=== PATIENT | male | born 1955 | race Two or more races ===

== ENCOUNTER 2017-04-08 07:50 | Emergency (ER) | payer OTHER ==
[~2017-04-08] VITALS: Ht 167.6 cm; Wt 70.5 kg
[2017-04-08 08:51] LABS: BASO % 0.4 % (0.0-1.0); EOS # 0.2 10^3/uL (0.0-0.50); EOS % 3.3 % (0.0-3.0); IMMATURE GRANULOCYTE % 0.4 % (0-0); LYMPH # 1.3 10^3/uL (1.5-4.5); LYMPH % 27.7 % (24.0-44.0); MEAN CORPUSCULAR HEMOGLOBIN 31.9 pg (27.0-33.0); MEAN CORPUSCULAR HGB CONC 32.9 g/dl (32.0-36.5); MEAN CORPUSCULAR VOLUME 96.8 fl (80.0-96.0); MONO # 0.4 10^3/uL (0.0-0.8); MONO % 7.9 % (0.0-5.0); NEUTROPHILS # 2.9 10^3/uL (1.8-7.7); NEUTROPHILS % 60.3 % (36.0-66.0); RED CELL DISTRIBUTION WIDTH 15.9 % (11.5-14.5); WHITE BLOOD COUNT 4.8 10^3/uL (4.0-10.0)
[2017-04-08 09:14] LABS: ANION GAP 6 MEQ/L (8-16); BLOOD UREA NITROGEN 22 MG/DL (7-18); CARBON DIOXIDE LEVEL 25 MEQ/L (21-32); CHLORIDE LEVEL 105 MEQ/L (98-107); CREATININE FOR GFR 1.11 MG/DL (0.70-1.30); GLOMERULAR FILTRATION RATE > 60.0 (>49); GLUCOSE, FASTING 111 MG/DL (80-110); POTASSIUM SERUM 4.3 MEQ/L (3.5-5.1); SODIUM LEVEL 136 MEQ/L (136-145)
[2017-04-08 09:40] LABS: PLATELET COUNT, AUTOMATED 66 10^3/uL (150-450); PLATELET F 66
[2017-04-08] MEDS ORDERED: PERCOCET 5MG/325MG TAB PO ONE (10:15)
[2017-04-08] MEDS ORDERED: AUGMENTIN 875 MG TAB PO ONE (12:00)
[2017-04-08] MEDS ORDERED: AUGM875T28 PO (12:09)
[2017-04-08] MEDS ORDERED: PERC5TAB12 PO (12:09)
[2017-04-08 12:47] VITALS: BP 133/66
== END 2017-04-08 12:50 | disposition home or self-care (01) ==
LOC: EDBD 07:50 → M ED 07:50
DX: L03.116 Cellulitis of left lower limb (principal); B19.20 Unspecified viral hepatitis C without hepatic coma; M67.40 Ganglion, unspecified site; Z86.73 Personal history of transient ischemic attack (TIA), and cerebral infarction without residual deficits; Z95.0 Presence of cardiac pacemaker; F17.210 Nicotine dependence, cigarettes, uncomplicated

== ENCOUNTER → 2017-04-13 | Outpatient (REF) | payer OTHER ==
[~2017-04-13] MED LIST: AUGM875T28 PO; PERC5TAB12 PO
== END ==
LOC: M SFHCPLAZ 16:59
PROVIDERS: ATTEND Family Medicine
DX: L03.116 Cellulitis of left lower limb (principal)

== ENCOUNTER → 2017-04-22 | Outpatient (REF) | payer MEDICAID, OTHER ==
[2017-04-22 20:08] LABS: ALBUMIN 3.2 GM/DL (3.2-5.2); ALBUMIN/GLOBULIN RATIO 0.65 (1.00-1.93); ALKALINE PHOSPHATASE 148 U/L (45-117); ALT/SGPT 64 U/L (12-78); ANION GAP 6 MEQ/L (8-16); AST/SGOT 59 U/L (7-37); BILIRUBIN,TOTAL 0.5 MG/DL (0.2-1.0); BLOOD UREA NITROGEN 23 MG/DL (7-18); CALCIUM LEVEL 9.1 MG/DL (8.8-10.2); CARBON DIOXIDE LEVEL 28 MEQ/L (21-32); CHLORIDE LEVEL 107 MEQ/L (98-107); CREATININE FOR GFR 1.09 MG/DL (0.70-1.30); GLOMERULAR FILTRATION RATE > 60.0 (>49); GLUCOSE, FASTING 88 MG/DL (80-110); POTASSIUM SERUM 4.9 MEQ/L (3.5-5.1); SODIUM LEVEL 141 MEQ/L (136-145); TOTAL PROTEIN 8.1 GM/DL (6.4-8.2)
== END ==
LOC: M SFHCPLAZ 14:01
PROVIDERS: ATTEND Family Medicine
DX: L03.116 Cellulitis of left lower limb (principal); Z86.73 Personal history of transient ischemic attack (TIA), and cerebral infarction without residual deficits; Z86.19 Personal history of other infectious and parasitic diseases

== ENCOUNTER → 2017-04-28 | Outpatient (REF) | payer OTHER | LOC: M LAB REF 12:31 | PROVIDERS: ATTEND Podiatrist Foot & Ankle Surgery | DX: L03.116 Cellulitis of left lower limb (principal) ==

== ENCOUNTER → 2017-06-19 | Outpatient (CLI) | payer OTHER | LOC: M LRY 14:30 | DX: Z01.818 Encounter for other preprocedural examination (principal); Z53.9 Procedure and treatment not carried out, unspecified reason ==

== ENCOUNTER → 2017-06-29 | Outpatient (REF) | payer OTHER ==
[2017-06-29 13:22] LABS: EOS # 0.1 10^3/uL (0.0-0.50); EOS % 6.6 % (0.0-3.0); HEMOGLOBIN 11.7 g/dl (14.0-18.0); LYMPH # 0.8 10^3/uL (1.5-4.5); LYMPH % 42.9 % (24.0-44.0); MEAN CORPUSCULAR HEMOGLOBIN 32.3 pg (27.0-33.0); MEAN CORPUSCULAR HGB CONC 33.4 g/dl (32.0-36.5); MEAN CORPUSCULAR VOLUME 96.7 fl (80.0-96.0); MONO # 0.2 10^3/uL (0.0-0.8); MONO % 9.2 % (0.0-5.0); NEUTROPHILS % 40.3 % (36.0-66.0); RED BLOOD COUNT 3.62 10^6/uL (4.30-6.10); RED CELL DISTRIBUTION WIDTH 17.7 % (11.5-14.5)
[2017-06-29 13:27] LABS: NEUTROPHILS # 0.8 10^3/uL (1.8-7.7); POS COUNT POS FLAG; POSITIVE DIFF POS FLAG
[2017-06-29 13:28] LABS: PLATELET COUNT, AUTOMATED 55 10^3/uL (150-450)
[2017-06-29 13:29] LABS: IMMATURE PLATELET FRACTION % 9.5 % (0.0-10.9); PLATELET F 48
[2017-06-29 13:40] LABS: INR 1.15; PROTHROMBIN TIME 14.9 SECONDS (12.4-14.5)
[2017-06-29 14:13] LABS: TESTOSTERONE 373 NG/DL (241-827)
[2017-06-29 14:13] LABS: ALBUMIN 3.2 GM/DL (3.2-5.2); ALBUMIN/GLOBULIN RATIO 0.68 (1.00-1.93); ALKALINE PHOSPHATASE 169 U/L (45-117); ALT/SGPT 53 U/L (12-78); ANION GAP 6 MEQ/L (8-16); AST/SGOT 56 U/L (7-37); BILIRUBIN,TOTAL 0.4 MG/DL (0.2-1.0); BLOOD UREA NITROGEN 20 MG/DL (7-18); CALCIUM LEVEL 8.9 MG/DL (8.8-10.2); CARBON DIOXIDE LEVEL 27 MEQ/L (21-32); CHLORIDE LEVEL 108 MEQ/L (98-107); CREATININE FOR GFR 0.83 MG/DL (0.70-1.30); GLOMERULAR FILTRATION RATE > 60.0 (>49); GLUCOSE, FASTING 92 MG/DL (70-100); POTASSIUM SERUM 4.7 MEQ/L (3.5-5.1); SODIUM LEVEL 141 MEQ/L (136-145); TOTAL 25(OH) VITAMIN D 28.8 NG/ML (30.0-100.0); TOTAL PROTEIN 7.9 GM/DL (6.4-8.2)
[2017-06-29 14:14] LABS: HEPATITIS B SURFACE ANTIBODY NEGATIVE (POSITIVE)
[2017-06-29 14:16] LABS: FREE T4 1.22 NG/DL (0.76-1.46)
[2017-06-29 14:24] LABS: HEPATITIS B SURFACE ANTIGEN NEGATIVE (NEGATIVE)
[2017-06-30 10:03] LABS: ALPHA FETOPROTEIN TUMOR QUANT 26.4 NG/ML (<8.1)
[2017-07-01 08:06] LABS: HEPATITIS A IgG TOTAL Positive (Negative)
[2017-07-01 08:06] LABS: HEPATITIS B CORE ANTIBODY IGG Negative (Negative)
== END ==
LOC: M SFHCPLAZ 11:50
DX: B18.2 Chronic viral hepatitis C (principal)

== ENCOUNTER → 2017-07-06 | Outpatient (CLI) | payer OTHER | LOC: M RAD 08:00 | DX: B18.2 Chronic viral hepatitis C (principal); N28.1 Cyst of kidney, acquired | CPT/HCPCS: 76705 ==

== ENCOUNTER → 2017-07-07 | Outpatient (CLI) | payer OTHER ==
[2017-07-07 18:03] LABS: HEMATOCRIT 35.6 % (42.0-52.0); HEMOGLOBIN 11.9 g/dl (14.0-18.0); MEAN CORPUSCULAR HEMOGLOBIN 32.3 pg (27.0-33.0); MEAN CORPUSCULAR HGB CONC 33.4 g/dl (32.0-36.5); MEAN CORPUSCULAR VOLUME 96.7 fl (80.0-96.0); RED BLOOD COUNT 3.68 10^6/uL (4.30-6.10); RED CELL DISTRIBUTION WIDTH 17.5 % (11.5-14.5); WHITE BLOOD COUNT 2.7 10^3/uL (4.0-10.0)
[2017-07-07 18:18] LABS: PLATELET COUNT, AUTOMATED 67 10^3/uL (150-450)
[2017-07-07 18:19] LABS: IMMATURE PLATELET FRACTION % 6.9 % (0.0-10.9)
[2017-07-07 19:22] LABS: ANION GAP 9 MEQ/L (8-16); BLOOD UREA NITROGEN 20 MG/DL (7-18); CALCIUM LEVEL 8.8 MG/DL (8.8-10.2); CARBON DIOXIDE LEVEL 24 MEQ/L (21-32); CHLORIDE LEVEL 106 MEQ/L (98-107); CREATININE FOR GFR 0.93 MG/DL (0.70-1.30); GLOMERULAR FILTRATION RATE > 60.0 (>49); GLUCOSE, FASTING 97 MG/DL (70-100); POTASSIUM SERUM 4.1 MEQ/L (3.5-5.1); SODIUM LEVEL 139 MEQ/L (136-145)
== END ==
LOC: M LRY 12:56
DX: Z01.818 Encounter for other preprocedural examination (principal); M67.472 Ganglion, left ankle and foot (principal)
CPT/HCPCS: 80048

== ENCOUNTER → 2017-07-08 | Outpatient (CLI) | payer OTHER | LOC: M RAD 12:41 | DX: F17.210 Nicotine dependence, cigarettes, uncomplicated (principal) | CPT/HCPCS: G0297 ==

== ENCOUNTER 2017-07-29 11:35 | Day surgery (SDC) | payer OTHER ==
[2017-07-29] MEDS: LR 1,000 ML IV (13:00)
[2017-07-29] MEDS ORDERED: ONDANSETRON 4MG/2ML VIAL (J2405) As Ordered (14:02)
[2017-07-29] MEDS ORDERED: PROPOFOL 200 MG/20 ML VIAL As Ordered (14:02)
[2017-07-29] MEDS ORDERED: LIDOCAINE 2% INJ 100 MG/5 ML SDV (FOR ANES.) As Ordered (14:02)
[2017-07-29] MEDS ORDERED: MIDAZOLAM INJ 2 MG/2 ML VIAL (J2250) As Ordered (14:03)
[2017-07-29] MEDS ORDERED: fentaNYL 100 MCG/2 ML INJECTION (J3010) As Ordered (14:03)
[2017-07-29] MEDS: LIDOCAINE 1% MDV 20ML VIAL As Ordered (15:00)
[2017-07-29] MEDS: BUPIVACAINE HCL 0.5% 10 ML VIAL As Ordered (15:00)
[2017-07-29] MEDS: dexameTHASONE 4 MG/ML 1ML VIAL (J1100) As Ordered (15:14)
[2017-07-29] MEDS ORDERED: fentaNYL 100 MCG/2 ML INJECTION (J3010) IV (16:00)
[2017-07-29] MEDS ORDERED: PERCOCET 5MG/325MG TAB PO (16:00)
[2017-07-29] MEDS ORDERED: LR 1,000 ML IV (16:00)
[2017-07-29] MEDS ORDERED: ONDANSETRON 4MG/2ML VIAL (J2405) IV (16:00)
== END 2017-07-29 16:42 | disposition home or self-care (01) ==
LOC: M SDC 11:35
DX: M79.89 Other specified soft tissue disorders (principal); L03.116 Cellulitis of left lower limb; K74.60 Unspecified cirrhosis of liver; R74.8 Abnormal levels of other serum enzymes; R77.2 Abnormality of alphafetoprotein; F17.210 Nicotine dependence, cigarettes, uncomplicated; I49.9 Cardiac arrhythmia, unspecified; R55 Syncope and collapse; R91.8 Other nonspecific abnormal finding of lung field; Z88.5 Allergy status to narcotic agent; Z79.82 Long term (current) use of aspirin; Z95.0 Presence of cardiac pacemaker; Z86.73 Personal history of transient ischemic attack (TIA), and cerebral infarction without residual deficits
CPT/HCPCS: 11422

== ENCOUNTER → 2017-08-20 | Outpatient (REF) | payer OTHER ==
[2017-08-20 15:52] LABS: BASO % 0.6 % (0.0-1.0); EOS # 0.2 10^3/uL (0.0-0.50); EOS % 4.7 % (0.0-3.0); HEMATOCRIT 33.5 % (42.0-52.0); HEMOGLOBIN 11.1 g/dl (13.5-17.5); IMMATURE GRANULOCYTE % 0.3 % (0-3.0); LYMPH # 1.3 10^3/uL (1.5-4.5); LYMPH % 36.8 % (24.0-44.0); MEAN CORPUSCULAR HEMOGLOBIN 32.6 pg (27.0-33.0); MEAN CORPUSCULAR HGB CONC 33.1 g/dl (32.0-36.5); MEAN CORPUSCULAR VOLUME 98.5 fl (80.0-96.0); MONO # 0.4 10^3/uL (0.0-0.8); MONO % 10.3 % (0.0-5.0); NEUTROPHILS # 1.7 10^3/uL (1.8-7.7); NEUTROPHILS % 47.3 % (36.0-66.0); RED CELL DISTRIBUTION WIDTH 15.8 % (11.5-14.5); WHITE BLOOD COUNT 3.6 10^3/uL (4.0-10.0)
[2017-08-20 15:53] LABS: PLATELET COUNT, AUTOMATED 85 10^3/uL (150-450)
[2017-08-20 15:55] LABS: IMMATURE PLATELET FRACTION % 4.8 % (0.0-10.9)
[2017-08-20 16:01] LABS: ALBUMIN 3.5 GM/DL (3.2-5.2); ALBUMIN/GLOBULIN RATIO 0.74 (1.00-1.93); ALKALINE PHOSPHATASE 137 U/L (45-117); ALT/SGPT 15 U/L (12-78); AST/SGOT 14 U/L (7-37); BILIRUBIN,DIRECT 0.2 MG/DL (0.0-0.2); BILIRUBIN,TOTAL 0.5 MG/DL (0.2-1.0); TOTAL PROTEIN 8.2 GM/DL (6.4-8.2)
[2017-08-20 16:10] LABS: VITAMIN B12 LEVEL 416 PG/ML
[2017-08-20 16:11] LABS: FOLATE 16.6 NG/ML
[2017-08-25 10:11] LABS: HEPATITIS C QUANTITATION HCV Not Detected IU/mL (.)
== END ==
LOC: M SFHCPLAZ 13:38
DX: B18.2 Chronic viral hepatitis C (principal); R53.82 Chronic fatigue, unspecified

== ENCOUNTER 2017-10-28 15:35 | Emergency (ER) | payer OTHER ==
[2017-10-28] MEDS: NS 1,000 ML IV (16:00)
[2017-10-28 16:11] LABS: BASO % 0.9 % (0.0-1.0); EOS # 0.2 10^3/uL (0.0-0.50); EOS % 4.5 % (0.0-3.0); HEMATOCRIT 30.3 % (42.0-52.0); HEMOGLOBIN 10.2 g/dl (13.5-17.5); LYMPH # 1.4 10^3/uL (1.5-4.5); LYMPH % 40.5 % (24.0-44.0); MEAN CORPUSCULAR HGB CONC 33.7 g/dl (32.0-36.5); MEAN CORPUSCULAR VOLUME 92.1 fl (80.0-96.0); MONO # 0.4 10^3/uL (0.0-0.8); MONO % 10.5 % (0.0-5.0); NEUTROPHILS # 1.5 10^3/uL (1.8-7.7); NEUTROPHILS % 43.6 % (36.0-66.0); RED BLOOD COUNT 3.29 10^6/uL (4.30-6.10); RED CELL DISTRIBUTION WIDTH 14.6 % (11.5-14.5); WHITE BLOOD COUNT 3.3 10^3/uL (4.0-10.0)
[2017-10-28 16:13] LABS: PLATELET COUNT, AUTOMATED 77 10^3/uL (150-450)
[2017-10-28 16:14] LABS: IMMATURE PLATELET FRACTION % 2.8 % (0.0-10.9)
[2017-10-28 16:31] LABS: ALBUMIN 3.4 GM/DL (3.2-5.2); ALBUMIN/GLOBULIN RATIO 0.74 (1.00-1.93); ALKALINE PHOSPHATASE 116 U/L (45-117); ALT/SGPT 18 U/L (12-78); ANION GAP 6 MEQ/L (8-16); AST/SGOT 26 U/L (7-37); BILIRUBIN,DIRECT < 0.1 MG/DL (0.0-0.2); BILIRUBIN,TOTAL 0.4 MG/DL (0.2-1.0); BLOOD UREA NITROGEN 23 MG/DL (7-18); CARBON DIOXIDE LEVEL 24 MEQ/L (21-32); CHLORIDE LEVEL 109 MEQ/L (98-107); CPK CREATINE PHOSPHOKINASE 61 U/L (39-308); GLOMERULAR FILTRATION RATE > 60.0 (>49); GLUCOSE, FASTING 103 MG/DL (70-100); POTASSIUM SERUM 4.4 MEQ/L (3.5-5.1); SALICYLATE LEVEL 5.8 MG/DL (5.0-30.0); SODIUM LEVEL 139 MEQ/L (136-145); TROPONIN I 0.07 NG/ML (< 0.10)
[2017-10-28 16:32] LABS: CK-MB VALUE MASS < 1.0 NG/ML (<3.6); MB/CK RELATIVE INDEX 1.63 (< OR =4)
[2017-10-28 16:36] LABS: ACETAMINOPHEN LEVEL < 2.0 UG/ML (10.0-30.0); ETHYL ALCOHOL (ETHANOL) < 0.003 % (0.000-0.010)
[2017-10-28] MEDS: MECLIZINE 25 MG TABLET PO (17:15)
== END 2017-10-28 17:45 | disposition home or self-care (01) ==
LOC: M ED 15:35
DX: R42 Dizziness and giddiness (principal); Z95.0 Presence of cardiac pacemaker; I51.7 Cardiomegaly; I51.9 Heart disease, unspecified; I10 Essential (primary) hypertension; Z86.19 Personal history of other infectious and parasitic diseases; Z87.891 Personal history of nicotine dependence; Z79.82 Long term (current) use of aspirin; Z79.899 Other long term (current) drug therapy; Z88.5 Allergy status to narcotic agent
CPT/HCPCS: 71046

== ENCOUNTER → 2018-02-05 | Outpatient (REF) | payer OTHER ==
[2018-02-05 13:14] LABS: EOS # 0.1 10^3/uL (0.0-0.50); EOS % 3.8 % (0.0-3.0); HEMATOCRIT 33.3 % (42.0-52.0); HEMOGLOBIN 11.1 g/dl (13.5-17.5); LYMPH # 1.4 10^3/uL (1.5-4.5); LYMPH % 44.6 % (24.0-44.0); MEAN CORPUSCULAR HEMOGLOBIN 29.2 pg (27.0-33.0); MEAN CORPUSCULAR HGB CONC 33.3 g/dl (32.0-36.5); MEAN CORPUSCULAR VOLUME 87.6 fl (80.0-96.0); MONO # 0.2 10^3/uL (0.0-0.8); MONO % 7.3 % (0.0-5.0); NEUTROPHILS # 1.4 10^3/uL (1.8-7.7); NEUTROPHILS % 43.3 % (36.0-66.0); RED CELL DISTRIBUTION WIDTH 16.5 % (11.5-14.5); WHITE BLOOD COUNT 3.1 10^3/uL (4.0-10.0)
[2018-02-05 13:18] LABS: PLATELET COUNT, AUTOMATED 82 10^3/uL (150-450)
[2018-02-05 13:19] LABS: IMMATURE PLATELET FRACTION % 3.7 % (0.0-10.9)
[2018-02-05 13:27] LABS: INR 1.13; PROTHROMBIN TIME 14.6 SECONDS (12.1-14.4)
[2018-02-05 14:03] LABS: ALBUMIN 3.7 GM/DL (3.2-5.2); ALBUMIN/GLOBULIN RATIO 0.86 (1.00-1.93); ALKALINE PHOSPHATASE 146 U/L (45-117); ALT/SGPT 16 U/L (12-78); ANION GAP 9 MEQ/L (8-16); AST/SGOT 11 U/L (7-37); BILIRUBIN,TOTAL 0.3 MG/DL (0.2-1.0); BLOOD UREA NITROGEN 25 MG/DL (7-18); CALCIUM LEVEL 9.5 MG/DL (8.8-10.2); CARBON DIOXIDE LEVEL 23 MEQ/L (21-32); CHLORIDE LEVEL 107 MEQ/L (98-107); CREATININE FOR GFR 0.98 MG/DL (0.70-1.30); GLOMERULAR FILTRATION RATE > 60.0 (>49); GLUCOSE, FASTING 83 MG/DL (70-100); POTASSIUM SERUM 4.6 MEQ/L (3.5-5.1); SODIUM LEVEL 139 MEQ/L (136-145)
[2018-02-05 14:48] LABS: ALPHA FETOPROTEIN TUMOR QUANT 6.6 NG/ML (<8.1)
== END ==
LOC: M SFHCPLAZ 11:13
DX: B18.2 Chronic viral hepatitis C (principal); K74.69 Other cirrhosis of liver

== ENCOUNTER → 2018-08-04 | Outpatient (CLI) | payer MEDICARE, OTHER ==
[~2018-08-04] MED LIST changes: +AMOX500T PO; +ASPI1TAB20 PO; +BENA25CA4 PO; +HYDR-3713 PO; +MECL-68 PO; +vitamin B12 IM
[2018-08-04 10:36] LABS: BASO % 0.7 % (0.0-1.0); EOS # 0.3 10^3/uL (0.0-0.50); EOS % 5.7 % (0.0-3.0); HEMATOCRIT 35.7 % (42.0-52.0); HEMOGLOBIN 11.4 g/dl (13.5-17.5); LYMPH # 1.4 10^3/uL (1.5-4.5); LYMPH % 31.1 % (24.0-44.0); MEAN CORPUSCULAR HEMOGLOBIN 28.7 pg (27.0-33.0); MEAN CORPUSCULAR HGB CONC 31.9 g/dl (32.0-36.5); MEAN CORPUSCULAR VOLUME 89.9 fl (80.0-96.0); MONO # 0.4 10^3/uL (0.0-0.8); NEUTROPHILS # 2.4 10^3/uL (1.8-7.7); RED BLOOD COUNT 3.97 10^6/uL (4.30-6.10); WHITE BLOOD COUNT 4.4 10^3/uL (4.0-10.0)
[2018-08-04 10:41] LABS: PLATELET COUNT, AUTOMATED 94 10^3/uL (150-450)
[2018-08-04 11:03] LABS: ALBUMIN 3.8 GM/DL (3.2-5.2); ALT/SGPT 17 U/L (12-78); BILIRUBIN,TOTAL 0.3 MG/DL (0.2-1.0); BLOOD UREA NITROGEN 22 MG/DL (7-18); CALCIUM LEVEL 8.9 MG/DL (8.8-10.2); CARBON DIOXIDE LEVEL 29 MEQ/L (21-32); CHLORIDE LEVEL 110 MEQ/L (98-107); CHOLESTEROL LEVEL 151 MG/DL (<200); CHOLESTEROL RISK RATIO 2.287 (<5); CREATININE FOR GFR 1.05 MG/DL (0.70-1.30); FERRITIN 11 NG/ML (26-388); FREE T4 1.05 NG/DL (0.76-1.46); GLOMERULAR FILTRATION RATE > 60.0 (>49); GLUCOSE, FASTING 104 MG/DL (70-100); HDL CHOLESTEROL 66 MG/DL (>40); IRON (FE) 47 UG/DL (65-175); LDL CHOLESTEROL 64 MG/DL (<100); NON-HDL-C 85 MG/DL; PERCENT SATURATION 12.7 % (19.7-50.0); POTASSIUM SERUM 4.9 MEQ/L (3.5-5.1); SODIUM LEVEL 142 MEQ/L (136-145); TOTAL IRON BINDING CAPACITY 371 UG/DL (250-450); TOTAL PROTEIN 7.9 GM/DL (6.4-8.2); TRIGLYCERIDES LEVEL 104 MG/DL (<150)
[2018-08-04 11:13] LABS: HEMOGLOBIN A1c 5.6 %
--- NOTE | 2018-08-04 18:23 | REP ---
Clinical: Cirrhosis. Technique: Real time cespedes scale ultrasound examination using curved array transducer. Findings: Liver demonstrates a very subtle coarsened echotexture consistent with cirrhosis and hepatocellular disease. 6 mm simple cyst identified in the left lobe. No further hepatic lesions identified. The pancreas is incompletely evaluated due to interposed bowel gas. The the patient is known to be status post cholecystectomy. No biliary ductal dilatation is appreciated and the common bile duct measures 6 mm diameter. Right kidney measures 12.0 x 5.9 x 3.7 cm without hydronephrosis and includes 1.1 cm cortical mid pole cyst. Impression: 1. Subcentimeter hepatic cyst. Coarsened echotexture consistent with hepatocellular disease. No focal hepatic lesion identified. 2. 6 mm right renal cyst. Electronically Signed by Negrito Griffin MD 08/04/2018 06:14 P
--- NOTE | 2018-08-05 04:12 | REP ---
Clinical: Right knee pain. Technique: AP and lateral views. Findings: Mild anterior swelling cannot be excluded. No acute fracture or dislocation. No obvious effusion. Impression: Possible mild swelling. Electronically Signed by Negrito Griffin MD 08/05/2018 04:03 A
[2018-08-06 14:26] LABS: AFP TUMOR TOTAL 4.9 ng/mL (0.0-8.0)
== END ==
LOC: M RAD 09:55
PROVIDERS: ATTEND Family Medicine
DX: Z13.1 Encounter for screening for diabetes mellitus (principal); N28.1 Cyst of kidney, acquired; K76.89 Other specified diseases of liver; M25.561 Pain in right knee; K74.60 Unspecified cirrhosis of liver; Z13.228 Encounter for screening for other metabolic disorders; D53.9 Nutritional anemia, unspecified; R07.89 Other chest pain

== ENCOUNTER → 2018-10-27 | Outpatient (CLI) | payer MEDICARE, MEDICAID ==
[~2018-10-27] MED LIST changes: +FLON1SPR; +GASTROGRAFIN SOLUTION 30ML (Q9963) As Ordered ONE; +IRON65TA2 PO; +ISOVUE-370 76% 100ML VIAL (Q9967) As Ordered ONE; +MECL1CHW PO
--- NOTE | 2018-10-27 17:12 | REP ---
REASON FOR EXAM: History of cirrhosis. Liver ultrasound performed 08/04/2018 showed a coarsened hepatic echo pattern and subcentimeter sized hepatic cyst. COMPARISON EXAMINATION: 08/03/2017 which is the latest prior. CONTRAST: 100 mL Isovue-370. There is an abnormal caudate to left lobe liver ratio consistent with the patient's diagnosis of cirrhosis. There are no enhancing hepatic abnormalities. There is a simple cyst in the lateral segment of the left lobe which measures approximately a centimeter. Surgical clips are seen in the gallbladder fossa from previous cholecystectomy. The pancreas is atrophic but without evidence of a mass or abnormal enhancement. The spleen is within normal limits. There are multiple bilateral renal cysts, the largest cyst is on the left and measures 6.1 cm. All cysts have water Hounsfield unit readings without septations or mural nodules consistent with Bosniak class I cysts. They have gotten slightly larger when compared to the prior exam. The abdominal aorta and paraaortic regions are within normal limits. There is no free fluid or free air. The bowel loops and their mesenteries are within normal limits. There is no evidence of an intraabdominal mass or adenopathy. CT PELVIS: The bowel loops and their mesenteries are within normal limits. There is no evidence of a mass or adenopathy. There is no free fluid or free air. There is minimal corpora amylacea. Bone window technique throughout the exam shows the osseous structures to be essentially unchanged from the prior exam. There is bilateral L5 spondylolysis and spinal degenerative changes status quo. The lung bases show bilateral nodules all of which are stable when compared to the 08/03/2017 lung base images. IMPRESSION:1. Evidence of cirrhosis. 2. Bilateral Bosniak class 1 renal cyst status quo. 3. Stable bilateral lung base nodules. 4. No evidence of acute intraabdominal or intrapelvic disease with other findings as described above. Electronically Signed by Nikita Trevino DO 10/28/2018 03:34 P
== END ==
LOC: M RAD 15:23
PROVIDERS: ATTEND Internal Medicine Gastroenterology
DX: K74.60 Unspecified cirrhosis of liver (principal); N28.1 Cyst of kidney, acquired; R91.8 Other nonspecific abnormal finding of lung field; R93.3 Abnormal findings on diagnostic imaging of other parts of digestive tract
CPT/HCPCS: 74177; G0463; Q9963; Q9967

== ENCOUNTER 2018-12-12 21:30 | Emergency (ER) | payer MEDICARE, MEDICAID ==
[~2018-12-12] VITALS: Ht 167.6 cm; Wt 72.7 kg
[~2018-12-12 21:30] MED LIST changes: +ASPI-524 PO; -ASPI1TAB20 PO; -GASTROGRAFIN SOLUTION 30ML (Q9963) As Ordered ONE; -ISOVUE-370 76% 100ML VIAL (Q9967) As Ordered ONE
[2018-12-12] MEDS ORDERED: GI COCKTAIL 50ML BTL(HYOSCYAMINE/MAALOX/LIDOCAINE VISCOUS)(1:3:1) PO ONE (21:45)
[2018-12-12] MEDS ORDERED: FEXO-5 PO (21:52)
[2018-12-12] MEDS ORDERED: [UNRECOGNIZED DRUG - CODE] PO (21:52)
[2018-12-12 22:23] LABS: INR 1.14; PARTIAL THROMBOPLASTIN TIME 31.5 SECONDS (25.0-38.4); PROTHROMBIN TIME 14.3 SECONDS (11.8-14.0)
[2018-12-12 22:41] LABS: ALBUMIN 3.5 GM/DL (3.2-5.2); ALT/SGPT 14 U/L (12-78); BILIRUBIN,DIRECT 0.1 MG/DL (0.0-0.2); BILIRUBIN,TOTAL 0.3 MG/DL (0.2-1.0); BLOOD UREA NITROGEN 27 MG/DL (7-18); C REACTIVE PROTEIN QUANTITATIV < 0.30 MG/DL (0.00-0.30); CALCIUM LEVEL 9.1 MG/DL (8.8-10.2); CARBON DIOXIDE LEVEL 24 MEQ/L (21-32); CHLORIDE LEVEL 111 MEQ/L (98-107); CK-MB VALUE MASS < 1.0 NG/ML (<3.6); CPK CREATINE PHOSPHOKINASE 24 U/L (39-308); CREATININE FOR GFR 0.98 MG/DL (0.70-1.30); GLOMERULAR FILTRATION RATE > 60.0 (>49); GLUCOSE, FASTING 95 MG/DL (70-100); LIPASE 83 U/L (73-393); MB/CK RELATIVE INDEX 4.17 (< OR =4); NT-PRO BNP 765 PG/ML (<125); SODIUM LEVEL 141 MEQ/L (136-145); TOTAL PROTEIN 7.4 GM/DL (6.4-8.2); TROPONIN I 0.06 NG/ML (< 0.10)
[2018-12-12] MEDS ORDERED: SUCR1TA PO (23:16)
[2018-12-12] MEDS ORDERED: OMEP40CA2 PO (23:16)
[2018-12-12 23:30] VITALS: BP 151/93
--- NOTE | 2018-12-13 07:07 | REP ---
Portable chest, 10:19 p.m., single AP view with the patient sitting: Comparison is 10/28/2017. The lung arizmendi are clear. The cardiac size is normal. The ashlie, mediastinum, and skeletal structures are unremarkable. There is a dual-chamber pacemaker entering from the right, unchanged. Impression: Negative portable chest. There is no interval change. Electronically Signed by Godfrey Marie MD 12/13/2018 06:58 A
--- NOTE | 2018-12-13 07:20 | ECGEPIP ---
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
== END 2018-12-12 23:42 | disposition home or self-care (01) ==
LOC: M ED 21:30 → EDBD 21:30 → M ED 23:42
DX: K21.0 Gastro-esophageal reflux disease with esophagitis (principal); R07.89 Other chest pain; R05 Cough; B19.20 Unspecified viral hepatitis C without hepatic coma; Z86.73 Personal history of transient ischemic attack (TIA), and cerebral infarction without residual deficits; Z87.891 Personal history of nicotine dependence; Z95.0 Presence of cardiac pacemaker; Z88.5 Allergy status to narcotic agent; Z79.899 Other long term (current) drug therapy; Z79.82 Long term (current) use of aspirin

== ENCOUNTER → 2019-07-12 | Outpatient (CLI) | payer MEDICARE, MEDICAID ==
[~2019-07-12] MED LIST changes: -ASPI-524 PO; +ASPI325T57 PO; +FEXO-5 PO; -MECL-68 PO; +MECL1TAB31 PO; +OMEP40CA97 PO; +SUCR1TA PO; +[UNRECOGNIZED DRUG - CODE] PO
[2019-07-12 15:48] LABS: INR 1.16; PROTHROMBIN TIME 14.6 SECONDS (11.8-14.0)
[2019-07-12 15:59] LABS: ALBUMIN 3.9 GM/DL (3.2-5.2); BILIRUBIN,DIRECT 0.2 MG/DL (0.0-0.2); BILIRUBIN,TOTAL 0.4 MG/DL (0.2-1.0); PERCENT SATURATION 48.3 % (19.7-50.0); TOTAL PROTEIN 7.3 GM/DL (6.4-8.2)
== END ==
LOC: M LAB 14:12
PROVIDERS: ATTEND Internal Medicine Gastroenterology
DX: D50.9 Iron deficiency anemia, unspecified (principal)

== ENCOUNTER 2019-07-24 19:12 | Emergency (ER) | payer MEDICARE, MEDICAID ==
[~2019-07-24] VITALS: Ht 167.6 cm; Wt 71.8 kg
[2019-07-24 19:40] LABS: BASO % 0.5 % (0.0-1.0); EOS # 0.2 10^3/uL (0.0-0.5); EOS % 3.1 % (0.0-3.0); HEMATOCRIT 38.7 % (42.0-52.0); HEMOGLOBIN 13.7 g/dl (13.5-17.5); LYMPH # 1.1 10^3/uL (1.5-5.0); LYMPH % 19.9 % (24.0-44.0); MEAN CORPUSCULAR HEMOGLOBIN 34.7 pg (27.0-33.0); MEAN CORPUSCULAR HGB CONC 35.4 g/dl (32.0-36.5); MONO # 0.4 10^3/uL (0.0-0.8); MONO % 7.4 % (0.0-5.0); NEUTROPHILS # 3.8 10^3/uL (1.5-8.5); NEUTROPHILS % 68.9 % (36.0-66.0); PLATELET COUNT, AUTOMATED 115 10^3/uL (150-450); RED BLOOD COUNT 3.95 10^6/uL (4.30-6.10); WHITE BLOOD COUNT 5.5 10^3/uL (4.0-10.0)
[2019-07-24 20:21] LABS: ALBUMIN 3.7 GM/DL (3.2-5.2); ALT/SGPT 18 U/L (12-78); BILIRUBIN,DIRECT 0.1 MG/DL (0.0-0.2); BILIRUBIN,TOTAL 0.4 MG/DL (0.2-1.0); BLOOD UREA NITROGEN 24 MG/DL (7-18); CALCIUM LEVEL 8.8 MG/DL (8.8-10.2); CARBON DIOXIDE LEVEL 24 MEQ/L (21-32); CHLORIDE LEVEL 106 MEQ/L (98-107); CK-MB VALUE MASS 1.3 NG/ML (<3.6); CPK CREATINE PHOSPHOKINASE 31 U/L (39-308); CREATININE FOR GFR 0.94 MG/DL (0.70-1.30); GLOMERULAR FILTRATION RATE > 60.0 (>49); GLUCOSE, FASTING 103 MG/DL (70-100); LIPASE 53 U/L (73-393); MB/CK RELATIVE INDEX 4.19 (< OR =4); POTASSIUM SERUM 4.4 MEQ/L (3.5-5.1); SODIUM LEVEL 137 MEQ/L (136-145); TOTAL PROTEIN 7.3 GM/DL (6.4-8.2); TROPONIN I 0.14 NG/ML (< 0.10)
[2019-07-24] MEDS ORDERED: CLOPIDOGREL 75 MG TAB PO STA (20:25)
[2019-07-24] MEDS ORDERED: HEPARIN DRIP 25,000 UNITS in IV 1 EA IV SCH (20:28)
[2019-07-24] MEDS ORDERED: ASPIRIN 325 MG TAB PO ONE (20:30)
[2019-07-24] MEDS ORDERED: HEPARIN SOD (PORCINE) 5000 UNITS/ML VIAL (J1644 PER 1000UNITS) IV ONE (20:30)
[2019-07-24 20:54] LABS: INR 1.24; PARTIAL THROMBOPLASTIN TIME 31.4 SECONDS (25.0-38.4); PROTHROMBIN TIME 15.3 SECONDS (11.8-14.0)
--- NOTE | 2019-07-24 21:06 | ECGEPIP ---
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
[2019-07-24 22:15] VITALS: BP 132/69
--- NOTE | 2019-07-25 07:58 | REP ---
Portable chest x-ray: Single view. History: Chest pain. Comparison study: December 12, 2018. Findings: Monitoring electrodes are seen. A bipolar pacemaker is seen in the right heart via the right side as before. The lungs are symmetrically aerated and free of infiltrate. Pleural angles are sharp. Heart is not felt to be enlarged. The thoracic aorta somewhat tortuous. Impression: No acute disease. Electronically Signed by Isai Gonzalez MD 07/25/2019 07:50 A
== END 2019-07-24 22:33 | disposition short-term general hospital (02) ==
LOC: M ED 19:12
DX: I21.4 Non-ST elevation (NSTEMI) myocardial infarction (principal); B18.2 Chronic viral hepatitis C; F17.200 Nicotine dependence, unspecified, uncomplicated; Z88.5 Allergy status to narcotic agent; Z95.0 Presence of cardiac pacemaker
CPT/HCPCS: 71045; 80048; 80076; 82550; 82553; 83690; 84484; 85025; 85610; 85730; 93005; 93041; 94760; 96374; 96375; 99285; J1644

== ENCOUNTER 2019-07-29 10:36 | Inpatient (IN) | payer MEDICARE, MEDICAID ==
[~2019-07-29] VITALS: Ht 167.6 cm; Wt 71.5 kg
[2019-07-29] MEDS ORDERED: METO25TA4 PO (11:01)
[2019-07-29] MEDS ORDERED: CLOP75TA2 PO (11:01)
[2019-07-29] MEDS ORDERED: AMLO10TA5 PO (11:01)
[2019-07-29] MEDS ORDERED: LISI10TA4 PO (11:01)
[2019-07-29] MEDS ORDERED: ATOR40TA75 PO (11:01)
[2019-07-29] MEDS ORDERED: NITR4TASL SL (11:01)
--- NOTE | 2019-07-29 11:14 | REP ---
CHEST SINGLE VIEW: Single view of the chest is performed. There is no acute infiltrate. The heart is not enlarged. The mediastinal silhouette is unchanged. A right pacemaker is again noted. IMPRESSION: No acute pulmonary disease. Electronically Signed by Godfrey Lopez MD 08/02/2019 03:24 P
[2019-07-29 11:20] LABS: BASO % 0.6 % (0.0-1.0); EOS # 0.3 10^3/uL (0.0-0.5); EOS % 4.7 % (0.0-3.0); HEMATOCRIT 38.7 % (42.0-52.0); HEMOGLOBIN 13.7 g/dl (13.5-17.5); LYMPH # 1.5 10^3/uL (1.5-5.0); MEAN CORPUSCULAR HEMOGLOBIN 34.4 pg (27.0-33.0); MEAN CORPUSCULAR HGB CONC 35.4 g/dl (32.0-36.5); MEAN CORPUSCULAR VOLUME 97.2 fl (80.0-96.0); MONO # 0.5 10^3/uL (0.0-0.8); MONO % 7.9 % (0.0-5.0); NEUTROPHILS % 63.3 % (36.0-66.0); PLATELET COUNT, AUTOMATED 111 10^3/uL (150-450); RED BLOOD COUNT 3.98 10^6/uL (4.30-6.10); WHITE BLOOD COUNT 6.4 10^3/uL (4.0-10.0)
[2019-07-29 11:29] LABS: INR 1.16; PARTIAL THROMBOPLASTIN TIME 31.3 SECONDS (25.0-38.4); PROTHROMBIN TIME 14.5 SECONDS (11.8-14.0)
[2019-07-29 11:37] LABS: ALBUMIN 3.7 GM/DL (3.2-5.2); ALT/SGPT 18 U/L (12-78); BILIRUBIN,DIRECT 0.2 MG/DL (0.0-0.2); BILIRUBIN,TOTAL 0.5 MG/DL (0.2-1.0); BLOOD UREA NITROGEN 21 MG/DL (7-18); CALCIUM LEVEL 9.2 MG/DL (8.8-10.2); CARBON DIOXIDE LEVEL 24 MEQ/L (21-32); CHLORIDE LEVEL 107 MEQ/L (98-107); CK-MB VALUE MASS < 1.0 NG/ML (<3.6); CPK CREATINE PHOSPHOKINASE 40 U/L (39-308); FREE T4 1.14 NG/DL (0.76-1.46); GLOMERULAR FILTRATION RATE > 60.0 (>49); GLUCOSE, FASTING 104 MG/DL (70-100); LIPASE 73 U/L (73-393); POTASSIUM SERUM 4.1 MEQ/L (3.5-5.1); SODIUM LEVEL 136 MEQ/L (136-145); TOTAL PROTEIN 7.3 GM/DL (6.4-8.2); TROPONIN I 0.82 NG/ML (< 0.10)
[2019-07-29 13:50] LABS: CK-MB VALUE MASS < 1.0 NG/ML (<3.6); CPK CREATINE PHOSPHOKINASE 32 U/L (39-308); MB/CK RELATIVE INDEX 3.12 (< OR =4); TROPONIN I 0.79 NG/ML (< 0.10)
[2019-07-29] MEDS ORDERED: CENT1TAB PO (14:36)
[2019-07-29] MEDS ORDERED: ACETAMINOPHEN TAB 650MG DOSE (2X325MG) PO PRN (15:00)
[2019-07-29] MEDS ORDERED: NITROGLYCERIN 0.4 MG SUBL TABLET SL SCH (15:00)
[2019-07-29] MEDS ORDERED: FLUTICASONE PROP 0.05% NASAL SPRAY 16 GM (FLONASE) PRN (15:00)
[2019-07-29] MEDS ORDERED: MOM 30ML SUSPENSION UDC PO PRN (15:15)
[2019-07-29] MEDS ORDERED: MAALOX 30 ML SUSP *UDC PO PRN (15:15)
--- NOTE | 2019-07-29 15:31 | HPEPDOC ---
General Date of Admission Date of Service: Jul 29, 2019 Chief Complaint The patient is a 63-year-old male admitted with a reason for visit of Chest Pain. Source: Patient, RN/MD, EMS notes reviewed, Old records Exam Limitations: No limitations Timing/Duration: Gone Severity: Moderate Associated Symptoms: Chest Pain, Other (abdominal pain) History of Present Illness Mr. Pace is a 63-year-old male who was transported to [facility] ED via emergency services. Patient reported that this morning he was having a cup of tea when he noticed a sudden onset of heart racing (palpitations), and abdominal pain and discomfort. Patient took one nitroglycerin as prescribe; It did not help. He called 911 as he also noticed that his chest felt very uncomfortable, he described it as almost having spasms in the left side of the chest. The pain was severe and lasted for approximately 1 hour. He denied feeling his pacemaker kick. He was given nitroglycerin by EMS stated it did not help. The the chest and abdominal pain have both resolved. Patient had 2 right side and 2 left-sided stents, and pacemaker placed July 24. Previously he did not take any medications and he was unaware of any medical is sues. His rehabilitation worker is Dr. De La Paz. Several days preceding his procedure, he noted persistent abdominal pain and discomfort that eventually caused him to call 911. That was the first time he became aware of his coronary disease. Home Medications Scheduled Amlodipine Besylate (Amlodipine Besylate) 10 Mg Tablet, 10 MG PO DAILY, (Reported) Aspirin (Aspirin) 325 Mg Tab, 325 MG PO DAILY, (Reported) Atorvastatin Calcium (Atorvastatin Calcium) 40 Mg Tablet, 40 MG PO DAILY, (Reported) Clopidogrel Bisulfate (Clopidogrel) 75 Mg Tablet, 75 MG PO DAILY, (Reported) Lisinopril (Lisinopril) 10 Mg Tablet, 10 MG PO DAILY, (Reported) Metoprolol Tartrate (Metoprolol Tartrate) 25 Mg Tablet, 25 MG PO BID, (Reported) Multivit-Min/FA/Lycopen/Lutein (Centrum Silver Tablet) 1 Each Tablet, 1 TAB PO DAILY, (Reported) Nitroglycerin (Nitrostat) 0.4 Mg Tab.subl, 0.4 MG SL ASDIRECTED for chest pain, (Reported) 1st sign of attack; may repeat every 5 mins; if pain persists after 3 in 15 min, medical attention is recommended Scheduled PRN Fluticasone Propionate (Flonase Allergy Relief) 9.9 Ml [place].susp, 1 SPRAY NA DAILY PRN for CONGESTION, (Reported) Allergies Coded Allergies: Opioids - Morphine Analogues (Verified Adverse Reaction, Mild, SEVERE NAUSEA AND VOMITING, 07/29/19) Past Medical History Medical History Coronary artery disease, s/p 4 stents placed July 24 History of NSTEMI Surgical History PCI and pacemaker implantation 07/24 Bilateral inguinal hernia repair. Cholecystectomy Family History Significant Family History: Cancer (brother, unknown type) Social History * Smoker: current smoker, cigarettes (before switching to type tobacco, smoked less than 1 pack per day for at least 30 years), pipe Alcohol: Denies Drugs: denies A-FIB/CHADSVASC A-FIB History Current/History of A-Fib/PAF?: No Current PO Anticoag Therapy: No Age/Risk Factor Scoring CHADSVASC: CHADSVASC Response (Comments) Value Age Risk Factor Age 65-74 years old 1 Gender Risk Factor Male 0 Hx of CHF No 0 Hx of HTN No 0 Hx of Stroke/TIA/or VTE No 0 Hx of Diabetes No 0 Hx of Vascular Disease Yes 1 Total 2 Treatment Treatment ordered: Heparin IV bridge Therapy Review of Systems Constitutional: Denies: Chills, Fever, Night Sweats Eyes: Denies: Pain ENT: Denies: Head Aches Skin: Denies: Rash Pulmonary: Denies: Dyspnea, Cough Cardiovascular: Reports: Chest Pain (see HPI), Palpitations; Denies: Orthopnea, Paroxysmal Noc. Dyspnea, Lt Headedness Gastrointestinal: Reports: Abdominal Pain (see HPI); Denies: Nausea, Vomiting, Diarrhea Genitourinary: Denies: Dysuria, Retention Hematologic: Denies: Bruising Musculoskeletal: Denies: Neck Pain, Back Pain, Joint Pain, Muscle Pain, Spasms Neurological: Denies: Weakness, Numbness, Change in speech, Confusion Psych: Reports: Mood Normal Physical Examination General Exam: Positive: Alert, Cooperative, No Acute Distress Eye Exam: Positive: PERRLA, Conjunctiva & lids normal, EOMI; Negative: Sclera icteric ENT Exam: Positive: Atraumatic, Mucous membr. moist/pink, Pharynx Normal, Other ENT (edentulous ) Neck Exam: Positive: Supple; Negative: thyromegaly Chest Exam: Positive: Clear to auscultation, Normal air movement, Wheezing (bilateral upper lungs) Heart Exam: Positive: Rate Normal, Regular Rhythm (paced), Normal S1, Normal S2; Negative: Murmurs, Rubs Telemetry: Positive: No significant arrhythmia Abdomen Exam: Positive: Normal bowel sounds, Soft; Negative: Tenderness Extremity Exam: Positive: Normal pulses; Negative: Clubbing, Cyanosis, Edema Skin Exam: Positive: Nl turgor and temperature Neuro Exam: Positive: Normal Speech, Cranial Nerves 3-12 NL Psych Exam: Positive: Mood NL, Oriented x 3 Vital Signs Vital Signs Date Time Temp Pulse Resp B/P (MAP) Pulse Ox O2 Delivery O2 Flow Rate FiO2 07/29/19 12:45 60 20 132/76 (94) 97 Room Air 07/29/19 10:47 98.0 Laboratory Data Labs 24H Laboratory Tests 2 07/29/19 10:56: Immature Granulocyte % (Auto) 0.5, Neutrophils (%) (Auto) 63.3, Lymphocytes (%) (Auto) 23.0L, Monocytes (%) (Auto) 7.9H, Eosinophils (%) (Auto) 4.7H, Basophils (%) (Auto) 0.6, Neutrophils # (Auto) 4.0, Lymphocytes # (Auto) 1.5, Monocytes # (Auto) 0.5, Eosinophils # (Auto) 0.3, Basophils # (Auto) 0.0, Nucleated Red Blood Cells % (auto) 0.0, Prothrombin Time 14.5H, Prothromb Time International Ratio 1.16, Activated Partial Thromboplast Time 31.3, Anion Gap 5L, Glomerular Filtration Rate > 60.0, Calcium Level 9.2, Total Bilirubin 0.5, Direct Bilirubin 0.2, Aspartate Amino Transf (AST/SGOT) 8, Alanine Aminotransferase (ALT/SGPT) 18, Alkaline Phosphatase 89, Total Creatine Kinase 40, Creatine Kinase MB < 1.0, Creatine Kinase MB Relative Index 2.50, Troponin I 0.82H, Total Protein 7.3, Albumin 3.7, Albumin/Globulin Ratio 1.03, Lipase 73, Thyroid Stimulating Hormone (TSH) 3.510, Free Thyroxine 1.14 07/29/19 13:10: Total Creatine Kinase 32L, Creatine Kinase MB < 1.0, Creatine Kinase MB Relative Index 3.12, Troponin I 0.79H CBC/BMP Laboratory Tests 07/29/19 10:56 Assessment/Plan Mr. Pace is a 63-year-old male who was transported to [facility] ED via emergency services. Patient reported that this morning he was having a cup of tea when he noticed a sudden onset of heart racing (palpitations), and abdominal pain and discomfort. Patient took one nitroglycerin as prescribe; It did not help. He c alled 911 as he also noticed that his chest felt very uncomfortable, he described it as almost having spasms in the left side of the chest. The pain was severe and lasted for approximately 1 hour. He denied feeling his pacemaker kick. He was given nitroglycerin by EMS stated it did not help. The the chest and abdominal pain have both resolved. Patient had 2 right side and 2 left-sided stents, and pacemaker placed July 24. Previously he did not take any medications and he was unaware of any medical issues. His rehabilitation worker is Dr. De La Paz. Patient has a past medical history which includes:Coronary artery disease, with history of NSTEMI. #1 Abnormal chest pain/palpitations. Symptoms have now resolved Cardiac enzymes currently trending downwards. There are no post-procedure cardiac enzymes available to me at this time. --Continue serial troponins EKG reveals paced rhythm. Patient requires an echocardiogram per Dr. De La Paz; Dr. Dr. James is aware and an order has been placed. Admit patient to PCU for obs, no telemetry as he is paced #2. Coronary artery disease, with history of NSTEMI Continue cardioprotective medications and as needed nitroglycerin Plan / VTE VTE Prophylaxis Ordered?: Yes (heparin) KASANDRA LESLIE PA-C Jul 29, 2019 15:31
[2019-07-29 16:34] VITALS: BP 139/89
[2019-07-29] MEDS ORDERED: SLF 3 ML SYR IV PRN (17:30)
[2019-07-29 20:00] VITALS: BP 119/71
[2019-07-29] MEDS ORDERED: PANTOPRAZOLE 40MG INJ (PROTONIX) (C9113) IV SCH (21:00)
[2019-07-29] MEDS: DOCUSATE SODIUM 100 MG CAP PO SCH (21:00)
[2019-07-29] MEDS: HEPARIN SOD (PORCINE) 5000 UNITS/ML VIAL (J1644 PER 1000UNITS) SC SCH (21:00)
[2019-07-29] MEDS: PANTOPRAZOLE 40MG TAB (PROTONIX) PO SCH (21:31)
[2019-07-29] MEDS: METOPROLOL TART 25 MG TABLET PO SCH (21:31)
[2019-07-29] MEDS: SLF 3 ML SYR IV SCH (21:31)
--- NOTE | 2019-07-29 23:35 | ECHO ---
DATE OF PROCEDURE: 07/29/2019 REFERRING PHYSICIAN: Dr. Slick Trevino PATIENT LOCATION: Room 3227 REASON FOR THE STUDY: Chest pain. 2D MEASUREMENTS: IVS: 1.1 cm LV: 5.6 cm LVPW: 1.0 cm LA: 3.6 cm Aorta: 3.2 cm IVC: 1.3 cm DOPPLER MEASUREMENTS: Peak velocity across the aortic valve: 1.2 meters per second Peak velocity across the LVOT: 0.69 meters per second Mitral E: 0.49, Mitral A: 0.80 with a ratio of 0.6 Maximum tricuspid valve velocity: 2.6 meters per second 2D COMMENTS: 1. Mildly enlarged left ventricle with normal left ventricular wall thickness but a markedly depressed global left ventricular systolic function. The anteroapical septum is akinetic. The estimated global left ventricular systolic ejection fraction is 30%. The basal anteroseptum seems to be aston. 2. Normal left atrium. Normal right atrium and right ventricle. 3. There was increased mobility noted at the level of the interatrial septum but no evidence of defect. 4. Normal aortic root. 5. No pericardial effusion seen. 6. Mildly calcified aortic valve with normal leaflet excursion. Mildly calcified mitral annulus with normal anterior mitral valve leaflet motion. Normal tricuspid valve and pulmonic valve. 7. The inferior vena cava was normal in size, central venous pressure might be normal. DOPPLER: It detects mild mitral regurgitation, mild tricuspid regurgitation, and trace pulmonic regurgitation. The calculated pulmonary artery systolic pressure varies between 30-40 mmHg. Abnormal relaxation pattern was noted across the mitral valve leaflets as well as the mitral valve annulus consistent with features of grade 1 left ventricular diastolic dysfunction. IMPRESSION: 1. Severe global left ventricular systolic dysfunction with regional wall motion abnormalities consistent with underlying coronary artery disease. There are some features of left ventricular diastolic dysfunction manifested by abnormal relaxation, grade 1. 2. Aortic valve sclerosis without stenosis or aortic regurgitation. 3. Mitral annulus calcification with mild mitral regurgitation. 4. Mild tricuspid regurgitation with mild pulmonary hypertension. 5. Trace pulmonic regurgitation. 6. Interatrial septal aneurysm was noted without evidence of shunt, benign findings. 7. Global longitudinal strain/GLS was calculated at 7.8%.
[2019-07-29 23:59] VITALS: BP 142/83
[2019-07-30 04:00] VITALS: BP 151/89
[2019-07-30] MEDS: SLF 3 ML SYR IV SCH (04:35)
[2019-07-30 06:14] LABS: HEMATOCRIT 37.6 % (42.0-52.0); HEMOGLOBIN 13.2 g/dl (13.5-17.5); MEAN CORPUSCULAR HEMOGLOBIN 34.6 pg (27.0-33.0); MEAN CORPUSCULAR HGB CONC 35.1 g/dl (32.0-36.5); MEAN CORPUSCULAR VOLUME 98.4 fl (80.0-96.0); PLATELET COUNT, AUTOMATED 105 10^3/uL (150-450); RED BLOOD COUNT 3.82 10^6/uL (4.30-6.10); WHITE BLOOD COUNT 4.9 10^3/uL (4.0-10.0)
[2019-07-30 06:37] LABS: ALBUMIN 3.4 GM/DL (3.2-5.2); ALT/SGPT 20 U/L (12-78); BILIRUBIN,TOTAL 0.6 MG/DL (0.2-1.0); BLOOD UREA NITROGEN 18 MG/DL (7-18); CALCIUM LEVEL 8.5 MG/DL (8.8-10.2); CARBON DIOXIDE LEVEL 25 MEQ/L (21-32); CHLORIDE LEVEL 109 MEQ/L (98-107); CREATININE FOR GFR 0.93 MG/DL (0.70-1.30); GLOMERULAR FILTRATION RATE > 60.0 (>49); GLUCOSE, FASTING 87 MG/DL (70-100); POTASSIUM SERUM 4.4 MEQ/L (3.5-5.1); SODIUM LEVEL 140 MEQ/L (136-145); TOTAL PROTEIN 6.7 GM/DL (6.4-8.2)
[2019-07-30 08:00] VITALS: BP 118/78
[2019-07-30] MEDS: DOCUSATE SODIUM 100 MG CAP PO SCH ×2 (08:30→08:33)
[2019-07-30] MEDS: HEPARIN SOD (PORCINE) 5000 UNITS/ML VIAL (J1644 PER 1000UNITS) SC SCH ×2 (08:30→08:37)
[2019-07-30 08:32] VITALS: BP 128/64
[2019-07-30] MEDS: METOPROLOL TART 25 MG TABLET PO SCH (08:32)
[2019-07-30] MEDS: PANTOPRAZOLE 40MG TAB (PROTONIX) PO SCH (08:32)
[2019-07-30] MEDS ORDERED: ATORVASTATIN 20 MG TAB PO SCH (09:00)
[2019-07-30] MEDS ORDERED: ASPIRIN 325 MG TAB PO SCH (09:00)
[2019-07-30] MEDS ORDERED: amLODIPine 10 MG TAB PO SCH (09:00)
[2019-07-30] MEDS ORDERED: CLOPIDOGREL 75 MG TAB PO SCH (09:00)
[2019-07-30] MEDS ORDERED: lisinopriL 10 MG TAB PO SCH (09:00)
[2019-07-30] MEDS ORDERED: PRIL20TA2 PO (10:11)
--- NOTE | 2019-07-30 10:14 | DS.PDOC ---
Discharge Summary General Date of Admission Jul 29, 2019 at 14:54 Date of Discharge 07/30/19 Discharge Summary PROCEDURES PERFORMED DURING STAY: None. ADMITTING DIAGNOSES: 1. Atypical chest pain. DISCHARGE DIAGNOSES: 1. Atypical chest pain, GERD, CAD status post cardiac stent. COMPLICATIONS/CHIEF COMPLAINT: Atypical Chest Pain Status Post Coronary Stent. HISTORY OF PRESENT ILLNESS: Mr. Pace is a 63-year-old male who was transported to [facility] ED via emergency services. Patient reported that this morning he was having a cup of tea when he noticed a sudden onset of heart racing (palpitations), and abdominal pain and discomfort. Patient took one nitroglycerin as prescribe; It did not help. He called 911 as he also noticed that his chest felt very uncomfortable, he described it as almost having spasms in the left side of the chest. The pain was severe and lasted for approximately 1 hour. He denied feeling his pacemaker kick. He was given nitroglycerin by EMS stated it did not help. The the chest and abdominal pain have both resolved. Patient had 2 right side and 2 left-sided stents, and pacemaker placed July 24. Previously he did not take any medications and he was unaware of any medical is sues. His freight rate clerk is Dr. De La Paz. Several days preceding his procedure, he noted persistent abdominal pain and discomfort that eventually caused him to call 911. That was the first time he became aware of his coronary disease.. HOSPITAL COURSE: Patient was admitted with the chief complaints of chest pain. As per patient, he took nitrate home without any relief. Again, he was given nitroglycerin at the EMS without any relief, but he is complaining of mostly epigastric pain. Patient was admitted to PCU for echocardiogram. I discussed the case in details with Dr. lewis today. Patient echocardiogram shows severe left global left ventricular dysfunction with EF of 30%. H&H remained asymptomatic since his admission and he also has been started on PPIs for possible GERD and possible gastritis secondary to aspirin and Plavix. Dr. Mo agreed to discharge patient on all his current medications and he can follow-up with his freight rate clerk at [place] on 08/01/2019. Patient has been advised called 911 immediately come to emergency room if he denies any other chest pain or shortness of breath. Patient will be discharged home on all his current medications.. DISCHARGE MEDICATIONS: Please see below. ALLERGIES: Please see below. PHYSICAL EXAMINATION ON DISCHARGE: VITAL SIGNS: Please see below. GENERAL: Within normal limits HEENT: PERRLA, XRT, muscle intact NECK: Supple. Negative JVD, negative lymphadenopathy CARDIOVASCULAR EXAMINATION: S1, S2, regular RESPIRATORY EXAMINATION: Clear to A&P ABDOMINAL EXAMINATION: Benign EXTREMITIES: No clubbing, cyanosis, edema SKIN: Normal NEUROLOGICAL EXAMINATION: . No focal motor sensory deficit PSYCHIATRIC EXAMINATION: Normal LABORATORY DATA: Please see below. IMAGING: Echocardiogram:1. Severe global left ventricular systolic dysfunction with regional wall motion abnormalities consistent with underlying coronary artery disease. There are some features of left ventricular diastolic dysfunction manifested by abnormal relaxation, grade 1. 2. Aortic valve sclerosis without stenosis or aortic regurgitation. 3. Mitral annulus calcification with mild mitral regurgitation. 4. Mild tricuspid regurgitation with mild pulmonary hypertension. 5. Trace pulmonic regurgitation. 6. Interatrial septal aneurysm was noted without evidence of shunt, benign findings. 7. Global longitudinal strain/GLS was calculated at 7.8%. PROGNOSIS: Fair ACTIVITY: As tolerated. DIET: As tolerated DISCHARGE PLAN: Follow with freight rate clerk on 08/01/2019 [place] DISPOSITION: . Home DISCHARGE INSTRUCTIONS: 1. Continue all home meds. ITEMS TO FOLLOWUP ON ON OUTPATIENT: 1. Follow with freight rate clerk at [facility] on 08/01/2019. DISCHARGE CONDITION: Stable. TIME SPENT ON DISCHARGE: 45 minutes. Vital Signs/I&Os Vital Signs Date Time Temp Pulse Resp B/P (MAP) Pulse Ox O2 Delivery O2 Flow Rate FiO2 07/30/19 08:32 70 128/64 07/30/19 08:00 97.4 18 96 Room Air I&O- Last 24 Hours up to 6 AM 07/30/19 06:00 Intake Total 660 ml Output Total 0 ml Balance 660 ml Laboratory Data Labs 24H Laboratory Tests 2 07/29/19 10:56: Immature Granulocyte % (Auto) 0.5, Neutrophils (%) (Auto) 63.3, Lymphocytes (%) (Auto) 23.0L, Monocytes (%) (Auto) 7.9H, Eosinophils (%) (Auto) 4.7H, Basophils (%) (Auto) 0.6, Neutrophils # (Auto) 4.0, Lymphocytes # (Auto) 1.5, Monocytes # (Auto) 0.5, Eosinophils # (Auto) 0.3, Basophils # (Auto) 0.0, Nucleated Red Blood Cells % (auto) 0.0, Prothrombin Time 14.5H, Prothromb Time International Ratio 1.16, Activated Partial Thromboplast Time 31.3, Anion Gap 5L, Glomerular Filtration Rate > 60.0, Calcium Level 9.2, Total Bilirubin 0.5, Direct Bilirubin 0.2, Aspartate Amino Transf (AST/SGOT) 8, Alanine Aminotransferase (ALT/SGPT) 18, Alkaline Phosphatase 89, Total Creatine Kinase 40, Creatine Kinase MB < 1.0, Creatine Kinase MB Relative Index 2.50, Troponin I 0.82H, Total Protein 7.3, Albumin 3.7, Albumin/Globulin Ratio 1.03, Lipase 73, Thyroid Stimulating Hormone (TSH) 3.510, Free Thyroxine 1.14 07/29/19 13:10: Total Creatine Kinase 32L, Creatine Kinase MB < 1.0, Creatine Kinase MB Relative Index 3.12, Troponin I 0.79H 07/29/19 17:43: Troponin I 0.74H 07/30/19 02:02: Troponin I 0.67H 07/30/19 05:19: Nucleated Red Blood Cells % (auto) 0.0, Anion Gap 6L, Glomerular Filtration Rate > 60.0, Calcium Level 8.5L, Magnesium Level 2.0, Total Bilirubin 0.6, Aspartate Amino Transf (AST/SGOT) 7, Alanine Aminotransferase (ALT/SGPT) 20, Alkaline Phosphatase 81, Troponin I 0.60H, Total Protein 6.7, Albumin 3.4, Albumin/Globulin Ratio 1.03 CBC/BMP Laboratory Tests 07/29/19 10:56 07/30/19 05:19 Discharge Medications Scheduled Amlodipine Besylate (Amlodipine Besylate) 10 Mg Tablet, 10 MG PO DAILY, (Reported) Aspirin (Aspirin) 325 Mg Tab, 325 MG PO DAILY, (Reported) Atorvastatin Calcium (Atorvastatin Calcium) 40 Mg Tablet, 40 MG PO DAILY, (Reported) Clopidogrel Bisulfate (Clopidogrel) 75 Mg Tablet, 75 MG PO DAILY, (Reported) Lisinopril (Lisinopril) 10 Mg Tablet, 10 MG PO DAILY, (Reported) Metoprolol Tartrate (Metoprolol Tartrate) 25 Mg Tablet, 25 MG PO BID, (Reported) Multivit-Min/FA/Lycopen/Lutein (Centrum Silver Tablet) 1 Each Tablet, 1 TAB PO DAILY, (Reported) Nitroglycerin (Nitrostat) 0.4 Mg Tab.subl, 0.4 MG SL ASDIRECTED for chest pain, (Reported) 1st sign of attack; may repeat every 5 mins; if pain persists after 3 in 15 min, medical attention is recommended Omeprazole Magnesium (Prilosec Otc) 20 Mg Tablet.dr, 20 MG PO DAILY Scheduled PRN Fluticasone Propionate (Flonase Allergy Relief) 9.9 Ml [place].susp, 1 SPRAY NA DAILY PRN for CONGESTION, (Reported) Allergies Coded Allergies: Opioids - Morphine Analogues (Verified Adverse Reaction, Mild, SEVERE NAUSEA AND VOMITING, 07/29/19) EGRARD EASTON MD Jul 30, 2019 10:14
--- NOTE | 2019-07-30 10:35 | ECGEPIP ---
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
[2019-07-30] MEDS ORDERED: FLUBLOK(EGG FREE)(QUAD)INFLUENZA VACC 0.5ML SYRINGE (90682)18YRS&OLDER IM ONE (13:00)
--- NOTE | 2019-07-30 18:29 | ECGEPIP ---
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
== END 2019-07-30 14:15 | disposition home or self-care (01) | DRG 313 ==
LOC: EDBD 10:36 → M ED 10:36 → M ED INP 14:54 → ENRESERVTM 15:36 → ENRESERVDT 15:36 → M PCU 16:18
PROVIDERS: ADMIT Internal Medicine; ATTEND Internal Medicine
DX: R07.89 Other chest pain (principal); R00.2 Palpitations; I25.10 Atherosclerotic heart disease of native coronary artery without angina pectoris; I25.2 Old myocardial infarction; K29.70 Gastritis, unspecified, without bleeding; F17.220 Nicotine dependence, chewing tobacco, uncomplicated; K21.9 Gastro-esophageal reflux disease without esophagitis; Z79.82 Long term (current) use of aspirin; Z79.02 Long term (current) use of antithrombotics/antiplatelets; Z79.899 Other long term (current) drug therapy; Z95.0 Presence of cardiac pacemaker; Z95.5 Presence of coronary angioplasty implant and graft; Z88.5 Allergy status to narcotic agent; Z90.49 Acquired absence of other specified parts of digestive tract

== ENCOUNTER → 2019-08-09 | Outpatient (CLI) | payer MEDICARE, MEDICAID ==
[~2019-08-09] MED LIST changes: +AMLO10TA5 PO; +ATOR40TA75 PO; +CENT1TAB PO; +CLOP75TA2 PO; +LISI10TA4 PO; +METO25TA4 PO; +NITR4TASL SL; +PRIL20TA2 PO
--- NOTE | 2019-08-09 12:24 | REP ---
CT CHEST WITHOUT CONTRAST: LOW-DOSE SCREENING EXAM. HISTORY: Nicotine dependence. Comparison CT study July 08, 2017. There is also a comparison chest CT from May 31, 2017. FINDINGS: There is a bipolar pacemaker in place via the right side. There are clips in right upper quadrant of the abdomen. Emphysematous changes are noted in the upper lobes bilaterally unchanged. There are multiple calcified and noncalcified pulmonary nodules noted bilaterally. All of these are unchanged from July 08, 2017 study. The two largest nodules are in the right lower lobe including a 9 mm noncalcified nodule displayed on page 62 of 106 in series 201 of today's study, and a 7 mm nodule in the superior segment right lower lobe on page 47 of today's study. No new pulmonary nodule is appreciated. IMPRESSION: Lung=RADS category 2 findings. Repeat screening study recommended in 1 year. Electronically Signed by Isai Gonzalez MD 08/09/2019 04:28 P
== END ==
LOC: M RAD 11:15
PROVIDERS: ATTEND Family Medicine
DX: Z12.2 Encounter for screening for malignant neoplasm of respiratory organs (principal); F17.211 Nicotine dependence, cigarettes, in remission; F17.290 Nicotine dependence, other tobacco product, uncomplicated; K40.90 Unilateral inguinal hernia, without obstruction or gangrene, not specified as recurrent; R10.32 Left lower quadrant pain; I10 Essential (primary) hypertension; Z95.0 Presence of cardiac pacemaker
CPT/HCPCS: 36415; 76857; 80048; G0297

== ENCOUNTER → 2019-08-09 | Outpatient (CLI) | payer MEDICARE, MEDICAID ==
--- NOTE | 2019-08-09 11:30 | REP ---
BILATERAL INGUINAL ULTRASOUND: Real-time sonographic evaluation of the bilateral inguinal regions performed at rest and with Valsalva maneuver to evaluate for possible inguinal hernia. Patient had prior left inguinal hernia repair on 2014. There is no evidence of hernia in the left inguinal region. However, there is a small reducible right inguinal hernia, with a small amount of mesenteric fat extending through the internal inguinal ring with Valsalva maneuver. This appears to reduce at rest. No bowel is seen entering the inguinal canal. IMPRESSION: No left inguinal hernia. Small reducible right inguinal hernia containing only mesenteric fat, only seen with Valsalva maneuver. Electronically Signed by Godfrey Lopez MD 08/09/2019 12:01 P
[2019-08-09 12:11] LABS: BLOOD UREA NITROGEN 22 MG/DL (7-18); CALCIUM LEVEL 9.4 MG/DL (8.8-10.2); CARBON DIOXIDE LEVEL 28 MEQ/L (21-32); CHLORIDE LEVEL 106 MEQ/L (98-107); CREATININE FOR GFR 0.85 MG/DL (0.70-1.30); GLOMERULAR FILTRATION RATE > 60.0 (>49); GLUCOSE, FASTING 95 MG/DL (70-100); POTASSIUM SERUM 5.2 MEQ/L (3.5-5.1); SODIUM LEVEL 138 MEQ/L (136-145)
== END ==
LOC: M RAD 10:22
PROVIDERS: ATTEND Family Medicine
DX: K40.90 Unilateral inguinal hernia, without obstruction or gangrene, not specified as recurrent (principal); R10.32 Left lower quadrant pain; I10 Essential (primary) hypertension

== ENCOUNTER 2019-08-11 09:07 | Emergency (ER) | payer MEDICARE, MEDICAID ==
[~2019-08-11] VITALS: Ht 167.6 cm; Wt 72.7 kg
[2019-08-11] MEDS ORDERED: NITROGLYCERIN 0.4 MG SUBL TABLET SL PRN (09:30)
[2019-08-11 09:38] LABS: BASO % 0.7 % (0.0-1.0); EOS # 0.3 10^3/uL (0.0-0.5); EOS % 4.8 % (0.0-3.0); HEMATOCRIT 36.7 % (42.0-52.0); LYMPH # 1.3 10^3/uL (1.5-5.0); LYMPH % 21.7 % (24.0-44.0); MEAN CORPUSCULAR HEMOGLOBIN 35.3 pg (27.0-33.0); MEAN CORPUSCULAR HGB CONC 35.4 g/dl (32.0-36.5); MEAN CORPUSCULAR VOLUME 99.7 fl (80.0-96.0); MONO # 0.5 10^3/uL (0.0-0.8); MONO % 7.5 % (0.0-5.0); NEUTROPHILS # 3.9 10^3/uL (1.5-8.5); NEUTROPHILS % 65.1 % (36.0-66.0); PLATELET COUNT, AUTOMATED 119 10^3/uL (150-450); RED BLOOD COUNT 3.68 10^6/uL (4.30-6.10)
[2019-08-11 10:10] LABS: ALBUMIN 3.5 GM/DL (3.2-5.2); ALT/SGPT 18 U/L (12-78); BILIRUBIN,DIRECT 0.2 MG/DL (0.0-0.2); BILIRUBIN,TOTAL 0.4 MG/DL (0.2-1.0); BLOOD UREA NITROGEN 26 MG/DL (7-18); CALCIUM LEVEL 9.2 MG/DL (8.8-10.2); CARBON DIOXIDE LEVEL 25 MEQ/L (21-32); CHLORIDE LEVEL 107 MEQ/L (98-107); CK-MB VALUE MASS < 1.0 NG/ML (<3.6); CPK CREATINE PHOSPHOKINASE 37 U/L (39-308); CREATININE FOR GFR 0.87 MG/DL (0.70-1.30); GLOMERULAR FILTRATION RATE > 60.0 (>49); GLUCOSE, FASTING 111 MG/DL (70-100); LIPASE 76 U/L (73-393); NT-PRO BNP 235 PG/ML (<125); POTASSIUM SERUM 4.5 MEQ/L (3.5-5.1); SODIUM LEVEL 137 MEQ/L (136-145); TOTAL PROTEIN 7.2 GM/DL (6.4-8.2); TROPONIN I 0.04 NG/ML (< 0.10)
--- NOTE | 2019-08-11 10:17 | REP ---
PORTABLE CHEST X-RAY: SINGLE VIEW. HISTORY: Chest pain. Comparison chest x-ray: July 29, 2019. FINDINGS: Monitoring electrodes overlie the chest. There are clips in the right upper quadrant. There is a dual lead pacemaker in the right heart via the right side as before. The heart size is unchanged. The aorta is somewhat tortuous. No infiltrate is seen. Pleural angles are sharp. Pulmonary vasculature is not increased. IMPRESSION: Mildly prominent heart with pacemaker unchanged. Otherwise no acute disease. Electronically Signed by Isai Gonzalez MD 08/11/2019 12:08 P
[2019-08-11 11:33] LABS: CK-MB VALUE MASS < 1.0 NG/ML (<3.6); CPK CREATINE PHOSPHOKINASE 40 U/L (39-308); TROPONIN I 0.04 NG/ML (< 0.10)
[2019-08-11] MEDS ORDERED: ISOVUE-370 76% 100ML VIAL (Q9967) As Ordered ONE (12:09)
--- NOTE | 2019-08-11 13:35 | REP ---
CT PULMONARY ANGIOGRAM: WITH IV CONTRAST. HISTORY: Elevated D-dimer. Chest pain. COMPARISON STUDIES: Comparison CT angiography May 31, 2017. Comparison noncontrast chest CT study is from 2 days ago, August 09, 2019. CONTRAST DOSE: 75 mL of Isovue [address] TECHNIQUE: Helical scanning is acquired and overlapping 1.5 mm and contiguous 3 mm axial images are reformatted. In addition, maximum intensity projection and multiplanar re-formation images are generated in sagittal and coronal imaging projections. CT PULMONARY ANGIOGRAPHIC FINDINGS: There is good opacification of the pulmonary arterial tree. No vessel cutoff or filling defect is seen to suggest pulmonary embolism. The thoracic aorta is normal in course, caliber and contrast enhancement. No hilar or mediastinal mass or adenopathy is observed. There is evidence of left coronary artery stent material. No pleural or pericardial effusion is seen. There is an accessory splenule in the left upper quadrant of the abdomen. Surgical clips are noted in the gallbladder fossa. There are emphysematous changes again noted moderately affecting the upper lobes. Multiple calcified and noncalcified pulmonary nodules are seen. These are unchanged from most recent prior study. The largest of these is a 8 mm nodule in the right lower lobe. No infiltrate is seen. IMPRESSION: No CT evidence of pulmonary embolism. No acute intrathoracic abnormality seen. Pacemaker noted. Post cholecystectomy. Electronically Signed by Isai Gonzalez MD 08/11/2019 02:55 P
[2019-08-11 15:59] LABS: CK-MB VALUE MASS < 1.0 NG/ML (<3.6); CPK CREATINE PHOSPHOKINASE 22 U/L (39-308); MB/CK RELATIVE INDEX 4.55 (< OR =4); TROPONIN I 0.03 NG/ML (< 0.10)
[2019-08-11 16:19] VITALS: BP 126/73
--- NOTE | 2019-08-12 18:36 | ECGEPIP ---
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
--- NOTE | 2019-08-12 18:39 | ECGEPIP ---
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
== END 2019-08-11 16:52 | disposition home or self-care (01) ==
LOC: M ED 09:07 → EDBD 09:07 → M ED 16:52
DX: R07.9 Chest pain, unspecified (principal); I10 Essential (primary) hypertension; E78.5 Hyperlipidemia, unspecified; I25.2 Old myocardial infarction; K73.9 Chronic hepatitis, unspecified; Z95.0 Presence of cardiac pacemaker; Z95.5 Presence of coronary angioplasty implant and graft; Z79.899 Other long term (current) drug therapy; Z79.82 Long term (current) use of aspirin; Z88.5 Allergy status to narcotic agent; Z87.891 Personal history of nicotine dependence
CPT/HCPCS: 36415; 71045; 71275; 80048; 80076; 82550; 82553; 83690; 83880; 84484; 85025; 85379; 93005; 93041; 94760; 99285; Q9967

== ENCOUNTER 2019-09-11 00:52 | Emergency (ER) | payer MEDICARE, MEDICAID ==
[~2019-09-11] VITALS: Ht 167.6 cm; Wt 71.3 kg
[2019-09-11 01:33] LABS: BASO % 0.6 % (0.0-1.0); EOS # 0.3 10^3/uL (0.0-0.5); EOS % 5.9 % (0.0-3.0); HEMATOCRIT 34.6 % (42.0-52.0); HEMOGLOBIN 12.2 g/dl (13.5-17.5); LYMPH # 1.5 10^3/uL (1.5-5.0); LYMPH % 31.6 % (24.0-44.0); MEAN CORPUSCULAR HEMOGLOBIN 34.6 pg (27.0-33.0); MEAN CORPUSCULAR HGB CONC 35.3 g/dl (32.0-36.5); MONO # 0.4 10^3/uL (0.0-0.8); MONO % 8.2 % (0.0-5.0); NEUTROPHILS # 2.6 10^3/uL (1.5-8.5); NEUTROPHILS % 53.5 % (36.0-66.0); PLATELET COUNT, AUTOMATED 108 10^3/uL (150-450); RED BLOOD COUNT 3.53 10^6/uL (4.30-6.10); WHITE BLOOD COUNT 4.9 10^3/uL (4.0-10.0)
[2019-09-11 01:42] LABS: INR 1.29; PROTHROMBIN TIME 15.9 SECONDS (11.8-14.0)
[2019-09-11 01:56] LABS: ALBUMIN 3.6 GM/DL (3.2-5.2); ALT/SGPT 43 U/L (12-78); BILIRUBIN,DIRECT 0.2 MG/DL (0.0-0.2); BILIRUBIN,TOTAL 0.4 MG/DL (0.2-1.0); CK-MB VALUE MASS < 1.0 NG/ML (<3.6); CPK CREATINE PHOSPHOKINASE 21 U/L (39-308); LIPASE 58 U/L (73-393); MB/CK RELATIVE INDEX 4.76 (< OR =4); TOTAL PROTEIN 7.2 GM/DL (6.4-8.2); TROPONIN I 0.04 NG/ML (< 0.10)
[2019-09-11 02:21] LABS: BLOOD UREA NITROGEN 19 MG/DL (7-18); CALCIUM LEVEL 8.7 MG/DL (8.8-10.2); CARBON DIOXIDE LEVEL 25 MEQ/L (21-32); CHLORIDE LEVEL 108 MEQ/L (98-107); CREATININE FOR GFR 0.88 MG/DL (0.70-1.30); GLOMERULAR FILTRATION RATE > 60.0 (>49); GLUCOSE, FASTING 90 MG/DL (70-100); POTASSIUM SERUM 4.1 MEQ/L (3.5-5.1); SODIUM LEVEL 139 MEQ/L (136-145)
[2019-09-11] MEDS ORDERED: ISOVUE-370 76% 100ML VIAL (Q9967) As Ordered ONE (02:35)
--- NOTE | 2019-09-11 03:10 | REPVR ---
PROCEDURE INFORMATION: Exam: CT Angiography Chest With Contrast Exam date and time: 09/11/2019 2:44 AM Age: 63 years old Clinical indication: Chest pain; Additional info: Cp TECHNIQUE: Imaging protocol: Computed tomographic angiography of the chest with intravenous contrast. 3D rendering: MIP and/or 3D reconstructed images were created by the technologist. Radiation optimization: All CT scans at this facility use at least one of these dose optimization techniques: automated exposure control; mA and/or kV adjustment per patient size (includes targeted exams where dose is matched to clinical indication); or iterative reconstruction. Contrast material: ISO 370; Contrast volume: 75 ml; Contrast route: IV; COMPARISON: CT ANGIO CHEST 08/11/2019 12:12 PM FINDINGS: Tubes, catheters and devices: Pacemaker in position from the right. Pulmonary arteries: The main pulmonary artery measures 23 mm. No pulmonary embolism is identified. Aorta: The ascending thoracic aorta measures 33 mm. Other veins: With right upper extremity injection, there is prominent collateralization suggesting central venous stenosis, probably the medial subclavian vein. Lungs: Minimal bilateral upper lobe bullous changes which are primarily subpleural. Minimal scattered fibro-atelectatic change and interstitial prominence. Calcified granuloma in the superior segment of the right lower lobe. Noncalcified pulmonary nodules which are similar to the prior study and measure up to 8 mm in the right lower lobe. Pleural space: Unremarkable. No pneumothorax. No pleural effusion. Heart: Unremarkable. No cardiomegaly. No pericardial effusion. Gallbladder and bile ducts: Status post cholecystectomy. Kidneys and ureters: Left renal cysts measuring up to at least 3.6 cm and appear to reflect Bosniak 1 cysts but incompletely evaluated. Lymph nodes: Unremarkable. No enlarged lymph nodes. Bones/joints: Unremarkable. No acute fracture. Soft tissues: Unremarkable. IMPRESSION: 1. There has been little change from 08/11/2019. No acute interval pulmonary embolism is identified. 2. Noncalcified pulmonary nodules which are similar to the prior study. For patients at low risk (minimal or absent history of smoking and of other known risk factors), recommend CT at 3-6 months, then consider CT at 18-24 months. For patients at high risk (history of smoking or of other known risk factors), recommend CT at 3-6 months, then CT at 18-24 months. (William et al., Fleischner Society, 2017). 3. Status post cholecystectomy. Electronically signed by: Tejinder Mistry On 09/11/2019 03:10:14 AM
[2019-09-11 04:30] LABS: CK-MB VALUE MASS < 1.0 NG/ML (<3.6); CPK CREATINE PHOSPHOKINASE 21 U/L (39-308); MB/CK RELATIVE INDEX 4.76 (< OR =4); TROPONIN I 0.04 NG/ML (< 0.10)
[2019-09-11] MEDS ORDERED: KETOROLAC 30 MG/ML 1ML VIAL (J1885 PER 15MG) IV ONE (06:30)
--- NOTE | 2019-09-11 06:30 | ECGEPIP ---
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
[2019-09-11 06:39] VITALS: BP 112/66
--- NOTE | 2019-09-11 06:45 | ED PDOC ---
Post-Departure Follow-Up dr aguirre faxed formal report of cta chest for fu Tha Anders MD Sep 11, 2019 06:45
--- NOTE | 2019-09-11 08:16 | REP ---
Portable chest x-ray: Single view. History: Chest pain. Comparison chest x-ray: August 11, 2019. Findings: A bipolar pacemaker is seen in the right heart via the right side. Monitoring electrodes are seen. Left hemidiaphragm is slightly elevated. Cardio mediastinal silhouette is unremarkable. The thoracic aorta is somewhat tortuous. Pulmonary vasculature is not increased. No focal infiltrate is seen. The pleural angles are sharp. Impression: Pacemaker in place. Slightly elevated left hemidiaphragm. Otherwise no active cardiopulmonary disease seen. Electronically Signed by Isai Gonzalez MD 09/11/2019 08:08 A
--- NOTE | 2019-09-11 11:46 | ECGEPIP ---
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
== END 2019-09-11 06:59 | disposition home or self-care (01) ==
LOC: EDBD 00:52 → M ED 00:52
DX: R07.9 Chest pain, unspecified (principal); I25.10 Atherosclerotic heart disease of native coronary artery without angina pectoris; I10 Essential (primary) hypertension; E78.5 Hyperlipidemia, unspecified; K21.9 Gastro-esophageal reflux disease without esophagitis; B18.2 Chronic viral hepatitis C; K74.60 Unspecified cirrhosis of liver; I63.9 Cerebral infarction, unspecified; Z95.0 Presence of cardiac pacemaker; F17.210 Nicotine dependence, cigarettes, uncomplicated; Z88.5 Allergy status to narcotic agent; Z79.82 Long term (current) use of aspirin; Z79.899 Other long term (current) drug therapy
CPT/HCPCS: 71045; 71275; 80047; 80048; 80076; 82550; 82553; 83690; 84484; 85025; 85610; 93005; 93041; 94760; 96374; 99285; J1885; Q9967

== ENCOUNTER 2019-10-11 13:04 | Emergency (ER) | payer MEDICARE, MEDICAID ==
[~2019-10-11] VITALS: Ht 167.6 cm; Wt 69.1 kg
[2019-10-11 13:40] LABS: BASO % 0.6 % (0.0-1.0); EOS # 0.3 10^3/uL (0.0-0.5); EOS % 5.5 % (0.0-3.0); HEMATOCRIT 36.5 % (42.0-52.0); LYMPH # 1.2 10^3/uL (1.5-5.0); LYMPH % 23.5 % (24.0-44.0); MEAN CORPUSCULAR HEMOGLOBIN 34.7 pg (27.0-33.0); MEAN CORPUSCULAR HGB CONC 35.6 g/dl (32.0-36.5); MEAN CORPUSCULAR VOLUME 97.3 fl (80.0-96.0); MONO # 0.4 10^3/uL (0.0-0.8); MONO % 6.9 % (0.0-5.0); NEUTROPHILS # 3.3 10^3/uL (1.5-8.5); NEUTROPHILS % 63.1 % (36.0-66.0); RED BLOOD COUNT 3.75 10^6/uL (4.30-6.10); WHITE BLOOD COUNT 5.2 10^3/uL (4.0-10.0)
[2019-10-11 13:41] LABS: PLATELET COUNT, AUTOMATED 99 10^3/uL (150-450)
[2019-10-11] MEDS ORDERED: METO1TAB7 PO (13:47)
[2019-10-11 13:56] LABS: INR 1.17; PARTIAL THROMBOPLASTIN TIME 33.1 SECONDS (25.0-38.4); PROTHROMBIN TIME 14.6 SECONDS (11.8-14.0)
--- NOTE | 2019-10-11 14:17 | REP ---
CHEST, SINGLE VIEW: There is no evidence of acute infiltrate. No pleural effusion is seen. The heart is normal in size. The mediastinal silhouette is unremarkable. The visualized osseous structures are intact. Right dual-lead pacemaker is seen, unchanged. IMPRESSION: No acute pulmonary disease. Electronically Signed by Godfrey Lopez MD 10/11/2019 04:51 P
[2019-10-11 14:25] LABS: ALBUMIN 3.9 GM/DL (3.2-5.2); ALT/SGPT 33 U/L (12-78); BILIRUBIN,DIRECT 0.2 MG/DL (0.0-0.2); BILIRUBIN,TOTAL 0.5 MG/DL (0.2-1.0); BLOOD UREA NITROGEN 25 MG/DL (7-18); CALCIUM LEVEL 9.5 MG/DL (8.8-10.2); CARBON DIOXIDE LEVEL 22 MEQ/L (21-32); CHLORIDE LEVEL 107 MEQ/L (98-107); CK-MB VALUE MASS < 1.0 NG/ML (<3.6); CPK CREATINE PHOSPHOKINASE 48 U/L (39-308); CREATININE FOR GFR 0.99 MG/DL (0.70-1.30); GLOMERULAR FILTRATION RATE > 60.0 (>49); GLUCOSE, FASTING 144 MG/DL (70-100); MB/CK RELATIVE INDEX 2.08 (< OR =4); POTASSIUM SERUM 4.5 MEQ/L (3.5-5.1); SODIUM LEVEL 136 MEQ/L (136-145); TOTAL PROTEIN 7.2 GM/DL (6.4-8.2); TROPONIN I 0.03 NG/ML (< 0.10)
[2019-10-11 14:50] LABS: NT-PRO BNP 161 PG/ML (<125)
[2019-10-11 18:45] VITALS: BP 116/67
--- NOTE | 2019-10-12 00:33 | ECGEPIP ---
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
--- NOTE | 2019-10-12 00:38 | ECGEPIP ---
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
== END 2019-10-11 19:51 | disposition home or self-care (01) ==
LOC: EDBD 13:04 → M ED 13:04
DX: R07.9 Chest pain, unspecified (principal); R11.0 Nausea; I11.9 Hypertensive heart disease without heart failure; I25.2 Old myocardial infarction; E78.5 Hyperlipidemia, unspecified; B19.20 Unspecified viral hepatitis C without hepatic coma; K21.9 Gastro-esophageal reflux disease without esophagitis; I69.341 Monoplegia of lower limb following cerebral infarction affecting right dominant side; Z95.0 Presence of cardiac pacemaker; Z95.5 Presence of coronary angioplasty implant and graft; F17.200 Nicotine dependence, unspecified, uncomplicated; Z88.5 Allergy status to narcotic agent; Z79.899 Other long term (current) drug therapy; Z79.82 Long term (current) use of aspirin; Z79.02 Long term (current) use of antithrombotics/antiplatelets

== ENCOUNTER 2019-11-05 05:28 | Emergency (ER) | payer MEDICARE, MEDICAID ==
[~2019-11-05] VITALS: Ht 167.6 cm; Wt 72.7 kg
[~2019-11-05 05:28] MED LIST changes: +METO1TAB7 PO
[2019-11-05] MEDS ORDERED: METO1TAB32 PO (05:51)
[2019-11-05] MEDS ORDERED: ASPIRIN 325 MG TAB PO ONE (06:15)
[2019-11-05 06:26] LABS: BASO % 0.4 % (0.0-1.0); EOS # 0.2 10^3/uL (0.0-0.5); EOS % 4.4 % (0.0-3.0); HEMATOCRIT 34.9 % (42.0-52.0); HEMOGLOBIN 12.4 g/dl (13.5-17.5); LYMPH # 1.3 10^3/uL (1.5-5.0); LYMPH % 25.7 % (24.0-44.0); MEAN CORPUSCULAR HEMOGLOBIN 34.7 pg (27.0-33.0); MEAN CORPUSCULAR HGB CONC 35.5 g/dl (32.0-36.5); MEAN CORPUSCULAR VOLUME 97.8 fl (80.0-96.0); MONO # 0.4 10^3/uL (0.0-0.8); MONO % 8.4 % (0.0-5.0); NEUTROPHILS # 3.1 10^3/uL (1.5-8.5); NEUTROPHILS % 60.7 % (36.0-66.0); PLATELET COUNT, AUTOMATED 109 10^3/uL (150-450); RED BLOOD COUNT 3.57 10^6/uL (4.30-6.10)
[2019-11-05 06:32] LABS: BLOOD UREA NITROGEN 17 MG/DL (7-18); CALCIUM LEVEL 8.8 MG/DL (8.8-10.2); CARBON DIOXIDE LEVEL 22 MEQ/L (21-32); CHLORIDE LEVEL 108 MEQ/L (98-107); CK-MB VALUE MASS < 1.0 NG/ML (<3.6); CPK CREATINE PHOSPHOKINASE 32 U/L (39-308); CREATININE FOR GFR 0.84 MG/DL (0.70-1.30); GLOMERULAR FILTRATION RATE > 60.0 (>49); GLUCOSE, FASTING 121 MG/DL (70-100); MB/CK RELATIVE INDEX 3.12 (< OR =4); POTASSIUM SERUM 3.8 MEQ/L (3.5-5.1); SODIUM LEVEL 136 MEQ/L (136-145); TROPONIN I 0.03 NG/ML (< 0.10)
[2019-11-05 06:40] LABS: INR 1.22; PROTHROMBIN TIME 15.1 SECONDS (11.8-14.0)
[2019-11-05] MEDS ORDERED: ISOVUE-370 76% 100ML VIAL As Ordered ONE (07:07)
[2019-11-05] MEDS ORDERED: GI COCKTAIL 50ML BTL(HYOSCYAMINE/MAALOX/LIDOCAINE VISCOUS)(1:3:1) PO ONE (07:45)
--- NOTE | 2019-11-05 07:58 | REPVR ---
PROCEDURE INFORMATION: Exam: CT Angiography Chest With Contrast Exam date and time: 11/05/2019 6:44 AM Age: 64 years old Clinical indication: Chest pain; Type not specified; Additional info: Cp TECHNIQUE: Imaging protocol: Computed tomographic angiography of the chest with intravenous contrast. 3D rendering: MIP and/or 3D reconstructed images were created by the technologist. Radiation optimization: All CT scans at this facility use at least one of these dose optimization techniques: automated exposure control; mA and/or kV adjustment per patient size (includes targeted exams where dose is matched to clinical indication); or iterative reconstruction. Contrast material: ISO; Contrast volume: 75 ml; Contrast route: AC; COMPARISON: CT ANGIO CHEST 09/11/2019 2:39 AM FINDINGS: Tubes, catheters and devices: There is a pacemaker in place from a right-sided approach. Pulmonary arteries: No pulmonary emboli. Aorta: No aortic aneurysm. No aortic dissection. Lungs: There is centrilobular emphysematous change related to COPD. There are multiple stable bilateral noncalcified pulmonary nodules. The largest measure up to 8 mm in size are seen in the right lower lobe. Pleural space: Unremarkable. No pneumothorax. No pleural effusion. Heart: There are coronary artery calcifications. There may be an LAD coronary stent. Lymph nodes: Unremarkable. No enlarged lymph nodes. Gallbladder and bile ducts: The gallbladder is surgically absent. Bones/joints: There are degenerative changes of the spine. No acute fracture. Soft tissues: Unremarkable. IMPRESSION: 1. No evidence of pulmonary embolism. 2. COPD. 3. Stable pulmonary nodules. The largest measures up to 8 mm. As per Fleischner Society guidelines for follow-up and management of pulmonary nodules: For patients at low risk (minimal or absent history of smoking and of other known risk factors), recommend initial follow-up chest CT at 12 months then at 18-24 months if no change. For patient at high risk (history of smoking or of other known risk factors), recommend initial follow-up chest CT at 3-6 months, then at 9-12 and 24 months if no change. 4. Coronary artery disease. Electronically signed by: Kalpesh Hackett On 11/05/2019 07:58:48 AM
[2019-11-05 08:45] VITALS: BP 109/69
--- NOTE | 2019-11-05 14:58 | ED PDOC ---
Post-Departure Follow-Up dr aguirre faxed formal report of cta chest for fu Tha Anders MD Nov 05, 2019 14:58
--- NOTE | 2019-11-05 15:50 | REP ---
Single view chest: 11/05/2019. Indication: Chest pain. Comparison: CT chest complete of the same day. Findings: Compared to the CT examination, no changes are present. Sequelae of COPD and stable small pulmonary nodules. There is no pleural effusion or pneumothorax. Right-sided dual lead pacing device is present. Impression: No pulmonary consolidation. Clear lungs. Electronically Signed by Ramy Mac DO 11/05/2019 03:41 P
--- NOTE | 2019-11-06 15:58 | ECGEPIP ---
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
== END 2019-11-05 09:05 | disposition left against medical advice (07) ==
LOC: M ED 05:28 → EDBD 05:28 → M ED 09:05
DX: R07.9 Chest pain, unspecified (principal); I10 Essential (primary) hypertension; I50.9 Heart failure, unspecified; E78.5 Hyperlipidemia, unspecified; K73.9 Chronic hepatitis, unspecified; K74.60 Unspecified cirrhosis of liver; Z95.0 Presence of cardiac pacemaker; Z95.5 Presence of coronary angioplasty implant and graft; Z79.899 Other long term (current) drug therapy; Z79.82 Long term (current) use of aspirin; Z79.01 Long term (current) use of anticoagulants; Z88.5 Allergy status to narcotic agent; F17.210 Nicotine dependence, cigarettes, uncomplicated
CPT/HCPCS: 36415; 71045; 71275; 80048; 82550; 82553; 84484; 85025; 85610; 85730; 93005; 99285; Q9967

== ENCOUNTER 2020-05-10 03:18 | Emergency (ER) | payer MEDICARE, MEDICAID ==
[~2020-05-10 03:18] MED LIST changes: -AMLO10TA5 PO; +AMLO1TAB25 PO; +METO1TAB32 PO
[2020-05-10 04:04] LABS: BASO % 0.6 % (0.0-1.0); EOS # 0.3 10^3/uL (0.0-0.5); HEMATOCRIT 37.3 % (42.0-52.0); HEMOGLOBIN 12.8 g/dl (13.5-17.5); LYMPH # 1.3 10^3/uL (1.5-5.0); MEAN CORPUSCULAR HEMOGLOBIN 33.2 pg (27.0-33.0); MEAN CORPUSCULAR HGB CONC 34.3 g/dl (32.0-36.5); MEAN CORPUSCULAR VOLUME 96.9 fl (80.0-96.0); MONO # 0.5 10^3/uL (0.0-0.8); MONO % 7.5 % (0.0-5.0); NEUTROPHILS # 4.2 10^3/uL (1.5-8.5); NEUTROPHILS % 66.7 % (36.0-66.0); PLATELET COUNT, AUTOMATED 123 10^3/uL (150-450); RED BLOOD COUNT 3.85 10^6/uL (4.30-6.10); WHITE BLOOD COUNT 6.2 10^3/uL (4.0-10.0)
--- NOTE | 2020-05-10 04:06 | REPVR ---
PROCEDURE INFORMATION: Exam: XR Chest, 1 View Exam date and time: 05/10/2020 3:44 AM Age: 64 years old Clinical indication: Other: Cp; Additional info: Chest pain TECHNIQUE: Imaging protocol: XR of the chest Views: 1 view. COMPARISON: 1. VA Chest, 1 view 11/05/2019 6:[address] ANGIO CHEST 11/05/2019 7:04:19 AM FINDINGS: Tubes, catheters and devices: There is a right sided pacemaker. Lungs: There is a nodule in the right lung base which appears unchanged from the prior chest x-ray and corresponds with 1 of several pulmonary nodules identified on the prior CT scan. The lungs are otherwise clear. Pleural space: No pleural effusions or pneumothorax identified. Heart/Mediastinum: The heart is normal in size. Bones/joints: There is a mild S-shaped curvature of the thoracic spine. IMPRESSION: 1. Nodule in the right lung base, unchanged. 2. No evidence of acute pleural or parenchymal disease. Electronically signed by: Sowmya Robles On 05/10/2020 04:05:57 AM
[2020-05-10 04:17] LABS: INR 1.09; PROTHROMBIN TIME 14.3 SECONDS (12.5-14.3)
[2020-05-10 04:18] LABS: PARTIAL THROMBOPLASTIN TIME 33.7 SECONDS (24.2-38.5)
[2020-05-10 04:40] LABS: BLOOD UREA NITROGEN 18 MG/DL (7-18); CALCIUM LEVEL 9.6 MG/DL (8.8-10.2); CARBON DIOXIDE LEVEL 27 MEQ/L (21-32); CHLORIDE LEVEL 105 MEQ/L (98-107); CK-MB VALUE MASS 1.3 NG/ML (<3.6); CPK CREATINE PHOSPHOKINASE 33 U/L (39-308); CREATININE FOR GFR 1.16 MG/DL (0.70-1.30); GLOMERULAR FILTRATION RATE > 60.0 (>49); GLUCOSE, FASTING 106 MG/DL (70-100); MB/CK RELATIVE INDEX 3.94 (< OR =4); POTASSIUM SERUM 4.3 MEQ/L (3.5-5.1); SODIUM LEVEL 136 MEQ/L (136-145); TROPONIN I < 0.02 NG/ML (< 0.10)
[2020-05-10 04:44] LABS: RSV AMPLIFICATION NEGATIVE (NEGATIVE)
[2020-05-10] MEDS ORDERED: GI COCKTAIL 50ML BTL(HYOSCYAMINE/MAALOX/LIDOCAINE VISCOUS)(1:3:1) PO ONE (05:15)
[2020-05-10 05:31] VITALS: BP 116/81
--- NOTE | 2020-05-10 13:37 | ECGEPIP ---
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
== END 2020-05-10 05:45 | disposition home or self-care (01) ==
LOC: M ED 03:18
DX: K21.9 Gastro-esophageal reflux disease without esophagitis (principal); J06.9 Acute upper respiratory infection, unspecified; Z95.0 Presence of cardiac pacemaker; Z88.5 Allergy status to narcotic agent

== ENCOUNTER 2020-06-13 20:33 | Emergency (ER) | payer MEDICARE, MEDICAID ==
[~2020-06-13] VITALS: Ht 167.6 cm; Wt 70.5 kg
[~2020-06-13 20:33] MED LIST changes: +LISI10TA22 PO; -LISI10TA4 PO
--- OUTSIDE RECORDS SUMMARY | 2020-06-13 20:37 | CCD | Continuity of Care Document ---
Author Author [facility] Organization Unknown Address [address] [place] [address] Phone [phone] Care Team Providers Care Technical Data Analyst Name Role Phone Salbador MOYA AUTM [phone] Social History Type Date Description Comments Sex Unknown Medications Active Medications SIG Qnty Indications Ordering Provide r Date Aspirin [address] 1 by mouth every day [facility] 020 Ceeel-0-Mlkq Ethyl Esters 1gm Capsules [facility] 05/14/2020 Centrum Silver 50+Women 50+Women T ablets [facility] 020 Atorvastatin Calcium 40mg Tablets Take One Tablet By Mouth Nightly Unknown 00 Clopidogrel Bisulfate 75mg Tablets Take One Tablet By Mouth Every Day Unknown Lisinopril 10mg Tablets Take One Tablet By Mouth Every Day Unknown Metoprolol Succinate ER 50mg Tablets ER 24HR Unknown Fluticasone Propionate 50mcg/Act Suspension [place] One [place] In Each Nostril Every Day Unknown Tadalafil 20mg Tablets Take One Tablet By Mouth as Needed Unknown Nitroglycerin 0.4mg Tablets Sub Unknown Peg-3350/Nacl/Na Bicarbonate/KCL 420gm Solution Rec Use as Directed On DR. Goodwin Prep Unkno wn Vital Signs Date Vital Result Comment 05/14/2020 3:36pm Height 66 inches 5'6" Weight 155.00 lb BMI (Body Mass Index) 25.0 kg/m2 Body Temperature 97.5 F BP Systolic 104 mmHg BP Diastolic 70 mmHg Heart Rate 71 /min O2 % BldC Oximetry 95 % Respiratory Rate 16 /min Procedures Date Code Description Status 05/14/2020 64655 Program Pacer Dual Lead Complete d 03/14/2020 48711 Echocardiogram, Complete Complet ed 03/14/2020 76482 EKG Completed Encounters Type Date Location Provider Dx Diagnosis Office Visit 03/14/2020 2:15p [facility] I11.9 Hypertensive heart disease without heart failure I34.0 Nonrheumatic mitral (valve) insufficiency I25.10 Athscl heart disease of [place] coronary artery w/o ang pctrs I49.49 Other premature depolarizati on Assessments Date Code Description Provider 05/14/2020 Z95.0 Presence of cardiac pacemaker Mi donna [facility] 03/14/2020 I11.9 Hypertensive heart disease witho ut heart failure [facility] 03/14/2020 I34.0 Nonrheumatic mitral (valve) insu fficiency [facility] 03/14/2020 I25.10 Atherosclerotic hear t disease of [place] coronary artery without angina pectoris [facility] 03/14/2020 I49.49 Other premature depolarization M amanda [facility] Plan of Treatment Future Appointment(s):* 05/30/2020 8:15 am - [facility] at [facility]
--- OUTSIDE RECORDS SUMMARY | 2020-06-13 20:37 | CCD | Continuity of Care Document ---
Author Author [facility] Organization Unknown Address [address] [place] [id number] Phone [phone] Care Team Providers Care Power Cleaner Operator Name Role Phone Salbador MOYA AUTM [phone] Social History Type Date Description Comments Sex Unknown Medications Active Medications SIG Qnty Indications Ordering Provide r Date Aspirin [address] 1 by mouth every day [facility] 020 [id number]-6-[id number] Ethyl Esters 1gm Capsules Niranjan Rascon M.D., [...] ER 24HR Unknown Fluticasone Propionate 50mcg/Act Suspension [place] One [place] In Each Nostril Every Day Unknown Tadalafil [...] 16 /min Procedures Date Code Description Status 03/14/2020 70608 Echocardiogram, Complete Complet ed 03/14/2020 53443 EKG Completed Encounters Type Date Location Provider Dx Diagnosis Office Visit 03/14/2020 2:15p [facility] N[facility]anjan [facility] I11.9 Hypertensive heart disease without heart failure I34.0 Nonrheumatic mitral (valve) insufficiency I25.10 Athscl heart disease of [place] coronary artery w/o ang pctrs I49.49 Other premature depolarizati on Assessments Date Code Description Provider 03/14/2020 I11.9 Hypertensive heart disease witho ut heart failure [facility] 03/14/2020 I34.0 Nonrheumatic mitral (valve) insu fficiency [facility] 03/14/2020 I25.10 Atherosclerotic hear t disease of [place] coronary artery without angina pectoris [facility] 03/14/2020 I49.49 Other premature depolarization M amanda [facility] Plan of Treatment Future Appointment(s):* 05/30/2020 8:15 am - [facility] at [facility]
--- OUTSIDE RECORDS SUMMARY | 2020-06-13 20:39 | CCD ---
Author Author [facility] Organization [facility] Address Unknown Phone Unavailable Care Team Providers Care Rounding Machine Operator Name Role Phone YSABEL FERRER MD Unavailable Unavailable YSABEL FERRER MD Unavailable Unavailable YSABEL FERRER MD Unavailable Unavailable YSABEL FERRER MD Unavailable Unavailable YSABEL FERRER MD Unavailable Unavailable YSABEL FERRER MD Unavailable Unavailable YSABEL FERRER MD Unavailable Unavailable YSABEL FERRER MD Unavailable Unavailable YSABEL FERRER MD Unavailable Unavailable YSABEL FERRER MD Unavailable Unavailable YSABEL FERRER MD Unavailable Unavailable YSABEL FERRER MD Unavailable Unavailable YSABEL FERRER MD Unavailable Unavailable YSABEL FERRER MD Unavailable Unavailable YSABEL FERRER MD Unavailable Unavailable Fish, J Guicho Unavailable Unavailable Fish, J Guicho Unavailable Unavailable Fish, J Guicho Unavailable Unavailable Fish, J Guicho Unavailable Unavailable Fish, J Guicho Unavailable Unavailable Fish, J Guicho Unavailable Unavailable Fish, J Guicho Unavailable Unavailable Fish, J Guicho Unavailable Unavailable Fish, J Guicho Unavailable Unavailable Fish, J Guicho Unavailable Unavailable Fish, J Guicho Unavailable Unavailable Fish, J Guicho Unavailable Unavailable Fish, J Guicho Unavailable Unavailable Fish, J Guicho Unavailable Unavailable Fish, J Guicho Unavailable Unavailable Fish, J Guicho Unavailable Unavailable Fish, J Guicho Unavailable Unavailable Fish, J Guicho Unavailable Unavailable Fish, J Guicho Unavailable Unavailable Fish, J Guicho Unavailable Unavailable Fish, J Guicho Unavailable Unavailable Fish, J Guicho Unavailable Unavailable Fish, J Guicho Unavailable Unavailable Fish, J Guicho Unavailable Unavailable Fish, J Guicho Unavailable Unavailable Fish, J Guicho Unavailable Unavailable Fish, J Guicho Unavailable Unavailable Fish, J Guicho Unavailable Unavailable Fish, J Guicho Unavailable Unavailable Fish, J Guicho Unavailable Unavailable Fish, J Guicho Unavailable Unavailable Fish, J Guicho Unavailable Unavailable Fish, J Guicho Unavailable Unavailable Fish, J Guicho Unavailable Unavailable Fish, J Guicho Unavailable Unavailable Fish, J Guicho Unavailable Unavailable Fish, J Guicho Unavailable Unavailable Fish, J Guicho Unavailable Unavailable Fish, J Guicho Unavailable Unavailable Fish, J Guicho Unavailable Unavailable Fish, J Guicho Unavailable Unavailable Fish, J Guicho Unavailable Unavailable Fish, J Guicho Unavailable Unavailable Fish, J Guicho Unavailable Unavailable Fish, J Guicho Unavailable Unavailable Fish, J Guicho Unavailable Unavailable Fish, J Guicho Unavailable Unavailable Fish, J Guicho Unavailable Unavailable Fish, J Guicho Unavailable Unavailable Fish, J Guicho Unavailable Unavailable Fish, J Guicho Unavailable Unavailable Fish, J Guicho Unavailable Unavailable Fish, J Guicho Unavailable Unavailable Fish, J Guicho Unavailable Unavailable Fish, J Guicho Unavailable Unavailable Fish, J Guicho Unavailable Unavailable Fish, J Guicho Unavailable Unavailable Fish, J Guicho Unavailable Unavailable Fish, J Guicho Unavailable Unavailable Fish, J Guicho Unavailable Unavailable Fish, J Guicho Unavailable Unavailable Fish, J Guicho Unavailable Unavailable Fish, J Guicho Unavailable Unavailable Fish, J Guicho Unavailable Unavailable Fish, J Guicho Unavailable Unavailable Fish, J Guicho Unavailable Unavailable Fish, J Guicho Unavailable Unavailable Fish, J Guicho Unavailable Unavailable Fish, J Guicho Unavailable Unavailable Fish, J Guicho Unavailable Unavailable Fish, J Guicho Unavailable Unavailable Fish, J Guicho Unavailable Unavailable Fish, J Guicho Unavailable Unavailable Fish, J Guicho Unavailable Unavailable Fish, J Guicho Unavailable Unavailable Fish, J Guicho Unavailable Unavailable Fish, J Guicho Unavailable Unavailable Fish, J Guicho Unavailable Unavailable Fish, J Guicho Unavailable Unavailable Fish, J Guicho Unavailable Unavailable Fish, J Guicho Unavailable Unavailable Fish, J Guicho Unavailable Unavailable Fish, J Guicho Unavailable Unavailable Fish, J Guicho Unavailable Unavailable Fish, J Guicho Unavailable Unavailable Maria T De La Paz MD Unavailable Unavailable Maria T De La Paz MD Unavailable Unavailable Maria T De La Paz MD Unavailable Unavailable Maria T De La Paz MD Unavailable Unavailable Maria T De La Paz MD Unavailable Unavailable Maria T De La aPz MD Unavailable Unavailable Maria T De La Paz MD Unavailable Unavailable Maria T De La Paz MD Unavailable Unavailable Maria T De La Paz MD Unavailable Unavailable Maria T De La Paz MD Unavailable Unavailable Maria T De La Paz MD Unavailable Unavailable Maria T De La Paz MD Unavailable Unavailable Maria T De La Paz MD Unavailable Unavailable Maria T De La Paz MD Unavailable Unavailable Maria T De La Paz MD Unavailable Unavailable Maria T De La Paz MD Unavailable Unavailable Maria T De La Paz MD Unavailable Unavailable Maria T De La Paz MD Unavailable Unavailable Maria T De La Paz MD Unavailable Unavailable Maria T De La Paz MD Unavailable Unavailable Maria T De La Paz MD Unavailable Unavailable Maria T De La Paz MD Unavailable Unavailable Maria T De La Paz MD Unavailable Unavailable Maria T De La Paz MD Unavailable Unavailable Maria T De La Paz MD Unavailable Unavailable Maria T De La Paz MD Unavailable Unavailable Maria T De La Paz MD Unavailable Unavailable Maria T De La Paz MD Unavailable Unavailable Maria T De La Paz MD Unavailable Unavailable Maria T De La Paz MD Unavailable Unavailable Maria T De La Paz MD Unavailable Unavailable Maria T De La Paz MD Unavailable Unavailable Maria T De La Paz MD Unavailable Unavailable Maria T De La Paz MD Unavailable Unavailable Maria T De La Paz MD Unavailable Unavailable Maria T De La Paz MD Unavailable Unavailable Maria T De La Paz MD Unavailable Unavailable Maria T De La Paz MD Unavailable Unavailable Maria T De La Paz MD Unavailable Unavailable Maria T De La Paz MD Unavailable Unavailable Maria T De La Paz MD Unavailable Unavailable Maria T De La Paz MD Unavailable Unavailable Maria T De La Paz MD Unavailable Unavailable Maria T De La Paz MD Unavailable Unavailable Maria T De La Paz MD Unavailable Unavailable Maria T De La Paz MD Unavailable Unavailable Maria T De La Paz MD Unavailable Unavailable Maria T De La Paz MD Unavailable Unavailable Maria T De La Paz MD Unavailable Unavailable Maria T De La Paz MD Unavailable Unavailable Maria T De La Paz MD Unavailable Unavailable Maria T De La Paz MD Unavailable Unavailable Maria T De La Paz MD Unavailable Unavailable Maria T De La Paz MD Unavailable Unavailable Maria T De La Paz MD Unavailable Unavailable Maria T De La Paz MD Unavailable Unavailable Maria T De La Paz MD Unavailable Unavailable CARL, TIM Unavailable Unavailable RAY, Marcelina SALAZAR MD Unavailable Unavailable RAY, Marcelina SALAZAR MD Unavailable Unavailable RAY, Marcelina SALAZAR MD Unavailable Unavailable RAY, Marcelina SALAZAR MD Unavailable Unavailable RAY, Marcelina SALAZAR MD Unavailable Unavailable RAY, Marcelina SALAZAR MD Unavailable Unavailable RAY, Marcelina SALAZAR MD Unavailable Unavailable RAY, Marcelina SALAZAR MD Unavailable Unavailable RAY, Marcelina SALAZAR MD Unavailable Unavailable RAY, Marcelina SALAZAR MD Unavailable Unavailable RAY, Marcelina SALAZAR MD Unavailable Unavailable RAY, Marcelina SALAZAR MD Unavailable Unavailable RAY, Marcelina SALAZAR MD Unavailable Unavailable RAY, Marcelina SALAZAR MD Unavailable Unavailable RAY, Marcelina SALAZAR MD Unavailable Unavailable RAY, Marcelina SALAZAR MD Unavailable Unavailable RAY, Marcelina SALAZAR MD Unavailable Unavailable RAY, Marcelina SALAZAR MD Unavailable Unavailable RAY, Marcelina SALAZAR MD Unavailable Unavailable RAY, Marcelina SALAZAR MD Unavailable Unavailable RAY, Marcelina SALAZAR MD Unavailable Unavailable RAY, Marcelina SALAZAR MD Unavailable Unavailable RAY, Marcelina SALAZAR MD Unavailable Unavailable RAY, Marcelina SALAZAR MD Unavailable Unavailable RAY, Marcelina SALAZAR MD Unavailable Unavailable RAY, Marcelina SALAZAR MD Unavailable Unavailable RAY, Marcelina SALZAAR MD Unavailable Unavailable RAY, Marcelina SALAZAR MD Unavailable Unavailable RAY, Marcelina SALAZAR MD Unavailable Unavailable RAY, Marcelina SALAZAR MD Unavailable Unavailable RAY, Marcelina SALAZAR MD Unavailable Unavailable RAY, Marcelina SALAZAR MD Unavailable Unavailable RAY, Marcelina SALAZAR MD Unavailable Unavailable RAY, Marcelina SALAAZR MD Unavailable Unavailable RAY, Marcelina SALAZAR MD Unavailable Unavailable RAY, Marcelina SALAZAR MD Unavailable Unavailable RAY, Marcelina SALAZAR MD Unavailable Unavailable RAY, Marcelina SALAZAR MD Unavailable Unavailable RAY, Marcelina SALAZAR MD Unavailable Unavailable RAY, Marcelina SALAZAR MD Unavailable Unavailable RAY, Marcelina SALAZAR MD Unavailable Unavailable RAY, Marcelina SALAZAR MD Unavailable Unavailable RAY, Marcelina SALAZAR MD Unavailable Unavailable RAY, Marcelina SALAZAR MD Unavailable Unavailable RAY, Marcelina SALAZAR MD Unavailable Unavailable RAY, Marcelina SALAZAR MD Unavailable Unavailable PATRICK RASCON MD Unavailable Unavailable PATRICK RASCON MD Unavailable Unavailable PATRICK RASCON MD Unavailable Unavailable SHINE, MAQBOOL NIRANJAN MD Unavailable Unavailable SHINE, MAQBOOL NIRANJAN MD Unavailable Unavailable SHINE, MAQBOOL NIRANJAN MD Unavailable Unavailable SHINE, MAQBOOL NIRANJAN MD Unavailable Unavailable SHINE, MAQBOOL NIRANJAN MD Unavailable Unavailable SHINE, MAQBOOL NIRANJAN MD Unavailable Unavailable SHINE, MAQBOOL NIRANJAN MD Unavailable Unavailable SHINE, MAQBOOL NIRANJAN MD Unavailable Unavailable SHINE, MAQBOOL NIRANJAN MD Unavailable Unavailable SHINE, MAQBOOL NIRANJAN MD Unavailable Unavailable SHINE, MAQBOOL NIRANJAN MD Unavailable Unavailable SHINE, MAQBOOL NIRANJAN MD Unavailable Unavailable SHINE, MAQBOOL NIRANJAN MD Unavailable Unavailable SHINE, MAQBOOL NIRANJAN MD Unavailable Unavailable SHINE, MAQBOOL NIRANJAN MD Unavailable Unavailable SHINE, MAQBOOL NIRANJAN MD Unavailable Unavailable SHINE, MAQBOOL NIRANJAN MD Unavailable Unavailable SHINE, MAQBOOL NIRANJAN MD Unavailable Unavailable SHINE, MAQBOOL NIRANJAN MD Unavailable Unavailable SHINE, MAQBOOL NIRANJAN MD Unavailable Unavailable SHINE, MAQBOOL NIRANJAN MD Unavailable Unavailable SHINE, MAQBOOL NIRANJAN MD Unavailable Unavailable SHINE, MAQBOOL NIRANJAN MD Unavailable Unavailable SHINE, MAQBOOL NIRANJAN MD Unavailable Unavailable SHINE, MAQBOOL NIRANJAN MD Unavailable Unavailable SHINE, MAQBOOL NIRANJAN MD Unavailable Unavailable SHINE, MAQBOOL NIRANJAN MD Unavailable Unavailable SHINE, MAQBOOL NIRANJAN MD Unavailable Unavailable SHINE, MAQBOOL NIRANJAN MD Unavailable Unavailable SHINE, MAQBOOL NIRANJAN MD Unavailable Unavailable SHINE, MAQBOOL NIRANJAN MD Unavailable Unavailable SHINE, MAQBOOL NIRANJAN MD Unavailable Unavailable SHINE, MAQBOOL NIRANJAN MD Unavailable Unavailable SHINE, MAQBOOL NIRANJAN MD Unavailable Unavailable SHINE, MAQBOOL NIRANJAN MD Unavailable Unavailable SHINE, MAQBOOL NIRANJAN MD Unavailable Unavailable SHINE, MAQBOOL NIRANJAN MD Unavailable Unavailable SHINE, MAQBOOL NIRANJAN MD Unavailable Unavailable SHINE, MAQBOOL NIRANJAN MD Unavailable Unavailable SHINE, MAQBOOL NIRANJAN MD Unavailable Unavailable SHINE, MAQBOOL NIRANJAN MD Unavailable Unavailable SHINE, MAQBOOL NIRANJAN MD Unavailable Unavailable SHINE, MAQBOOL NIRANJAN MD Unavailable Unavailable SHINE, MAQBOOL NIRANJAN MD Unavailable Unavailable SHINE, MAQBOOL NIRANJAN MD Unavailable Unavailable SHINE, MAQBOOL NIRANJAN MD Unavailable Unavailable SHINE, MAQBOOL NIRANJAN MD Unavailable Unavailable SHINE, MAQBOOL NIRANJAN MD Unavailable Unavailable SHINE, MAQBOOL NIRANJAN MD Unavailable Unavailable SHINE, MAQBOOL NIRANJAN MD Unavailable Unavailable SHINE, MAQBOOL NIRANJAN MD Unavailable Unavailable SHINE, MAQBOOL NIRANJAN MD Unavailable Unavailable SHINE, MAQBOOL NIRANJAN MD Unavailable Unavailable SHINE, MAQBOOL NIRANJAN MD Unavailable Unavailable SHINE, MAQBOOL NIRANJAN MD Unavailable Unavailable SHINE, MAQBOOL NIRANJAN MD Unavailable Unavailable SHINE, MAQBOOL NIRANJAN MD Unavailable Unavailable SHINE, MAQBOOL NIRANJAN MD Unavailable Unavailable SHINE, MAQBOOL NIRANJAN MD Unavailable Unavailable SHINE, MAQBOOL NIRANJAN MD Unavailable Unavailable SHINE, MAQBOOL NIRANJAN MD Unavailable Unavailable SHINE, MAQBOOL NIRANJAN MD Unavailable Unavailable SHINE, MAQBOOL NIRANJAN MD Unavailable Unavailable SHINE, MAQBOOL NIRANJAN MD Unavailable Unavailable SHINE, MAQBOOL NIRANJAN MD Unavailable Unavailable SHINE, MAQBOOL NIRANJAN MD Unavailable Unavailable SHINE, MAQBOOL NIRANJAN MD Unavailable Unavailable SHINE, MAQBOOL NIRANJAN MD Unavailable Unavailable SHINE, MAQBOOL NIRANJAN MD Unavailable Unavailable SHINE, MAQBOOL NIRANJAN MD Unavailable Unavailable SHINE, MAQBOOL NIRANJAN MD Unavailable Unavailable SHINE, MAQBOOL NIRANJAN MD Unavailable Unavailable TIM CARL Unavailable Unavailable Ismael Nelson MD Unavailable Unavailable Ismael Nelson MD Unavailable Unavailable Ismael Nelson MD Unavailable Unavailable Ismael Nelson MD Unavailable Unavailable Ismael Nelson MD Unavailable Unavailable Ismael Nelson MD Unavailable Unavailable Ismael Nelson MD Unavailable Unavailable Ismael Nelson MD Unavailable Unavailable Ismael Nelson MD Unavailable Unavailable Ismael Nelson MD Unavailable Unavailable Omar Ismael MD Unavailable Unavailable Ismael Nelson MD Unavailable Unavailable NelsonIsmael mobley MD Unavailable Unavailable Nelson, Ismael MD Unavailable Unavailable Ricardo, N Aspen BROACHING MACHINE OPERATOR Unavailable Unavailable Bowie, N Aspen BROACHING MACHINE OPERATOR Unavailable Unavailable Ricardo, N Aspen BROACHING MACHINE OPERATOR Unavailable Unavailable Bowie, N Aspen BROACHING MACHINE OPERATOR Unavailable Unavailable Bowie, N Aspen BROACHING MACHINE OPERATOR Unavailable Unavailable Ricardo, N Aspen BROACHING MACHINE OPERATOR Unavailable Unavailable Bowie, N Aspen BROACHING MACHINE OPERATOR Unavailable Unavailable Bowie, N Aspen BROACHING MACHINE OPERATOR Unavailable Unavailable Ricardo, N Aspen BROACHING MACHINE OPERATOR Unavailable Unavailable Bowie, N Aspen BROACHING MACHINE OPERATOR Unavailable Unavailable Bowie, N Aspen BROACHING MACHINE OPERATOR Unavailable Unavailable Ricardo, N Aspen BROACHING MACHINE OPERATOR Unavailable Unavailable Bowie, N Aspen BROACHING MACHINE OPERATOR Unavailable Unavailable Bowie, N Aspen BROACHING MACHINE OPERATOR Unavailable Unavailable Bowie, N Aspen BROACHING MACHINE OPERATOR Unavailable Unavailable Ricardo, N Aspen BROACHING MACHINE OPERATOR Unavailable Unavailable Ricardo, N Aspen BROACHING MACHINE OPERATOR Unavailable Unavailable Bowie, N Aspen BROACHING MACHINE OPERATOR Unavailable Unavailable Bowie, N Aspen BROACHING MACHINE OPERATOR Unavailable Unavailable Bowie, N Aspen BROACHING MACHINE OPERATOR Unavailable Unavailable Bowie, N Aspen BROACHING MACHINE OPERATOR Unavailable Unavailable Ricardo, N Aspen BROACHING MACHINE OPERATOR Unavailable Unavailable Bowie, N Aspen BROACHING MACHINE OPERATOR Unavailable Unavailable Ricardo, N Aspen BROACHING MACHINE OPERATOR Unavailable Unavailable Bowie, N Aspen BROACHING MACHINE OPERATOR Unavailable Unavailable Ricardo, N Aspen BROACHING MACHINE OPERATOR Unavailable Unavailable Ricardo, N Aspen BROACHING MACHINE OPERATOR Unavailable Unavailable Bowie, N Aspen BROACHING MACHINE OPERATOR Unavailable Unavailable Ricardo, N Aspen BROACHING MACHINE OPERATOR Unavailable Unavailable Bowie, N Aspen BROACHING MACHINE OPERATOR Unavailable Unavailable Re-disclosure Warning The records that you are about to access may contain information from federally-assisted alcohol or drug abuse programs. If such information is present, then the following federally mandated warning applies: This information has been disclosed to you from records protected by federal confidentiality rules (42 CFR part 2). The federal rules prohibit you from making any further disclosure of this information unless further disclosure is expressly permitted by the written consent of the person to whom it pertains or as otherwise permitted by 42 CFR part 2. A general authorization for the release of medical or other information is NOT sufficient for this purpose. The Federal rules restrict any use of the information to criminally investigate or prosecute any alcohol or drug abuse patient.The records that you are about to access may contain highly sensitive health information, the redisclosure of which is protected by Article 27-F of the [facility] Public Health law. If you continue you may have access to information: Regarding HIV / AIDS; Provided by facilities licensed or operated by the [facility] Office of Mental Health; or Provided by the [facility] Office for People With Developmental Disabilities. If such information is present, then the following [facility] mandated warning applies: This information has been disclosed to you from confidential records which are protected by state law. State law prohibits you from making any further disclosure of this information without the specific written consent of the person to whom it pertains, or as otherwise permitted by law. Any unauthorized further disclosure in violation of state law may result in a fine or chcf sentence or both. A general authorization for the release of medical or other information is NOT sufficient authorization for further disc losure. Allergies and Adverse Reactions Type Description Substance Reaction Status Data Source(s ) Oxycodone Oxycodone Oxycodone Hydrochloride 10 MG Oral Tablet GI up set Active eCW1 ([facility]) Percocet Percocet Acetaminophen 325 MG / Oxycodone Hydrochloride 10 MG Oral Tablet [Percocet] GI upset Active eCW1 ([facility]) Family History Family Member Name Family Member Gender Family Member Status Date o f Status Description Data Source(s) Unknown Male Problem [facility] ([facility]) Unknown Male Problem [facility] ([facility] () Encounters Encounter Providers Location Date Indications Data Source(s ) Outpatient Attender: NIRANJAN RASCON MD [facility] 03/14 02:15:00 PM EDT MED[facility] (Niranjna Rascon MD) Outpatient Attender: Guicho Aragon [place] [facility] 03/08/2020 03:40:0 0 PM EDT [facility] ([facility] Outpatient Attender: Guicho Aragon [place] [facility] 02/27/2020 01:00:0 0 PM EDT [facility] ([facility] Outpatient [email or web address] 02/10/2020 08:26:[address] [facility] Outpatient Attender: Guicho [facility] 02/07/2020 02:45:0 0 PM EDT [facility] ([facility] Outpatient Attender: Aspen Silva NPReferrer: Aspen [email or web address] 11/22/2019 03:40:58 PM EDT - 11/22/2019 04:28:[address] [facility] Outpatient Attender: Aspen Silva NPReferrer: Aspen [email or web address] 11/22/2019 12:00:00 AM EDT - 11/28/2019 03:02:[address] [facility] Outpatient Referrer: MARIE LEMONS MD 11/16/2019 12:13:00 PM EDT [facility] [place] [address] [address] 11/14/2019 12:00:00 AM EDT eCW1 (Critical access hospital) [place] [address] [address] 11/07/2019 12:00:00 AM EDT eCW1 (Critical access hospital) Outpatient [email or web address] 10/13/2019 04:29:[address] [facility] Outpatient [email or web address] 10/11/2019 03:52:17 PM EDT [facility] [address] [address] 09/20/2019 12:00:00 AM EDT eCW1 (Critical access hospital) [facility] [address] [address] 09/12/2019 12:00:00 AM EDT eCW1 (Critical access hospital) Outpatient Attender: Aspen [email or web address] 020 12:00:00 AM EDT - 09/06/2019 03:25:36 PM EDT [facility] [address] [address] 08/12/2019 12:00:00 AM EDT eCW1 (Critical access hospital) [facility] [address] [address] 08/10/2019 12:00:00 AM EDT eCW1 (Critical access hospital) Outpatient Attender: Aspen Silva NP [email or web address] [email or web address] 12:00:00 AM EDT - 08/09/2019 03:20:15 PM EDT [address] [address] 08/04/2019 12:00:00 AM EDT eCW1 (Critical access hospital) Outpatient Referrer: MARIE LEMONS MD 08/01/2019 02:43:00 PM EDT [facility] [address] [address] 08/01/2019 12:00:00 AM EDT eCW1 (Critical access hospital) Outpatient Referrer: MARIE LEMONS MD 07/28/2019 12:55:00 PM EST [facility] [address] [address] 07/27/2019 12:00:00 AM EST eCW1 (Critical access hospital) Inpatient Attender: Ismael Nelson MDAt tender: TIM Pfeifferender: TIM Pfeifferender: YSABEL FERRER MDAdmitter: Ismael Nelson MD [id number] 07/25/2019 12:10:45 AM EST - 07/26/2019 12:20:00 PM EST [facility] Patient [place]. [address] [address] 07/25/2019 12:00:00 AM EST eCW1 (Critical access hospital) Outpatient Attender: Maria T De La Paz MD [email or web address] 06/25 12:00:00 AM EST - 07/08/2019 01:41:[address] [facility] Immunizations Vaccine Date Status Description Data Source(s) New in 2012. IIV4 02/07/2020 03:52:00 PM EDT completed [facility] ([facility] Medications Medication Brand Name Start Date Product Form Dose Route Admi nistrative Instructions Pharmacy Instructions Status Indications Reaction Description Data Source(s) Ascorbic Acid 60 MG / Beta Carotene 5000 UNT / Copper Sulfate 40 MG / dl-alpha tocopheryl acetate 30 UNT / Sodium Selenite 0.04 MG / Zinc Oxide 40 MG Oral Tablet Centrum Silver 50+Women 05/14/2020 12:00:00 AM EST active MEDENT (Niranjan Rascon MD) Dora-3 Acid Ethyl Esters (FCI) 1000 MG Oral Capsule Dora-3 -Acid Ethyl Esters 05/14/2020 12:00:00 AM EST active [facility] (Niranjan Rascon MD) Aspirin 81 MG Delayed Release Oral Tablet Aspirin 81 2019 12:00:00 AM EST ORAL active [facility] ( Niranjan Rascon MD) atorvastatin 40 MG Oral Tablet ATORVASTATIN CALCIUM 02/24/2020 1 2:00:00 AM EDT tablet 90 TAKE ONE TABLET BY MOUTH NIGHTLY TAKE ONE TABLET BY MOUTH NIGHTLY SOLD: 02/26/2020 [facility] atorvastatin 40 MG Oral Tablet ATORVASTATIN CALCIUM 02/24/2020 1 2:00:00 AM EDT tablet 90 TAKE ONE TABLET BY MOUTH NIGHTLY TAKE ONE TABLET BY MOUTH NIGHTLY SOLD: 05/27/2020 [facility] 75 mg 02/24/2020 12:00:00 AM EDT tablet 90 TAKE ONE TABLET BY MOUTH EVERY DAY TAKE ONE TABLET BY MOUTH EVERY DAY SOLD: 05/27/2020 [facility] 10 mg 02/24/2020 12:00:00 AM EDT tablet 90 TAKE ONE TABLET BY MOUTH EVERY DAY TAKE ONE TABLET BY MOUTH EVERY DAY SOLD: 05/27/2020 [facility] 10 mg 02/24/2020 12:00:00 AM EDT tablet 90 TAKE ONE TABLET BY MOUTH EVERY DAY TAKE ONE TABLET BY MOUTH EVERY DAY SOLD: 02/26/2020 [facility] 75 mg 02/24/2020 12:00:00 AM EDT tablet 90 TAKE ONE TABLET BY MOUTH EVERY DAY TAKE ONE TABLET BY MOUTH EVERY DAY SOLD: 02/26/2020 [facility] 50 mg 02/14/2020 12:00:00 AM EDT tablet extended release 24 hr 90 TAKE ONE TABLET BY MOUTH EVERY DAY TAKE ONE TABLET BY MOUTH EVERY DAY SOLD: 02/14/2020 [facility] Cephalexin 500 MG Oral Capsule CEPHALEXIN 02/09/2020 12:00:00 AM EDT capsule 21 TAKE ONE CAPSULE BY MOUTH THREE TIMES A DAY FOR 7 DAYS TAKE ONE CAPSULE BY MOUTH THREE TIMES A DAY FOR 7 DAYS SOLD: 02/09/2020 [facility] Cephalexin 500 MG Oral Tablet Cephalexin 02/09/2020 12:00:00 AM EDT ORAL completed [facility] ([facility] 50 mcg/actuation 02/08/2020 12:00:00 AM EDT spray,suspension 16 SPRAY ONE SPRAY IN EACH NOSTRIL EVERY DAY SPRAY ONE SPRAY IN EACH NOSTRIL EVERY DAY SOLD: 02/09/2020 [facility] 20 mg 12/19/2019 12:00:00 AM EDT tablet 10 TAKE ONE TABLET BY MOUTH NEEDED TAKE ONE TABLET BY MOUTH NEEDED SOLD: 12/19/2019 [facility] 5 mg 11/23/2019 12:00:00 AM EDT tablet 90 TAKE 1 TABLET [5MG TOTAL] BY MOUTH DAILY TAKE 1 TABLET [5MG TOTAL] BY MOUTH DAILY SOLD: 02/23/2020 [facility] 5 mg 11/23/2019 12:00:00 AM EDT tablet 90 TAKE 1 TABLET [5MG TOTAL] BY MOUTH DAILY TAKE 1 TABLET [5MG TOTAL] BY MOUTH DAILY SOLD: 11/25/2019 [facility] 40 mg 08/22/2019 12:00:00 AM EDT tablet 90 TAKE ONE TABLET BY MOUTH NIGHTLY TAKE ONE TABLET BY MOUTH NIGHTLY SOLD: 08/23/2019 [facility] 10 mg 08/22/2019 12:00:00 AM EDT tablet 90 TAKE ONE TABLET BY MOUTH EVERY DAY TAKE ONE TABLET BY MOUTH EVERY DAY SOLD: 08/23/2019 [facility] 75 mg 08/22/2019 12:00:00 AM EDT tablet 90 TAKE ONE TABLET BY MOUTH EVERY DAY TAKE ONE TABLET BY MOUTH EVERY DAY SOLD: 11/19/2019 [facility] 10 mg 08/22/2019 12:00:00 AM EDT tablet 90 TAKE ONE TABLET BY MOUTH EVERY DAY TAKE ONE TABLET BY MOUTH EVERY DAY SOLD: 11/19/2019 [facility] 75 mg 08/22/2019 12:00:00 AM EDT tablet 90 TAKE ONE TABLET BY MOUTH EVERY DAY TAKE ONE TABLET BY MOUTH EVERY DAY SOLD: 08/23/2019 [facility] 40 mg 08/22/2019 12:00:00 AM EDT tablet 90 TAKE ONE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 Routine 07/25/2019 9:01 A M EST 07/25/2019 02:01:00 PM EST [facility] BASIC METABOLIC PANEL CALCIUM TOTAL BASIC METABOLIC PANEL Routi ne 07/25/2019 9:01 AM EST 07/25/2019 02:01:00 PM EST [facility] TROPONIN QUANTITATIVE TROPONIN I Routine 07/25/2019 6:06 AM EST 07/25/2019 11:06:[address] [facility] NT PRO BNP NT PRO BNP Routine 07/25/2019 2:54 AM EST 07/25/2019 07:54:[address] [facility] TROPONIN QUANTITATIVE TROPONIN I Timed 07/25/2019 2:54 AM EST 07/25/2019 07:54:[address] [facility] THROMBOPLASTIN TIME PARTIAL PLASMA/WHOLE BLOOD APTT Routine 07/25/2019 2:54 AM EST 07/25/2019 07:54:00 AM EST [facility] BLOOD COUNT COMPLETE AUTO&AUTO DIFRNTL WBC COUNT CBC AND DIFFER ENTIAL STAT 07/25/2019 2:54 AM EST 07/25/2019 07:54:[address] [facility] THYROID STIMULATING HORMONE TSH TSH Routine 07/25/2019 2:54 AM EST 07/25/2019 07:54:00 AM EST [facility] LIPID PANEL LIPID PANEL Routine 07/25/2019 2:54 AM EST 07/25/2019 07:54:[address] [facility] COMPREHENSIVE METABOLIC PANEL COMPREHENSIVE METABOLIC PANEL STA T 07/25/2019 2:54 AM EST 07/25/2019 07:54:00 AM EST [facility] XR CHEST PORTABLE XR CHEST PORTABLE Routine 07/25/2019 1:54 AM EST 07/25/2019 06:54:06 AM EST [facility] ECG ROUTINE ECG W/LEAST 12 LDS TRCG ONLY W/O I&R ECG 12-LEAD STAT 07/25/2019 12:20 AM EST 07/25/2019 05:20:52 AM EST [facility] Results ID Date Data Source [id number] 05/10/2020 03:58:00 AM EST [facility] Name Value Range Interpretation Code Description Data Naty rce(s) Supporting Document(s) SARS coronavirus 2 RNA [Presence] in Res piratory specimen by SHANNAN with probe detection [facility] This lab was ordered by [facility] a nd reported by [facility]. ID Date Data Source [id number] 02/27/2020 01:40:00 PM EDT [facility] ([facility] Name Value Range Interpretation Code Description Data Naty rce(s) Supporting Document(s) Color Laboratory test result [facility] ([facility] Glucose-Ua Laboratory test result [facility] ([facility] Clarity Laboratory test result [facility] ([facility] Bilirubin,Urine Laboratory test result [facility] ([facility] Ketone Laboratory test result [facility] ([facility] Blood - Ua Laboratory test result [facility] ([facility] pH 6.0 # 5.0-8.0 [facility] Creatine kinase [Enzymatic activity/volume] in Serum or Plas ma 1.020 # 1.000-1.030 [facility] Protein Laboratory test result [facility] ([facility] Urobilinogen 0.2 NA 0.2-1.0 [facility] ([facility] Leukocyte Laboratory test result Abnormal (applies to non -numeric results) [facility] ([facility] Nitrite Laboratory test result [facility] ([facility] RBC-Ua Laboratory test result 0-3 [facility] ([facility] Bacteria - Ua Laboratory test result Abnormal (applies to non-numeric results) [facility] ([facility] ) Epithelial Cells - Ua Laboratory test result [facility] ([facility] WBC-Ua Laboratory test result 0-5 Abnormal (applies to non -numeric results) [facility] ([facility] Mucous - Ua Laboratory test result M EDENT ([facility] Crystals Laboratory test result [facility] ([facility] ID Date Data Source [id number] 02/07/2020 04:54:00 PM EDT [facility] ([facility] Name Value Range Interpretation Code Description Data Naty rce(s) Supporting Document(s) Urine Culture, Routine Laboratory test result [facility] ([facility] SRC:URINE Bacteria identified in Urine by Culture Laboratory test result [facility] ([facility] SRC:URINE ID Date Data Source [id number] 02/07/2020 04:19:00 PM EDT [facility] ([facility] Name Value Range Interpretation Code Description Data Naty rce(s) Supporting Document(s) Color Urine Laboratory test result M EDENT ([facility] PH Urine 6.0 5.0-8.0 [facility] ([facility] Specific [place] 1.025 1.00-1.03 [facility] ([facility] Appearance of Urine Laboratory test result [facility] ([facility] Bilirubin.total [Presence] in Urine by Test strip Laboratory caitlin t result Above high normal [facility] ([facility] ) Glucose Urine Laboratory test result [facility] ([facility] Ketones Laboratory test result [facility] ([facility] Blood Urine Laboratory test result M EDENT ([facility] Urobilinogen 1.0 EU/dl 0.2-1.0 [facility] Protein Urine Laboratory test result [facility] ([facility] Leukocytes Laboratory test result Above high normal [facility] ([facility] Nitrite Laboratory test result Above high normal [facility] ([facility] ID Date Data Source [id number] 02/07/2020 03:14:00 PM EDT [facility] ([facility] Name Value Range Interpretation Code Description Data Naty rce(s) Supporting Document(s) Chol 99 mg/dL 0-200 [facility] NORMAL RANGES Age WBC RBC HGB HCT MCV PLT Adult M 4.1-10.9 4.20-6.30 12.0-18.0 37.0-51.0 80-97 140-440 Adult F 4.1-10.9 4.04-5.48 12.0-18.0 37.0-51.0 80-97 140-440 0 -1 Yr 5.0-20.0 3.9-5.9 15-18 MV: 44 MV: 91 MV: 277 2-9 Yr. 6.0-17.0 3.8-5.4 11-13 MV: 37 MV: 78 MV: 300 10 Yrs. 5.0-13.0 3.8-5.4 12-15 MV: 39 MV: 80 MV: 250 NOTE: * FOR ADULT BLACK MALES AND FEMALES, NORMAL WBC IS 2.9-7.7 K/ML * FOR ADULT BLACK MALES AND FEMALES, NORMAL RBC,HGB, AND HCT IS 5% LESS SOURCE FOR DATA: [place] DYN 1800 OPERATION MANUAL( AUTOMATED BLOOD COUNTS AND DIFF.) APPENDIX B-3 CHRONIC KIDNEY DISEASE STAGING PER NKF: MALE GFR INTERPRETATION: 20-49 YRS: >60 mL/min Normal 50-59 YRS: >56 mL/min Normal 60-69 YRS: >49 mL/min Normal 70-79 YRS: >42 mL/min Normal 80 and above >35 mL/min Normal FEMALE GRF INTERPRETATION: 20-39 YRS: >60 mL/min Normal 40-49 YRS: >58 mL/min Normal 50-59 YRS: >51 mL/min Normal 60-69 YRS: >45 mL/min Normal 70-79 YRS: >39 mL/min Normal 80 and above >32 mL/min NormalCLASSIFICATION CHOLESTEROL FOR ADULTS CHILDREN/ADOLESCENTS* DESIRABLE: <200 MG/DL <170 MG/DL BORDER-LINE HIGH RISK: 200-239 MG/DL 170-199 MG/DL HIGH RISK: >240 MG/DL >200 MG/DL CLASS. FOR PRIMARY LDL CHOL PREVENTION: LDL CHOL-CHILD/ADOLESCENTS* DESIRABLE: <130 MG/DL <110 MG/DL BORDERLINE-HIGH RISK: 130- 159 MG/DL 110-129 MG/DL HIGH RISK: >160 MG/DL >130 MG/DL *CHILDREN AND ADOLESCENTS REPRESENTS INDIVIDUALA AGED 2-19 YEARS EXCLUSIVE. Cholesterol in HDL [Mass/volume] in Serum or Plasma 71 mg/dL 35-55 Above high normal [facility] ([facility] ) NORMAL RANGES Age WBC RBC HGB HCT MCV PLT Adult M 4.1-10.9 4.20-6.30 12.0-18.0 37.0-51.0 80-97 140-440 Adult F 4.1-10.9 4.04-5.48 12.0-18.0 37.0-51.0 80-97 140-440 0 -1 Yr 5.0-20.0 3.9-5.9 15-18 MV: 44 MV: 91 MV: 277 2-9 Yr. 6.0-17.0 3.8-5.4 11-13 MV: 37 MV: 78 MV: 300 10 Yrs. 5.0-13.0 3.8-5.4 12-15 MV: 39 MV: 80 MV: 250 NOTE: * FOR ADULT BLACK MALES AND FEMALES, NORMAL WBC IS 2.9-7.7 K/ML * FOR ADULT BLACK MALES AND FEMALES, NORMAL RBC,HGB, AND HCT IS 5% LESS SOURCE FOR DATA: LIFT12 1800 OPERATION MANUAL( AUTOMATED BLOOD COUNTS AND DIFF.) APPENDIX B-3 CHRONIC KIDNEY DISEASE STAGING PER NKF: MALE GFR INTERPRETATION: 20-49 YRS: >60 mL/min Normal 50-59 YRS: >56 mL/min Normal 60-69 YRS: >49 mL/min Normal 70-79 YRS: >42 mL/min Normal 80 and above >35 mL/min Normal FEMALE GRF INTERPRETATION: 20-39 YRS: >60 mL/min Normal 40-49 YRS: >58 mL/min Normal 50-59 YRS: >51 mL/min Normal 60-69 YRS: >45 mL/min Normal 70-79 YRS: >39 mL/min Normal 80 and above >32 mL/min NormalCLASSIFICATION CHOLESTEROL FOR ADULTS CHILDREN/ADOLESCENTS* DESIRABLE: <200 MG/DL <170 MG/DL BORDER-LINE HIGH RISK: 200-239 MG/DL 170-199 MG/DL HIGH RISK: >240 MG/DL >200 MG/DL CLASS. FOR PRIMARY LDL CHOL PREVENTION: LDL CHOL-CHILD/ADOLESCENTS* DESIRABLE: <130 MG/DL <110 MG/DL BORDERLINE-HIGH RISK: 130- 159 MG/DL 110-129 MG/DL HIGH RISK: >160 MG/DL >130 MG/DL *CHILDREN AND ADOLESCENTS REPRESENTS INDIVIDUALA AGED 2-19 YEARS EXCLUSIVE. Trig 46 mg/dL 35-200 [facility] NORMAL RANGES Age WBC RBC HGB HCT MCV PLT Adult M 4.1-10.9 4.20-6.30 12.0-18.0 37.0-51.0 80-97 140-440 Adult F 4.1-10.9 4.04-5.48 12.0-18.0 37.0-51.0 80-97 140-440 0 -1 Yr 5.0-20.0 3.9-5.9 15-18 MV: 44 MV: 91 MV: 277 2-9 Yr. 6.0-17.0 3.8-5.4 11-13 MV: 37 MV: 78 MV: 300 10 Yrs. 5.0-13.0 3.8-5.4 12-15 MV: 39 MV: 80 MV: 250 NOTE: * FOR ADULT BLACK MALES AND FEMALES, NORMAL WBC IS 2.9-7.7 K/ML * FOR ADULT BLACK MALES AND FEMALES, NORMAL RBC,HGB, AND HCT IS 5% LESS SOURCE FOR DATA: LIFT12 1800 OPERATION MANUAL( AUTOMATED BLOOD COUNTS AND DIFF.) APPENDIX B-3 CHRONIC KIDNEY DISEASE STAGING PER NKF: MALE GFR INTERPRETATION: 20-49 YRS: >60 mL/min Normal 50-59 YRS: >56 mL/min Normal 60-69 YRS: >49 mL/min Normal 70-79 YRS: >42 mL/min Normal 80 and above >35 mL/min Normal FEMALE GRF INTERPRETATION: 20-39 YRS: >60 mL/min Normal 40-49 YRS: >58 mL/min Normal 50-59 YRS: >51 mL/min Normal 60-69 YRS: >45 mL/min Normal 70-79 YRS: >39 mL/min Normal 80 and above >32 mL/min NormalCLASSIFICATION CHOLESTEROL FOR ADULTS CHILDREN/ADOLESCENTS* DESIRABLE: <200 MG/DL <170 MG/DL BORDER-LINE HIGH RISK: 200-239 MG/DL 170-199 MG/DL HIGH RISK: >240 MG/DL >200 MG/DL CLASS. FOR PRIMARY LDL CHOL PREVENTION: LDL CHOL-CHILD/ADOLESCENTS* DESIRABLE: <130 MG/DL <110 MG/DL BORDERLINE-HIGH RISK: 130- 159 MG/DL 110-129 MG/DL HIGH RISK: >160 MG/DL >130 MG/DL *CHILDREN AND ADOLESCENTS REPRESENTS INDIVIDUALA AGED 2-19 YEARS EXCLUSIVE. LDL_C 19 Calc 75-129 Below low normal [facility] NORMAL RANGES Age WBC RBC HGB HCT MCV PLT Adult M 4.1-10.9 4.20-6.30 12.0-18.0 37.0-51.0 80-97 140-440 Adult F 4.1-10.9 4.04-5.48 12.0-18.0 37.0-51.0 80-97 140-440 0 -1 Yr 5.0-20.0 3.9-5.9 15-18 MV: 44 MV: 91 MV: 277 2-9 Yr. 6.0-17.0 3.8-5.4 11-13 MV: 37 MV: 78 MV: 300 10 Yrs. 5.0-13.0 3.8-5.4 12-15 MV: 39 MV: 80 MV: 250 NOTE: * FOR ADULT BLACK MALES AND FEMALES, NORMAL WBC IS 2.9-7.7 K/ML * FOR ADULT BLACK MALES AND FEMALES, NORMAL RBC,HGB, AND HCT IS 5% LESS SOURCE FOR DATA: LIFT12 1800 OPERATION MANUAL( AUTOMATED BLOOD COUNTS AND DIFF.) APPENDIX B-3 CHRONIC KIDNEY DISEASE STAGING PER NKF: MALE GFR INTERPRETATION: 20-49 YRS: >60 mL/min Normal 50-59 YRS: >56 mL/min Normal 60-69 YRS: >49 mL/min Normal 70-79 YRS: >42 mL/min Normal 80 and above >35 mL/min Normal FEMALE GRF INTERPRETATION: 20-39 YRS: >60 mL/min Normal 40-49 YRS: >58 mL/min Normal 50-59 YRS: >51 mL/min Normal 60-69 YRS: >45 mL/min Normal 70-79 YRS: >39 mL/min Normal 80 and above >32 mL/min NormalCLASSIFICATION CHOLESTEROL FOR ADULTS CHILDREN/ADOLESCENTS* DESIRABLE: <200 MG/DL <170 MG/DL BORDER-LINE HIGH RISK: 200-239 MG/DL 170-199 MG/DL HIGH RISK: >240 MG/DL >200 MG/DL CLASS. FOR PRIMARY LDL CHOL PREVENTION: LDL CHOL-CHILD/ADOLESCENTS* DESIRABLE: <130 MG/DL <110 MG/DL BORDERLINE-HIGH RISK: 130- 159 MG/DL 110-129 MG/DL HIGH RISK: >160 MG/DL >130 MG/DL *CHILDREN AND ADOLESCENTS REPRESENTS INDIVIDUALA AGED 2-19 YEARS EXCLUSIVE. Cho/HDL Ratio 1.4 Calc [facility] ([facility] NORMAL RANGES Age WBC RBC HGB HCT MCV PLT Adult M 4.1-10.9 4.20-6.30 12.0-18.0 37.0-51.0 80-97 140-440 Adult F 4.1-10.9 4.04-5.48 12.0-18.0 37.0-51.0 80-97 140-440 0 -1 Yr 5.0-20.0 3.9-5.9 15-18 MV: 44 MV: 91 MV: 277 2-9 Yr. 6.0-17.0 3.8-5.4 11-13 MV: 37 MV: 78 MV: 300 10 Yrs. 5.0-13.0 3.8-5.4 12-15 MV: 39 MV: 80 MV: 250 NOTE: * FOR ADULT BLACK MALES AND FEMALES, NORMAL WBC IS 2.9-7.7 K/ML * FOR ADULT BLACK MALES AND FEMALES, NORMAL RBC,HGB, AND HCT IS 5% LESS SOURCE FOR DATA: LIFT12 1800 OPERATION MANUAL( AUTOMATED BLOOD COUNTS AND DIFF.) APPENDIX B-3 CHRONIC KIDNEY DISEASE STAGING PER NKF: MALE GFR INTERPRETATION: 20-49 YRS: >60 mL/min Normal 50-59 YRS: >56 mL/min Normal 60-69 YRS: >49 mL/min Normal 70-79 YRS: >42 mL/min Normal 80 and above >35 mL/min Normal FEMALE GRF INTERPRETATION: 20-39 YRS: >60 mL/min Normal 40-49 YRS: >58 mL/min Normal 50-59 YRS: >51 mL/min Normal 60-69 YRS: >45 mL/min Normal 70-79 YRS: >39 mL/min Normal 80 and above >32 mL/min NormalCLASSIFICATION CHOLESTEROL FOR ADULTS CHILDREN/ADOLESCENTS* DESIRABLE: <200 MG/DL <170 MG/DL BORDER-LINE HIGH RISK: 200-239 MG/DL 170-199 MG/DL HIGH RISK: >240 MG/DL >200 MG/DL CLASS. FOR PRIMARY LDL CHOL PREVENTION: LDL CHOL-CHILD/ADOLESCENTS* DESIRABLE: <130 MG/DL <110 MG/DL BORDERLINE-HIGH RISK: 130- 159 MG/DL 110-129 MG/DL HIGH RISK: >160 MG/DL >130 MG/DL *CHILDREN AND ADOLESCENTS REPRESENTS INDIVIDUALA AGED 2-19 YEARS EXCLUSIVE. ID Date Data Source [id number] 02/07/2020 03:14:00 PM EDT [facility] Name Value Range Interpretation Code Description Data Naty rce(s) Supporting Document(s) Creatine kinase [Enzymatic activity/volume] in Serum or Plasma 2 6 U/L 39-308 Below low normal [facility] ) NORMAL RANGES Age WBC RBC HGB HCT MCV PLT Adult M 4.1-10.9 4.20-6.30 12.0-18.0 37.0-51.0 80-97 140-440 Adult F 4.1-10.9 4.04-5.48 12.0-18.0 37.0-51.0 80-97 140-440 0 -1 Yr 5.0-20.0 3.9-5.9 15-18 MV: 44 MV: 91 MV: 277 2-9 Yr. 6.0-17.0 3.8-5.4 11-13 MV: 37 MV: 78 MV: 300 10 Yrs. 5.0-13.0 3.8-5.4 12-15 MV: 39 MV: 80 MV: 250 NOTE: * FOR ADULT BLACK MALES AND FEMALES, NORMAL WBC IS 2.9-7.7 K/ML * FOR ADULT BLACK MALES AND FEMALES, NORMAL RBC,HGB, AND HCT IS 5% LESS SOURCE FOR DATA: LIFT12 1800 OPERATION MANUAL( AUTOMATED BLOOD COUNTS AND DIFF.) APPENDIX B-3 CHRONIC KIDNEY DISEASE STAGING PER NKF: MALE GFR INTERPRETATION: 20-49 YRS: >60 mL/min Normal 50-59 YRS: >56 mL/min Normal 60-69 YRS: >49 mL/min Normal 70-79 YRS: >42 mL/min Normal 80 and above >35 mL/min Normal FEMALE GRF INTERPRETATION: 20-39 YRS: >60 mL/min Normal 40-49 YRS: >58 mL/min Normal 50-59 YRS: >51 mL/min Normal 60-69 YRS: >45 mL/min Normal 70-79 YRS: >39 mL/min Normal 80 and above >32 mL/min NormalCLASSIFICATION CHOLESTEROL FOR ADULTS CHILDREN/ADOLESCENTS* DESIRABLE: <200 MG/DL <170 MG/DL BORDER-LINE HIGH RISK: 200-239 MG/DL 170-199 MG/DL HIGH RISK: >240 MG/DL >200 MG/DL CLASS. FOR PRIMARY LDL CHOL PREVENTION: LDL CHOL-CHILD/ADOLESCENTS* DESIRABLE: <130 MG/DL <110 MG/DL BORDERLINE-HIGH RISK: 130-159 MG/DL 110-129 MG/DL HIGH RISK: >160 MG/DL >130 MG/DL *CHILDREN AND ADOLESCENTS REPRESENTS INDIVIDUALA AGED 2-19 YEARS EXCLUSIVE. ID Date Data Source [id number] 02/07/2020 03:14:00 PM EDT [facility] ([facility] Name Value Range Interpretation Code Description Data Naty rce(s) Supporting Document(s) Creat 0.9 mg/dL 0.7-1.2 [facility] ([facility] NORMAL RANGES Age WBC RBC HGB HCT MCV PLT Adult M 4.1-10.9 4.20-6.30 12.0-18.0 37.0-51.0 80-97 140-440 Adult F 4.1-10.9 4.04-5.48 12.0-18.0 37.0-51.0 80-97 140-440 0 -1 Yr 5.0-20.0 3.9-5.9 15-18 MV: 44 MV: 91 MV: 277 2-9 Yr. 6.0-17.0 3.8-5.4 11-13 MV: 37 MV: 78 MV: 300 10 Yrs. 5.0-13.0 3.8-5.4 12-15 MV: 39 MV: 80 MV: 250 NOTE: * FOR ADULT BLACK MALES AND FEMALES, NORMAL WBC IS 2.9-7.7 K/ML * FOR ADULT BLACK MALES AND FEMALES, NORMAL RBC,HGB, AND HCT IS 5% LESS SOURCE FOR DATA: LIFT12 1800 OPERATION MANUAL( AUTOMATED BLOOD COUNTS AND DIFF.) APPENDIX B-3 CHRONIC KIDNEY DISEASE STAGING PER NKF: MALE GFR INTERPRETATION: 20-49 YRS: >60 mL/min Normal 50-59 YRS: >56 mL/min Normal 60-69 YRS: >49 mL/min Normal 70-79 YRS: >42 mL/min Normal 80 and above >35 mL/min Normal FEMALE GRF INTERPRETATION: 20-39 YRS: >60 mL/min Normal 40-49 YRS: >58 mL/min Normal 50-59 YRS: >51 mL/min Normal 60-69 YRS: >45 mL/min Normal 70-79 YRS: >39 mL/min Normal 80 and above >32 mL/min NormalCLASSIFICATION CHOLESTEROL FOR ADULTS CHILDREN/ADOLESCENTS* DESIRABLE: <200 MG/DL <170 MG/DL BORDER-LINE HIGH RISK: 200-239 MG/DL 170-199 MG/DL HIGH RISK: >240 MG/DL >200 MG/DL CLASS. FOR PRIMARY LDL CHOL PREVENTION: LDL CHOL-CHILD/ADOLESCENTS* DESIRABLE: <130 MG/DL <110 MG/DL BORDERLINE-HIGH RISK: 130-159 MG/DL 110-129 MG/DL HIGH RISK: >160 MG/DL >130 MG/DL *CHILDREN AND ADOLESCENTS REPRESENTS INDIVIDUALA AGED 2-19 YEARS EXCLUSIVE. Glu 99 mg/dL 70-110 [facility] ([facility] NORMAL RANGES Age WBC RBC HGB HCT MCV PLT Adult M 4.1-10.9 4.20-6.30 12.0-18.0 37.0-51.0 80-97 140-440 Adult F 4.1-10.9 4.04-5.48 12.0-18.0 37.0-51.0 80-97 140-440 0 -1 Yr 5.0-20.0 3.9-5.9 15-18 MV: 44 MV: 91 MV: 277 2-9 Yr. 6.0-17.0 3.8-5.4 11-13 MV: 37 MV: 78 MV: 300 10 Yrs. 5.0-13.0 3.8-5.4 12-15 MV: 39 MV: 80 MV: 250 NOTE: * FOR ADULT BLACK MALES AND FEMALES, NORMAL WBC IS 2.9-7.7 K/ML * FOR ADULT BLACK MALES AND FEMALES, NORMAL RBC,HGB, AND HCT IS 5% LESS SOURCE FOR DATA: LIFT12 1800 OPERATION MANUAL( AUTOMATED BLOOD COUNTS AND DIFF.) APPENDIX B-3 CHRONIC KIDNEY DISEASE STAGING PER NKF: MALE GFR INTERPRETATION: 20-49 YRS: >60 mL/min Normal 50-59 YRS: >56 mL/min Normal 60-69 YRS: >49 mL/min Normal 70-79 YRS: >42 mL/min Normal 80 and above >35 mL/min Normal FEMALE GRF INTERPRETATION: 20-39 YRS: >60 mL/min Normal 40-49 YRS: >58 mL/min Normal 50-59 YRS: >51 mL/min Normal 60-69 YRS: >45 mL/min Normal 70-79 YRS: >39 mL/min Normal 80 and above >32 mL/min NormalCLASSIFICATION CHOLESTEROL FOR ADULTS CHILDREN/ADOLESCENTS* DESIRABLE: <200 MG/DL <170 MG/DL BORDER-LINE HIGH RISK: 200-239 MG/DL 170-199 MG/DL HIGH RISK: >240 MG/DL >200 MG/DL CLASS. FOR PRIMARY LDL CHOL PREVENTION: LDL CHOL-CHILD/ADOLESCENTS* DESIRABLE: <130 MG/DL <110 MG/DL BORDERLINE-HIGH RISK: 130-159 MG/DL 110-129 MG/DL HIGH RISK: >160 MG/DL >130 MG/DL *CHILDREN AND ADOLESCENTS REPRESENTS INDIVIDUALA AGED 2-19 YEARS EXCLUSIVE. BUN 17 mg/dL 8- [facility] ([facility] NORMAL RANGES Age WBC RBC HGB HCT MCV PLT Adult M 4.1-10.9 4.20-6.30 12.0-18.0 37.0-51.0 80-97 140-440 Adult F 4.1-10.9 4.04-5.48 12.0-18.0 37.0-51.0 80-97 140-440 0 -1 Yr 5.0-20.0 3.9-5.9 15-18 MV: 44 MV: 91 MV: 277 2-9 Yr. 6.0-17.0 3.8-5.4 11-13 MV: 37 MV: 78 MV: 300 10 Yrs. 5.0-13.0 3.8-5.4 12-15 MV: 39 MV: 80 MV: 250 NOTE: * FOR ADULT BLACK MALES AND FEMALES, NORMAL WBC IS 2.9-7.7 K/ML * FOR ADULT BLACK MALES AND FEMALES, NORMAL RBC,HGB, AND HCT IS 5% LESS SOURCE FOR DATA: LIFT12 1800 OPERATION MANUAL( AUTOMATED BLOOD COUNTS AND DIFF.) APPENDIX B-3 CHRONIC KIDNEY DISEASE STAGING PER NKF: MALE GFR INTERPRETATION: 20-49 YRS: >60 mL/min Normal 50-59 YRS: >56 mL/min Normal 60-69 YRS: >49 mL/min Normal 70-79 YRS: >42 mL/min Normal 80 and above >35 mL/min Normal FEMALE GRF INTERPRETATION: 20-39 YRS: >60 mL/min Normal 40-49 YRS: >58 mL/min Normal 50-59 YRS: >51 mL/min Normal 60-69 YRS: >45 mL/min Normal 70-79 YRS: >39 mL/min Normal 80 and above >32 mL/min NormalCLASSIFICATION CHOLESTEROL FOR ADULTS CHILDREN/ADOLESCENTS* DESIRABLE: <200 MG/DL <170 MG/DL BORDER-LINE HIGH RISK: 200-239 MG/DL 170-199 MG/DL HIGH RISK: >240 MG/DL >200 MG/DL CLASS. FOR PRIMARY LDL CHOL PREVENTION: LDL CHOL-CHILD/ADOLESCENTS* DESIRABLE: <130 MG/DL <110 MG/DL BORDERLINE-HIGH RISK: 130-159 MG/DL 110-129 MG/DL HIGH RISK: >160 MG/DL >130 MG/DL *CHILDREN AND ADOLESCENTS REPRESENTS INDIVIDUALA AGED 2-19 YEARS EXCLUSIVE. BUN/Creatinine Ratio 18.7 CALC [facility] ([facility] NORMAL RANGES Age WBC RBC HGB HCT MCV PLT Adult M 4.1-10.9 4.20-6.30 12.0-18.0 37.0-51.0 80-97 140-440 Adult F 4.1-10.9 4.04-5.48 12.0-18.0 37.0-51.0 80-97 140-440 0 -1 Yr 5.0-20.0 3.9-5.9 15-18 MV: 44 MV: 91 MV: 277 2-9 Yr. 6.0-17.0 3.8-5.4 11-13 MV: 37 MV: 78 MV: 300 10 Yrs. 5.0-13.0 3.8-5.4 12-15 MV: 39 MV: 80 MV: 250 NOTE: * FOR ADULT BLACK MALES AND FEMALES, NORMAL WBC IS 2.9-7.7 K/ML * FOR ADULT BLACK MALES AND FEMALES, NORMAL RBC,HGB, AND HCT IS 5% LESS SOURCE FOR DATA: LIFT12 1800 OPERATION MANUAL( AUTOMATED BLOOD COUNTS AND DIFF.) APPENDIX B-3 CHRONIC KIDNEY DISEASE STAGING PER NKF: MALE GFR INTERPRETATION: 20-49 YRS: >60 mL/min Normal 50-59 YRS: >56 mL/min Normal 60-69 YRS: >49 mL/min Normal 70-79 YRS: >42 mL/min Normal 80 and above >35 mL/min Normal FEMALE GRF INTERPRETATION: 20-39 YRS: >60 mL/min Normal 40-49 YRS: >58 mL/min Normal 50-59 YRS: >51 mL/min Normal 60-69 YRS: >45 mL/min Normal 70-79 YRS: >39 mL/min Normal 80 and above >32 mL/min NormalCLASSIFICATION CHOLESTEROL FOR ADULTS CHILDREN/ADOLESCENTS* DESIRABLE: <200 MG/DL <170 MG/DL BORDER-LINE HIGH RISK: 200-239 MG/DL 170-199 MG/DL HIGH RISK: >240 MG/DL >200 MG/DL CLASS. FOR PRIMARY LDL CHOL PREVENTION: LDL CHOL-CHILD/ADOLESCENTS* DESIRABLE: <130 MG/DL <110 MG/DL BORDERLINE-HIGH RISK: 130-159 MG/DL 110-129 MG/DL HIGH RISK: >160 MG/DL >130 MG/DL *CHILDREN AND ADOLESCENTS REPRESENTS INDIVIDUALA AGED 2-19 YEARS EXCLUSIVE. Na 133 mmol/L 136-145 Below low normal [facility] ( [facility] NORMAL RANGES Age WBC RBC HGB HCT MCV PLT Adult M 4.1-10.9 4.20-6.30 12.0-18.0 37.0-51.0 80-97 140-440 Adult F 4.1-10.9 4.04-5.48 12.0-18.0 37.0-51.0 80-97 140-440 0 -1 Yr 5.0-20.0 3.9-5.9 15-18 MV: 44 MV: 91 MV: 277 2-9 Yr. 6.0-17.0 3.8-5.4 11-13 MV: 37 MV: 78 MV: 300 10 Yrs. 5.0-13.0 3.8-5.4 12-15 MV: 39 MV: 80 MV: 250 NOTE: * FOR ADULT BLACK MALES AND FEMALES, NORMAL WBC IS 2.9-7.7 K/ML * FOR ADULT BLACK MALES AND FEMALES, NORMAL RBC,HGB, AND HCT IS 5% LESS SOURCE FOR DATA: [place] DYN 1800 OPERATION MANUAL( AUTOMATED BLOOD COUNTS AND DIFF.) APPENDIX B-3 CHRONIC KIDNEY DISEASE STAGING PER NKF: MALE GFR INTERPRETATION: 20-49 YRS: >60 mL/min Normal 50-59 YRS: >56 mL/min Normal 60-69 YRS: >49 mL/min Normal 70-79 YRS: >42 mL/min Normal 80 and above >35 mL/min Normal FEMALE GRF INTERPRETATION: 20-39 YRS: >60 mL/min Normal 40-49 YRS: >58 mL/min Normal 50-59 YRS: >51 mL/min Normal 60-69 YRS: >45 mL/min Normal 70-79 YRS: >39 mL/min Normal 80 and above >32 mL/min NormalCLASSIFICATION CHOLESTEROL FOR ADULTS CHILDREN/ADOLESCENTS* DESIRABLE: <200 MG/DL <170 MG/DL BORDER-LINE HIGH RISK: 200-239 MG/DL 170-199 MG/DL HIGH RISK: >240 MG/DL >200 MG/DL CLASS. FOR PRIMARY LDL CHOL PREVENTION: LDL CHOL-CHILD/ADOLESCENTS* DESIRABLE: <130 MG/DL <110 MG/DL BORDERLINE-HIGH RISK: 130-159 MG/DL 110-129 MG/DL HIGH RISK: >160 MG/DL >130 MG/DL *CHILDREN AND ADOLESCENTS REPRESENTS INDIVIDUALA AGED 2-19 YEARS EXCLUSIVE. CL 99.2 mmol/L 98.0-107.0 [facility] ([facility] NORMAL RANGES Age WBC RBC HGB HCT MCV PLT Adult M 4.1-10.9 4.20-6.30 12.0-18.0 37.0-51.0 80-97 140-440 Adult F 4.1-10.9 4.04-5.48 12.0-18.0 37.0-51.0 80-97 140-440 0 -1 Yr 5.0-20.0 3.9-5.9 15-18 MV: 44 MV: 91 MV: 277 2-9 Yr. 6.0-17.0 3.8-5.4 11-13 MV: 37 MV: 78 MV: 300 10 Yrs. 5.0-13.0 3.8-5.4 12-15 MV: 39 MV: 80 MV: 250 NOTE: * FOR ADULT BLACK MALES AND FEMALES, NORMAL WBC IS 2.9-7.7 K/ML * FOR ADULT BLACK MALES AND FEMALES, NORMAL RBC,HGB, AND HCT IS 5% LESS SOURCE FOR DATA: LIFT12 1800 OPERATION MANUAL( AUTOMATED BLOOD COUNTS AND DIFF.) APPENDIX B-3 CHRONIC KIDNEY DISEASE STAGING PER NKF: MALE GFR INTERPRETATION: 20-49 YRS: >60 mL/min Normal 50-59 YRS: >56 mL/min Normal 60-69 YRS: >49 mL/min Normal 70-79 YRS: >42 mL/min Normal 80 and above >35 mL/min Normal FEMALE GRF INTERPRETATION: 20-39 YRS: >60 mL/min Normal 40-49 YRS: >58 mL/min Normal 50-59 YRS: >51 mL/min Normal 60-69 YRS: >45 mL/min Normal 70-79 YRS: >39 mL/min Normal 80 and above >32 mL/min NormalCLASSIFICATION CHOLESTEROL FOR ADULTS CHILDREN/ADOLESCENTS* DESIRABLE: <200 MG/DL <170 MG/DL BORDER-LINE HIGH RISK: 200-239 MG/DL 170-199 MG/DL HIGH RISK: >240 MG/DL >200 MG/DL CLASS. FOR PRIMARY LDL CHOL PREVENTION: LDL CHOL-CHILD/ADOLESCENTS* DESIRABLE: <130 MG/DL <110 MG/DL BORDERLINE-HIGH RISK: 130-159 MG/DL 110-129 MG/DL HIGH RISK: >160 MG/DL >130 MG/DL *CHILDREN AND ADOLESCENTS REPRESENTS INDIVIDUALA AGED 2-19 YEARS EXCLUSIVE. K 5.0 mmol/L 3.5-5.1 [facility] ([facility] NORMAL RANGES Age WBC RBC HGB HCT MCV PLT Adult M 4.1-10.9 4.20-6.30 12.0-18.0 37.0-51.0 80-97 140-440 Adult F 4.1-10.9 4.04-5.48 12.0-18.0 37.0-51.0 80-97 140-440 0 -1 Yr 5.0-20.0 3.9-5.9 15-18 MV: 44 MV: 91 MV: 277 2-9 Yr. 6.0-17.0 3.8-5.4 11-13 MV: 37 MV: 78 MV: 300 10 Yrs. 5.0-13.0 3.8-5.4 12-15 MV: 39 MV: 80 MV: 250 NOTE: * FOR ADULT BLACK MALES AND FEMALES, NORMAL WBC IS 2.9-7.7 K/ML * FOR ADULT BLACK MALES AND FEMALES, NORMAL RBC,HGB, AND HCT IS 5% LESS SOURCE FOR DATA: [place] DYN 1800 OPERATION MANUAL( AUTOMATED BLOOD COUNTS AND DIFF.) APPENDIX B-3 CHRONIC KIDNEY DISEASE STAGING PER NKF: MALE GFR INTERPRETATION: 20-49 YRS: >60 mL/min Normal 50-59 YRS: >56 mL/min Normal 60-69 YRS: >49 mL/min Normal 70-79 YRS: >42 mL/min Normal 80 and above >35 mL/min Normal FEMALE GRF INTERPRETATION: 20-39 YRS: >60 mL/min Normal 40-49 YRS: >58 mL/min Normal 50-59 YRS: >51 mL/min Normal 60-69 YRS: >45 mL/min Normal 70-79 YRS: >39 mL/min Normal 80 and above >32 mL/min NormalCLASSIFICATION CHOLESTEROL FOR ADULTS CHILDREN/ADOLESCENTS* DESIRABLE: <200 MG/DL <170 MG/DL BORDER-LINE HIGH RISK: 200-239 MG/DL 170-199 MG/DL HIGH RISK: >240 MG/DL >200 MG/DL CLASS. FOR PRIMARY LDL CHOL PREVENTION: LDL CHOL-CHILD/ADOLESCENTS* DESIRABLE: <130 MG/DL <110 MG/DL BORDERLINE-HIGH RISK: 130-159 MG/DL 110-129 MG/DL HIGH RISK: >160 MG/DL >130 MG/DL *CHILDREN AND ADOLESCENTS REPRESENTS INDIVIDUALA AGED 2-19 YEARS EXCLUSIVE. Co2 23.7 mmol/L 22.0-29.0 [facility] NORMAL RANGES Age WBC RBC HGB HCT MCV PLT Adult M 4.1-10.9 4.20-6.30 12.0-18.0 37.0-51.0 80-97 140-440 Adult F 4.1-10.9 4.04-5.48 12.0-18.0 37.0-51.0 80-97 140-440 0 -1 Yr 5.0-20.0 3.9-5.9 15-18 MV: 44 MV: 91 MV: 277 2-9 Yr. 6.0-17.0 3.8-5.4 11-13 MV: 37 MV: 78 MV: 300 10 Yrs. 5.0-13.0 3.8-5.4 12-15 MV: 39 MV: 80 MV: 250 NOTE: * FOR ADULT BLACK MALES AND FEMALES, NORMAL WBC IS 2.9-7.7 K/ML * FOR ADULT BLACK MALES AND FEMALES, NORMAL RBC,HGB, AND HCT IS 5% LESS SOURCE FOR DATA: LIFT12 1800 OPERATION MANUAL( AUTOMATED BLOOD COUNTS AND DIFF.) APPENDIX B-3 CHRONIC KIDNEY DISEASE STAGING PER NKF: MALE GFR INTERPRETATION: 20-49 YRS: >60 mL/min Normal 50-59 YRS: >56 mL/min Normal 60-69 YRS: >49 mL/min Normal 70-79 YRS: >42 mL/min Normal 80 and above >35 mL/min Normal FEMALE GRF INTERPRETATION: 20-39 YRS: >60 mL/min Normal 40-49 YRS: >58 mL/min Normal 50-59 YRS: >51 mL/min Normal 60-69 YRS: >45 mL/min Normal 70-79 YRS: >39 mL/min Normal 80 and above >32 mL/min NormalCLASSIFICATION CHOLESTEROL FOR ADULTS CHILDREN/ADOLESCENTS* DESIRABLE: <200 MG/DL <170 MG/DL BORDER-LINE HIGH RISK: 200-239 MG/DL 170-199 MG/DL HIGH RISK: >240 MG/DL >200 MG/DL CLASS. FOR PRIMARY LDL CHOL PREVENTION: LDL CHOL-CHILD/ADOLESCENTS* DESIRABLE: <130 MG/DL <110 MG/DL BORDERLINE-HIGH RISK: 130-159 MG/DL 110-129 MG/DL HIGH RISK: >160 MG/DL >130 MG/DL *CHILDREN AND ADOLESCENTS REPRESENTS INDIVIDUALA AGED 2-19 YEARS EXCLUSIVE. TP 7.0 g/dL 6.6-8.7 [facility] NORMAL RANGES Age WBC RBC HGB HCT MCV PLT Adult M 4.1-10.9 4.20-6.30 12.0-18.0 37.0-51.0 80-97 140-440 Adult F 4.1-10.9 4.04-5.48 12.0-18.0 37.0-51.0 80-97 140-440 0 -1 Yr 5.0-20.0 3.9-5.9 15-18 MV: 44 MV: 91 MV: 277 2-9 Yr. 6.0-17.0 3.8-5.4 11-13 MV: 37 MV: 78 MV: 300 10 Yrs. 5.0-13.0 3.8-5.4 12-15 MV: 39 MV: 80 MV: 250 NOTE: * FOR ADULT BLACK MALES AND FEMALES, NORMAL WBC IS 2.9-7.7 K/ML * FOR ADULT BLACK MALES AND FEMALES, NORMAL RBC,HGB, AND HCT IS 5% LESS SOURCE FOR DATA: LIFT12 1800 OPERATION MANUAL( AUTOMATED BLOOD COUNTS AND DIFF.) APPENDIX B-3 CHRONIC KIDNEY DISEASE STAGING PER NKF: MALE GFR INTERPRETATION: 20-49 YRS: >60 mL/min Normal 50-59 YRS: >56 mL/min Normal 60-69 YRS: >49 mL/min Normal 70-79 YRS: >42 mL/min Normal 80 and above >35 mL/min Normal FEMALE GRF INTERPRETATION: 20-39 YRS: >60 mL/min Normal 40-49 YRS: >58 mL/min Normal 50-59 YRS: >51 mL/min Normal 60-69 YRS: >45 mL/min Normal 70-79 YRS: >39 mL/min Normal 80 and above >32 mL/min NormalCLASSIFICATION CHOLESTEROL FOR ADULTS CHILDREN/ADOLESCENTS* DESIRABLE: <200 MG/DL <170 MG/DL BORDER-LINE HIGH RISK: 200-239 MG/DL 170-199 MG/DL HIGH RISK: >240 MG/DL >200 MG/DL CLASS. FOR PRIMARY LDL CHOL PREVENTION: LDL CHOL-CHILD/ADOLESCENTS* DESIRABLE: <130 MG/DL <110 MG/DL BORDERLINE-HIGH RISK: 130-159 MG/DL 110-129 MG/DL HIGH RISK: >160 MG/DL >130 MG/DL *CHILDREN AND ADOLESCENTS REPRESENTS INDIVIDUALA AGED 2-19 YEARS EXCLUSIVE. CA 10.1 mg/dL 8.6-10.2 [facility] ([facility] NORMAL RANGES Age WBC RBC HGB HCT MCV PLT Adult M 4.1-10.9 4.20-6.30 12.0-18.0 37.0-51.0 80-97 140-440 Adult F 4.1-10.9 4.04-5.48 12.0-18.0 37.0-51.0 80-97 140-440 0 -1 Yr 5.0-20.0 3.9-5.9 15-18 MV: 44 MV: 91 MV: 277 2-9 Yr. 6.0-17.0 3.8-5.4 11-13 MV: 37 MV: 78 MV: 300 10 Yrs. 5.0-13.0 3.8-5.4 12-15 MV: 39 MV: 80 MV: 250 NOTE: * FOR ADULT BLACK MALES AND FEMALES, NORMAL WBC IS 2.9-7.7 K/ML * FOR ADULT BLACK MALES AND FEMALES, NORMAL RBC,HGB, AND HCT IS 5% LESS SOURCE FOR DATA: LIFT12 1800 OPERATION MANUAL( AUTOMATED BLOOD COUNTS AND DIFF.) APPENDIX B-3 CHRONIC KIDNEY DISEASE STAGING PER NKF: MALE GFR INTERPRETATION: 20-49 YRS: >60 mL/min Normal 50-59 YRS: >56 mL/min Normal 60-69 YRS: >49 mL/min Normal 70-79 YRS: >42 mL/min Normal 80 and above >35 mL/min Normal FEMALE GRF INTERPRETATION: 20-39 YRS: >60 mL/min Normal 40-49 YRS: >58 mL/min Normal 50-59 YRS: >51 mL/min Normal 60-69 YRS: >45 mL/min Normal 70-79 YRS: >39 mL/min Normal 80 and above >32 mL/min NormalCLASSIFICATION CHOLESTEROL FOR ADULTS CHILDREN/ADOLESCENTS* DESIRABLE: <200 MG/DL <170 MG/DL BORDER-LINE HIGH RISK: 200-239 MG/DL 170-199 MG/DL HIGH RISK: >240 MG/DL >200 MG/DL CLASS. FOR PRIMARY LDL CHOL PREVENTION: LDL CHOL-CHILD/ADOLESCENTS* DESIRABLE: <130 MG/DL <110 MG/DL BORDERLINE-HIGH RISK: 130-159 MG/DL 110-129 MG/DL HIGH RISK: >160 MG/DL >130 MG/DL *CHILDREN AND ADOLESCENTS REPRESENTS INDIVIDUALA AGED 2-19 YEARS EXCLUSIVE. Alb 4.4 g/dL 3.5-5.2 [facility] NORMAL RANGES Age WBC RBC HGB HCT MCV PLT Adult M 4.1-10.9 4.20-6.30 12.0-18.0 37.0-51.0 80-97 140-440 Adult F 4.1-10.9 4.04-5.48 12.0-18.0 37.0-51.0 80-97 140-440 0 -1 Yr 5.0-20.0 3.9-5.9 15-18 MV: 44 MV: 91 MV: 277 2-9 Yr. 6.0-17.0 3.8-5.4 11-13 MV: 37 MV: 78 MV: 300 10 Yrs. 5.0-13.0 3.8-5.4 12-15 MV: 39 MV: 80 MV: 250 NOTE: * FOR ADULT BLACK MALES AND FEMALES, NORMAL WBC IS 2.9-7.7 K/ML * FOR ADULT BLACK MALES AND FEMALES, NORMAL RBC,HGB, AND HCT IS 5% LESS SOURCE FOR DATA: LIFT12 1800 OPERATION MANUAL( AUTOMATED BLOOD COUNTS AND DIFF.) APPENDIX B-3 CHRONIC KIDNEY DISEASE STAGING PER NKF: MALE GFR INTERPRETATION: 20-49 YRS: >60 mL/min Normal 50-59 YRS: >56 mL/min Normal 60-69 YRS: >49 mL/min Normal 70-79 YRS: >42 mL/min Normal 80 and above >35 mL/min Normal FEMALE GRF INTERPRETATION: 20-39 YRS: >60 mL/min Normal 40-49 YRS: >58 mL/min Normal 50-59 YRS: >51 mL/min Normal 60-69 YRS: >45 mL/min Normal 70-79 YRS: >39 mL/min Normal 80 and above >32 mL/min NormalCLASSIFICATION CHOLESTEROL FOR ADULTS CHILDREN/ADOLESCENTS* DESIRABLE: <200 MG/DL <170 MG/DL BORDER-LINE HIGH RISK: 200-239 MG/DL 170-199 MG/DL HIGH RISK: >240 MG/DL >200 MG/DL CLASS. FOR PRIMARY LDL CHOL PREVENTION: LDL CHOL-CHILD/ADOLESCENTS* DESIRABLE: <130 MG/DL <110 MG/DL BORDERLINE-HIGH RISK: 130-159 MG/DL 110-129 MG/DL HIGH RISK: >160 MG/DL >130 MG/DL *CHILDREN AND ADOLESCENTS REPRESENTS INDIVIDUALA AGED 2-19 YEARS EXCLUSIVE. A/G Ratio 1.8 CALC [facility] ([facility] NORMAL RANGES Age WBC RBC HGB HCT MCV PLT Adult M 4.1-10.9 4.20-6.30 12.0-18.0 37.0-51.0 80-97 140-440 Adult F 4.1-10.9 4.04-5.48 12.0-18.0 37.0-51.0 80-97 140-440 0 -1 Yr 5.0-20.0 3.9-5.9 15-18 MV: 44 MV: 91 MV: 277 2-9 Yr. 6.0-17.0 3.8-5.4 11-13 MV: 37 MV: 78 MV: 300 10 Yrs. 5.0-13.0 3.8-5.4 12-15 MV: 39 MV: 80 MV: 250 NOTE: * FOR ADULT BLACK MALES AND FEMALES, NORMAL WBC IS 2.9-7.7 K/ML * FOR ADULT BLACK MALES AND FEMALES, NORMAL RBC,HGB, AND HCT IS 5% LESS SOURCE FOR DATA: LIFT12 1800 OPERATION MANUAL( AUTOMATED BLOOD COUNTS AND DIFF.) APPENDIX B-3 CHRONIC KIDNEY DISEASE STAGING PER NKF: MALE GFR INTERPRETATION: 20-49 YRS: >60 mL/min Normal 50-59 YRS: >56 mL/min Normal 60-69 YRS: >49 mL/min Normal 70-79 YRS: >42 mL/min Normal 80 and above >35 mL/min Normal FEMALE GRF INTERPRETATION: 20-39 YRS: >60 mL/min Normal 40-49 YRS: >58 mL/min Normal 50-59 YRS: >51 mL/min Normal 60-69 YRS: >45 mL/min Normal 70-79 YRS: >39 mL/min Normal 80 and above >32 mL/min NormalCLASSIFICATION CHOLESTEROL FOR ADULTS CHILDREN/ADOLESCENTS* DESIRABLE: <200 MG/DL <170 MG/DL BORDER-LINE HIGH RISK: 200-239 MG/DL 170-199 MG/DL HIGH RISK: >240 MG/DL >200 MG/DL CLASS. FOR PRIMARY LDL CHOL PREVENTION: LDL CHOL-CHILD/ADOLESCENTS* DESIRABLE: <130 MG/DL <110 MG/DL BORDERLINE-HIGH RISK: 130-159 MG/DL 110-129 MG/DL HIGH RISK: >160 MG/DL >130 MG/DL *CHILDREN AND ADOLESCENTS REPRESENTS INDIVIDUALA AGED 2-19 YEARS EXCLUSIVE. Alp 101.1 U/L 40-129 [facility] ([facility] NORMAL RANGES Age WBC RBC HGB HCT MCV PLT Adult M 4.1-10.9 4.20-6.30 12.0-18.0 37.0-51.0 80-97 140-440 Adult F 4.1-10.9 4.04-5.48 12.0-18.0 37.0-51.0 80-97 140-440 0 -1 Yr 5.0-20.0 3.9-5.9 15-18 MV: 44 MV: 91 MV: 277 2-9 Yr. 6.0-17.0 3.8-5.4 11-13 MV: 37 MV: 78 MV: 300 10 Yrs. 5.0-13.0 3.8-5.4 12-15 MV: 39 MV: 80 MV: 250 NOTE: * FOR ADULT BLACK MALES AND FEMALES, NORMAL WBC IS 2.9-7.7 K/ML * FOR ADULT BLACK MALES AND FEMALES, NORMAL RBC,HGB, AND HCT IS 5% LESS SOURCE FOR DATA: LIFT12 1800 OPERATION MANUAL( AUTOMATED BLOOD COUNTS AND DIFF.) APPENDIX B-3 CHRONIC KIDNEY DISEASE STAGING PER NKF: MALE GFR INTERPRETATION: 20-49 YRS: >60 mL/min Normal 50-59 YRS: >56 mL/min Normal 60-69 YRS: >49 mL/min Normal 70-79 YRS: >42 mL/min Normal 80 and above >35 mL/min Normal FEMALE GRF INTERPRETATION: 20-39 YRS: >60 mL/min Normal 40-49 YRS: >58 mL/min Normal 50-59 YRS: >51 mL/min Normal 60-69 YRS: >45 mL/min Normal 70-79 YRS: >39 mL/min Normal 80 and above >32 mL/min NormalCLASSIFICATION CHOLESTEROL FOR ADULTS CHILDREN/ADOLESCENTS* DESIRABLE: <200 MG/DL <170 MG/DL BORDER-LINE HIGH RISK: 200-239 MG/DL 170-199 MG/DL HIGH RISK: >240 MG/DL >200 MG/DL CLASS. FOR PRIMARY LDL CHOL PREVENTION: LDL CHOL-CHILD/ADOLESCENTS* DESIRABLE: <130 MG/DL <110 MG/DL BORDERLINE-HIGH RISK: 130-159 MG/DL 110-129 MG/DL HIGH RISK: >160 MG/DL >130 MG/DL *CHILDREN AND ADOLESCENTS REPRESENTS INDIVIDUALA AGED 2-19 YEARS EXCLUSIVE. Globulin 2.5 CALC [facility] ([facility] NORMAL RANGES Age WBC RBC HGB HCT MCV PLT Adult M 4.1-10.9 4.20-6.30 12.0-18.0 37.0-51.0 80-97 140-440 Adult F 4.1-10.9 4.04-5.48 12.0-18.0 37.0-51.0 80-97 140-440 0 -1 Yr 5.0-20.0 3.9-5.9 15-18 MV: 44 MV: 91 MV: 277 2-9 Yr. 6.0-17.0 3.8-5.4 11-13 MV: 37 MV: 78 MV: 300 10 Yrs. 5.0-13.0 3.8-5.4 12-15 MV: 39 MV: 80 MV: 250 NOTE: * FOR ADULT BLACK MALES AND FEMALES, NORMAL WBC IS 2.9-7.7 K/ML * FOR ADULT BLACK MALES AND FEMALES, NORMAL RBC,HGB, AND HCT IS 5% LESS SOURCE FOR DATA: LIFT12 1800 OPERATION MANUAL( AUTOMATED BLOOD COUNTS AND DIFF.) APPENDIX B-3 CHRONIC KIDNEY DISEASE STAGING PER NKF: MALE GFR INTERPRETATION: 20-49 YRS: >60 mL/min Normal 50-59 YRS: >56 mL/min Normal 60-69 YRS: >49 mL/min Normal 70-79 YRS: >42 mL/min Normal 80 and above >35 mL/min Normal FEMALE GRF INTERPRETATION: 20-39 YRS: >60 mL/min Normal 40-49 YRS: >58 mL/min Normal 50-59 YRS: >51 mL/min Normal 60-69 YRS: >45 mL/min Normal 70-79 YRS: >39 mL/min Normal 80 and above >32 mL/min NormalCLASSIFICATION CHOLESTEROL FOR ADULTS CHILDREN/ADOLESCENTS* DESIRABLE: <200 MG/DL <170 MG/DL BORDER-LINE HIGH RISK: 200-239 MG/DL 170-199 MG/DL HIGH RISK: >240 MG/DL >200 MG/DL CLASS. FOR PRIMARY LDL CHOL PREVENTION: LDL CHOL-CHILD/ADOLESCENTS* DESIRABLE: <130 MG/DL <110 MG/DL BORDERLINE-HIGH RISK: 130-159 MG/DL 110-129 MG/DL HIGH RISK: >160 MG/DL >130 MG/DL *CHILDREN AND ADOLESCENTS REPRESENTS INDIVIDUALA AGED 2-19 YEARS EXCLUSIVE. Alt (SGPT) 14 U/L 0-41 [facility] NORMAL RANGES Age WBC RBC HGB HCT MCV PLT Adult M 4.1-10.9 4.20-6.30 12.0-18.0 37.0-51.0 80-97 140-440 Adult F 4.1-10.9 4.04-5.48 12.0-18.0 37.0-51.0 80-97 140-440 0 -1 Yr 5.0-20.0 3.9-5.9 15-18 MV: 44 MV: 91 MV: 277 2-9 Yr. 6.0-17.0 3.8-5.4 11-13 MV: 37 MV: 78 MV: 300 10 Yrs. 5.0-13.0 3.8-5.4 12-15 MV: 39 MV: 80 MV: 250 NOTE: * FOR ADULT BLACK MALES AND FEMALES, NORMAL WBC IS 2.9-7.7 K/ML * FOR ADULT BLACK MALES AND FEMALES, NORMAL RBC,HGB, AND HCT IS 5% LESS SOURCE FOR DATA: LIFT12 1800 OPERATION MANUAL( AUTOMATED BLOOD COUNTS AND DIFF.) APPENDIX B-3 CHRONIC KIDNEY DISEASE STAGING PER NKF: MALE GFR INTERPRETATION: 20-49 YRS: >60 mL/min Normal 50-59 YRS: >56 mL/min Normal 60-69 YRS: >49 mL/min Normal 70-79 YRS: >42 mL/min Normal 80 and above >35 mL/min Normal FEMALE GRF INTERPRETATION: 20-39 YRS: >60 mL/min Normal 40-49 YRS: >58 mL/min Normal 50-59 YRS: >51 mL/min Normal 60-69 YRS: >45 mL/min Normal 70-79 YRS: >39 mL/min Normal 80 and above >32 mL/min NormalCLASSIFICATION CHOLESTEROL FOR ADULTS CHILDREN/ADOLESCENTS* DESIRABLE: <200 MG/DL <170 MG/DL BORDER-LINE HIGH RISK: 200-239 MG/DL 170-199 MG/DL HIGH RISK: >240 MG/DL >200 MG/DL CLASS. FOR PRIMARY LDL CHOL PREVENTION: LDL CHOL-CHILD/ADOLESCENTS* DESIRABLE: <130 MG/DL <110 MG/DL BORDERLINE-HIGH RISK: 130-159 MG/DL 110-129 MG/DL HIGH RISK: >160 MG/DL >130 MG/DL *CHILDREN AND ADOLESCENTS REPRESENTS INDIVIDUALA AGED 2-19 YEARS EXCLUSIVE. Osmolality-Calculated 267.6 CALC [facility] ([facility] NORMAL RANGES Age WBC RBC HGB HCT MCV PLT Adult M 4.1-10.9 4.20-6.30 12.0-18.0 37.0-51.0 80-97 140-440 Adult F 4.1-10.9 4.04-5.48 12.0-18.0 37.0-51.0 80-97 140-440 0 -1 Yr 5.0-20.0 3.9-5.9 15-18 MV: 44 MV: 91 MV: 277 2-9 Yr. 6.0-17.0 3.8-5.4 11-13 MV: 37 MV: 78 MV: 300 10 Yrs. 5.0-13.0 3.8-5.4 12-15 MV: 39 MV: 80 MV: 250 NOTE: * FOR ADULT BLACK MALES AND FEMALES, NORMAL WBC IS 2.9-7.7 K/ML * FOR ADULT BLACK MALES AND FEMALES, NORMAL RBC,HGB, AND HCT IS 5% LESS SOURCE FOR DATA: LIFT12 1800 OPERATION MANUAL( AUTOMATED BLOOD COUNTS AND DIFF.) APPENDIX B-3 CHRONIC KIDNEY DISEASE STAGING PER NKF: MALE GFR INTERPRETATION: 20-49 YRS: >60 mL/min Normal 50-59 YRS: >56 mL/min Normal 60-69 YRS: >49 mL/min Normal 70-79 YRS: >42 mL/min Normal 80 and above >35 mL/min Normal FEMALE GRF INTERPRETATION: 20-39 YRS: >60 mL/min Normal 40-49 YRS: >58 mL/min Normal 50-59 YRS: >51 mL/min Normal 60-69 YRS: >45 mL/min Normal 70-79 YRS: >39 mL/min Normal 80 and above >32 mL/min NormalCLASSIFICATION CHOLESTEROL FOR ADULTS CHILDREN/ADOLESCENTS* DESIRABLE: <200 MG/DL <170 MG/DL BORDER-LINE HIGH RISK: 200-239 MG/DL 170-199 MG/DL HIGH RISK: >240 MG/DL >200 MG/DL CLASS. FOR PRIMARY LDL CHOL PREVENTION: LDL CHOL-CHILD/ADOLESCENTS* DESIRABLE: <130 MG/DL <110 MG/DL BORDERLINE-HIGH RISK: 130-159 MG/DL 110-129 MG/DL HIGH RISK: >160 MG/DL >130 MG/DL *CHILDREN AND ADOLESCENTS REPRESENTS INDIVIDUALA AGED 2-19 YEARS EXCLUSIVE. Ast (Sgot) 14 U/L 0-40 [facility] NORMAL RANGES Age WBC RBC HGB HCT MCV PLT Adult M 4.1-10.9 4.20-6.30 12.0-18.0 37.0-51.0 80-97 140-440 Adult F 4.1-10.9 4.04-5.48 12.0-18.0 37.0-51.0 80-97 140-440 0 -1 Yr 5.0-20.0 3.9-5.9 15-18 MV: 44 MV: 91 MV: 277 2-9 Yr. 6.0-17.0 3.8-5.4 11-13 MV: 37 MV: 78 MV: 300 10 Yrs. 5.0-13.0 3.8-5.4 12-15 MV: 39 MV: 80 MV: 250 NOTE: * FOR ADULT BLACK MALES AND FEMALES, NORMAL WBC IS 2.9-7.7 K/ML * FOR ADULT BLACK MALES AND FEMALES, NORMAL RBC,HGB, AND HCT IS 5% LESS SOURCE FOR DATA: LIFT12 1800 OPERATION MANUAL( AUTOMATED BLOOD COUNTS AND DIFF.) APPENDIX B-3 CHRONIC KIDNEY DISEASE STAGING PER NKF: MALE GFR INTERPRETATION: 20-49 YRS: >60 mL/min Normal 50-59 YRS: >56 mL/min Normal 60-69 YRS: >49 mL/min Normal 70-79 YRS: >42 mL/min Normal 80 and above >35 mL/min Normal FEMALE GRF INTERPRETATION: 20-39 YRS: >60 mL/min Normal 40-49 YRS: >58 mL/min Normal 50-59 YRS: >51 mL/min Normal 60-69 YRS: >45 mL/min Normal 70-79 YRS: >39 mL/min Normal 80 and above >32 mL/min NormalCLASSIFICATION CHOLESTEROL FOR ADULTS CHILDREN/ADOLESCENTS* DESIRABLE: <200 MG/DL <170 MG/DL BORDER-LINE HIGH RISK: 200-239 MG/DL 170-199 MG/DL HIGH RISK: >240 MG/DL >200 MG/DL CLASS. FOR PRIMARY LDL CHOL PREVENTION: LDL CHOL-CHILD/ADOLESCENTS* DESIRABLE: <130 MG/DL <110 MG/DL BORDERLINE-HIGH RISK: 130-159 MG/DL 110-129 MG/DL HIGH RISK: >160 MG/DL >130 MG/DL *CHILDREN AND ADOLESCENTS REPRESENTS INDIVIDUALA AGED 2-19 YEARS EXCLUSIVE. Tbili 0.66 mg/dL 0.0-1.2 [facility] NORMAL RANGES Age WBC RBC HGB HCT MCV PLT Adult M 4.1-10.9 4.20-6.30 12.0-18.0 37.0-51.0 80-97 140-440 Adult F 4.1-10.9 4.04-5.48 12.0-18.0 37.0-51.0 80-97 140-440 0 -1 Yr 5.0-20.0 3.9-5.9 15-18 MV: 44 MV: 91 MV: 277 2-9 Yr. 6.0-17.0 3.8-5.4 11-13 MV: 37 MV: 78 MV: 300 10 Yrs. 5.0-13.0 3.8-5.4 12-15 MV: 39 MV: 80 MV: 250 NOTE: * FOR ADULT BLACK MALES AND FEMALES, NORMAL WBC IS 2.9-7.7 K/ML * FOR ADULT BLACK MALES AND FEMALES, NORMAL RBC,HGB, AND HCT IS 5% LESS SOURCE FOR DATA: LIFT12 1800 OPERATION MANUAL( AUTOMATED BLOOD COUNTS AND DIFF.) APPENDIX B-3 CHRONIC KIDNEY DISEASE STAGING PER NKF: MALE GFR INTERPRETATION: 20-49 YRS: >60 mL/min Normal 50-59 YRS: >56 mL/min Normal 60-69 YRS: >49 mL/min Normal 70-79 YRS: >42 mL/min Normal 80 and above >35 mL/min Normal FEMALE GRF INTERPRETATION: 20-39 YRS: >60 mL/min Normal 40-49 YRS: >58 mL/min Normal 50-59 YRS: >51 mL/min Normal 60-69 YRS: >45 mL/min Normal 70-79 YRS: >39 mL/min Normal 80 and above >32 mL/min NormalCLASSIFICATION CHOLESTEROL FOR ADULTS CHILDREN/ADOLESCENTS* DESIRABLE: <200 MG/DL <170 MG/DL BORDER-LINE HIGH RISK: 200-239 MG/DL 170-199 MG/DL HIGH RISK: >240 MG/DL >200 MG/DL CLASS. FOR PRIMARY LDL CHOL PREVENTION: LDL CHOL-CHILD/ADOLESCENTS* DESIRABLE: <130 MG/DL <110 MG/DL BORDERLINE-HIGH RISK: 130-159 MG/DL 110-129 MG/DL HIGH RISK: >160 MG/DL >130 MG/DL *CHILDREN AND ADOLESCENTS REPRESENTS INDIVIDUALA AGED 2-19 YEARS EXCLUSIVE. Anion Gap 15 mmol/L [facility] NORMAL RANGES Age WBC RBC HGB HCT MCV PLT Adult M 4.1-10.9 4.20-6.30 12.0-18.0 37.0-51.0 80-97 140-440 Adult F 4.1-10.9 4.04-5.48 12.0-18.0 37.0-51.0 80-97 140-440 0 -1 Yr 5.0-20.0 3.9-5.9 15-18 MV: 44 MV: 91 MV: 277 2-9 Yr. 6.0-17.0 3.8-5.4 11-13 MV: 37 MV: 78 MV: 300 10 Yrs. 5.0-13.0 3.8-5.4 12-15 MV: 39 MV: 80 MV: 250 NOTE: * FOR ADULT BLACK MALES AND FEMALES, NORMAL WBC IS 2.9-7.7 K/ML * FOR ADULT BLACK MALES AND FEMALES, NORMAL RBC,HGB, AND HCT IS 5% LESS SOURCE FOR DATA: LIFT12 1800 OPERATION MANUAL( AUTOMATED BLOOD COUNTS AND DIFF.) APPENDIX B-3 CHRONIC KIDNEY DISEASE STAGING PER NKF: MALE GFR INTERPRETATION: 20-49 YRS: >60 mL/min Normal 50-59 YRS: >56 mL/min Normal 60-69 YRS: >49 mL/min Normal 70-79 YRS: >42 mL/min Normal 80 and above >35 mL/min Normal FEMALE GRF INTERPRETATION: 20-39 YRS: >60 mL/min Normal 40-49 YRS: >58 mL/min Normal 50-59 YRS: >51 mL/min Normal 60-69 YRS: >45 mL/min Normal 70-79 YRS: >39 mL/min Normal 80 and above >32 mL/min NormalCLASSIFICATION CHOLESTEROL FOR ADULTS CHILDREN/ADOLESCENTS* DESIRABLE: <200 MG/DL <170 MG/DL BORDER-LINE HIGH RISK: 200-239 MG/DL 170-199 MG/DL HIGH RISK: >240 MG/DL >200 MG/DL CLASS. FOR PRIMARY LDL CHOL PREVENTION: LDL CHOL-CHILD/ADOLESCENTS* DESIRABLE: <130 MG/DL <110 MG/DL BORDERLINE-HIGH RISK: 130-159 MG/DL 110-129 MG/DL HIGH RISK: >160 MG/DL >130 MG/DL *CHILDREN AND ADOLESCENTS REPRESENTS INDIVIDUALA AGED 2-19 YEARS EXCLUSIVE. eGFR Non-Afr. Turkmen 89 # [facility] ([facility] NORMAL RANGES Age WBC RBC HGB HCT MCV PLT Adult M 4.1-10.9 4.20-6.30 12.0-18.0 37.0-51.0 80-97 140-440 Adult F 4.1-10.9 4.04-5.48 12.0-18.0 37.0-51.0 80-97 140-440 0 -1 Yr 5.0-20.0 3.9-5.9 15-18 MV: 44 MV: 91 MV: 277 2-9 Yr. 6.0-17.0 3.8-5.4 11-13 MV: 37 MV: 78 MV: 300 10 Yrs. 5.0-13.0 3.8-5.4 12-15 MV: 39 MV: 80 MV: 250 NOTE: * FOR ADULT BLACK MALES AND FEMALES, NORMAL WBC IS 2.9-7.7 K/ML * FOR ADULT BLACK MALES AND FEMALES, NORMAL RBC,HGB, AND HCT IS 5% LESS SOURCE FOR DATA: JOANNE DYN 1800 OPERATION MANUAL( AUTOMATED BLOOD COUNTS AND DIFF.) APPENDIX B-3 CHRONIC KIDNEY DISEASE STAGING PER NKF: MALE GFR INTERPRETATION: 20-49 YRS: >60 mL/min Normal 50-59 YRS: >56 mL/min Normal 60-69 YRS: >49 mL/min Normal 70-79 YRS: >42 mL/min Normal 80 and above >35 mL/min Normal FEMALE GRF INTERPRETATION: 20-39 YRS: >60 mL/min Normal 40-49 YRS: >58 mL/min Normal 50-59 YRS: >51 mL/min Normal 60-69 YRS: >45 mL/min Normal 70-79 YRS: >39 mL/min Normal 80 and above >32 mL/min NormalCLASSIFICATION CHOLESTEROL FOR ADULTS CHILDREN/ADOLESCENTS* DESIRABLE: <200 MG/DL <170 MG/DL BORDER-LINE HIGH RISK: 200-239 MG/DL 170-199 MG/DL HIGH RISK: >240 MG/DL >200 MG/DL CLASS. FOR PRIMARY LDL CHOL PREVENTION: LDL CHOL-CHILD/ADOLESCENTS* DESIRABLE: <130 MG/DL <110 MG/DL BORDERLINE-HIGH RISK: 130-159 MG/DL 110-129 MG/DL HIGH RISK: >160 MG/DL >130 MG/DL *CHILDREN AND ADOLESCENTS REPRESENTS INDIVIDUALA AGED 2-19 YEARS EXCLUSIVE. eGFR 103 # [facility] ( [facility] NORMAL RANGES Age WBC RBC HGB HCT MCV PLT Adult M 4.1-10.9 4.20-6.30 12.0-18.0 37.0-51.0 80-97 140-440 Adult F 4.1-10.9 4.04-5.48 12.0-18.0 37.0-51.0 80-97 140-440 0 -1 Yr 5.0-20.0 3.9-5.9 15-18 MV: 44 MV: 91 MV: 277 2-9 Yr. 6.0-17.0 3.8-5.4 11-13 MV: 37 MV: 78 MV: 300 10 Yrs. 5.0-13.0 3.8-5.4 12-15 MV: 39 MV: 80 MV: 250 NOTE: * FOR ADULT BLACK MALES AND FEMALES, NORMAL WBC IS 2.9-7.7 K/ML * FOR ADULT BLACK MALES AND FEMALES, NORMAL RBC,HGB, AND HCT IS 5% LESS SOURCE FOR DATA: LIFT12 1800 OPERATION MANUAL( AUTOMATED BLOOD COUNTS AND DIFF.) APPENDIX B-3 CHRONIC KIDNEY DISEASE STAGING PER NKF: MALE GFR INTERPRETATION: 20-49 YRS: >60 mL/min Normal 50-59 YRS: >56 mL/min Normal 60-69 YRS: >49 mL/min Normal 70-79 YRS: >42 mL/min Normal 80 and above >35 mL/min Normal FEMALE GRF INTERPRETATION: 20-39 YRS: >60 mL/min Normal 40-49 YRS: >58 mL/min Normal 50-59 YRS: >51 mL/min Normal 60-69 YRS: >45 mL/min Normal 70-79 YRS: >39 mL/min Normal 80 and above >32 mL/min NormalCLASSIFICATION CHOLESTEROL FOR ADULTS CHILDREN/ADOLESCENTS* DESIRABLE: <200 MG/DL <170 MG/DL BORDER-LINE HIGH RISK: 200-239 MG/DL 170-199 MG/DL HIGH RISK: >240 MG/DL >200 MG/DL CLASS. FOR PRIMARY LDL CHOL PREVENTION: LDL CHOL-CHILD/ADOLESCENTS* DESIRABLE: <130 MG/DL <110 MG/DL BORDERLINE-HIGH RISK: 130-159 MG/DL 110-129 MG/DL HIGH RISK: >160 MG/DL >130 MG/DL *CHILDREN AND ADOLESCENTS REPRESENTS INDIVIDUALA AGED 2-19 YEARS EXCLUSIVE. ID Date Data Source [id number] 02/07/2020 03:14:00 PM EDT [facility] ([facility] Name Value Range Interpretation Code Description Data Naty rce(s) Supporting Document(s) WBC 5.7 10E3/uL 4.1-10.9 [facility] ([facility] NORMAL RANGES Age WBC RBC HGB HCT MCV PLT Adult M 4.1-10.9 4.20-6.30 12.0-18.0 37.0-51.0 80-97 140-440 Adult F 4.1-10.9 4.04-5.48 12.0-18.0 37.0-51.0 80-97 140-440 0 -1 Yr 5.0-20.0 3.9-5.9 15-18 MV: 44 MV: 91 MV: 277 2-9 Yr. 6.0-17.0 3.8-5.4 11-13 MV: 37 MV: 78 MV: 300 10 Yrs. 5.0-13.0 3.8-5.4 12-15 MV: 39 MV: 80 MV: 250 NOTE: * FOR ADULT BLACK MALES AND FEMALES, NORMAL WBC IS 2.9-7.7 K/ML * FOR ADULT BLACK MALES AND FEMALES, NORMAL RBC,HGB, AND HCT IS 5% LESS SOURCE FOR DATA: LIFT12 1800 OPERATION MANUAL( AUTOMATED BLOOD COUNTS AND DIFF.) APPENDIX B-3 CHRONIC KIDNEY DISEASE STAGING PER NKF: MALE GFR INTERPRETATION: 20-49 YRS: >60 mL/min Normal 50-59 YRS: >56 mL/min Normal 60-69 YRS: >49 mL/min Normal 70-79 YRS: >42 mL/min Normal 80 and above >35 mL/min Normal FEMALE GRF INTERPRETATION: 20-39 YRS: >60 mL/min Normal 40-49 YRS: >58 mL/min Normal 50-59 YRS: >51 mL/min Normal 60-69 YRS: >45 mL/min Normal 70-79 YRS: >39 mL/min Normal 80 and above >32 mL/min NormalCLASSIFICATION CHOLESTEROL FOR ADULTS CHILDREN/ADOLESCENTS* DESIRABLE: <200 MG/DL <170 MG/DL BORDER-LINE HIGH RISK: 200-239 MG/DL 170-199 MG/DL HIGH RISK: >240 MG/DL >200 MG/DL CLASS. FOR PRIMARY LDL CHOL PREVENTION: LDL CHOL-CHILD/ADOLESCENTS* DESIRABLE: <130 MG/DL <110 MG/DL BORDERLINE-HIGH RISK: 130-159 MG/DL 110-129 MG/DL HIGH RISK: >160 MG/DL >130 MG/DL *CHILDREN AND ADOLESCENTS REPRESENTS INDIVIDUALA AGED 2-19 YEARS EXCLUSIVE. HGB 13.4 g/dL 12.0-18.0 [facility] ([facility] NORMAL RANGES Age WBC RBC HGB HCT MCV PLT Adult M 4.1-10.9 4.20-6.30 12.0-18.0 37.0-51.0 80-97 140-440 Adult F 4.1-10.9 4.04-5.48 12.0-18.0 37.0-51.0 80-97 140-440 0 -1 Yr 5.0-20.0 3.9-5.9 15-18 MV: 44 MV: 91 MV: 277 2-9 Yr. 6.0-17.0 3.8-5.4 11-13 MV: 37 MV: 78 MV: 300 10 Yrs. 5.0-13.0 3.8-5.4 12-15 MV: 39 MV: 80 MV: 250 NOTE: * FOR ADULT BLACK MALES AND FEMALES, NORMAL WBC IS 2.9-7.7 K/ML * FOR ADULT BLACK MALES AND FEMALES, NORMAL RBC,HGB, AND HCT IS 5% LESS SOURCE FOR DATA: LIFT12 1800 OPERATION MANUAL( AUTOMATED BLOOD COUNTS AND DIFF.) APPENDIX B-3 CHRONIC KIDNEY DISEASE STAGING PER NKF: MALE GFR INTERPRETATION: 20-49 YRS: >60 mL/min Normal 50-59 YRS: >56 mL/min Normal 60-69 YRS: >49 mL/min Normal 70-79 YRS: >42 mL/min Normal 80 and above >35 mL/min Normal FEMALE GRF INTERPRETATION: 20-39 YRS: >60 mL/min Normal 40-49 YRS: >58 mL/min Normal 50-59 YRS: >51 mL/min Normal 60-69 YRS: >45 mL/min Normal 70-79 YRS: >39 mL/min Normal 80 and above >32 mL/min NormalCLASSIFICATION CHOLESTEROL FOR ADULTS CHILDREN/ADOLESCENTS* DESIRABLE: <200 MG/DL <170 MG/DL BORDER-LINE HIGH RISK: 200-239 MG/DL 170-199 MG/DL HIGH RISK: >240 MG/DL >200 MG/DL CLASS. FOR PRIMARY LDL CHOL PREVENTION: LDL CHOL-CHILD/ADOLESCENTS* DESIRABLE: <130 MG/DL <110 MG/DL BORDERLINE-HIGH RISK: 130-159 MG/DL 110-129 MG/DL HIGH RISK: >160 MG/DL >130 MG/DL *CHILDREN AND ADOLESCENTS REPRESENTS INDIVIDUALA AGED 2-19 YEARS EXCLUSIVE. RBC 3.82 10E6/uL 4.20-6.30 Below low normal [facility] ([facility] NORMAL RANGES Age WBC RBC HGB HCT MCV PLT Adult M 4.1-10.9 4.20-6.30 12.0-18.0 37.0-51.0 80-97 140-440 Adult F 4.1-10.9 4.04-5.48 12.0-18.0 37.0-51.0 80-97 140-440 0 -1 Yr 5.0-20.0 3.9-5.9 15-18 MV: 44 MV: 91 MV: 277 2-9 Yr. 6.0-17.0 3.8-5.4 11-13 MV: 37 MV: 78 MV: 300 10 Yrs. 5.0-13.0 3.8-5.4 12-15 MV: 39 MV: 80 MV: 250 NOTE: * FOR ADULT BLACK MALES AND FEMALES, NORMAL WBC IS 2.9-7.7 K/ML * FOR ADULT BLACK MALES AND FEMALES, NORMAL RBC,HGB, AND HCT IS 5% LESS SOURCE FOR DATA: LIFT12 1800 OPERATION MANUAL( AUTOMATED BLOOD COUNTS AND DIFF.) APPENDIX B-3 CHRONIC KIDNEY DISEASE STAGING PER NKF: MALE GFR INTERPRETATION: 20-49 YRS: >60 mL/min Normal 50-59 YRS: >56 mL/min Normal 60-69 YRS: >49 mL/min Normal 70-79 YRS: >42 mL/min Normal 80 and above >35 mL/min Normal FEMALE GRF INTERPRETATION: 20-39 YRS: >60 mL/min Normal 40-49 YRS: >58 mL/min Normal 50-59 YRS: >51 mL/min Normal 60-69 YRS: >45 mL/min Normal 70-79 YRS: >39 mL/min Normal 80 and above >32 mL/min NormalCLASSIFICATION CHOLESTEROL FOR ADULTS CHILDREN/ADOLESCENTS* DESIRABLE: <200 MG/DL <170 MG/DL BORDER-LINE HIGH RISK: 200-239 MG/DL 170-199 MG/DL HIGH RISK: >240 MG/DL >200 MG/DL CLASS. FOR PRIMARY LDL CHOL PREVENTION: LDL CHOL-CHILD/ADOLESCENTS* DESIRABLE: <130 MG/DL <110 MG/DL BORDERLINE-HIGH RISK: 130-159 MG/DL 110-129 MG/DL HIGH RISK: >160 MG/DL >130 MG/DL *CHILDREN AND ADOLESCENTS REPRESENTS INDIVIDUALA AGED 2-19 YEARS EXCLUSIVE. HCT 37.2 % 37.0-51.0 [facility] NORMAL RANGES Age WBC RBC HGB HCT MCV PLT Adult M 4.1-10.9 4.20-6.30 12.0-18.0 37.0-51.0 80-97 140-440 Adult F 4.1-10.9 4.04-5.48 12.0-18.0 37.0-51.0 80-97 140-440 0 -1 Yr 5.0-20.0 3.9-5.9 15-18 MV: 44 MV: 91 MV: 277 2-9 Yr. 6.0-17.0 3.8-5.4 11-13 MV: 37 MV: 78 MV: 300 10 Yrs. 5.0-13.0 3.8-5.4 12-15 MV: 39 MV: 80 MV: 250 NOTE: * FOR ADULT BLACK MALES AND FEMALES, NORMAL WBC IS 2.9-7.7 K/ML * FOR ADULT BLACK MALES AND FEMALES, NORMAL RBC,HGB, AND HCT IS 5% LESS SOURCE FOR DATA: LIFT12 1800 OPERATION MANUAL( AUTOMATED BLOOD COUNTS AND DIFF.) APPENDIX B-3 CHRONIC KIDNEY DISEASE STAGING PER NKF: MALE GFR INTERPRETATION: 20-49 YRS: >60 mL/min Normal 50-59 YRS: >56 mL/min Normal 60-69 YRS: >49 mL/min Normal 70-79 YRS: >42 mL/min Normal 80 and above >35 mL/min Normal FEMALE GRF INTERPRETATION: 20-39 YRS: >60 mL/min Normal 40-49 YRS: >58 mL/min Normal 50-59 YRS: >51 mL/min Normal 60-69 YRS: >45 mL/min Normal 70-79 YRS: >39 mL/min Normal 80 and above >32 mL/min NormalCLASSIFICATION CHOLESTEROL FOR ADULTS CHILDREN/ADOLESCENTS* DESIRABLE: <200 MG/DL <170 MG/DL BORDER-LINE HIGH RISK: 200-239 MG/DL 170-199 MG/DL HIGH RISK: >240 MG/DL >200 MG/DL CLASS. FOR PRIMARY LDL CHOL PREVENTION: LDL CHOL-CHILD/ADOLESCENTS* DESIRABLE: <130 MG/DL <110 MG/DL BORDERLINE-HIGH RISK: 130-159 MG/DL 110-129 MG/DL HIGH RISK: >160 MG/DL >130 MG/DL *CHILDREN AND ADOLESCENTS REPRESENTS INDIVIDUALA AGED 2-19 YEARS EXCLUSIVE. MCH 35.1 pg 26.0-32.0 Above high normal [facility] NORMAL RANGES Age WBC RBC HGB HCT MCV PLT Adult M 4.1-10.9 4.20-6.30 12.0-18.0 37.0-51.0 80-97 140-440 Adult F 4.1-10.9 4.04-5.48 12.0-18.0 37.0-51.0 80-97 140-440 0 -1 Yr 5.0-20.0 3.9-5.9 15-18 MV: 44 MV: 91 MV: 277 2-9 Yr. 6.0-17.0 3.8-5.4 11-13 MV: 37 MV: 78 MV: 300 10 Yrs. 5.0-13.0 3.8-5.4 12-15 MV: 39 MV: 80 MV: 250 NOTE: * FOR ADULT BLACK MALES AND FEMALES, NORMAL WBC IS 2.9-7.7 K/ML * FOR ADULT BLACK MALES AND FEMALES, NORMAL RBC,HGB, AND HCT IS 5% LESS SOURCE FOR DATA: LIFT12 1800 OPERATION MANUAL( AUTOMATED BLOOD COUNTS AND DIFF.) APPENDIX B-3 CHRONIC KIDNEY DISEASE STAGING PER NKF: MALE GFR INTERPRETATION: 20-49 YRS: >60 mL/min Normal 50-59 YRS: >56 mL/min Normal 60-69 YRS: >49 mL/min Normal 70-79 YRS: >42 mL/min Normal 80 and above >35 mL/min Normal FEMALE GRF INTERPRETATION: 20-39 YRS: >60 mL/min Normal 40-49 YRS: >58 mL/min Normal 50-59 YRS: >51 mL/min Normal 60-69 YRS: >45 mL/min Normal 70-79 YRS: >39 mL/min Normal 80 and above >32 mL/min NormalCLASSIFICATION CHOLESTEROL FOR ADULTS CHILDREN/ADOLESCENTS* DESIRABLE: <200 MG/DL <170 MG/DL BORDER-LINE HIGH RISK: 200-239 MG/DL 170-199 MG/DL HIGH RISK: >240 MG/DL >200 MG/DL CLASS. FOR PRIMARY LDL CHOL PREVENTION: LDL CHOL-CHILD/ADOLESCENTS* DESIRABLE: <130 MG/DL <110 MG/DL BORDERLINE-HIGH RISK: 130-159 MG/DL 110-129 MG/DL HIGH RISK: >160 MG/DL >130 MG/DL *CHILDREN AND ADOLESCENTS REPRESENTS INDIVIDUALA AGED 2-19 YEARS EXCLUSIVE. MCV 97.4 fL 80.0-97.0 Above high normal [facility] ([facility] NORMAL RANGES Age WBC RBC HGB HCT MCV PLT Adult M 4.1-10.9 4.20-6.30 12.0-18.0 37.0-51.0 80-97 140-440 Adult F 4.1-10.9 4.04-5.48 12.0-18.0 37.0-51.0 80-97 140-440 0 -1 Yr 5.0-20.0 3.9-5.9 15-18 MV: 44 MV: 91 MV: 277 2-9 Yr. 6.0-17.0 3.8-5.4 11-13 MV: 37 MV: 78 MV: 300 10 Yrs. 5.0-13.0 3.8-5.4 12-15 MV: 39 MV: 80 MV: 250 NOTE: * FOR ADULT BLACK MALES AND FEMALES, NORMAL WBC IS 2.9-7.7 K/ML * FOR ADULT BLACK MALES AND FEMALES, NORMAL RBC,HGB, AND HCT IS 5% LESS SOURCE FOR DATA: LIFT12 1800 OPERATION MANUAL( AUTOMATED BLOOD COUNTS AND DIFF.) APPENDIX B-3 CHRONIC KIDNEY DISEASE STAGING PER NKF: MALE GFR INTERPRETATION: 20-49 YRS: >60 mL/min Normal 50-59 YRS: >56 mL/min Normal 60-69 YRS: >49 mL/min Normal 70-79 YRS: >42 mL/min Normal 80 and above >35 mL/min Normal FEMALE GRF INTERPRETATION: 20-39 YRS: >60 mL/min Normal 40-49 YRS: >58 mL/min Normal 50-59 YRS: >51 mL/min Normal 60-69 YRS: >45 mL/min Normal 70-79 YRS: >39 mL/min Normal 80 and above >32 mL/min NormalCLASSIFICATION CHOLESTEROL FOR ADULTS CHILDREN/ADOLESCENTS* DESIRABLE: <200 MG/DL <170 MG/DL BORDER-LINE HIGH RISK: 200-239 MG/DL 170-199 MG/DL HIGH RISK: >240 MG/DL >200 MG/DL CLASS. FOR PRIMARY LDL CHOL PREVENTION: LDL CHOL-CHILD/ADOLESCENTS* DESIRABLE: <130 MG/DL <110 MG/DL BORDERLINE-HIGH RISK: 130-159 MG/DL 110-129 MG/DL HIGH RISK: >160 MG/DL >130 MG/DL *CHILDREN AND ADOLESCENTS REPRESENTS INDIVIDUALA AGED 2-19 YEARS EXCLUSIVE. PLT 130 10E3/uL 140-440 Below low normal [facility] ([facility] NORMAL RANGES Age WBC RBC HGB HCT MCV PLT Adult M 4.1-10.9 4.20-6.30 12.0-18.0 37.0-51.0 80-97 140-440 Adult F 4.1-10.9 4.04-5.48 12.0-18.0 37.0-51.0 80-97 140-440 0 -1 Yr 5.0-20.0 3.9-5.9 15-18 MV: 44 MV: 91 MV: 277 2-9 Yr. 6.0-17.0 3.8-5.4 11-13 MV: 37 MV: 78 MV: 300 10 Yrs. 5.0-13.0 3.8-5.4 12-15 MV: 39 MV: 80 MV: 250 NOTE: * FOR ADULT BLACK MALES AND FEMALES, NORMAL WBC IS 2.9-7.7 K/ML * FOR ADULT BLACK MALES AND FEMALES, NORMAL RBC,HGB, AND HCT IS 5% LESS SOURCE FOR DATA: LIFT12 1800 OPERATION MANUAL( AUTOMATED BLOOD COUNTS AND DIFF.) APPENDIX B-3 CHRONIC KIDNEY DISEASE STAGING PER NKF: MALE GFR INTERPRETATION: 20-49 YRS: >60 mL/min Normal 50-59 YRS: >56 mL/min Normal 60-69 YRS: >49 mL/min Normal 70-79 YRS: >42 mL/min Normal 80 and above >35 mL/min Normal FEMALE GRF INTERPRETATION: 20-39 YRS: >60 mL/min Normal 40-49 YRS: >58 mL/min Normal 50-59 YRS: >51 mL/min Normal 60-69 YRS: >45 mL/min Normal 70-79 YRS: >39 mL/min Normal 80 and above >32 mL/min NormalCLASSIFICATION CHOLESTEROL FOR ADULTS CHILDREN/ADOLESCENTS* DESIRABLE: <200 MG/DL <170 MG/DL BORDER-LINE HIGH RISK: 200-239 MG/DL 170-199 MG/DL HIGH RISK: >240 MG/DL >200 MG/DL CLASS. FOR PRIMARY LDL CHOL PREVENTION: LDL CHOL-CHILD/ADOLESCENTS* DESIRABLE: <130 MG/DL <110 MG/DL BORDERLINE-HIGH RISK: 130-159 MG/DL 110-129 MG/DL HIGH RISK: >160 MG/DL >130 MG/DL *CHILDREN AND ADOLESCENTS REPRESENTS INDIVIDUALA AGED 2-19 YEARS EXCLUSIVE. MCHC 36.0 g/dL 31.0-36.0 [facility] NORMAL RANGES Age WBC RBC HGB HCT MCV PLT Adult M 4.1-10.9 4.20-6.30 12.0-18.0 37.0-51.0 80-97 140-440 Adult F 4.1-10.9 4.04-5.48 12.0-18.0 37.0-51.0 80-97 140-440 0 -1 Yr 5.0-20.0 3.9-5.9 15-18 MV: 44 MV: 91 MV: 277 2-9 Yr. 6.0-17.0 3.8-5.4 11-13 MV: 37 MV: 78 MV: 300 10 Yrs. 5.0-13.0 3.8-5.4 12-15 MV: 39 MV: 80 MV: 250 NOTE: * FOR ADULT BLACK MALES AND FEMALES, NORMAL WBC IS 2.9-7.7 K/ML * FOR ADULT BLACK MALES AND FEMALES, NORMAL RBC,HGB, AND HCT IS 5% LESS SOURCE FOR DATA: LIFT12 1800 OPERATION MANUAL( AUTOMATED BLOOD COUNTS AND DIFF.) APPENDIX B-3 CHRONIC KIDNEY DISEASE STAGING PER NKF: MALE GFR INTERPRETATION: 20-49 YRS: >60 mL/min Normal 50-59 YRS: >56 mL/min Normal 60-69 YRS: >49 mL/min Normal 70-79 YRS: >42 mL/min Normal 80 and above >35 mL/min Normal FEMALE GRF INTERPRETATION: 20-39 YRS: >60 mL/min Normal 40-49 YRS: >58 mL/min Normal 50-59 YRS: >51 mL/min Normal 60-69 YRS: >45 mL/min Normal 70-79 YRS: >39 mL/min Normal 80 and above >32 mL/min NormalCLASSIFICATION CHOLESTEROL FOR ADULTS CHILDREN/ADOLESCENTS* DESIRABLE: <200 MG/DL <170 MG/DL BORDER-LINE HIGH RISK: 200-239 MG/DL 170-199 MG/DL HIGH RISK: >240 MG/DL >200 MG/DL CLASS. FOR PRIMARY LDL CHOL PREVENTION: LDL CHOL-CHILD/ADOLESCENTS* DESIRABLE: <130 MG/DL <110 MG/DL BORDERLINE-HIGH RISK: 130-159 MG/DL 110-129 MG/DL HIGH RISK: >160 MG/DL >130 MG/DL *CHILDREN AND ADOLESCENTS REPRESENTS INDIVIDUALA AGED 2-19 YEARS EXCLUSIVE. Lym% 28.1 % 10.0-58.5 [facility] ([facility] NORMAL RANGES Age WBC RBC HGB HCT MCV PLT Adult M 4.1-10.9 4.20-6.30 12.0-18.0 37.0-51.0 80-97 140-440 Adult F 4.1-10.9 4.04-5.48 12.0-18.0 37.0-51.0 80-97 140-440 0 -1 Yr 5.0-20.0 3.9-5.9 15-18 MV: 44 MV: 91 MV: 277 2-9 Yr. 6.0-17.0 3.8-5.4 11-13 MV: 37 MV: 78 MV: 300 10 Yrs. 5.0-13.0 3.8-5.4 12-15 MV: 39 MV: 80 MV: 250 NOTE: * FOR ADULT BLACK MALES AND FEMALES, NORMAL WBC IS 2.9-7.7 K/ML * FOR ADULT BLACK MALES AND FEMALES, NORMAL RBC,HGB, AND HCT IS 5% LESS SOURCE FOR DATA: LIFT12 1800 OPERATION MANUAL( AUTOMATED BLOOD COUNTS AND DIFF.) APPENDIX B-3 CHRONIC KIDNEY DISEASE STAGING PER NKF: MALE GFR INTERPRETATION: 20-49 YRS: >60 mL/min Normal 50-59 YRS: >56 mL/min Normal 60-69 YRS: >49 mL/min Normal 70-79 YRS: >42 mL/min Normal 80 and above >35 mL/min Normal FEMALE GRF INTERPRETATION: 20-39 YRS: >60 mL/min Normal 40-49 YRS: >58 mL/min Normal 50-59 YRS: >51 mL/min Normal 60-69 YRS: >45 mL/min Normal 70-79 YRS: >39 mL/min Normal 80 and above >32 mL/min NormalCLASSIFICATION CHOLESTEROL FOR ADULTS CHILDREN/ADOLESCENTS* DESIRABLE: <200 MG/DL <170 MG/DL BORDER-LINE HIGH RISK: 200-239 MG/DL 170-199 MG/DL HIGH RISK: >240 MG/DL >200 MG/DL CLASS. FOR PRIMARY LDL CHOL PREVENTION: LDL CHOL-CHILD/ADOLESCENTS* DESIRABLE: <130 MG/DL <110 MG/DL BORDERLINE-HIGH RISK: 130-159 MG/DL 110-129 MG/DL HIGH RISK: >160 MG/DL >130 MG/DL *CHILDREN AND ADOLESCENTS REPRESENTS INDIVIDUALA AGED 2-19 YEARS EXCLUSIVE. RDW-CV 13.9 % 11.5-14.5 [facility] ([facility] NORMAL RANGES Age WBC RBC HGB HCT MCV PLT Adult M 4.1-10.9 4.20-6.30 12.0-18.0 37.0-51.0 80-97 140-440 Adult F 4.1-10.9 4.04-5.48 12.0-18.0 37.0-51.0 80-97 140-440 0 -1 Yr 5.0-20.0 3.9-5.9 15-18 MV: 44 MV: 91 MV: 277 2-9 Yr. 6.0-17.0 3.8-5.4 11-13 MV: 37 MV: 78 MV: 300 10 Yrs. 5.0-13.0 3.8-5.4 12-15 MV: 39 MV: 80 MV: 250 NOTE: * FOR ADULT BLACK MALES AND FEMALES, NORMAL WBC IS 2.9-7.7 K/ML * FOR ADULT BLACK MALES AND FEMALES, NORMAL RBC,HGB, AND HCT IS 5% LESS SOURCE FOR DATA: JOANNE DYN 1800 OPERATION MANUAL( AUTOMATED BLOOD COUNTS AND DIFF.) APPENDIX B-3 CHRONIC KIDNEY DISEASE STAGING PER NKF: MALE GFR INTERPRETATION: 20-49 YRS: >60 mL/min Normal 50-59 YRS: >56 mL/min Normal 60-69 YRS: >49 mL/min Normal 70-79 YRS: >42 mL/min Normal 80 and above >35 mL/min Normal FEMALE GRF INTERPRETATION: 20-39 YRS: >60 mL/min Normal 40-49 YRS: >58 mL/min Normal 50-59 YRS: >51 mL/min Normal 60-69 YRS: >45 mL/min Normal 70-79 YRS: >39 mL/min Normal 80 and above >32 mL/min NormalCLASSIFICATION CHOLESTEROL FOR ADULTS CHILDREN/ADOLESCENTS* DESIRABLE: <200 MG/DL <170 MG/DL BORDER-LINE HIGH RISK: 200-239 MG/DL 170-199 MG/DL HIGH RISK: >240 MG/DL >200 MG/DL CLASS. FOR PRIMARY LDL CHOL PREVENTION: LDL CHOL-CHILD/ADOLESCENTS* DESIRABLE: <130 MG/DL <110 MG/DL BORDERLINE-HIGH RISK: 130-159 MG/DL 110-129 MG/DL HIGH RISK: >160 MG/DL >130 MG/DL *CHILDREN AND ADOLESCENTS REPRESENTS INDIVIDUALA AGED 2-19 YEARS EXCLUSIVE. Neut% 59.2 % 37.0-92.0 [facility] NORMAL RANGES Age WBC RBC HGB HCT MCV PLT Adult M 4.1-10.9 4.20-6.30 12.0-18.0 37.0-51.0 80-97 140-440 Adult F 4.1-10.9 4.04-5.48 12.0-18.0 37.0-51.0 80-97 140-440 0 -1 Yr 5.0-20.0 3.9-5.9 15-18 MV: 44 MV: 91 MV: 277 2-9 Yr. 6.0-17.0 3.8-5.4 11-13 MV: 37 MV: 78 MV: 300 10 Yrs. 5.0-13.0 3.8-5.4 12-15 MV: 39 MV: 80 MV: 250 NOTE: * FOR ADULT BLACK MALES AND FEMALES, NORMAL WBC IS 2.9-7.7 K/ML * FOR ADULT BLACK MALES AND FEMALES, NORMAL RBC,HGB, AND HCT IS 5% LESS SOURCE FOR DATA: LIFT12 1800 OPERATION MANUAL( AUTOMATED BLOOD COUNTS AND DIFF.) APPENDIX B-3 CHRONIC KIDNEY DISEASE STAGING PER NKF: MALE GFR INTERPRETATION: 20-49 YRS: >60 mL/min Normal 50-59 YRS: >56 mL/min Normal 60-69 YRS: >49 mL/min Normal 70-79 YRS: >42 mL/min Normal 80 and above >35 mL/min Normal FEMALE GRF INTERPRETATION: 20-39 YRS: >60 mL/min Normal 40-49 YRS: >58 mL/min Normal 50-59 YRS: >51 mL/min Normal 60-69 YRS: >45 mL/min Normal 70-79 YRS: >39 mL/min Normal 80 and above >32 mL/min NormalCLASSIFICATION CHOLESTEROL FOR ADULTS CHILDREN/ADOLESCENTS* DESIRABLE: <200 MG/DL <170 MG/DL BORDER-LINE HIGH RISK: 200-239 MG/DL 170-199 MG/DL HIGH RISK: >240 MG/DL >200 MG/DL CLASS. FOR PRIMARY LDL CHOL PREVENTION: LDL CHOL-CHILD/ADOLESCENTS* DESIRABLE: <130 MG/DL <110 MG/DL BORDERLINE-HIGH RISK: 130-159 MG/DL 110-129 MG/DL HIGH RISK: >160 MG/DL >130 MG/DL *CHILDREN AND ADOLESCENTS REPRESENTS INDIVIDUALA AGED 2-19 YEARS EXCLUSIVE. MXD% 12.7 % 0.1-24.0 [facility] ([facility] NORMAL RANGES Age WBC RBC HGB HCT MCV PLT Adult M 4.1-10.9 4.20-6.30 12.0-18.0 37.0-51.0 80-97 140-440 Adult F 4.1-10.9 4.04-5.48 12.0-18.0 37.0-51.0 80-97 140-440 0 -1 Yr 5.0-20.0 3.9-5.9 15-18 MV: 44 MV: 91 MV: 277 2-9 Yr. 6.0-17.0 3.8-5.4 11-13 MV: 37 MV: 78 MV: 300 10 Yrs. 5.0-13.0 3.8-5.4 12-15 MV: 39 MV: 80 MV: 250 NOTE: * FOR ADULT BLACK MALES AND FEMALES, NORMAL WBC IS 2.9-7.7 K/ML * FOR ADULT BLACK MALES AND FEMALES, NORMAL RBC,HGB, AND HCT IS 5% LESS SOURCE FOR DATA: LIFT12 1800 OPERATION MANUAL( AUTOMATED BLOOD COUNTS AND DIFF.) APPENDIX B-3 CHRONIC KIDNEY DISEASE STAGING PER NKF: MALE GFR INTERPRETATION: 20-49 YRS: >60 mL/min Normal 50-59 YRS: >56 mL/min Normal 60-69 YRS: >49 mL/min Normal 70-79 YRS: >42 mL/min Normal 80 and above >35 mL/min Normal FEMALE GRF INTERPRETATION: 20-39 YRS: >60 mL/min Normal 40-49 YRS: >58 mL/min Normal 50-59 YRS: >51 mL/min Normal 60-69 YRS: >45 mL/min Normal 70-79 YRS: >39 mL/min Normal 80 and above >32 mL/min NormalCLASSIFICATION CHOLESTEROL FOR ADULTS CHILDREN/ADOLESCENTS* DESIRABLE: <200 MG/DL <170 MG/DL BORDER-LINE HIGH RISK: 200-239 MG/DL 170-199 MG/DL HIGH RISK: >240 MG/DL >200 MG/DL CLASS. FOR PRIMARY LDL CHOL PREVENTION: LDL CHOL-CHILD/ADOLESCENTS* DESIRABLE: <130 MG/DL <110 MG/DL BORDERLINE-HIGH RISK: 130-159 MG/DL 110-129 MG/DL HIGH RISK: >160 MG/DL >130 MG/DL *CHILDREN AND ADOLESCENTS REPRESENTS INDIVIDUALA AGED 2-19 YEARS EXCLUSIVE. Lym# 1.6 10E3/uL 0.6-4.1 [facility] ([facility] NORMAL RANGES Age WBC RBC HGB HCT MCV PLT Adult M 4.1-10.9 4.20-6.30 12.0-18.0 37.0-51.0 80-97 140-440 Adult F 4.1-10.9 4.04-5.48 12.0-18.0 37.0-51.0 80-97 140-440 0 -1 Yr 5.0-20.0 3.9-5.9 15-18 MV: 44 MV: 91 MV: 277 2-9 Yr. 6.0-17.0 3.8-5.4 11-13 MV: 37 MV: 78 MV: 300 10 Yrs. 5.0-13.0 3.8-5.4 12-15 MV: 39 MV: 80 MV: 250 NOTE: * FOR ADULT BLACK MALES AND FEMALES, NORMAL WBC IS 2.9-7.7 K/ML * FOR ADULT BLACK MALES AND FEMALES, NORMAL RBC,HGB, AND HCT IS 5% LESS SOURCE FOR DATA: [place] DYN 1800 OPERATION MANUAL( AUTOMATED BLOOD COUNTS AND DIFF.) APPENDIX B-3 CHRONIC KIDNEY DISEASE STAGING PER NKF: MALE GFR INTERPRETATION: 20-49 YRS: >60 mL/min Normal 50-59 YRS: >56 mL/min Normal 60-69 YRS: >49 mL/min Normal 70-79 YRS: >42 mL/min Normal 80 and above >35 mL/min Normal FEMALE GRF INTERPRETATION: 20-39 YRS: >60 mL/min Normal 40-49 YRS: >58 mL/min Normal 50-59 YRS: >51 mL/min Normal 60-69 YRS: >45 mL/min Normal 70-79 YRS: >39 mL/min Normal 80 and above >32 mL/min NormalCLASSIFICATION CHOLESTEROL FOR ADULTS CHILDREN/ADOLESCENTS* DESIRABLE: <200 MG/DL <170 MG/DL BORDER-LINE HIGH RISK: 200-239 MG/DL 170-199 MG/DL HIGH RISK: >240 MG/DL >200 MG/DL CLASS. FOR PRIMARY LDL CHOL PREVENTION: LDL CHOL-CHILD/ADOLESCENTS* DESIRABLE: <130 MG/DL <110 MG/DL BORDERLINE-HIGH RISK: 130-159 MG/DL 110-129 MG/DL HIGH RISK: >160 MG/DL >130 MG/DL *CHILDREN AND ADOLESCENTS REPRESENTS INDIVIDUALA AGED 2-19 YEARS EXCLUSIVE. MXD# 0.7 10E3/uL 0.0-1.8 [facility] ([facility] NORMAL RANGES Age WBC RBC HGB HCT MCV PLT Adult M 4.1-10.9 4.20-6.30 12.0-18.0 37.0-51.0 80-97 140-440 Adult F 4.1-10.9 4.04-5.48 12.0-18.0 37.0-51.0 80-97 140-440 0 -1 Yr 5.0-20.0 3.9-5.9 15-18 MV: 44 MV: 91 MV: 277 2-9 Yr. 6.0-17.0 3.8-5.4 11-13 MV: 37 MV: 78 MV: 300 10 Yrs. 5.0-13.0 3.8-5.4 12-15 MV: 39 MV: 80 MV: 250 NOTE: * FOR ADULT BLACK MALES AND FEMALES, NORMAL WBC IS 2.9-7.7 K/ML * FOR ADULT BLACK MALES AND FEMALES, NORMAL RBC,HGB, AND HCT IS 5% LESS SOURCE FOR DATA: LIFT12 1800 OPERATION MANUAL( AUTOMATED BLOOD COUNTS AND DIFF.) APPENDIX B-3 CHRONIC KIDNEY DISEASE STAGING PER NKF: MALE GFR INTERPRETATION: 20-49 YRS: >60 mL/min Normal 50-59 YRS: >56 mL/min Normal 60-69 YRS: >49 mL/min Normal 70-79 YRS: >42 mL/min Normal 80 and above >35 mL/min Normal FEMALE GRF INTERPRETATION: 20-39 YRS: >60 mL/min Normal 40-49 YRS: >58 mL/min Normal 50-59 YRS: >51 mL/min Normal 60-69 YRS: >45 mL/min Normal 70-79 YRS: >39 mL/min Normal 80 and above >32 mL/min NormalCLASSIFICATION CHOLESTEROL FOR ADULTS CHILDREN/ADOLESCENTS* DESIRABLE: <200 MG/DL <170 MG/DL BORDER-LINE HIGH RISK: 200-239 MG/DL 170-199 MG/DL HIGH RISK: >240 MG/DL >200 MG/DL CLASS. FOR PRIMARY LDL CHOL PREVENTION: LDL CHOL-CHILD/ADOLESCENTS* DESIRABLE: <130 MG/DL <110 MG/DL BORDERLINE-HIGH RISK: 130-159 MG/DL 110-129 MG/DL HIGH RISK: >160 MG/DL >130 MG/DL *CHILDREN AND ADOLESCENTS REPRESENTS INDIVIDUALA AGED 2-19 YEARS EXCLUSIVE. Neut# 3.4 % 2.0-7.8 [facility] ([facility] NORMAL RANGES Age WBC RBC HGB HCT MCV PLT Adult M 4.1-10.9 4.20-6.30 12.0-18.0 37.0-51.0 80-97 140-440 Adult F 4.1-10.9 4.04-5.48 12.0-18.0 37.0-51.0 80-97 140-440 0 -1 Yr 5.0-20.0 3.9-5.9 15-18 MV: 44 MV: 91 MV: 277 2-9 Yr. 6.0-17.0 3.8-5.4 11-13 MV: 37 MV: 78 MV: 300 10 Yrs. 5.0-13.0 3.8-5.4 12-15 MV: 39 MV: 80 MV: 250 NOTE: * FOR ADULT BLACK MALES AND FEMALES, NORMAL WBC IS 2.9-7.7 K/ML * FOR ADULT BLACK MALES AND FEMALES, NORMAL RBC,HGB, AND HCT IS 5% LESS SOURCE FOR DATA: LIFT12 1800 OPERATION MANUAL( AUTOMATED BLOOD COUNTS AND DIFF.) APPENDIX B-3 CHRONIC KIDNEY DISEASE STAGING PER NKF: MALE GFR INTERPRETATION: 20-49 YRS: >60 mL/min Normal 50-59 YRS: >56 mL/min Normal 60-69 YRS: >49 mL/min Normal 70-79 YRS: >42 mL/min Normal 80 and above >35 mL/min Normal FEMALE GRF INTERPRETATION: 20-39 YRS: >60 mL/min Normal 40-49 YRS: >58 mL/min Normal 50-59 YRS: >51 mL/min Normal 60-69 YRS: >45 mL/min Normal 70-79 YRS: >39 mL/min Normal 80 and above >32 mL/min NormalCLASSIFICATION CHOLESTEROL FOR ADULTS CHILDREN/ADOLESCENTS* DESIRABLE: <200 MG/DL <170 MG/DL BORDER-LINE HIGH RISK: 200-239 MG/DL 170-199 MG/DL HIGH RISK: >240 MG/DL >200 MG/DL CLASS. FOR PRIMARY LDL CHOL PREVENTION: LDL CHOL-CHILD/ADOLESCENTS* DESIRABLE: <130 MG/DL <110 MG/DL BORDERLINE-HIGH RISK: 130-159 MG/DL 110-129 MG/DL HIGH RISK: >160 MG/DL >130 MG/DL *CHILDREN AND ADOLESCENTS REPRESENTS INDIVIDUALA AGED 2-19 YEARS EXCLUSIVE. MPV 9.9 fL 9.0-13.0 [facility] ([facility] NORMAL RANGES Age WBC RBC HGB HCT MCV PLT Adult M 4.1-10.9 4.20-6.30 12.0-18.0 37.0-51.0 80-97 140-440 Adult F 4.1-10.9 4.04-5.48 12.0-18.0 37.0-51.0 80-97 140-440 0 -1 Yr 5.0-20.0 3.9-5.9 15-18 MV: 44 MV: 91 MV: 277 2-9 Yr. 6.0-17.0 3.8-5.4 11-13 MV: 37 MV: 78 MV: 300 10 Yrs. 5.0-13.0 3.8-5.4 12-15 MV: 39 MV: 80 MV: 250 NOTE: * FOR ADULT BLACK MALES AND FEMALES, NORMAL WBC IS 2.9-7.7 K/ML * FOR ADULT BLACK MALES AND FEMALES, NORMAL RBC,HGB, AND HCT IS 5% LESS SOURCE FOR DATA: LIFT12 1800 OPERATION MANUAL( AUTOMATED BLOOD COUNTS AND DIFF.) APPENDIX B-3 CHRONIC KIDNEY DISEASE STAGING PER NKF: MALE GFR INTERPRETATION: 20-49 YRS: >60 mL/min Normal 50-59 YRS: >56 mL/min Normal 60-69 YRS: >49 mL/min Normal 70-79 YRS: >42 mL/min Normal 80 and above >35 mL/min Normal FEMALE GRF INTERPRETATION: 20-39 YRS: >60 mL/min Normal 40-49 YRS: >58 mL/min Normal 50-59 YRS: >51 mL/min Normal 60-69 YRS: >45 mL/min Normal 70-79 YRS: >39 mL/min Normal 80 and above >32 mL/min NormalCLASSIFICATION CHOLESTEROL FOR ADULTS CHILDREN/ADOLESCENTS* DESIRABLE: <200 MG/DL <170 MG/DL BORDER-LINE HIGH RISK: 200-239 MG/DL 170-199 MG/DL HIGH RISK: >240 MG/DL >200 MG/DL CLASS. FOR PRIMARY LDL CHOL PREVENTION: LDL CHOL-CHILD/ADOLESCENTS* DESIRABLE: <130 MG/DL <110 MG/DL BORDERLINE-HIGH RISK: 130-159 MG/DL 110-129 MG/DL HIGH RISK: >160 MG/DL >130 MG/DL *CHILDREN AND ADOLESCENTS REPRESENTS INDIVIDUALA AGED 2-19 YEARS EXCLUSIVE. ID Date Data Source [id number] 11/22/2019 04:35:[address] [facility] Name Value Range Interpretation Code Description Data Naty rce(s) Supporting Document(s) &PDF [facility] HHYMLo6gYlTCUoMr67/ENJyeABPqm4JkYNxlCGz4KQezKXCsS3OjgUzmFRoWAj9RKnrQQY3KFjVMKQ6z oRX [file] ogICAgICAgICAgICAgICAgICAgICAgICAgICAgICAgICAgICAgICAgICAgICAgICAgICAgICAgICAgIC AgICAgICAgICAgICAgICAgICAgICAgICAgICAgICAg ICAgICAgICAgDQogICAgICAgICAgICAgICAgICAgICAgICAgICAgICAgICAgICAgICAgICAgICAgICAg ICAgICAgICAgICAgICAgICAgICAgICAgICAgICAgICAgICAgICAgICAgICAgICAgICAgDQogICAgICAg ICAgICAgICAgICAgICAgICAgICAgICAgICAgICAgIC AgICAgICAgICAgICAgICAgICAgICAgICAgICAgICAgICAgICAgICAgICAgICAgICAgICAgICAgICAgIC AgDQogICAgICAgICAgICAgICAgICAgICAgICAgICAgICAgICAgICAgICAgICAgICAgICAgICAgICAgIC AgICAgICAgICAgICAgICAgICAgICAgICAgICAgICAg ICAgICAgICAgICAgDQogICAgICAgICAgICAgICAgICAgICAgICAgICAgICAgICAgICAgICAgICAgICAg ICAgICAgICAgICAgICAgICAgICAgICAgICAgICAgICAgICAgICAgICAgICAgICAgICAgICAgDQogICAg ICAgICAgICAgICAgICAgICAgICAgICAgICAgICAgIC AgICAgICAgICAgICAgICAgICAgICAgICAgICAgICAgICAgICAgICAgICAgICAgICAgICAgICAgICAgIC AgICAgDQogICAgICAgICAgICAgICAgICAgICAgICAgICAgICAgICAgICAgICAgICAgICAgICAgICAgIC AgICAgICAgICAgICAgICAgICAgICAgICAgICAgICAg ICAgICAgICAgICAgICAgDQogICAgICAgICAgICAgICAgICAgICAgICAgICAgICAgICAgICAgICAgICAg ICAgICAgICAgICAgICAgICAgICAgICAgICAgICAgICAgICAgICAgICAgICAgICAgICAgICAgICAgDQog ICAgICAgICAgICAgICAgICAgICAgICAgICAgICAgIC AgICAgICAgICAgICAgICAgICAgICAgICAgICAgICAgICAgICAgICAgICAgICAgICAgICAgICAgICAgIC AgICAgICAgDQogICAgICAgICAgICAgICAgICAgICAgICAgICAgICAgICAgICAgICAgICAgICAgICAgIC AgICAgICAgICAgICAgICAgICAgICAgICAgICAgICAg BWTqUNHpLNRaSGPdEXFqAIRzLDa7F1ugVCYtYSAyXD0xUVs3Gk3+EKpXGpXpDTY2ofTexA0XJU5sk9Ql MKcwGIWfu8FxSGu6AZ1DBULwFRipMR8AOSvtjr2ZHDKdENFmwNYQv8doXtLaPUT2OEJoBcknAU5AICVo B0nlawJdOFIwNCTEBVmdHBGOTT8USdEtM6NsrT51IY INCj4+RHhffkJpKlpFRdAwIEXjq3ZgUNq3SS7MIZKsHXbuPZ8FDFXohY5vSLctWV0SRkSbLGPkSBZEAb UzH43gkXQpJGj6V5GjPhHtQYLlZtabFDNlTEyaKgZtZEWyYuAtWPvuGG2+ID4+QEwlBS6MTMwqxlYeDV RoHe7HYOBgVLF6GAKezARiVrCkMZAGPYanGA2DmOTk TOL8sJ5pLNhgMYFsSMKiY0xCGtKpjQmsFT95pBpxilSppMHuLGv+Qc0VUA4ax7SoIWy2luQhSSymVYVq JSnrNQMnIAUqMUGsUFA7RLM6IUGHHcRnVYFuTLRyVCtmLVQtADNoxf4BFMQfBCUzPADnEUVrWANmPGHr DKqsXCTdWCGkQqZpEKWuBDCvNV4BTuQcXENvTPEwYH TbLBQrYXAaqk0JKYUyYEEkIsFyEJQmFNPgDVBfNIdfSTIzAFUkBGO4NFVvNXDaDP0TQkUhEOCcSPO0OH uoHALuQNOgcs0WBKUgSFCwUBk4HtDzWPNkQXXpJTwzIPXgFEA6QPBnRIPbUTWwJF2MKbLfMKBpPUfdFJ vsRFDpPSYkau8NRFOwTHPlSzV8XYOrMEEuZBKsELcm TTEnFIV9BXT3QYOjPLSuFZ1NUvLpSQBjMHqzOOSaSGHiULYoly2NJLWcSNPpDYRvRLBzLNJcTYVgPQri OSBvBVF4WQk0OZOnZJRwSK9GXuRqELLxOWo3JObqRWMtRIEfip6YNSAmUBCpZHa2VmJmPOJsZAPxOOuo UGBbONM1PGl7HDRvTCEkAQ9CIiZiDOYvKJx5FHBtXM EnHZKinq7HPFHgBTOyGGTnOsLrQRQlEKEpBAakUOKxJXBaQMT4DERsMPYqAD8XPgInEZglPJMAAal2PB bbH6k3LQIlKy7BV2Fkn8IiQdPkMXCGVYqqZB7nykPjLRXtFt2FV5tRCxacI4U3VDdhV1DpUZwkIELnES F2LGSpUFD3D8LpXND7Or9lGIB0OeccW3V6MWXiNOLv MzE5AJR0HdCfCpusUPTfXwHxLdHlOK5DWc6XLmW7VOG3qLTuEl1YOaB2BTRIMqWyLI6DJXm= ID Date Data Source [id number] 07/26/2019 02:41:14 PM EST [facility] NT INFORMATIONPatient MRN Name Date of Age Gend*PT [id number] Juarez Garrison 1955 63 years M IPPT Location Admission Date/Time Visit ID Attending ProviderD-[id number] 07/25/19 0010 --- --- EPI ID CSN Admitting Pr ovider [id number] Ismael Nelson MD([id number]) [facility] DISCHARGE SUMMARYPatient Name: [facility]arez [facility] : 1955 [facility] 63 [facility] Physician: Annmarie Saucedo PCP Rkhrrxvmn Date: 07/25/2019 Discharge Date: 07/26/2019He will be discharged from [facility] to [facility] Diagnoses:Resolved Problems: Elevated troponinActive Problems: Chest pain Elevated blood- pressure reading without diagnosis of hypertension Exertional shortness of breath Tobacco abuse * No resolved hospital problems. *Discharge Medications:Discharge Medication List as of 07/26/2019 10:41 AMSTART taking these medications DetailsamLODIPine (NORVASC) 10 MG tablet Take 1 tablet (10 mg total) by mouth daily,Starting Thu07/27/2019, Until Thu08/26/2019, E- Prescribeatorvastatin (LIPITOR) 40 MG tablet Take 1 tablet (40 mg total) by mouthnightly, Starting Thu07/26/2019, Until Thu08/25/2019, E-Prescribeclopidogrel (PLAVIX) 75 MG tablet Take 1 tablet (75 mg total) by mouth daily,Starting Thu07/27/2019, Until Thu08/26/2019, E-Prescribelisinopril (PRINIVIL,ZESTRIL) 10 MG tablet Take 1 tablet (10 mg total) by mouthdaily, Starting Thu07/27/2019, Until Thu08/26/2019, E-Prescribemetoprolol tartrate (LOPRESSOR) 25 MG tablet Take 1 tablet (25 mg total) bymouth 2 (two) times a day, Starting Thu07/26/2019, Until Thu08/25/2019,E-Prescribenitroglycerin (NITROSTAT) 0.[address] 1 tablet (0.4 mg total) underthe tongue every 5 (five) minutes as needed for chest pain, Starting Thu07/26/2019, E-PrescribeCONTINUE these medications which have NOT CHANGED Detailsaspirin (ASPIRIN 81) 81 MG EC tablet Take 81 mg by mouth daily , Historical Medfluticasone (FLONASE) 50 MCG/ACT nasal spray 1 spray into each nostril daily asneeded for allergies , Historical MedFollow Up Instructions:The patient was given an after visit summary.Patient will follow up with PMD in 7 days.Items needing special attention:DAPT for 1 [address] follow up Dr De La Paz within 2 weeks.Brief Hospital Course:63 year old male with PMH of bradycardia with subsequent PPM, tobacco abuse, andchronic anemia who was transferred from [facility] with elevatedtroponin. Patient presented with chest pain Located in the epigastric area,worse with positional changes. Family history positive for coronary arterydisease. Patient has history of smoking, recently switched to subtypes.Patient's cardiac enzymes were trended up. Cardiology was consulted, patienthad a cardiac cath with stent placement. Report underneath. Patient will needDAPT for at least a year. He was started on statins, beta-blockers and ACEinhibitors. Patient remained stable, no acute events overnight. Was dischargedin stable condition. Cardiology and PMD follow-up.Discharge Exam:Blood Pressure: BP: (!) 150/98 Pulse: Heart Rate: 72Temperature: Temp: 97.4 F Respirations: Resp: 18Admission Weight: Weight: 72.9 kg (160 lb 11.2 oz) O2 Saturation: SpO2: 94 %Discharge Weight: Weight: 72.9 kg (160 lb 11.2 oz) BMI: Body mass index is 25.94kg/m .Physical Exam General well developed, well nourished, in no apparent distress HEENT PERRLA, EOMI, fundi benign Lungs clear to auscultation Heart regular rate and rhythm Abdomen soft, non-tender, non-distended, no organomegaly or masses Musculoskeletal Spine ROM normal. Muscular strength intact. Neuro normal without focal findings, mental status, speech normal, alert andoriented x3, CHEYANNE and reflexes normal and symmetricOther Pertinent Findings: noneDiagnostics:Imaging:X-ray Chest PortableResult Date: 07/25/2019IMPRESSION: Mild cardiac megaly with an atrial ventricular pacemaker. No obviouspneumonia or pulmonary edema. Slight elevation left hemidiaphragm. Lateral chestx-ray may be considered. Report electronically signed by: ASPEN KIRBY On07/25/2019 8:06 AM Workstation ID: [id number]:Cardiac cathInterpretation Fmautbe16-uoqm-xpg man with dual-chamber pacemaker admitted with non-Q wave myocardialinfarction.1. Critical stenosis in the mid right coronary artery which is a nondominantvessel. There was slightly slow flow to the 1 acute marginal branch.Successful intervention with drug-eluting stent placement in the proximal andmid vessel.2. Severe and ulcerated plaque in the mid LAD at the takeoff of the largediagonal status post intravascular sound guided drug-eluting stent placementfrom the ostium to the mid LAD.3. Mild to moderate left ventricular systolic dysfunction.4. Right radial access. The right coronary artery which is nondominant was treated today because I feltwith a slow flow to the acute marginal branch there is a high risk of rightventricular infarct in case there is an abrupt closure of that vessel. I feltthat this would pose a high prognostic problem. This is why we did treated witha stent today. Dual antiplatelet therapy is indicated for at least a year. Ialso added a statin. Because of the degree of LV dysfunction the patient shouldbe started on MIRYAM inhibitor prior to discharge if his blood pressure is stableand creatinine remains stable. No complications, estimated blood loss minimal.Consultants:CardiologyRecent Labs:BMP:Lab ResultsComponent Value Date NA 141 07/26/2019 K 3.9 07/26/2019 CL 111 (H) 07/26/2019 CO2 22 07/26/2019 ANIONGAP 8 07/26/2019 CALCIUM 9.2 07/26/2019 GLU 84 07/26/2019 BUN 19 07/26/2019 CREATININE 1.00 07/26/2019 GFRAA >60 07/26/2019 GFRNONAA >60 07/26/2019CBC with Diff:Lab ResultsComponent Value Date WBC 4.6 07/26/2019 RBC 3.93 (L) 07/26/2019 HGB 13.8 07/26/2019 HCT 39.0 (L) 07/26/2019 MCV 99.1 (H) 07/26/2019 MCH 35.0 (H) 07/26/2019 MCHC 35.4 07/26/2019 RDW 14.4 07/26/2019 PLT 100 (L) 07/26/2019 MPV 7.5 07/26/2019 LYMPHOPCT 25.8 07/25/2019 MONOPCT 6.8 07/25/2019 EOSPCT 3.7 07/25/2019 BASOPCT 0.4 07/25/2019 NEUTROABS 4.0 07/25/2019 MONOABS 0.4 07/25/2019 BASOSABS 0.0 07/25/2019Tim Carl MD2:37 PMTotal time spent for discharge on date of discharge: >45 minutes Name Value Range Interpretation Code Description Data Naty rce(s) Supporting Document(s) ID Date Data Source [id number] 07/26/2019 08:49:[address] [facility] Name Value Range Interpretation Code Description Data Naty rce(s) Supporting Document(s) EKG [facility] JBLAXl2lRfJJUwYln1FjDrHfPTAbLC2tdmu4A7A8lQWoE6EusXQpk0wqB0WqL2ApXBKgYQNVNZ7RxSOi jb2 [file] Rg== ID Date Data Source [id number] 07/26/2019 10:37:13 AM EST [facility] Name Value Range Interpretation Code Description Data Naty rce(s) Supporting Document(s) CKMB 5.9 ng/mL (0.0-5.0) H [facility] CKMB RELATIVE INDEX 5.4 {index_val} (0.0-4.0) H [facility] ID Date Data Source [id number] 07/26/2019 10:20:07 AM EST [facility] Name Value Range Interpretation Code Description Data Naty rce(s) Supporting Document(s) CK 109 U/L (39-308) [facility] ID Date Data Source [id number] 07/26/2019 07:57:[address] [facility] Name Value Range Interpretation Code Description Data Naty rce(s) Supporting Document(s) EKG [facility] ITZZLl1vNfZMJgMut4EdPtXtUANqIU7abhh3P7E3xDXwI3AqkGYgv9qeH8XwK8IySBKyPWDCPF8QgTKd jb2 [file] r+9+inspector chief/fcStj+/+3wrx53f69//589kIfR2pe2xZm667re43o26Js/rw+hH303Qge3GJHg88rFuu+qf3 z90jHsYf9Nhis/Yb2JH2+/B4f4Ct78Sekx973Wh3ae Wa5s9sHjO26F/FrNou6kyUM/KJ0dxyG7o89pQVu01+SO7b65WMhMwj0orj1khts7nO5/cQzGr98Nkc0+ ++wOz3omaepZdWC5dd/v7Q2ZtVsCnrxzJooVMoOQ4KSV6hp1XkYmP1YQMwv0RyTCkgYKk5vBZhSObuoc Liz7VakihnS9Eax8YoGfOuNRUyMoRkKmd5ZJNhEwQ0 lQJlZiVwZYLpP0JzSLAtOwX6PdUvAMYFYU7MQQFmowCkZmJfPEM+VvYbZQ8dqdlpNTXdj0YeCMqoFDaw DJUoV2M2vBhcCMGlQ0RrlU18QLJaU3IdgnW0ODH0USEpBkPdYARcaGYhQJKuTLR+UcOiXE4bxbdfYIVu r5LvWGerNGO7sW3wDOnOHIABHDuBOPssAdN2g75psm ORUGCbZOMqEC6GxgXhpNujvlOdnUTqCRZ8ZeFjCBTxHNKkLlJ0AQMNUDTxQCQbVGOsPZXxB2BcaWrjMX eSMSLDLRlHRGygOyTbv2R7ZJLipnGWFHUHOU3jHYwCTNXKMPE9UGP0BIWyGLzgJ5G9PiiqC6UoYJ3VF0 ZxSTSsHANGWBIkazQaLM8TnfIqtB8sHKnLAZAGLGuM FRxiWbS7u13juxDGVVKkEKBaIFgfBTJxERAdXMWcHZIsYBKiTMCxNKLuDN1WH5EyCTHzKRFJIMD4o6Pj BOXetfurzgcwSc9azcIsXui+HspmMBMod9LwFQwcZ8D9wWRjK7FrS3LvZW9OyGFfVCcuALUqOVAwPGNr Y746swFfOW5+TD4we6UhGhujPOSPDXIlLELjVBTeFS Y9UlBqIENrTLOxQXYpGjD0MnWtHyJCEXPwKLO6RnR6PRMsYXAaDUByXAtgXVBzTWE0AwQ5XXSkFRAyHI 0sEjLbWNZaISlnORZnHFCzBHQsdmZHZTPsUBArDRFmOHK5QYGhBPHnUZxdKCPvOAWxVAR5HZXbVBKsRY 5zJtKwCFZkSQAaQojbHGKlBZRftlXCFBKuAUUlNMM5 AvVvMVHoPKDvGXzyMMGwQSBsXkd9VSKbUPLvKL7mBrGuFXUoUPB1DEriGWYcYLRebnMWBWMaWINyOHIs CyPcJOObXOLqOZwgJNUtQCWnKtGeEZOeWFDaPD6bNqZhIVVbDZG5UQKoXBFtNQJuvsUTEKOpHTGiBOt8 SUKhTDBzFUNwRMnwQHTzNVLaSKD3FNJcDAUfYZ4aKh WkGAMaFQCiBMHoZNBdMPRyzdFYNNBmFVRmLYO2PVHtNNAmMQVdEIcbBYRjUFDwRyr6INWzDHQbAT2lQo TfZXDoEBP8ZULzADLsINIiriCJMJCxUAJ6GiJxCGIeVZWwJUDmUIemDAKgWGXvEsW6ZJNzBQIgDQ8jOd SfZMKvWHR0WoEiFLUsDIUvweXUCKOtNYHfDAA8OoMr VMBhZNCkUYyzMGTrRCZbTZMbSFV0PWY2SAGmVbHdRTxyMVFIDHrWH7YqryRbSxHZG5yyMt6kQsZnOQHX L5Yjm6WaZRDsLMPGNs8+VuS6GCS7iNOuPxh4PnkwJvcxYQGKQb== ID Date Data Source [id number] 07/26/2019 07:55:[address] [facility] Name Value Range Interpretation Code Description Data Naty rce(s) Supporting Document(s) EKG [facility] YPISRt3pWpGEHeNlx5RgVwItMKKrWC9mqjv7U5S5dTRwV8TcsIYag2tpV9KgG8GkXNLmNVLGYE0SyKUq jb2 [file] Fb0RnuJhUFBrYTEHHz0Gd067GDByBDWVByh+JapyyHAsyNgzOQWTPJf4RMMMEODVZ7U= ID Date Data Source [id number] 07/26/2019 01:34:25 AM EST [facility] Name Value Range Interpretation Code Description Data Naty rce(s) Supporting Document(s) CKMB 3.9 ng/mL (0.0-5.0) [facility] CKMB RELATIVE INDEX 4.3 {index_val} (0.0-4.0) H [facility] ID Date Data Source [id number] 07/26/2019 01:16:22 AM EST [facility] Name Value Range Interpretation Code Description Data Naty rce(s) Supporting Document(s) CK 90 U/L (39-308) [facility] ID Date Data Source [id number] 07/26/2019 01:16:22 AM EST [facility] Name Value Range Interpretation Code Description Data Naty rce(s) Supporting Document(s) SODIUM 141 mmol/L (136-145) [facility] POTASSIUM 3.9 mmol/L (3.6-5.2) [facility] CHLORIDE 111 mmol/L (100-108) H [facility] CO2 22 mmol/L (22-31) [facility] ANION GAP 8 mmol/L (7-16) [facility] UREA NITROGEN 19 mg/dL (7-24) [facility] CREATININE 1.00 mg/dL (0.80-1.30) [facility] BUN/CREAT RATIO 19.0 RATIO (10.0-20.0) [facility] GLUCOSE 84 mg/dL (70-99) [facility] CALCIUM 9.2 mg/dL (8.4-10.2) [facility] GFR >60 ml/min/1.73m2 (>59) [facility] GFR ( AMER) >60 ml/min/1.73m2 (>59) [facility] GFR INTERPRETATION [facility] --NORMAL KIDNEY FUNCTION OR MILD DISEASE - GFR >OR= 60CHRONIC KIDNEY DISEASE - GFR 15 - 59RENAL FAILURE - GFR <15 Est. GFR calculation based on the MDRDstudy equation, which assumes a steadystate for creatinine. Est. GFR should notbe used for medication dosing. ID Date Data Source [id number] 07/26/2019 12:51:44 AM EST [facility] Name Value Range Interpretation Code Description Data Naty rce(s) Supporting Document(s) WBC 4.6 10*3/uL (4.1-11.0) [facility] RBC 3.93 10*6/uL (4.60-6.10) L [facility] HGB 13.8 g/dL (13.5-18.0) [facility] HCT 39.0 % (41.0-53.0) L [facility] MCV 99.1 fL (80.0-95.0) H [facility] MCH 35.0 pg (27.0-32.0) H [facility] MCHC 35.4 g/dL (32.0-36.0) [facility] RDW 14.4 % (10.5-14.5) [facility] PLT 100 10*3/uL (150-450) L [facility] MPV 7.5 fL (7.1-10.7) [facility] ID Date Data Source [id number] 07/25/2019 05:26:[address] [facility] Name Value Range Interpretation Code Description Data Naty rce(s) Supporting Document(s) &PDF [facility] DHHVLx3aBsUAFtBy98/EDNfnXIMzb5MmQZfaQQc8OUriYCWaV3NqkEejLBnQAj2VYjmFBN3ENbYWIT2b FcG [file] Ilbhub+bindery helper/NLb7v7eGgMzaXcYvC44sx1I8+ci0HgjJHMn1pctYx2aMG8jrXZLHo9Mw7mf1hAmAqcvY/ [file] 9hgjbrsfHyhHN2Fp6GfiWGeJQm3ubsS+FSMm25axiQr0c+MEuzm3sPI87d1tG7h1wUNSHoSngamav/hydrographic surveyor [file] PR0iFTn+Tl8Pf8AgcjD8zpFtZFo3CUW0Et0JMOVJG3IOAn== ID Date Data Source [id number] 07/25/2019 01:51:46 PM EST [facility] NT INFORMATIONPatient MRN Name Date of Age Gend*PT [id number] Juarez Garrison 1955 63 years M IPPT Location Admission Date/Time Visit ID Attending ProviderD-[id number] 07/25/19 0010 --- Ysabel Ferrer MD([id number]) EPI ID CSN Admitting Provider [id number] Ismael Nelson MD([id number]) Attestation signed by Ismael Nelson MD at 07/25/2019 1:51 PMI have reviewed the notes, assessments, and/or procedures performed by Humza Parada NP, I concur with her documentation of Juarez Garrison. -------Inpatient History & PhysicalJavanessa GarrisonMRN: [id number] and Plan:Principal Problem: Elevated troponinActive Problems: Chest pain Exertional shortness of breath Tobacco abuse1. Elevated troponin: Mild elevation (0.14) at [facility]. Cycle troponin,continue heparin, asa. Check lipid panel. [facility] ongoing CP on admission. He is AV paced.2. Tobacco abuse: Switched to pipe apparently instead of cigarettes. Notmotivated to quit per Dr. De La Paz's discussion with the patient. Cessationcounseled.3. PPM for bradycardia: Recently checked by Dr. De La PazDVT px: Heparin gttPatient is FULL CODE verified by discussion with patient.History of Present Illness: Juarez is a 63 year old male with PMH of bradycardiawith subsequent PPM, tobacco abuse, and chronic anemia [facility]. The patient is a poor historian andgives inconsistent information. Office visit note from Dr. De La Paz on 07/08/2019was reviewed. The patient reports that his chest pain just began today while hewas sitting. He is not able to describe the pain. He takes no medication athome besides baby aspirin and allergy medicine. However, Dr. De La Paz's note from07/08 states that that office visit was in follow up of chest pain. He hadscheduled the patient for stress test but the paint did not show up. At thetime of the office visit, Dr. De La Paz did not feel that the patient's pain wascardiac in nature. The patient's pacemaker hade been checked and the patientwas to return in 1 year. The stress test was not rescheduled. The patient thenhad this pain today and presented to [facility] where he was noted tohave troponin elevation. He was started on a heparin drip, loaded with plavixand [facility] to [facility] work up and treatment. The patient continues tosmoke, although he reportedly switched to a pipe instead of cigarettes. Onadmission he complains of vague chest discomfort in the center of his chestwhich has been ongoing. He will be admitted to the medicine team for furtherwork up.Past Medical History:Past Medical History:Diagnosis Date Anemia Bradycardia Computed tomography angiography (CTA) 09/2016 normal ([facility]) Hepatitis C treatment with [facility] 2-08/2017 Stroke 01/2017 L sided hemiparesis - based on records from [place] belived to be due tocervical radiculopathy rather then CVAPast Surgical History:Past Surgical History:Procedure Laterality Date CARDIAC PACEMAKER PLACEMENT CHOLECYSTECTOMY INGUINAL HERNIA REPAIRMedications:Medications Prior to AdmissionMedication Sig Dispense Refill Last Dose aspirin (ASPIRIN 81) 81 MG EC tablet ASPIRIN 81 81 MG TBEC Taking fluticasone (FLONASE) 50 MCG/ACT nasal spray TakingAllergies:Oxycodone and Oxycodone-acetaminophenFamily History:Family HistoryProblem Relation Age of Onset Cancer Father Kidney disease Brother Healthy, No Significant History Mother Healthy, No Significant History SisterSocial History:Social HistorySocioeconomic History Marital status: Spouse name: Not on file Number of children: Not on file Years of education: Not on file Highest education level: Not on fileOccupational History Not on fileSocial Needs Financial resource strain: Not on file Food insecurity: Worry: Not on file Inability: Not on file Transportation needs: Medical: Not on file Non-medical: Not on fileTobacco Use Smoking status: Current Every Day Smoker Packs/day: 1.00 Years: 35.00 Pack years: 35.00 Types: Pipe, Cigarettes Smokeless tobacco: Never UsedSubstance and Sexual Activity Alcohol use: Never Frequency: Never Drug use: Never Sexual activity: Not on fileLifestyle Physical activity: Days per week: Not on file Minutes per session: Not on file Stress: Not on fileRelationships Social connections: Talks on phone: Not on file Gets together: Not on file Attends cheondoism service: Not on file Active member of club or organization: Not on file Attends meetings of clubs or organizations: Not on file Relationship status: Not on file Intimate partner violence: Fear of current or ex partner: Not on file Emotionally abused: Not on file Physically abused: Not on file Forced sexual activity: Not on fileOther Topics Concern Not on fileSocial History Narrative Not on fileReview of SystemsConstitutional: Negative for activity change, appetite change and fever.HENT: Negative for sore throat and trouble swallowing.Respiratory: Positive for chest tightness. Negative for cough, choking,shortness of breath, wheezing and stridor.Cardiovascular: Positive for chest pain and leg swelling. Negative forpalpitations.Gastrointestinal: Negative for abdominal pain, constipation, diarrhea, nauseaand vomiting.Genitourinary: Negative for difficulty urinating.Musculoskeletal: Negative for arthralgias, myalgias and neck pain.Skin: Negative for rash and wound.Neurological: Negative for dizziness, weakness, light-headedness and headaches.Temp: [97.6 F] 97.6 FHeart Rate: [68] 68Resp: [18] 18BP: (157)/(94) 157/94Physical ExamConstitutional: He is oriented to person, place, and time. He appearswell- developed. No distress.HENT:Mouth/Throat: Oropharynx is clear and moist.Eyes: Pupils are equal, round, and reactive to light. EOM are normal.Cardiovascular: Normal rate and regular rhythm.No murmur heard.Peripheral Edema: lower extremity edema.Pulmonary/Chest: Effort normal and breath sounds normal. No stridor. Norespiratory distress. He has no wheezes. He has no rhonchi. He has no rales. Heexhibits tenderness.Abdominal: Soft. Bowel sounds are normal. He exhibits no distension. There is notenderness. There is no guarding.Musculoskeletal: He exhibits no edema or tenderness.Neurological: He is alert and oriented to person, place, and time. No cranialnerve deficit. Coordination normal.Skin: Skin is warm and dry.Nursing note and vitals reviewed.Labs, Imaging and Other Diagnostic Tests:Significant findings: Records from [facility] were reviewed.Signature: Chavez Parada, CAKE PRESS OPERATOR-BCDate: July 25, 2019Time: 3:25 AM Name Value Range Interpretation Code Description Data [facility](s) Supporting Document(s) ID Date Data Source [id number] 07/25/2019 11:53:45 AM [facility] [place] [facility] [place] Name Value Range Interpretation Code Description Data [facility](s) Supporting Document(s) TROPONIN I 1.29 ng/mL (<0.05) [facility] Less than 0.05: Myocardial injury unlike lyGreater than or equal to 0.05: Highly suggestive of myocardial injuryCorrelation with rise and/or fall ofserial troponins, clinical symptomsand ECG changes is necessary.ALERTED CRITICAL [place] [id number] ON [id number] AT 1150 BY 36544 ID Date Data Source [id number] 07/25/2019 10:50:11 AM EST [facility] Name Value Range Interpretation Code Description Data Naty rce(s) Supporting Document(s) SODIUM 139 mmol/L (136-145) [facility] POTASSIUM 4.0 mmol/L (3.6-5.2) [facility] CHLORIDE 109 mmol/L (100-108) H [facility] CO2 21 mmol/L (22-31) L [facility] ANION GAP 9 mmol/L (7-16) [facility] UREA NITROGEN 19 mg/dL (7-24) [facility] CREATININE 0.84 mg/dL (0.80-1.30) [facility] BUN/CREAT RATIO 22.6 RATIO (10.0-20.0) H [facility] GLUCOSE 99 mg/dL (70-99) [facility] CALCIUM 9.3 mg/dL (8.4-10.2) [facility] GFR >60 ml/min/1.73m2 (>59) [facility] GFR ([facility] AM) >60 ml/min/1.73m2 (>59) [facility] GFR INTERPRETATION [facility] --NORMAL KIDNEY FUNCTION OR MILD DISEASE - GFR >OR= 60CHRONIC KIDNEY DISEASE - GFR 15 - 59RENAL FAILURE - GFR <15 Est. GFR calculation based on the MDRDstudy equation, which assumes a steadystate for creatinine. Est. GFR should notbe used for medication dosing. ID Date Data Source [id number] 07/25/2019 10:47:29 AM EST [facility] Name Value Range Interpretation Code Description Data Naty rce(s) Supporting Document(s) APTT 38.6 s (22.0-34.3) H [facility] ID Date Data Source [id number] 07/25/2019 10:47:29 AM EST [facility] Name Value Range Interpretation Code Description Data Naty rce(s) Supporting Document(s) PT 11.5 s (9.2-11.9) [facility] INR 1.13 [facility] SUGGESTED THERAPEUTIC RANGES USING INR F ORSTABILIZED ANTICOAGULATED PATIENTS:STANDARD DOSE THERAPY INR 2.0-3.0 DVT, PE, PREVENT DVT OR EMBOLISMHIGH DOSE THERAPY INR 2.5-3.5 PREVENT EMBOLISM FROM MECHANICAL HEART VALVE ID Date Data Source [id number] 07/25/2019 10:06:01 AM EST [facility] Name Value Range Interpretation Code Description Data Naty rce(s) Supporting Document(s) WBC 4.7 10*3/uL (4.1-11.0) [facility] RBC 4.00 10*6/uL (4.60-6.10) L [facility] HGB 14.0 g/dL (13.5-18.0) [facility] HCT 39.9 % (41.0-53.0) L [facility] MCV 99.8 fL (80.0-95.0) H [facility] MCH 35.1 pg (27.0-32.0) H [facility] MCHC 35.2 g/dL (32.0-36.0) [facility] RDW 14.6 % (10.5-14.5) H [facility] PLT 102 10*3/uL (150-450) L [facility] MPV 7.6 fL (7.1-10.7) [facility] ID Date Data Source [id number] 07/25/2019 08:43:20 AM EST [facility] INFORMATIONPatient MRN Name Date of Age Gend*PT [id number] Juarez Garrison 1955 63 years M IPPT Location Admission Date/Time Visit ID Attending [id number] 07/25/199 --- Ysabel Ferrer MD([id number]) EPI ID CSN Admitting Provider [id number] Ismael Nelson MD([id number])Cardiology ConsultName: Juarez Garrison Gender: maleDate of : 1955 Age: 63 yearsDate/Time of Admit: 07/25/2019 12:10 AM Code Status: Full CodePrimary Care ProviderReferring Physician: Annmarie Ferrer [facility] [place] HistoryReason for consultation: Elevated troponinChief Complaint: Chest painHPI:This patient is a 63 years [facility] and was found to have a mildly elevatedtroponin. Patient has a history of a pacemaker from prior diagnosis ofbradycardia and his electrocardiogram unfortunately is not very helpful. Thepatient did see a process automation engineer in [place] and a stress test was ordered but henever showed up for the stress test. The patient was never on any medicationsand again there was some concern about medication compliance. His pain wasdescribed as epigastric and was worse with positional changes. He did not haveany shortness of breath nausea or diaphoresis.Family history: Positive for coronary diseaseSmoking history: Patient has a long history of smoking but recently switched topipeReview of Systems General Denies dizziness or lightheadedness. Denies any recent, unexpectedweight changes. HEENT Denies any loss or change of vision. Denies tinnitus. Respiratory Denies PND, orthopnea, GLOVER, hemoptysis, cough, or shortness ofbreath. Cardiac see above GI Denies melena, hematochezia, nausea, or vomiting. MS Denies any lower extremity edema. Neuro Denies speech, motor, or sensory impairment. Psych Denies depression or anxiety. Endo Denies polyuria or polydipsia, denies temperature intolerance. Derm Denies diaphoresis, non-healing skin woundsPast HistoryPast Medical History:Diagnosis Date Anemia Bradycardia Computed tomography angiography (CTA) 09/2016 normal ([facility]) Hepatitis C treatment with [facility] 2-08/2017 Stroke 01/2017 L sided hemiparesis - based on records from [place] belived to be due tocervical radiculopathy rather then CVAPast Surgical History:Procedure Laterality Date CARDIAC PACEMAKER PLACEMENT CHOLECYSTECTOMY INGUINAL HERNIA REPAIRFamily HistoryProblem Relation Age of Onset Cancer Father Kidney disease Brother Healthy, No Significant History Mother Healthy, No Significant History SisterSocial HistorySocioeconomic History Marital status: Spouse name: Not on file Number of children: Not on file Years of education: Not on file Highest education level: Not on fileOccupational History Not on fileSocial Needs Financial resource strain: Not on file Food insecurity: Worry: Not on file Inability: Not on file Transportation needs: Medical: Not on file Non-medical: Not on fileTobacco Use Smoking status: Current Every Day Smoker Packs/day: 1.00 Years: 35.00 Pack years: 35.00 Types: Pipe, Cigarettes Smokeless tobacco: Never UsedSubstance and Sexual Activity Alcohol use: Never Frequency: Never Drug use: Never Sexual activity: Not on fileLifestyle Physical activity: Days per week: Not on file Minutes per session: Not on file Stress: Not on fileRelationships Social connections: Talks on phone: Not on file Gets together: Not on file Attends cheondoism service: Not on file Active member of club or organization: Not on file Attends meetings of clubs or organizations: Not on file Relationship status: Not on file Intimate partner violence: Fear of current or ex partner: Not on file Emotionally abused: Not on file Physically abused: Not on file Forced sexual activity: Not on fileOther Topics Concern Not on fileSocial History Narrative Not on fileMedications and AllergiesALLERGIES/SENSITIVITIES: Oxycodone and Oxycodone-acetaminophenMedications Prior to AdmissionMedication Sig aspirin (ASPIRIN 81) 81 MG EC tablet ASPIRIN 81 81 MG TBEC fluticasone (FLONASE) 50 MCG/ACT nasal sprayPhysicalBMI: Body mass index is 25.94 kg/m .Blood Pressure: BP: (!) 150/100 Pulse: Heart Rate: 68Temperature: Temp: 98 F Respirations: Resp: 19Admission Weight: Weight: 72.9 kg (160 lb 11.2 oz) O2 Saturation: SpO2: 95 %Physical Exam General Well developed, well nourished, no acute distress Neck Soft and supple without lymphadenopathy or thyromegaly. No JVD. Nobruits. Chest Non-tender to palpation Lungs Clear to auscultation, no crackles, rhonchi, or wheezes Heart Normal S1 S2, no murmurs, clicks, or gallops Abdomen Soft, non-tender, non-distended, no palpable HSM or masses, + bowelsounds Musculoskeletal Appears to have normal range of motion x 4 extremities, nojoint swelling. No pedal edema Neuro Alert, orientedx3, no facial asymmetry Derm No rashes, or ulcers Vascular Ranjith's test is normal bilaterally.DiagnosticsLabBMP:Lab ResultsComponent Value Date NA 138 07/25/2019 K 3.8 07/25/2019 CL 106 07/25/2019 CO2 23 07/25/2019 ANIONGAP 9 07/25/2019 CALCIUM 9.2 07/25/2019 GLU 94 07/25/2019 BUN 22 07/25/2019 CREATININE 0.81 07/25/2019 GFRAA >60 07/25/2019 GFRNONAA >60 07/25/2019Cardiac:Lab ResultsComponent Value Date TROPONINI 0.71 (H) 07/25/2019 PROBNP 1,688 (H) 07/25/2019CBC with Diff:Lab ResultsComponent Value Date WBC 6.3 07/25/2019 RBC 3.94 (L) 07/25/2019 HGB 13.7 07/25/2019 HCT 38.4 (L) 07/25/2019 MCV 97.5 (H) 07/25/2019 MCH 34.9 (H) 07/25/2019 MCHC 35.8 RDW 14.5 07/25/2019 PLT 103 (L) 07/25/2019 MPV 7.3 07/25/2019 LYMPHOPCT 25.8 07/25/2019 MONOPCT 6.8 07/25/2019 EOSPCT 3.7 07/25/2019 BASOPCT 0.4 07/25/2019 NEUTROABS 4.0 07/25/2019 MONOABS 0.4 07/25/2019 BASOSABS 0.0 07/25/2019Imaging/Testing:ReviewedEKG: Dual-chamber pacingAssessment & PlanPrincipal Problem: Elevated troponinActive Problems: Chest pain Exertional shortness of breath Tobacco abuseImpression: Patient has an elevated troponin which is continued to go up and hiselectrocardiogram is not helpful. He has risk factors and his not been takingany medication in the past so we have gone ahead and started him on dualantiplatelet therapy and is on IV heparin. I will schedule him for cardiaccatheterization today with Dr. Boss, the patient understands that medicationcompliance following the procedure is critical. In addition I have started himon Norvasc 10 mg daily for his blood pressure and then we will make furtherrecommendations once his catheterization is completed. His most recent HDL was64 and LDL was 66. All questions were answered for the patient.Signature: ALMA Austinate: July 25, 2019Time: 8:39 AMThis document or parts of this document, were dictated using [employer]. A reasonable attempt at proofreading has been made to minimize errors.Please call with any questions or corrections. Name Value Range Interpretation Code Description Data Naty rce(s) Supporting Document(s) ID Date Data Source [id number] 07/25/2019 08:06:38 AM EST [place], [place] [address]Patient Name: JUAREZ RICHARDSONOB: 1955Sex: MOrdering Provider: CHAVEZ PARADAAuthorisobeida Prov: CHAVEZ Gordon Provider: Procedure Performed: XR CHEST PORTABLEExam Date: 07/25/2019 01:54MRN: [id number] Number: [id number] Class: InpatientAccount #: [id number] for Exam: CP, SOB, hypoxiaTechnique: AP portable view obtained. The patient is also rotated to the left.Comparison: NoneFindings: The heart size is upper limits normal and there is an atrial ventricular pacemaker in good position. The lungs are grossly clear. The diaphragms are sharply defined. There is no pneumothorax or pleural effusion. There is no free air beneath the diaphragms.IMPRESSION: Mild cardiac megaly with an atrial ventricular pacemaker. No obvious pneumonia or pulmonary edema. Slight elevation left hemidiaphragm. Lateral chest x-ray may be considered.Report electronically signed by: ASPEN KIRBY On 07/25/2019 8:06 AMWorkstation ID: [id number] Name Value Range Interpretation Code Description Data Naty rce(s) Supporting Document(s) ID Date Data Source [id number] 07/25/2019 07:03:21 AM EST [facility] Name Value Range Interpretation Code Description Data Naty rce(s) Supporting Document(s) TROPONIN I 0.71 ng/mL (<0.05) H [facility] Less than 0.05: Myocardial injury unlike lyGreater than or equal to 0.05: Highly suggestive of myocardial injuryCorrelation with rise and/or fall ofserial troponins, clinical symptomsand ECG changes is necessary. ID Date Data Source [id number] 07/25/2019 05:45:[address] [facility] Name Value Range Interpretation Code Description Data Naty rce(s) Supporting Document(s) EKG [facility] [id number] [file] [id number] ID Date Data Source [id number] 07/25/2019 10:03:38 AM EST [facility] Name Value Range Interpretation Code Description Data Naty rce(s) Supporting Document(s) CHOLESTEROL @ 140 mg/dL (0-200) [facility] TRIGLYCERIDE @ 119 mg/dL (30-200) [facility] HDL CHOLESTEROL @ 66 mg/dL (>40) [facility] PER NCEP ATP III GUIDELINES:RESULTS LOWE R THAN 40 MG/DL ARE SUGGESTIVEOF INCREASED RISK FOR CORONARY ARTERYDISEASE. RESULTS > OR = TO 60 MG/DL ARECONSIDERED A NEGATIVE RISK FACTOR. CHOL/HDL RATIO 2.1 RATIO [facility] INTERPRETATION OF CHOL-HDL RATIO CHD RISK FEMALE MALEVERY HIGH >8.3 >14.3HIGH 5.6- 8.3 6.7- 14.3AVERAGE 3.7- 5.6 4.0- 6.7BELOW AVERAGE 2.5- 3.7 2.7- 4.0PROTECTED <2.5 <2.7 LDL CHOL (CALC) 50 mg/dL (<130) [facility] PER NCEP ATP III GUIDELINES: OPTIMAL < 100 NEAR OPTIMAL 100 - 129BORDERLINE HIGH 130 - 159 HIGH 160 - 189 VERY HIGH > 189 ID Date Data Source [id number] 07/25/2019 03:50:58 AM EST [facility] Name Value Range Interpretation Code Description Data Naty rce(s) Supporting Document(s) TSH,ULTRASENSITIVE @ 1.887 mIU/L (0.360-4.170) [facility] PERFORMED AT [address] [place] [address] N [place] [id number] ID Date Data Source [id number] 07/25/2019 03:50:58 AM EST [facility] Name Value Range Interpretation Code Description Data Naty rce(s) Supporting Document(s) NT PRO BNP 1688 pg/mL (0-125) H [facility] ID Date Data Source [id number] 07/25/2019 03:50:58 AM EST [facility] Name Value Range Interpretation Code Description Data Naty rce(s) Supporting Document(s) TROPONIN I 0.43 ng/mL (<0.05) H [facility] Less than 0.05: Myocardial injury unlike lyGreater than or equal to 0.05: Highly suggestive of myocardial injuryCorrelation with rise and/or fall ofserial troponins, clinical symptomsand ECG changes is necessary. ID Date Data Source [id number] 07/25/2019 03:50:58 AM EST [facility] Name Value Range Interpretation Code Description Data Naty rce(s) Supporting Document(s) SODIUM 138 mmol/L (136-145) [facility] POTASSIUM 3.8 mmol/L (3.6-5.2) [facility] CHLORIDE 106 mmol/L (100-108) [facility] CO2 23 mmol/L (22-31) [facility] ANION GAP 9 mmol/L (7-16) [facility] UREA NITROGEN 22 mg/dL (7-24) [facility] CREATININE 0.81 mg/dL (0.80-1.30) [facility] BUN/CREAT RATIO 27.2 RATIO (10.0-20.0) H [facility] GLUCOSE 94 mg/dL (70-99) [facility] CALCIUM 9.2 mg/dL (8.4-10.2) [facility] TOTAL PROTEIN 7.2 g/dL (6.4-8.2) [facility] ALBUMIN 3.5 g/dL (3.2-4.5) [facility] GLOBULIN 3.7 g/dL (2.7-4.3) [facility] ALB/GLOB RATIO 0.9 RATIO [facility] ALKALINE PHOSPHATASE 80 U/L (45-117) [facility] BILIRUBIN,TOTAL 0.5 mg/dL (0.0-1.0) [facility] PLEASE NOTE T otal bilirubin results may be falselyelevated in patients taking Eltrombopag. AST (SGOT) 12 U/L (11-39) [facility] ALT (SGPT) 13 U/L (12-78) [facility] GFR >60 ml/min/1.73m2 (>59) [facility] GFR ( AMER) >60 ml/min/1.73m2 (>59) [facility] GFR INTERPRETATION [facility] --NORMAL KIDNEY FUNCTION OR MILD DISEASE - GFR >OR= 60CHRONIC KIDNEY DISEASE - GFR 15 - 59RENAL FAILURE - GFR <15 Est. GFR calculation based on the MDRDstudy equation, which assumes a steadystate for creatinine. Est. GFR should notbe used for medication dosing. ID Date Data Source [id number] 07/25/2019 03:22:52 AM EST [facility] Name Value Range Interpretation Code Description Data Naty rce(s) Supporting Document(s) APTT 32.6 s (22.0-34.3) [facility] ID Date Data Source [id number] 07/25/2019 03:14:12 AM EST [facility] Name Value Range Interpretation Code Description Data Naty rce(s) Supporting Document(s) WBC 6.3 10*3/uL (4.1-11.0) [facility] RBC 3.94 10*6/uL (4.60-6.10) L [facility] HGB 13.7 g/dL (13.5-18.0) [facility] HCT 38.4 % (41.0-53.0) L [facility] MCV 97.5 fL (80.0-95.0) H [facility] MCH 34.9 pg (27.0-32.0) H [facility] MCHC 35.8 g/dL (32.0-36.0) [facility] RDW 14.5 % (10.5-14.5) [facility] PLT 103 10*3/uL (150-450) L [facility] MPV 7.3 fL (7.1-10.7) [facility] NEUT % 63.3 % (35.0-75.0) [facility] LYMPH % 25.8 % (16.0-52.0) [facility] MONO % 6.8 % (0.0-8.0) [facility] EOS % 3.7 % (0.0-5.0) [facility] BASO % 0.4 % (0.0-4.0) [facility] NEUT # 4.0 10*3/uL (1.8-7.7) [facility] LYMPH # 1.6 10*3/uL (1.2-4.8) [facility] MONO # 0.4 10*3/uL (0.0-0.8) [facility] Eosinophils [#/volume] in Blood by Automated count 0.2 10*3/uL (0.0-0 .5) [facility] BASO # 0.0 10*3/uL (0.0-0.2) [facility] Procedure Social History Code Duration Value Status Description Data Source(s ) Smoking 08/04/2019 12:00:00 AM EDT Former Smoker completed Former Smoker eCW1 ([facility]) Smoking 08/04/2019 12:00:00 AM EDT Former Smoker completed Former Smoker eCW1 ([facility]) Alcohol intake 07/26/2019 12:00:00 AM EST Never completed [facility] Cigarette pack-years 07/26/2019 12:00:00 AM EST UNK completed [facility] Cigarettes smoked current (pack per day) - Reported 07/26/19 20 12:00:00 AM EST UNK completed [facility] Smoking 07/26/2019 12:00:00 AM EST Current every day smoker co mpleted Current every day smoker [facility] Vital Signs ID Date Data Source UNK Name Value Range Interpretation Code Description Data Source(s) Body weight 155.00 [lb_av] 155.00 [lb_av] MEDEN T (Niranjan Rascon MD) Body height 66 [in_i] 66 [in_i] MEDENT (Niranjan Rascon MD) 5'6" Respiratory rate 16 /min 16 /min THOMASENT ( Niranjan Rascon MD) Oxygen saturation in Arterial blood by Pulse oximetry 95 % 95 % LETICIA (Niranjan Rascon MD) Heart rate 71 /min 71 /min LETICIA (Niranjan Rascon MD) Diastolic blood pressure 70 mm[Hg] 70 mm[Hg] LETICIA (Niranjan Rascon MD) Systolic blood pressure 104 mm[Hg] 104 mm[Hg] M EDJAKE (Niranjan Rascon MD) Body temperature 97.5 [degF] 97.5 [degF] LETICIA (Niranjan Rascon MD) Body mass index (BMI) [Ratio] 25.0 kg/m2 25.0 k g/m2 MEDENT (Niranjan Rascon MD) Oxygen saturation in Arterial blood by Pulse oximetry 956 % 956 % MEDENT ([facility] Body mass index (BMI) [Ratio] 24.5 kg/m2 24.5 k g/m2 MEDENT ([facility] [place] body weight 142 [lb_av] 142 [lb_av] MEDEN T ([facility] Body weight 152.00 [lb_av] 152.00 [lb_av] MEDEN T ([facility] Body height 66 [in_i] 66 [in_i] MEDENT ([facility] 5'6" Respiratory rate 16 /min 16 /min MEDENT ( [facility] Heart rate 94 /min 94 /min MEDENT ([facility] Body temperature 98.0 [degF] 98.0 [degF] MEDENT ([facility] Diastolic blood pressure 86 mm[Hg] 86 mm[Hg] MEDENT ([facility] Systolic blood pressure 128 mm[Hg] 128 mm[Hg] M EDENT ([facility] Oxygen saturation in Arterial blood by Pulse oximetry 98 % 98 % MEDENT ([facility] Body mass index (BMI) [Ratio] 24.7 kg/m2 24.7 k g/m2 MEDENT ([facility] [place] body weight 142 [lb_av] 142 [lb_av] MEDEN T ([facility] Body weight 153.00 [lb_av] 153.00 [lb_av] MEDEN T ([facility] Body height 66 [in_i] 66 [in_i] MEDENT ([facility] 5'6" Respiratory rate 16 /min 16 /min MEDENT ( [facility] Heart rate 90 /min 90 /min MEDENT ([facility] Body temperature 98.0 [degF] 98.0 [degF] MEDENT ([facility] Diastolic blood pressure 84 mm[Hg] 84 mm[Hg] MEDENT ([facility] Systolic blood pressure 124 mm[Hg] 124 mm[Hg] M EDENT ([facility] Oxygen saturation in Arterial blood by Pulse oximetry 95 % 95 % MEDENT ([facility] Body mass index (BMI) [Ratio] 24.5 kg/m2 24.5 k g/m2 MEDENT ([facility] [place] body weight 142 [lb_av] 142 [lb_av] MEDEN T ([facility] Body weight 152.00 [lb_av] 152.00 [lb_av] MEDEN T ([facility] Body height 66 [in_i] 66 [in_i] MEDENT ([facility] 5'6" Respiratory rate 14 /min 14 /min MEDENT ( [facility] Heart rate 66 /min 66 /min MEDENT ([facility] Body temperature 98.0 [degF] 98.0 [degF] MEDENT ([facility] Diastolic blood pressure 78 mm[Hg] 78 mm[Hg] MEDENT ([facility] Systolic blood pressure 122 mm[Hg] 122 mm[Hg] M EDENT ([facility] Diastolic blood pressure 76 mm[Hg] 76 mm[Hg] eCW1 ([facility]) Systolic blood pressure 112 mm[Hg] 112 mm[Hg] e CW1 ([facility]) Body temperature 98.9 [degF] 98.9 [degF] eCW1 ( [facility]) Respiratory rate 17 /min 17 /min eCW1 ([facility]) Heart rate 90 /min 90 /min eCW1 ([facility]) Body mass index (BMI) [Ratio] 25.66 kg/m2 25.66 kg/m2 eCW1 ([facility]) Body height 66 [in_us] 66 [in_us] eCW1 ([facility]) Body weight Measured 159 [lb_av] 159 [lb_av] eC W1 ([facility]) Heart rate 72 /min 72 /min [facility] Diastolic blood pressure 98 mm[Hg] 98 mm[Hg] [facility] Systolic blood pressure 150 mm[Hg] 150 mm[Hg] [facility] Oxygen saturation in Arterial blood by Pulse oximetry 94 % 94 % [facility] Respiratory rate 18 /min 18 /min [facility] Body temperature 36.33 Joanne 36.33 Joanne [facility] Body mass index (BMI) [Ratio] 25.94 kg/m2 25.94 kg/m2 [facility] Body weight 72.[address] [facility] Body height 167.[address] [facility] Body weight 71.669 kg 71.669 kg [facility] Body mass index (BMI) [Ratio] 25.5 kg/m2 25.5 k g/m2 [facility] ([facility], ) Body weight 158.00 [lb_av] 158.00 [lb_av] THOMASEN T ([facility], ) Body height 66 [in_i] 66 [in_i] [facility], [facility] 5'6" Diastolic blood pressure 100 mm[Hg] 100 mm[Hg] [facility], ) Systolic blood pressure 150 mm[Hg] 150 mm[Hg] Marcelina GARRISON ([facility], ) Patient Treatment Plan of Care Planned Activity Planned Date Details Description Data Source (s) Lisinopril 10 MG Oral Tablet 07/27/2019 12:00:00 AM EST eCW1 ([facility]) Amlodipine 10 MG Oral Tablet 07/27/2019 12:00:00 AM EST eCW1 ([facility]) clopidogrel 75 MG Oral Tablet 07/27/2019 12:00:00 AM EST eCW1 ([facility]) Lisinopril 10 MG Oral Tablet 07/27/2019 12:00:00 AM EST eCW1 ([facility]) Amlodipine 10 MG Oral Tablet 07/27/2019 12:00:00 AM EST eCW1 ([facility]) clopidogrel 75 MG Oral Tablet 07/27/2019 12:00:00 AM EST eCW1 ([facility]) Lisinopril 10 MG Oral Tablet 07/27/2019 12:00:00 AM EST eCW1 ([facility]) clopidogrel 75 MG Oral Tablet 07/27/2019 12:00:00 AM EST eCW1 ([facility]) Amlodipine 10 MG Oral Tablet 07/27/2019 12:00:00 AM EST eCW1 ([facility]) Lisinopril 10 MG Oral Tablet 07/27/2019 12:00:[address] [facility] clopidogrel 75 MG Oral Tablet 07/27/2019 12:00:[address] [facility] Amlodipine 10 MG Oral Tablet 07/27/2019 12:00:[address] [facility] Metoprolol Tartrate 25 MG Oral Tablet 07/26/2019 12:00:00 AM EST eCW1 ([facility]) Nitroglycerin 0.4 MG Sublingual Tablet 07/26/2019 12:00:00 AM EST eCW1 ([facility]) Metoprolol Tartrate 25 MG Oral Tablet 07/26/2019 12:00:00 AM EST eCW1 ([facility]) Nitroglycerin 0.4 MG Sublingual Tablet 07/26/2019 12:00:00 AM EST eCW1 ([facility]) Nitroglycerin 0.4 MG Sublingual Tablet 07/26/2019 12:00:00 AM EST eCW1 ([facility]) Metoprolol Tartrate 25 MG Oral Tablet 07/26/2019 12:00:00 AM EST eCW1 ([facility]) Nitroglycerin 0.4 MG Sublingual Tablet 07/26/2019 12:00:[address] [facility] Metoprolol Tartrate 25 MG Oral Tablet 07/26/2019 12:00:[address] [facility] atorvastatin 40 MG Oral Tablet 07/26/2019 12:00:[address] [facility]
[2020-06-13 21:55] LABS: BASO % 0.5 % (0.0-1.0); EOS # 0.3 10^3/uL (0.0-0.5); HEMOGLOBIN 12.8 g/dl (13.5-17.5); LYMPH # 1.9 10^3/uL (1.5-5.0); LYMPH % 29.8 % (24.0-44.0); MEAN CORPUSCULAR HEMOGLOBIN 33.9 pg (27.0-33.0); MEAN CORPUSCULAR HGB CONC 34.6 g/dl (32.0-36.5); MEAN CORPUSCULAR VOLUME 97.9 fl (80.0-96.0); MONO # 0.5 10^3/uL (0.0-0.8); MONO % 8.5 % (0.0-5.0); NEUTROPHILS # 3.5 10^3/uL (1.5-8.5); NEUTROPHILS % 56.9 % (36.0-66.0); PLATELET COUNT, AUTOMATED 116 10^3/uL (150-450); RED BLOOD COUNT 3.78 10^6/uL (4.30-6.10); WHITE BLOOD COUNT 6.2 10^3/uL (4.0-10.0)
[2020-06-13 22:28] LABS: ALBUMIN 3.7 GM/DL (3.2-5.2); ALT/SGPT 23 U/L (12-78); BILIRUBIN,DIRECT 0.3 MG/DL (0.0-0.2); BILIRUBIN,TOTAL 0.5 MG/DL (0.2-1.0); BLOOD UREA NITROGEN 25 MG/DL (7-18); CALCIUM LEVEL 9.3 MG/DL (8.8-10.2); CARBON DIOXIDE LEVEL 27 MEQ/L (21-32); CHLORIDE LEVEL 107 MEQ/L (98-107); CK-MB VALUE MASS < 1.0 NG/ML (<3.6); CPK CREATINE PHOSPHOKINASE 25 U/L (39-308); GLOMERULAR FILTRATION RATE > 60.0 (>49); GLUCOSE, FASTING 101 MG/DL (70-100); LIPASE 68 U/L (73-393); POTASSIUM SERUM 4.8 MEQ/L (3.5-5.1); SODIUM LEVEL 138 MEQ/L (136-145); TOTAL PROTEIN 7.1 GM/DL (6.4-8.2); TROPONIN I < 0.02 NG/ML (< 0.10)
[2020-06-13] MEDS ORDERED: GI COCKTAIL 50ML BTL(HYOSCYAMINE/MAALOX/LIDOCAINE VISCOUS)(1:3:1) PO ONE (22:30)
[2020-06-13] MEDS ORDERED: ISOVUE-370 76% 100ML VIAL As Ordered ONE (22:53)
--- NOTE | 2020-06-13 23:57 | REPVR ---
PROCEDURE INFORMATION: Exam: CT Abdomen And Pelvis With Contrast Exam date and time: 06/13/2020 10:24 PM Age: 64 years old Clinical indication: Abdominal pain; Epigastric; Additional info: Epigastric pain, n/v, R/O perfed ulcer TECHNIQUE: Imaging protocol: Computed tomography of the abdomen and pelvis with intravenous contrast. Radiation optimization: All CT scans at this facility use at least one of these dose optimization techniques: automated exposure control; mA and/or kV adjustment per patient size (includes targeted exams where dose is matched to clinical indication); or iterative reconstruction. Contrast material: ISO; Contrast volume: 100 ml; Contrast route: INTRAVENOUS (IV); COMPARISON: CT ABD/PEL W/IV CONTRAST ONLY 04/30/2020 4:49 AM FINDINGS: Tubes, catheters and devices: There is a pacemaker in position. Lungs: Minimal 1 and 2 mm punctate densities in the lower lobes with a 3 x 6 mm density in the lateral right middle lobe. The minimal lower lobe densities are similar to the prior study. Liver: Nodular surface of the liver. Gallbladder and bile ducts: Status post cholecystectomy. Pancreas: Mild pancreatic atrophy for age. Spleen: The spleen measures 13.5 cm. Adrenal glands: Normal. No mass. Kidneys and ureters: There are bilateral renal cysts measuring up to 6.6 cm on the left with a Hounsfield measurement of 3 consistent with simple cysts which are unchanged from the prior study. No follow-up imaging is recommended. Stomach and bowel: Mobile cecum. Mild stool throughout much of the colon. Minimal sigmoid diverticulosis without diverticulitis. Borderline distention of the stomach with food material and gas. Appendix: A normal appendix is seen. Intraperitoneal space: No free air. Vasculature: There is minimal atherosclerotic calcification of the abdominal aorta. Lymph nodes: Unremarkable. No enlarged lymph nodes. Urinary bladder: Unremarkable as visualized. Reproductive: Unremarkable as visualized. Bones/joints: Bilateral spondylolysis of L5 with grade 1 anterolisthesis. Soft tissues: Minimal fat filled umbilical hernia. IMPRESSION: 1. Suggestion of hepatic cirrhosis with borderline splenomegaly. 2. Status post cholecystectomy. 3. There is borderline gastric distention with food material and gas which may reflect recent ingestion. Gastric atony or relative outlet obstruction are not excluded. 4. Minimal sigmoid diverticulosis without diverticulitis. 5. Minimal punctate densities in the lower lobes which are similar to the prior study. A slightly larger density in the lateral right middle lobe was not included on prior study but is unchanged from 11/05/2019. 6. Mild pancreatic atrophy for age. COMMENTS: Consistent with the [employer]'s Incidental Findings Committee white paper (J Am Ines Radiol 2018): Any incidental renal lesion less than 1 cm or classified as too small to characterize, or any incidental cystic renal lesion characterized as simple-appearing, is likely benign. No follow-up imaging is recommended for these lesions per consensus recommendations based on imaging criteria. Electronically signed by: Tejinder Mistry On 06/13/2020 23:56:31 PM
[2020-06-14] MEDS ORDERED: CARA1TAB6 PO (01:07)
[2020-06-14] MEDS ORDERED: PEPC1TAB5 PO (01:07)
[2020-06-14] MEDS ORDERED: OMEP40CA97 PO (01:07)
[2020-06-14] MEDS ORDERED: SUCRALFATE 1 GM TAB PO ONE (01:15)
[2020-06-14] MEDS ORDERED: OMEPRAZOLE 20 MG CAP PO ONE (01:15)
[2020-06-14] MEDS ORDERED: FAMOTIDINE 20 MG TAB PO ONE (01:15)
[2020-06-14 01:35] VITALS: BP 136/80
--- NOTE | 2020-06-14 05:36 | ECGEPIP ---
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
--- NOTE | 2020-06-14 11:37 | ED PDOC ---
Post-Departure Follow-Up dr mcguire faxed formal report of ct abd/p for fu Tha Anders MD Jun 14, 2020 11:37
== END 2020-06-14 01:37 | disposition home or self-care (01) ==
LOC: M ED 20:33
DX: K27.9 Peptic ulcer, site unspecified, unspecified as acute or chronic, without hemorrhage or perforation (principal); I10 Essential (primary) hypertension; I25.10 Atherosclerotic heart disease of native coronary artery without angina pectoris; Z79.899 Other long term (current) drug therapy; Z79.01 Long term (current) use of anticoagulants; Z88.5 Allergy status to narcotic agent; F17.210 Nicotine dependence, cigarettes, uncomplicated
CPT/HCPCS: 36415; 74177; 80048; 80076; 82550; 82553; 83690; 84484; 85025; 93005; 93041; 99284; Q9967

== ENCOUNTER 2020-06-26 20:32 | Emergency (ER) | payer MEDICARE, MEDICAID ==
[~2020-06-26] VITALS: Ht 167.6 cm; Wt 72.7 kg
[~2020-06-26 20:32] MED LIST changes: +CARA1TAB6 PO; -LISI10TA22 PO; +LISI10TA4 PO; +PEPC1TAB5 PO
--- OUTSIDE RECORDS SUMMARY | 2020-06-26 20:39 | CCD ---
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 GFR INTERPRETATION [facility] --NORMAL KIDNEY FUNCTION OR MILD DISEASE - GFR >OR= 60CHRONIC KIDNEY DISEASE - GFR 15 - 59RENAL FAILURE - GFR <15 Est. GFR calculation based on the MDRDstudy equation, which assumes a steadystate for creatinine. Est. GFR should notbe used for medication dosing. ID Date Data Source [id number] 07/26/2019 12:51:44 AM EST [facility] Name Value Range Interpretation Code Description Data [facility](s) Supporting Document(s) WBC 4.6 10*3/uL (4.1-11.0) [facility] RBC 3.93 10*6/uL (4.60-6.10) L [facility] HGB 13.8 g/dL (13.5-18.0) [facility] HCT 39.0 % (41.0-53.0) L [facility] MCV 99.1 fL (80.0-95.0) H [facility] MCH 35.0 pg (27.0-32.0) H [facility] MCHC 35.4 g/dL (32.0-36.0) [facility] RDW 14.4 % (10.5-14.5) [facility] PLT 100 10*3/uL (150-450) L [facility] MPV 7.5 fL (7.1-10.7) [facility] ID Date Data Source [id number] 07/25/2019 05:26:19 PM EST [facility] Name Value Range Interpretation Code Description Data Naty rce(s) Supporting Document(s) &PDF 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 [file] ICAgICAgICAgICAgICAgICAgICAgICAgICAgICAgICAgICAgICAgICAgICAgICAgICAgICAgICAgICAg ICAgICAgICAgICAgICAgICAgICAgICAgICAgICAgIC AgICAgDQogICAgICAgICAgICAgICAgICAgICAgICAgICAgICAgICAgICAgICAgICAgICAgICAgICAgIC AgICAgICAgICAgICAgICAgICAgICAgICAgICAgICAgICAgICAgICAgICAgICAgDQogICAgICAgICAgIC AgICAgICAgICAgICAgICAgICAgICAgICAgICAgICAg ICAgICAgICAgICAgICAgICAgICAgICAgICAgICAgICAgICAgICAgICAgICAgICAgICAgICAgICAgDQog ICAgICAgICAgICAgICAgICAgICAgICAgICAgICAgICAgICAgICAgICAgICAgICAgICAgICAgICAgICAg ICAgICAgICAgICAgICAgICAgICAgICAgICAgICAgIC AgICAgICAgDQogICAgICAgICAgICAgICAgICAgICAgICAgICAgICAgICAgICAgICAgICAgICAgICAgIC AgICAgICAgICAgICAgICAgICAgICAgICAgICAgICAgICAgICAgICAgICAgICAgICAgDQogICAgICAgIC AgICAgICAgICAgICAgICAgICAgICAgICAgICAgICAg ICAgICAgICAgICAgICAgICAgICAgICAgICAgICAgICAgICAgICAgICAgICAgICAgICAgICAgICAgICAg DQogICAgICAgICAgICAgICAgICAgICAgICAgICAgICAgICAgICAgICAgICAgICAgICAgICAgICAgICAg ICAgICAgICAgICAgICAgICAgICAgICAgICAgICAgIC AgICAgICAgICAgDQogICAgICAgICAgICAgICAgICAgICAgICAgICAgICAgICAgICAgICAgICAgICAgIC AgICAgICAgICAgICAgICAgICAgICAgICAgICAgICAgICAgICAgICAgICAgICAgICAgICAgDQogICAgIC AgICAgICAgICAgICAgICAgICAgICAgICAgICAgICAg ICAgICAgICAgICAgICAgICAgICAgICAgICAgICAgICAgICAgICAgICAgICAgICAgICAgICAgICAgICAg ICAgDQogICAgICAgICAgICAgICAgICAgICAgICAgICAgICAgICAgICAgICAgICAgICAgICAgICAgICAg ICAgICAgICAgICAgICAgICAgICAgICAgICAgICAgIC FoCJMbRWPjWMKbTHSdUNf5O1kfIOPmQWFwTS0yECs7Va9+VHaWKyVaVNL8pgFzsB7KZE8ij5VgMEllER Jur3HvXOs0EF6HPHQnJBpgGO1ZNSitkb6GQXTaWBYudQSWy3hpZrJtQEX0BKCfDewbMA6RIARqD9wlyr BbIDUgMCBSIDcgMCBSIDkgMCBSIDExIDAgUiAxMyAw VGJcRQQeAODYTXM0ACWyIjMhGSgwFF2Ne9WqzGK0LZm+Rq9ZUH5bb0LpQSvzFGUmAJ7qze1MBLwEZuKr C3CptkW9UDW0RAQyRm7MGVBrNDInnDHfDKQaBWEJQvGyJ3DyqE54YFSDZb3+IRvhzqRkMyqXAqO4LRUp l3MdESs5VU0PSPKlVPy5yCHzNP2zrESrmJIzAVehVY 2GHRF8EMldIAUxWUEzF8mJAbOyURprPB28mXsnAA6RJMStYNQeRE87NBS8GDEqSq7DSs4ZTaUtFP9lay 0UBoAwUSNaBdvVQnr7JAzrES0DpOFkR5RvlWPso7zNRaHlM0ZYLJJnFFPeHs4GELEpDuFzAAJiIDyzVH 9gIBQxCEITpCscleK5YQ3VLT9knaFhXI2UQkUqQo8z Mq9WIbCdA9ZgP5YfUAMzOOPOZMquGH8LHVzpGZ8lHR7Kl0FEfJVadA4pqg1DQNOpSUFoYozfjy6BBoqy T8N2eWyeIJDuFuWrEBGHDJjiTS5RAGJwWHS1EOYnFfGrXDKGXjXdB41gFJ8WT6Ehw33dKfC9ASTnCjGa HDlyBC31gRntbzBpaDYqeKzwGQ0XXy8+DQplbmRvYm bZOscsCLNYLaKhEkkXSvBuQLQmJESvRONcMfV2BnYhAv9UDCFsNPDuVBGgLkHkGNEhGKAqDSdePQEnBS drNCv9TAUdOEDbVX1VGcAoLHYpYPJ7XiNrIGTfNTEkba9LZAFnEUNbYBG4JPVrUTWqOHWsCDrqLLAwAR VxEGa7XPNxNYUpJP0XZrGcCXCkTDL3RBzzYVItTPEu ia8OUALgEGXcFTT3PgGvADLcAMArPZpoBJBpDBS2BtP8JRCmRUZkUU8GJeZaAGHuSDw9XlRzTBUsANEn zj7ZMAWoTJGmJuy8YWUxINHiIIWvWMqtOXXgINV7OhWdLKBvIBLxLO6SKsOfVRRfFDu7RxanCEHsJSYx fv1ZXDVvDAGmZCAsZZUiUVKkCVDgBMbhAVZgWUWdAs O1AFQaNUAzRP2XFyVpKGCnMBUtDMwvGCNpABYcls7JQRJkJLYxMrV5XVBpREXwJNEsJPtyWLQpXMN5FO q9AKTjSCYuNO5MYmWfEFEoLGXiVLViYJNkSCEwlv1WUBHpYCQhLkK5BzEuPZTqHNIqCFapTSUiZUD3Nt K1WJFcAZRnGF5EGiZxKDUlCGZ7UWPhAQHdDEUyfx2T RZZiMUTzMlJjDgTqYXYcYWByTRtrHUQqEHY4DfX0ODKuUYFiNA3WHhXjGZUoTFa8OVWzIEMjYYJpav6D TLLhQYSjKgk0MrYtRRXcADShDNvsVJKpRIP4EbIxVBIkOQOnKK7GHgYeBJLpSfi0SASxIWMzLTZvso3K WXVrCZV1FzFsVmXrEWHzTSFcWHixUHZjUAJ2Ccv8WA DfATZbTS0TMiScFLOlYzE9KGEoAWZgKOEzbo0FFYNnDPQ1RUrkKKAhAEPbOUVhODemEDGhBEjkRExzSD QgHSXlRK6ILoPiFWYpUTP4KPDvBVUnWKYrut6TMCMiOBL7Thb9OQWbXZFaBOOjJAabEPSpBQy6JQF7QH MyGSGxLG5AUuVpWOJaESQkOIHuRNAyKHAwom3HzUFd kUbyxo5HIVaGNn3McBneJEE2VEfsTr9bbTBgDjGrTGGQMk0AhaBrHHMfXAFAOEniBWTrHIBzDQhjUwi6 CAAfWIO1AoezPPCuGBCuD7I5GNfjMdYvGxD4FSQ1AfKoBgwsDtZeJBj1SON8QkI3NdLkSPSrWUK8MRW+ JI5sTDb+Ae3Uy4DjcbB7aiNcWRs8SLK3Qw2PNDNVM9SOLb== ID Date Data Source [id number] 07/25/2019 01:51:46 PM EST [facility] NT INFORMATIONPatient MRN Name Date of Age Gend*PT [id number] Juarez Garrison 1955 63 years M IPPT Location Admission Date/Time Visit ID Attending [id number] 07/25/19 0010 --- Ysabel Ferrer MD([id number]) EPI ID CSN Admitting Provider [id number] Ismael Nelson MD([id number]) Attestation signed by Ismael Nelson MD at 07/25/2019 1:51 PMI have reviewed the notes, assessments, and/or procedures performed by Humza Zhang NP, I concur with her documentation of Juarez Garrison. -------Inpatient History & PhysicalJavanessa GarrisonMRN: [id number] and Plan:Principal Problem: Elevated troponinActive Problems: Chest pain Exertional shortness of breath Tobacco abuse1. Elevated troponin: Mild elevation (0.14) at [facility]. Cycle troponin,continue heparin, asa. Check lipid panel. [facility] ongoing CP on [facility]. He is AV paced.2. Tobacco abuse: Switched to pipe apparently instead of cigarettes. Notmotivated to quit per Dr. De La Paz's discussion with the patient. Cessationcounseled.3. PPM for bradycardia: Recently checked by Dr. De La PazDVTad px: Heparin gttPatient is FULL CODE verified by discussion with patient.History of Present Illness: Juarez is a 63 year old male with PMH of bradycardiawith subsequent PPM, tobacco abuse, and chronic anemia [facility]. The patient is a [...] thenhad this pain today and presented to [facility] where he was noted tohave troponin elevation. [...] Bradycardia Computed tomography angiography (CTA) 09/2016 normal ([facility]) Hepatitis C treatment with Mavyret 2-08/2017 Stroke 01/2017 L sided hemiparesis - based on records from [facility] belived to be due tocervical radiculopathy rather [...] file Gets together: Not on file Attends tenriism service: Not on file Active member of [...] and Other Diagnostic Tests:Significant findings: Records from [facility] were reviewed.Signature: Chavez Zhang, ACCOUNTANT COST-BCDate: July 25, 2019Time: 3:25 AM Name Value Range Interpretation Code Description Data Naty rce(s) Supporting Document(s) ID Date Data Source [id number] 07/25/2019 11:53:45 AM EST [facility] Name Value Range Interpretation Code Description Data Naty rce(s) Supporting Document(s) TROPONIN I 1.29 ng/mL (<0.05) [facility] Less than 0.05: Myocardial injury unlike lyGreater than or equal to 0.05: Highly suggestive of myocardial injuryCorrelation with rise and/or fall ofserial troponins, clinical symptomsand ECG changes is necessary.ALERTED CRITICAL [place] [address] ON 979288 [place] [address]150 [place] [address] ID Date Data Source [id number] 07/25/2019 10:50:11 AM EST [facility] Name Value Range Interpretation Code Description Data Naty rce(s) Supporting Document(s) SODIUM 139 mmol/L (136-145) [facility] POTASSIUM 4.0 mmol/L (3.6-5.2) [facility] CHLORIDE 109 mmol/L (100-108) H [facility] CO2 21 mmol/L (22-31) L [facility] ANION GAP 9 mmol/L (7-16) [facility] UREA NITROGEN 19 mg/dL (7-24) [facility] CREATININE 0.84 mg/dL (0.80-1.30) [facility] BUN/CREAT RATIO 22.6 RATIO (10.0-20.0) H [facility] GLUCOSE 99 mg/dL (70-99) [facility] CALCIUM 9.3 mg/dL (8.4-10.2) [facility] GFR >60 ml/min/1.73m2 (>59) [facility] GFR ( AMER) >60 ml/min/1.73m2 (>59) [facility] GFR INTERPRETATION [facility] --NORMAL KIDNEY FUNCTION OR MILD DISEASE - GFR >OR= 60CHRONIC KIDNEY DISEASE - GFR 15 - 59RENAL FAILURE - GFR <15 Est. GFR calculation based on the MDRDstudy equation, which assumes a steadystate for creatinine. Est. GFR should notbe used for medication dosing. ID Date Data Source [id number] 07/25/2019 10:47:29 AM EST [facility] Name Value Range Interpretation Code Description Data Naty rce(s) Supporting Document(s) APTT 38.6 s (22.0-34.3) [facility] ID Date Data Source [id number] 07/25/2019 10:47:29 AM EST [facility] Name Value Range Interpretation Code Description Data Naty rce(s) Supporting Document(s) PT 11.5 s (9.2-11.9) [facility] INR 1.13 [facility] SUGGESTED THERAPEUTIC RANGES USING INR F ORSTABILIZED ANTICOAGULATED PATIENTS:STANDARD DOSE THERAPY INR 2.0-3.0 DVT, PE, PREVENT DVT OR EMBOLISMHIGH DOSE THERAPY INR 2.5-3.5 PREVENT EMBOLISM FROM MECHANICAL HEART VALVE ID Date Data Source [id number] 07/25/2019 10:06:01 AM EST [facility] Name Value Range Interpretation Code Description Data Naty rce(s) Supporting Document(s) WBC 4.7 10*3/uL (4.1-11.0) [facility] [place] RBC 4.00 10*6/uL (4.60-6.10) L [facility] HGB 14.0 g/dL (13.5-18.0) [facility] HCT 39.9 % (41.0-53.0) L [facility] MCV 99.8 fL (80.0-95.0) H [facility] MCH 35.1 pg (27.0-32.0) H [facility] MCHC 35.2 g/dL (32.0-36.0) [facility] RDW 14.6 % (10.5-14.5) H [facility] PLT 102 10*3/uL (150-450) L [facility] MPV 7.6 fL (7.1-10.7) [facility] ID Date Data Source [id number] 07/25/2019 08:43:20 AM EST [facility] INFORMATIONPatient MRN Name Date of Age Gend*PT [id number] Juarez Garrison [place] 1955 63 years M IPPT Location Admission Date/Time Visit ID Attending ProviderD-[id number] 07/25/19 0010 --- Ysabel Ferrer MD([id number]) EPI ID CSN Admitting Provider [id number] Ismael Nelson MD([id number])Cardiology ConsultName: Juarez Garrison Gender: maleDate of : 1955 Age: 63 yearsDate/Time of Admit: 07/25/2019 12:10 AM Code Status: Full CodePrimary Care ProviderReferring Physician: Annmarie Ferrer [facility]urrent HistoryReason for consultation: Elevated troponinChief Complaint: Chest painHPI:This patient is a 63 years [facility] and was found to have a mildly elevatedtroponin. Patient has a history of a pacemaker from prior diagnosis ofbradycardia and his electrocardiogram unfortunately is not very helpful. Thepatient did see a cell stripper in [place] and a stress test was ordered but [...] Bradycardia Computed tomography angiography (CTA) 09/2016 normal ([facility]) Hepatitis C treatment with Mavyret 2-08/2017 Stroke 01/2017 L sided hemiparesis - based on records from [facility] belived to be due tocervical radiculopathy rather [...] file Gets together: Not on file Attends tenriism service: Not on file Active member of [...] All questions were answered for the patient.Signature: Ruel Tavarez, MDDate: July 25, 2019Time: 8:39 AMThis document or parts of this document, were dictated using [employer]. A reasonable attempt at proofreading has been made to minimize errors.Please call with any questions or corrections. Name Value Range Interpretation Code Description Data Naty rce(s) Supporting Document(s) ID Date Data Source [id number] 07/25/2019 08:06:38 AM EST [address] [address]Loctvyf Name: JUAREZ RICHARDSONOB: 1955Sex: MOrdering Provider: CHAVEZ Sandoval Prov: CHAVEZ Gordon Provider: Procedure Performed: XR CHEST PORTABLEExam Date: 07/25/2019 01:54MRN: [id number] Number: [id number] Class: InpatientAccount #: [id number] Exam: CP, SOB, hypoxiaTechnique: AP portable [...] ASPEN KIRBY On 07/25/2019 8:06 AMWorkstation ID: [id number] Name Value Range Interpretation Code Description Data Naty rce(s) Supporting Document(s) ID Date Data Source [id number] 07/25/2019 07:03:21 AM EST [facility] Name Value Range Interpretation Code Description Data Naty rce(s) Supporting Document(s) TROPONIN I 0.71 ng/mL (<0.05) H [facility] Less than 0.05: Myocardial injury unlike lyGreater than or equal to 0.05: Highly suggestive of myocardial injuryCorrelation with rise and/or fall ofserial troponins, clinical symptomsand ECG changes is necessary. ID Date Data Source [id number] 07/25/2019 05:45:34 AM EST [facility] Name Value Range Interpretation Code Description Data Naty rce(s) Supporting Document(s) EKG [facility] EQKRVg7nSaJBKlAbq3ZsQmHxUJGhBF5jovh6E3S1oQWeG8VtyRUjd1utZ3MxO5HrCKEcCCUDOJ7HhMJg jb2 [file] G5rVDoSas8DiP1MHfmMQZYZs== ID Date Data Source [id number] 07/25/2019 10:03:38 AM EST [facility] Name Value Range Interpretation Code Description Data Naty rce(s) Supporting Document(s) CHOLESTEROL @ 140 mg/dL (0-200) [facility] TRIGLYCERIDE @ 119 mg/dL (30-200) [facility] HDL CHOLESTEROL @ 66 mg/dL (>40) [facility] PER NCEP ATP III GUIDELINES:RESULTS LOWE R THAN 40 MG/DL ARE SUGGESTIVEOF INCREASED RISK FOR CORONARY ARTERYDISEASE. RESULTS > OR = TO 60 MG/DL ARECONSIDERED A NEGATIVE RISK FACTOR. CHOL/HDL RATIO 2.1 RATIO [facility] INTERPRETATION OF CHOL-HDL RATIO CHD RISK FEMALE MALEVERY HIGH >8.3 >14.3HIGH 5.6- 8.3 6.7- 14.3AVERAGE 3.7- 5.6 4.0- 6.7BELOW AVERAGE 2.5- 3.7 2.7- 4.0PROTECTED <2.5 <2.7 LDL CHOL (CALC) 50 mg/dL (<130) [facility] PER NCEP ATP III GUIDELINES: OPTIMAL < 100 NEAR OPTIMAL 100 - 129BORDERLINE HIGH 130 - 159 HIGH 160 - 189 VERY HIGH > 189 ID Date Data Source [id number] 07/25/2019 03:50:58 AM EST [facility] Name Value Range Interpretation Code Description Data Naty rce(s) Supporting Document(s) TSH,ULTRASENSITIVE @ 1.887 mIU/L (0.360-4.170) [facility] PER[facility] AT [address] [place] [address] [facility] [place] [id number] ID Date Data Source [id number] 07/25/2019 03:50:58 AM EST [facility] Name Value Range Interpretation Code Description Data Naty rce(s) Supporting Document(s) NT PRO BNP 1688 pg/mL (0-125) H [facility] ID Date Data Source [id number] 07/25/2019 03:50:58 AM EST [facility] Name Value Range Interpretation Code Description Data Naty rce(s) Supporting Document(s) TROPONIN I 0.43 ng/mL (<0.05) H [facility] Less than 0.05: Myocardial injury unlike lyGreater than or equal to 0.05: Highly suggestive of myocardial injuryCorrelation with rise and/or fall ofserial troponins, clinical symptomsand ECG changes is necessary. ID Date Data Source [id number] 07/25/2019 03:50:58 AM EST [facility] Name Value Range Interpretation Code Description Data Naty rce(s) Supporting Document(s) SODIUM 138 mmol/L (136-145) [facility] POTASSIUM 3.8 mmol/L (3.6-5.2) [facility] CHLORIDE 106 mmol/L (100-108) [facility] CO2 23 mmol/L (22-31) [facility] ANION GAP 9 mmol/L (7-16) [facility] UREA NITROGEN 22 mg/dL (7-24) [facility] CREATININE 0.81 mg/dL (0.80-1.30) [facility] BUN/CREAT RATIO 27.2 RATIO (10.0-20.0) H [facility] GLUCOSE 94 mg/dL (70-99) [facility] CALCIUM 9.2 mg/dL (8.4-10.2) [facility] TOTAL PROTEIN 7.2 g/dL (6.4-8.2) [facility] ALBUMIN 3.5 g/dL (3.2-4.5) [facility] GLOBULIN 3.7 g/dL (2.7-4.3) [facility] ALB/GLOB RATIO 0.9 RATIO [facility] ALKALINE PHOSPHATASE 80 U/L (45-117) [facility] BILIRUBIN,TOTAL 0.5 mg/dL (0.0-1.0) [facility] PLEASE NOTE T otal bilirubin results may be falselyelevated in patients taking Eltrombopag. AST (SGOT) 12 U/L (11-39) [facility] ALT (SGPT) 13 U/L (12-78) [facility] GFR >60 ml/min/1.73m2 (>59) [facility] GFR ( AMER) >60 ml/min/1.73m2 (>59) [facility] GFR INTERPRETATION [facility] --NORMAL KIDNEY FUNCTION OR MILD DISEASE - GFR >OR= 60CHRONIC KIDNEY DISEASE - GFR 15 - 59RENAL FAILURE - GFR <15 Est. GFR calculation based on the MDRDstudy equation, which assumes a steadystate for creatinine. Est. GFR should notbe used for medication dosing. ID Date Data Source [id number] 07/25/2019 03:22:52 AM EST [facility] Name Value Range Interpretation Code Description Data Naty rce(s) Supporting Document(s) APTT 32.6 s (22.0-34.3) [facility] ID Date Data Source [id number] 07/25/2019 03:14:12 AM EST [facility] Name Value Range Interpretation Code Description Data Naty rce(s) Supporting Document(s) WBC 6.3 10*3/uL (4.1-11.0) [facility] [place] RBC 3.94 10*6/uL (4.60-6.10) L [facility] HGB 13.7 g/dL (13.5-18.0) [facility] HCT 38.4 % (41.0-53.0) L [facility] MCV 97.5 fL (80.0-95.0) H [facility] MCH 34.9 pg (27.0-32.0) H [facility] MCHC 35.8 g/dL (32.0-36.0) [facility] RDW 14.5 % (10.5-14.5) [facility] PLT 103 10*3/uL (150-450) L [facility] MPV 7.3 fL (7.1-10.7) [facility] NEUT % 63.3 % (35.0-75.0) [facility] LYMPH % 25.8 % (16.0-52.0) [facility] MONO % 6.8 % (0.0-8.0) [facility] EOS % 3.7 % (0.0-5.0) [facility] BASO % 0.4 % (0.0-4.0) [facility] NEUT # 4.0 10*3/uL (1.8-7.7) [facility] LYMPH # 1.6 10*3/uL (1.2-4.8) [facility] MONO # 0.4 10*3/uL (0.0-0.8) [facility] Eosinophils [#/volume] in Blood by Automated count 0.2 10*3/uL (0.0-0 .5) [facility] BASO # 0.0 10*3/uL (0.0-0.2) [facility] Procedure Social History Code Duration Value Status Description Data Source(s ) Smoking 08/04/2019 12:00:00 AM EDT Former Smoker completed Former Smoker eCW1 ([facility]) Smoking 08/04/2019 12:00:00 AM EDT Former Smoker completed Former Smoker eCW1 ([facility]) Alcohol intake 07/26/2019 12:00:00 AM EST Never completed [facility] Cigarette pack-years 07/26/2019 12:00:00 AM EST UNK completed [facility] Cigarettes smoked current (pack per day) - Reported 07/26/19 20 12:00:00 AM EST UNK completed [facility] Smoking 07/26/2019 12:00:00 AM EST Current every day smoker co mpleted Current every day smoker [facility] Vital Signs ID Date Data Source UNK Name Value Range Interpretation Code Description Data Source(s) Body weight 155.00 [lb_av] 155.00 [lb_av] MEDEN T (Niranjan Rascon MD) Body height 66 [in_i] 66 [in_i] MEDENT (Niranjan Rascon MD) 5'6" Respiratory rate 16 /min 16 /min MEDENT ( Niranjan Rascon MD) Oxygen saturation in Arterial blood by Pulse oximetry 95 % 95 % MEDENT (Niranjan Rascon MD) Heart rate 71 /min 71 /min MEDENT (Niranjan Rascon MD) Diastolic blood pressure 70 mm[Hg] 70 mm[Hg] MEDENT (Niranjan Rascon MD) Systolic blood pressure 104 mm[Hg] 104 mm[Hg] M EDENT (Niranjan Rascon MD) Body temperature 97.5 [degF] 97.5 [degF] MEDENT (Niranjan Rascon MD) Body mass index (BMI) [Ratio] 25.0 kg/m2 25.0 k g/m2 MEDENT (Niranjan Rascon MD) Oxygen saturation in Arterial blood by Pulse oximetry 956 % 956 % MEDENT ([facility] Body mass index (BMI) [Ratio] 24.5 kg/m2 24.5 k g/m2 MEDENT ([facility] [place] body weight 142 [lb_av] 142 [lb_av] MEDEN T ([facility] Body weight 152.00 [lb_av] 152.00 [lb_av] MEDEN T ([facility] Body height 66 [in_i] 66 [in_i] MEDENT ([facility] 5'6" Respiratory rate 16 [...] k g/m2 MEDENT ([facility] [place] body weight 142 [lb_av] 142 [lb_av] MEDEN T ([facility] Body weight 153.00 [lb_av] 153.00 [lb_av] MEDEN T ([facility] Body height 66 [in_i] 66 [in_i] MEDENT ([facility] 5'6" Respiratory rate 16 /min 16 /min MEDENT ( [facility] Heart rate 90 /min 90 /min MEDENT ([facility] Body temperature 98.0 [degF] 98.0 [degF] MEDENT ([facility] Diastolic blood pressure 84 mm[Hg] 84 mm[Hg] MEDENT ([facility] Systolic blood pressure 124 mm[Hg] 124 mm[Hg] M EDENT ([facility] Oxygen saturation in Arterial blood by Pulse oximetry 95 % 95 % MEDENT ([facility] Body mass index (BMI) [Ratio] 24.5 kg/m2 24.5 k g/m2 MEDENT ([facility] [place] body weight 142 [lb_av] 142 [lb_av] MEDEN T ([facility] Body weight 152.00 [lb_av] 152.00 [lb_av] MEDEN T ([facility] Body height 66 [in_i] 66 [in_i] MEDENT ([facility] 5'6" Respiratory rate 14 /min 14 /min MEDENT ( [facility] Heart rate 66 /min 66 /min MEDENT ([facility] Body temperature 98.0 [degF] 98.0 [degF] MEDENT ([facility] Diastolic blood pressure 78 mm[Hg] 78 mm[Hg] MEDENT ([facility] Systolic blood pressure 122 mm[Hg] 122 mm[Hg] M EDENT ([facility] Diastolic blood pressure 76 mm[Hg] 76 mm[Hg] eCW1 ([facility]) Systolic blood pressure 112 mm[Hg] 112 mm[Hg] e CW1 ([facility]) Body temperature 98.9 [degF] 98.9 [degF] eCW1 ( [facility]) Respiratory rate 17 /min 17 /min eCW1 ([facility]) Heart rate 90 /min 90 /min eCW1 ([facility]) Body mass index (BMI) [Ratio] 25.66 kg/m2 25.66 kg/m2 eCW1 ([facility]) Body height 66 [in_us] 66 [in_us] eCW1 ([facility]) Body weight Measured 159 [lb_av] 159 [lb_av] eC W1 ([facility]) Heart rate 72 /min 72 /min [facility] Diastolic blood pressure 98 mm[Hg] 98 mm[Hg] [facility] Systolic blood pressure 150 mm[Hg] 150 mm[Hg] [facility] Oxygen saturation in Arterial blood by Pulse oximetry 94 % 94 % [facility] Respiratory rate 18 /min 18 /min [facility] Body temperature 36.33 Joanne 36.33 Joanne [facility] Body mass index (BMI) [Ratio] 25.94 kg/m2 25.94 kg/m2 [facility] Body weight 72.893 kg 72.893 kg [facility] Body height 167.6 cm 167.6 cm [facility] Body weight 71.669 kg 71.669 kg LETICIA ([facility] Body mass index (BMI) [Ratio] 25.5 kg/m2 25.5 k g/m2 MEDENT ([facility] Body weight 158.00 [lb_av] 158.00 [lb_av] MEDEN T ([facility], ) Body height 66 [in_i] 66 [in_i] MEDENT ([facility], ) 5'6" Diastolic blood pressure 100 mm[Hg] 100 mm[Hg] MEDENT ([facility], ) Systolic blood pressure 150 mm[Hg] 150 mm[Hg] M EDJAKE ([facility], ) Patient Treatment Plan of Care Planned Activity Planned Date Details Description Data Source (s) Lisinopril 10 MG Oral Tablet 07/27/2019 12:00:00 AM EST eCW1 ([facility]) Amlodipine 10 MG Oral Tablet 07/27/2019 12:00:00 AM EST eCW1 ([facility]) clopidogrel 75 MG Oral Tablet 07/27/2019 12:00:00 AM EST eCW1 ([facility]) Lisinopril 10 MG Oral Tablet 07/27/2019 12:00:00 AM EST eCW1 ([facility]) Amlodipine 10 MG Oral Tablet 07/27/2019 12:00:00 AM EST eCW1 ([facility]) clopidogrel 75 MG Oral Tablet 07/27/2019 12:00:00 AM EST eCW1 ([facility]) Lisinopril 10 MG Oral Tablet 07/27/2019 12:00:00 AM EST eCW1 ([facility]) clopidogrel 75 MG Oral Tablet 07/27/2019 12:00:00 AM EST eCW1 ([facility]) Amlodipine 10 MG Oral Tablet 07/27/2019 12:00:00 AM EST eCW1 ([facility]) Lisinopril 10 MG Oral Tablet 07/27/2019 12:00:00 AM EST [facility] clopidogrel 75 MG Oral Tablet 07/27/2019 12:00:00 AM EST [facility] Amlodipine 10 MG Oral Tablet 07/27/2019 12:00:00 AM EST [facility] Metoprolol Tartrate 25 MG Oral Tablet 07/26/2019 12:00:00 AM EST eCW1 ([facility]) Nitroglycerin 0.4 MG Sublingual Tablet 07/26/2019 12:00:00 AM EST eCW1 ([facility]) Metoprolol Tartrate 25 MG Oral Tablet 07/26/2019 12:00:00 AM EST eCW1 ([facility]) Nitroglycerin 0.4 MG Sublingual Tablet 07/26/2019 12:00:00 AM EST eCW1 ([facility]) Nitroglycerin 0.4 MG Sublingual Tablet 07/26/2019 12:00:00 AM EST eCW1 ([facility]) Metoprolol Tartrate 25 MG Oral Tablet 07/26/2019 12:00:00 AM EST eCW1 ([facility]) Nitroglycerin 0.4 MG Sublingual Tablet 07/26/2019 12:00:00 AM EST [facility] Metoprolol Tartrate 25 MG Oral Tablet 07/26/2019 12:00:00 AM EST [facility] atorvastatin 40 MG Oral Tablet 07/26/2019 12:00:00 AM EST [facility]
[2020-06-26 21:07] LABS: BASO % 0.8 % (0.0-1.0); EOS # 0.2 10^3/uL (0.0-0.5); EOS % 3.7 % (0.0-3.0); HEMATOCRIT 38.2 % (42.0-52.0); HEMOGLOBIN 13.4 g/dl (13.5-17.5); LYMPH # 1.6 10^3/uL (1.5-5.0); MEAN CORPUSCULAR HEMOGLOBIN 33.9 pg (27.0-33.0); MEAN CORPUSCULAR HGB CONC 35.1 g/dl (32.0-36.5); MEAN CORPUSCULAR VOLUME 96.7 fl (80.0-96.0); MONO # 0.4 10^3/uL (0.0-0.8); MONO % 7.9 % (0.0-5.0); NEUTROPHILS % 57.2 % (36.0-66.0); PLATELET COUNT, AUTOMATED 112 10^3/uL (150-450); RED BLOOD COUNT 3.95 10^6/uL (4.30-6.10); WHITE BLOOD COUNT 5.2 10^3/uL (4.0-10.0)
[2020-06-26 21:18] LABS: INR 1.09; PROTHROMBIN TIME 14.3 SECONDS (12.5-14.3)
--- NOTE | 2020-06-26 21:27 | REPVR ---
PROCEDURE INFORMATION: Exam: XR Chest, 1 View Exam date and time: 06/26/2020 9:10 PM Age: 64 years old Clinical indication: Chest pain; Type not specified TECHNIQUE: Imaging protocol: XR of the chest Views: 1 view. COMPARISON: CR PORTABLE CHEST X-RAY 05/10/2020 3:45 AM FINDINGS: Lungs: 11 mm calcified granuloma right lower lobe. Lungs otherwise clear. Pleural spaces: Unremarkable. No pleural effusion. No pneumothorax. Heart/Mediastinum: Unremarkable. No cardiomegaly. Dual chamber cardiac pacer demonstrated with intact pacer wires. Bones/joints: Unremarkable. IMPRESSION: No acute findings. Electronically signed by: Tato Castro On 06/26/2020 21:27:12 PM
[2020-06-26] MEDS ORDERED: SUCRALFATE 1 GM TAB PO ONE (21:30)
[2020-06-26] MEDS ORDERED: PANTOPRAZOLE 40MG VIAL (C9113 PER 1) IV ONE (21:30)
[2020-06-26] MEDS ORDERED: GI COCKTAIL 50ML BTL(HYOSCYAMINE/MAALOX/LIDOCAINE VISCOUS)(1:3:1) PO ONE (21:30)
[2020-06-26 21:38] LABS: ALBUMIN 3.8 GM/DL (3.2-5.2); ALT/SGPT 26 U/L (12-78); BILIRUBIN,DIRECT 0.2 MG/DL (0.0-0.2); BILIRUBIN,TOTAL 0.7 MG/DL (0.2-1.0); BLOOD UREA NITROGEN 17 MG/DL (7-18); CALCIUM LEVEL 9.4 MG/DL (8.8-10.2); CARBON DIOXIDE LEVEL 26 MEQ/L (21-32); CHLORIDE LEVEL 104 MEQ/L (98-107); CK-MB VALUE MASS 1.1 NG/ML (<3.6); CPK CREATINE PHOSPHOKINASE 29 U/L (39-308); CREATININE FOR GFR 0.95 MG/DL (0.70-1.30); GLOMERULAR FILTRATION RATE > 60.0 (>49); GLUCOSE, FASTING 93 MG/DL (70-100); LIPASE 51 U/L (73-393); MB/CK RELATIVE INDEX 3.79 (< OR =4); POTASSIUM SERUM 4.1 MEQ/L (3.5-5.1); SODIUM LEVEL 136 MEQ/L (136-145); TOTAL PROTEIN 7.2 GM/DL (6.4-8.2); TROPONIN I < 0.02 NG/ML (< 0.10)
--- OUTSIDE RECORDS SUMMARY | 2020-06-26 21:41 | CCD ---
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 [facility] Name Value Range Interpretation Code Description Data Naty rce(s) Supporting Document(s) CKMB 3.9 ng/mL (0.0-5.0) [facility] CKMB RELATIVE INDEX 4.3 {index_val} (0.0-4.0) H [facility] ID Date Data Source [id number] 07/26/2019 01:16:22 AM EST [facility] Name Value Range Interpretation Code Description Data Naty rce(s) Supporting Document(s) CK 90 U/L (39-308) [facility] ID Date Data Source [id number] 07/26/2019 01:16:22 AM EST [facility] Name Value Range Interpretation Code Description Data [facility](s) Supporting Document(s) SODIUM 141 mmol/L (136-145) [facility] POTASSIUM 3.9 mmol/L (3.6-5.2) [facility] CHLORIDE 111 mmol/L (100-108) H [facility] CO2 22 mmol/L (22-31) [facility] ANION GAP 8 mmol/L (7-16) [facility] UREA NITROGEN 19 mg/dL (7-24) [facility] CREATININE 1.00 mg/dL (0.80-1.30) [facility] BUN/CREAT RATIO 19.0 RATIO (10.0-20.0) [facility] GLUCOSE 84 mg/dL (70-99) [facility] CALCIUM 9.2 mg/dL (8.4-10.2) [facility] GFR >60 ml/min/1.73m2 (>59) [facility] GFR ( AMER) >60 ml/min/1.73m2 (>59) [facility] GFR INTERPRETATION [facility] --NORMAL KIDNEY FUNCTION OR MILD DISEASE - GFR >OR= 60CHRONIC KIDNEY DISEASE - GFR 15 - 59RENAL FAILURE - GFR <15 Est. GFR calculation based on the MDRDstudy equation, which assumes a steadystate for creatinine. Est. GFR should notbe used for medication dosing. ID Date Data Source [id number] 07/26/2019 12:51:44 AM EST [facility] Name Value Range Interpretation Code Description Data [facility](s) Supporting Document(s) WBC 4.6 10*3/uL (4.1-11.0) [facility] RBC 3.93 10*6/uL (4.60-6.10) L [facility] HGB 13.8 g/dL (13.5-18.0) [facility] HCT 39.0 % (41.0-53.0) L [facility] MCV 99.1 fL (80.0-95.0) H [facility] MCH 35.0 pg (27.0-32.0) H [facility] MCHC 35.4 g/dL (32.0-36.0) [facility] RDW 14.4 % (10.5-14.5) [facility] PLT 100 10*3/uL (150-450) L [facility] MPV 7.5 fL (7.1-10.7) [facility] ID Date Data Source [id number] 07/25/2019 05:26:19 PM EST [facility] Name Value Range Interpretation Code Description Data Naty rce(s) Supporting Document(s) &PDF [facility] ZOHMUn1pExXNMtDe61/HTLpzUNPrw2ZkTFydROk6YCgyJSFbC0WelIwoTLeKTy2UHuhKZV0UQiIOFR2h G [file] Ilbhub+care mgr/YDn7t0xEnShcXwYoY73wt9M4+xf8GhaRVMz0eftSy6eVB9xlHYWOj3Xk3tv6sPpKmsxU/ [file] 8qzkdqrcGctJI4Tv7ZlbSJyTJt8zdlJ+XXNq42xumRo0e+PEzlw6vRF89o4iB2k9cCJDIzTvrfekx/process environmental technician [file] JP7zTIq+Sq2Hv0DthaW2xqBvDZw5RYZ7Mw3RAFKSV0VSFp== ID Date Data Source [id number] 07/25/2019 01:51:46 PM EST [facility] NT INFORMATIONPatient MRN Name Date of Age Gend*PT [id number] Juarez Garrison 1955 63 years M IPPT Location Admission Date/Time Visit ID Attending [id number] 07/25/19 0010 --- Ysabel Ferrer MD([id number]) EPI ID CSN Admitting Provider [id number] Ismael Nelson MD([id number]) Attestation signed by Ismael Nelson MD at 07/25/2019 1:51 PMI have reviewed the notes, assessments, and/or procedures performed by Humza Zhang NP, I concur with her documentation of Juarez Garrison. -------Inpatient History & PhysicalJavanessa GarrisonMRN: [id number] and Plan:Principal Problem: Elevated troponinActive Problems: Chest pain Exertional shortness of breath Tobacco abuse1. Elevated troponin: Mild elevation (0.14) at [facility]. Cycle troponin,continue heparin, asa. Check lipid panel. [...] abuse, and [facility]. The patient is a [...] thenhad this pain today and presented to [facility] where he was noted tohave troponin elevation. He was started on a heparin drip, loaded with plavixand sent to [facility] for further work up and treatment. The patient continues tosmoke, although he reportedly switched to a pipe instead of cigarettes. Onadmission he complains of vague chest discomfort in the center of his chestwhich has been ongoing. He will be admitted to the medicine team for furtherwork up.Past Medical History:Past Medical History:Diagnosis Date Anemia Bradycardia Computed tomography angiography (CTA) 09/2016 normal ([facility]) Hepatitis C treatment with Mavyret 2-08/2017 Stroke 01/2017 L sided hemiparesis - based on records from [place] belived to be due tocervical radiculopathy rather [...] file Gets together: Not on file Attends zoroastrianism service: Not on file Active member of [...] and Other Diagnostic Tests:Significant findings: Records from [facility] were reviewed.Signature: Chavez Zhang, NOVELTY MAKER-BCDate: July 25, 2019Time: 3:25 AM Name Value Range Interpretation Code Description Data Naty rce(s) Supporting Document(s) ID Date Data Source [id number] 07/25/2019 11:53:45 AM EST [facility] Name Value Range Interpretation Code Description Data Naty rce(s) Supporting Document(s) TROPONIN I 1.29 ng/mL (<0.05) HH [facility] Less than 0.05: Myocardial injury unlike lyGreater than or equal to 0.05: Highly suggestive of myocardial injuryCorrelation with rise and/or fall ofserial troponins, clinical symptomsand ECG changes is necessary.ALERTED CR[place]ICAL [place] [address] ON 289933 AT 1150 [place] [address] ID Date Data Source [id number] 07/25/2019 10:50:11 AM EST [facility] Name Value Range Interpretation Code Description Data Naty rce(s) Supporting Document(s) SODIUM 139 mmol/L (136-145) [facility] POTASSIUM 4.0 mmol/L (3.6-5.2) [facility] CHLORIDE 109 mmol/L (100-108) H [facility] CO2 21 mmol/L (22-31) L [facility] ANION GAP 9 mmol/L (7-16) [facility] UREA NITROGEN 19 mg/dL (7-24) [facility] CREATININE 0.84 mg/dL (0.80-1.30) [facility] BUN/CREAT RATIO 22.6 RATIO (10.0-20.0) H [facility] GLUCOSE 99 mg/dL (70-99) [facility] CALCIUM 9.3 mg/dL (8.4-10.2) [facility] GFR >60 ml/min/1.73m2 (>59) [facility] GFR ( AMER) >60 ml/min/1.73m2 (>59) [facility] GFR INTERPRETATION [facility] --NORMAL KIDNEY FUNCTION OR MILD DISEASE - GFR >OR= 60CHRONIC KIDNEY DISEASE - GFR 15 - 59RENAL FAILURE - GFR <15 Est. GFR calculation based on the MDRDstudy equation, which assumes a steadystate for creatinine. Est. GFR should notbe used for medication dosing. ID Date Data Source [id number] 07/25/2019 10:47:29 AM EST [facility] Name Value Range Interpretation Code Description Data Naty rce(s) Supporting Document(s) APTT 38.6 s (22.0-34.3) [facility] ID Date Data Source [id number] 07/25/2019 10:47:29 AM EST [facility] Name Value Range Interpretation Code Description Data Naty rce(s) Supporting Document(s) PT 11.5 s (9.2-11.9) [facility] INR 1.13 [facility] SUGGESTED THERAPEUTIC RANGES USING INR F ORSTABILIZED ANTICOAGULATED PATIENTS:STANDARD DOSE THERAPY INR 2.0-3.0 DVT, PE, PREVENT DVT OR EMBOLISMHIGH DOSE THERAPY INR 2.5-3.5 PREVENT EMBOLISM FROM MECHANICAL HEART VALVE ID Date Data Source [id number] 07/25/2019 10:06:01 AM EST [facility] Name Value Range Interpretation Code Description Data Naty rce(s) Supporting Document(s) WBC 4.7 10*3/uL (4.1-11.0) [facility] [place] RBC 4.00 10*6/uL (4.60-6.10) L [facility] HGB 14.0 g/dL (13.5-18.0) [facility] HCT 39.9 % (41.0-53.0) L [facility] MCV 99.8 fL (80.0-95.0) H [facility] MCH 35.1 pg (27.0-32.0) H [facility] MCHC 35.2 g/dL (32.0-36.0) [facility] RDW 14.6 % (10.5-14.5) H [facility] PLT 102 10*3/uL (150-450) L [facility] MPV 7.6 fL (7.1-10.7) [facility] ID Date Data Source [id number] 07/25/2019 08:43:20 AM EST [facility]FORMATIONPatient MRN Name Date of Age Gend*PT [id number] Juarez Garrison Sekou 1955 63 years M IPPT Location Admission Date/Time Visit ID Attending [id number] 07/25/19 0010 --- Ysabel Ferrer MD([id number]) EPI ID CSN Admitting Provider [id number] Ismael Nelson MD([id number])Cardiology ConsultName: Juarez Garrison Gender: maleDate of : 1955 Age: 63 yearsDate/Time of Admit: 07/25/2019 12:10 AM Code Status: Full CodePrimary Care ProviderReferring Physician: Annmarie Ferrer [facility]urrent HistoryReason for consultation: Elevated troponinChief Complaint: Chest painHPI:This patient is a 63 years [facility] and was found to have a mildly elevatedtroponin. Patient has a history of a pacemaker from prior diagnosis ofbradycardia and his electrocardiogram unfortunately is not very helpful. 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 A reasonable attempt at proofreading has been made to minimize errors.Please call with any questions or corrections. Name Value Range Interpretation Code Description Data Naty rce(s) Supporting Document(s) ID Date Data Source [id number] 07/25/2019 08:06:38 AM EST [address] [address]Uragcuw Name: JUAREZ RICHARDSONOB: 1955Sex: MOrdering Provider: CHAVEZ Sandoval Prov: CHAVEZ Gordon Provider: Procedure Performed: XR CHEST PORTABLEExam Date: 07/25/2019 01:54MRN: [id number] Number: [id number] Class: InpatientAccount #: [id number] for Exam: CP, SOB, hypoxiaTechnique: AP portable [...] ASPEN KIRBY On 07/25/2019 8:06 AMWorkstation ID: [id number] Name Value Range Interpretation Code Description Data Naty rce(s) Supporting Document(s) ID Date Data Source [id number] 07/25/2019 07:03:21 AM EST [facility] Name Value Range Interpretation Code Description Data Naty rce(s) Supporting Document(s) TROPONIN I 0.71 ng/mL (<0.05) H [facility] Less than 0.05: Myocardial injury unlike lyGreater than or equal to 0.05: Highly suggestive of myocardial injuryCorrelation with rise and/or fall ofserial troponins, clinical symptomsand ECG changes is necessary. ID Date Data Source [id number] 07/25/2019 05:45:34 AM EST [facility] Name Value Range Interpretation Code Description Data Naty rce(s) Supporting Document(s) EKG [facility] EDWFPn1dPhXXVfBqc8GqQdOsLGFyMR2ouqg9P7X4lZWaQ8JhbJDsz2byO8AvJ9RmWZSgPPXWHH4AqAPj jb2 [file] F8iDIkIka8HfO4FUnfGSYCEb== ID Date Data Source [id number] 07/25/2019 10:03:38 AM EST [facility] Name Value Range Interpretation Code Description Data Naty rce(s) Supporting Document(s) CHOLESTEROL @ 140 mg/dL (0-200) [facility] TRIGLYCERIDE @ 119 mg/dL (30-200) [facility] HDL CHOLESTEROL @ 66 mg/dL (>40) [facility] PER NCEP ATP III GUIDELINES:RESULTS LOWE R THAN 40 MG/DL ARE SUGGESTIVEOF INCREASED RISK FOR CORONARY ARTERYDISEASE. RESULTS > OR = TO 60 MG/DL ARECONSIDERED A NEGATIVE RISK FACTOR. CHOL/HDL RATIO 2.1 RATIO [facility] INTERPRETATION OF CHOL-HDL RATIO CHD RISK FEMALE MALEVERY HIGH >8.3 >14.3HIGH 5.6- 8.3 6.7- 14.3AVERAGE 3.7- 5.6 4.0- 6.7BELOW AVERAGE 2.5- 3.7 2.7- 4.0PROTECTED <2.5 <2.7 LDL CHOL (CALC) 50 mg/dL (<130) [facility] PER NCEP ATP III GUIDELINES: OPTIMAL < 100 NEAR OPTIMAL 100 - 129BORDERLINE HIGH 130 - 159 HIGH 160 - 189 VERY HIGH > 189 ID Date Data Source [id number] 07/25/2019 03:50:58 AM EST [facility] Name Value Range Interpretation Code Description Data Naty rce(s) Supporting Document(s) TSH,ULTRASENSITIVE @ 1.887 mIU/L (0.360-4.170) [facility] PERFORMED AT [address] [place] [address] [facility] [id number] ID Date Data Source [id number] 07/25/2019 03:50:58 AM EST [facility] Name Value Range Interpretation Code Description Data Naty rce(s) Supporting Document(s) NT PRO BNP 1688 pg/mL (0-125) H [facility] ID Date Data Source [id number] 07/25/2019 03:50:58 AM EST [facility] Name Value Range Interpretation Code Description Data Naty rce(s) Supporting Document(s) TROPONIN I 0.43 ng/mL (<0.05) H [facility] Less than 0.05: Myocardial injury unlike lyGreater than or equal to 0.05: Highly suggestive of myocardial injuryCorrelation with rise and/or fall ofserial troponins, clinical symptomsand ECG changes is necessary. ID Date Data Source [id number] 07/25/2019 03:50:58 AM EST [facility] Name Value Range Interpretation Code Description Data Naty rce(s) Supporting Document(s) SODIUM 138 mmol/L (136-145) [facility] POTASSIUM 3.8 mmol/L (3.6-5.2) [facility] CHLORIDE 106 mmol/L (100-108) [facility] CO2 23 mmol/L (22-31) [facility] ANION GAP 9 mmol/L (7-16) [facility] UREA NITROGEN 22 mg/dL (7-24) [facility] CREATININE 0.81 mg/dL (0.80-1.30) [facility] BUN/CREAT RATIO 27.2 RATIO (10.0-20.0) H [facility] GLUCOSE 94 mg/dL (70-99) [facility] CALCIUM 9.2 mg/dL (8.4-10.2) [facility] TOTAL PROTEIN 7.2 g/dL (6.4-8.2) [facility] ALBUMIN 3.5 g/dL (3.2-4.5) [facility] GLOBULIN 3.7 g/dL (2.7-4.3) [facility] ALB/GLOB RATIO 0.9 RATIO [facility] ALKALINE PHOSPHATASE 80 U/L (45-117) [facility] BILIRUBIN,TOTAL 0.5 mg/dL (0.0-1.0) [facility] PLEASE NOTE T otal bilirubin results may be falselyelevated in patients taking Eltrombopag. AST (SGOT) 12 U/L (11-39) [facility] ALT (SGPT) 13 U/L (12-78) [facility] GFR >60 ml/min/1.73m2 (>59) [facility] GFR ( AMER) >60 ml/min/1.73m2 (>59) [facility] GFR INTERPRETATION [facility] --NORMAL KIDNEY FUNCTION OR MILD DISEASE - GFR >OR= 60CHRONIC KIDNEY DISEASE - GFR 15 - 59RENAL FAILURE - GFR <15 Est. GFR calculation based on the MDRDstudy equation, which assumes a steadystate for creatinine. Est. GFR should notbe used for medication dosing. ID Date Data Source [id number] 07/25/2019 03:22:52 AM EST [facility] Name Value Range Interpretation Code Description Data Naty rce(s) Supporting Document(s) APTT 32.6 s (22.0-34.3) [facility] ID Date Data Source [id number] 07/25/2019 03:14:12 AM EST [facility] Name Value Range Interpretation Code Description Data Naty rce(s) Supporting Document(s) WBC 6.3 10*3/uL (4.1-11.0) [facility] RBC 3.94 10*6/uL (4.60-6.10) L [facility] HGB 13.7 g/dL (13.5-18.0) [facility] HCT 38.4 % (41.0-53.0) [facility] MCV 97.5 fL (80.0-95.0) [facility] MCH 34.9 pg (27.0-32.0) [facility] MCHC 35.8 g/dL (32.0-36.0) [facility] RDW 14.5 % (10.5-14.5) [facility] PLT 103 10*3/uL (150-450) L [facility] MPV 7.3 fL (7.1-10.7) [facility] NEUT % 63.3 % (35.0-75.0) [facility] LYMPH % 25.8 % (16.0-52.0) [facility] MONO % 6.8 % (0.0-8.0) [facility] EOS % 3.7 % (0.0-5.0) [facility] BASO % 0.4 % (0.0-4.0) [facility] NEUT # 4.0 10*3/uL (1.8-7.7) [facility] LYMPH # 1.6 10*3/uL (1.2-4.8) [facility] MONO # 0.4 10*3/uL (0.0-0.8) [facility] Eosinophils [#/volume] in Blood by Automated count 0.2 10*3/uL (0.0-0 .5) [facility] BASO # 0.0 10*3/uL (0.0-0.2) [facility] Procedure Social History Code Duration Value Status Description Data Source(s ) Smoking 08/04/2019 12:00:00 AM EDT Former Smoker completed Former Smoker eCW1 ([facility]) Smoking 08/04/2019 12:00:00 AM EDT Former Smoker completed Former Smoker eCW1 ([facility]) Alcohol intake 07/26/2019 12:00:00 AM EST Never completed [facility] Cigarette pack-years 07/26/2019 12:00:00 AM EST UNK completed [facility] Cigarettes smoked current (pack per day) - Reported 07/26/19 20 12:00:00 AM EST UNK completed [facility] Smoking 07/26/2019 12:00:00 AM EST Current every day smoker co mpleted Current every day smoker [facility] Vital Signs ID Date Data Source UNK [...] k g/m2 MEDENT ([facility] [place] body weight 142 [lb_av] 142 [lb_av] MEDEN T ([facility] Body weight 152.00 [lb_av] 152.00 [lb_av] MEDEN T ([facility] Body height 66 [in_i] 66 [in_i] MEDENT ([facility] 5'6" Respiratory rate 16 [...] k g/m2 MEDENT ([facility] [place] body weight 142 [lb_av] 142 [lb_av] MEDEN T ([facility] Body weight 153.00 [lb_av] 153.00 [lb_av] MEDEN T ([facility] Body height 66 [in_i] 66 [in_i] MEDENT ([facility] 5'6" Respiratory rate 16 [...] k g/m2 MEDENT ([facility] [place] body weight 142 [lb_av] 142 [lb_av] MEDEN T ([facility] Body weight 152.00 [lb_av] 152.00 [lb_av] MEDEN T ([facility] Body height 66 [in_i] 66 [in_i] MEDENT ([facility] 5'6" Respiratory rate 14 [...] blood pressure 76 mm[Hg] 76 mm[Hg] eCW1 ([facility]) Systolic blood pressure 112 mm[Hg] 112 mm[Hg] e CW1 ([facility]) Body temperature 98.9 [degF] 98.9 [degF] eCW1 ( [facility]) Respiratory rate 17 /min 17 /min eCW1 ([facility]) Heart rate 90 /min 90 /min eCW1 ([facility]) Body mass index (BMI) [Ratio] 25.66 kg/m2 25.66 kg/m2 eCW1 ([facility]) Body height 66 [in_us] 66 [in_us] eCW1 ([facility]) Body weight Measured 159 [lb_av] 159 [lb_av] eC W1 ([facility]) Heart rate 72 /min 72 /min [facility] Diastolic blood pressure 98 mm[Hg] 98 mm[Hg] [facility] Systolic blood pressure 150 mm[Hg] 150 mm[Hg] [facility] Oxygen saturation in Arterial blood by Pulse oximetry 94 % 94 % [facility] Respiratory rate 18 /min 18 /min [facility] Body temperature 36.33 Joanne 36.33 Joanne [facility] Body mass index (BMI) [Ratio] 25.94 kg/m2 25.94 kg/m2 [facility] Body weight 72.893 kg 72.893 kg [facility] Body height 167.6 cm 167.6 cm [facility] Body weight 71.669 kg 71.669 kg [facility] Body mass index (BMI) [Ratio] 25.5 kg/m2 25.5 k g/m2 MEDENT ([facility] Body weight 158.00 [lb_av] 158.00 [lb_av] MEDEN T ([facility], ) Body height 66 [in_i] 66 [in_i] MEDENT ([facility], ) 5'6" Diastolic blood pressure 100 mm[Hg] 100 mm[Hg] MEDENT ([facility], ) Systolic blood pressure 150 mm[Hg] 150 mm[Hg] M EDJAKE ([facility], ) Patient Treatment Plan of Care Planned Activity Planned Date Details Description Data Source (s) Lisinopril 10 MG Oral Tablet 07/27/2019 12:00:00 AM EST eCW1 ([facility]) Amlodipine 10 MG Oral Tablet 07/27/2019 12:00:00 AM EST eCW1 ([facility]) clopidogrel 75 MG Oral Tablet 07/27/2019 12:00:00 AM EST eCW1 ([facility]) Lisinopril 10 MG Oral Tablet 07/27/2019 12:00:00 AM EST eCW1 ([facility]) Amlodipine 10 MG Oral Tablet 07/27/2019 12:00:00 AM EST eCW1 ([facility]) clopidogrel 75 MG Oral Tablet 07/27/2019 12:00:00 AM EST eCW1 ([facility]) Lisinopril 10 MG Oral Tablet 07/27/2019 12:00:00 AM EST eCW1 ([facility]) clopidogrel 75 MG Oral Tablet 07/27/2019 12:00:00 AM EST eCW1 ([facility]) Amlodipine 10 MG Oral Tablet 07/27/2019 12:00:00 AM EST eCW1 ([facility]) Lisinopril 10 MG Oral Tablet 07/27/2019 12:00:00 AM EST [facility] clopidogrel 75 MG Oral Tablet 07/27/2019 12:00:00 AM EST [facility] Amlodipine 10 MG Oral Tablet 07/27/2019 12:00:00 AM EST [facility] Metoprolol Tartrate 25 MG Oral Tablet 07/26/2019 12:00:00 AM EST eCW1 ([facility]) Nitroglycerin 0.4 MG Sublingual Tablet 07/26/2019 12:00:00 AM EST eCW1 ([facility]) Metoprolol Tartrate 25 MG Oral Tablet 07/26/2019 12:00:00 AM EST eCW1 ([facility]) Nitroglycerin 0.4 MG Sublingual Tablet 07/26/2019 12:00:00 AM EST eCW1 ([facility]) Nitroglycerin 0.4 MG Sublingual Tablet 07/26/2019 12:00:00 AM EST eCW1 ([facility]) Metoprolol Tartrate 25 MG Oral Tablet 07/26/2019 12:00:00 AM EST eCW1 ([facility]) Nitroglycerin 0.4 MG Sublingual Tablet 07/26/2019 12:00:00 AM EST [facility] Metoprolol Tartrate 25 MG Oral Tablet 07/26/2019 12:00:00 AM EST [facility] atorvastatin 40 MG Oral Tablet 07/26/2019 12:00:00 AM EST [facility]
[2020-06-26 23:38] VITALS: BP 102/68
--- NOTE | 2020-06-27 07:25 | ECGEPIP ---
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
== END 2020-06-27 00:02 | disposition home or self-care (01) ==
LOC: M ED 20:32
DX: K27.9 Peptic ulcer, site unspecified, unspecified as acute or chronic, without hemorrhage or perforation (principal); I25.10 Atherosclerotic heart disease of native coronary artery without angina pectoris; Z95.0 Presence of cardiac pacemaker; Z79.899 Other long term (current) drug therapy; Z79.01 Long term (current) use of anticoagulants; Z88.5 Allergy status to narcotic agent; F17.210 Nicotine dependence, cigarettes, uncomplicated
CPT/HCPCS: 71045; 80048; 80076; 82550; 82553; 83690; 84484; 85025; 85610; 93005; 93041; 94760; 96374; 99285; C9113

== ENCOUNTER 2020-10-16 15:40 | Emergency (ER) | payer MEDICARE, MEDICAID ==
[~2020-10-16 15:40] MED LIST changes: +LISI10TA22 PO; -LISI10TA4 PO
[2020-10-16] MEDS ORDERED: ASPI81CH33 PO (16:23)
[2020-10-16 17:07] LABS: HEMATOCRIT 35.3 % (42.0-52.0); HEMOGLOBIN 12.4 g/dl (13.5-17.5); MEAN CORPUSCULAR HEMOGLOBIN 34.5 pg (27.0-33.0); MEAN CORPUSCULAR HGB CONC 35.1 g/dl (32.0-36.5); MEAN CORPUSCULAR VOLUME 98.3 fl (80.0-96.0); PLATELET COUNT, AUTOMATED 119 10^3/uL (150-450); RED BLOOD COUNT 3.59 10^6/uL (4.30-6.10); WHITE BLOOD COUNT 5.2 10^3/uL (4.0-10.0)
[2020-10-16] MEDS ORDERED: NITROGLYCERIN 0.4 MG SUBL TABLET SL STA (17:17)
[2020-10-16 17:26] LABS: ALBUMIN 3.7 GM/DL (3.2-5.2); ALT/SGPT 19 U/L (12-78); BILIRUBIN,DIRECT 0.2 MG/DL (0.0-0.2); BILIRUBIN,TOTAL 0.6 MG/DL (0.2-1.0); CK-MB VALUE MASS < 1.0 NG/ML (<3.6); CPK CREATINE PHOSPHOKINASE 36 U/L (39-308); LIPASE 46 U/L (73-393); MB/CK RELATIVE INDEX 2.78 (< OR =4); TOTAL PROTEIN 7.1 GM/DL (6.4-8.2); TROPONIN I < 0.02 NG/ML (< 0.10)
[2020-10-16 17:29] LABS: ATYPICAL LYMPH 4 % (0-5); LYMPHOCYTES 27 % (16-44); MONOCYTES 5 % (0-5); NEUTROPHILS 62 % (28-66); PLATELET ESTIMATE DECREASED (NORMAL)
[2020-10-16 17:30] LABS: ANISOCYTOSIS 1+; POIKILOCYTOSIS 1+
--- NOTE | 2020-10-16 17:36 | REP ---
INDICATION: CHEST PAIN COMPARISON: 06/26/2020 TECHNIQUE: Portable AP view of the chest FINDINGS: The mediastinum and cardiac silhouette are stable and within normal limits for portable technique. The lung arizmendi are clear without acute consolidation, effusion, or pneumothorax. Skeletal structures are intact. IMPRESSION: No acute cardiopulmonary process appreciated. <Electronically signed by Negrito Griffin > 10/16/20 [id number]
[2020-10-16 17:37] VITALS: BP 132/77
[2020-10-16] MEDS ORDERED: LORazepam 2 MG/ML VIAL IV STA (17:47)
[2020-10-16 19:30] VITALS: BP 129/83
--- NOTE | 2020-10-16 21:39 | ECGEPIP ---
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
== END 2020-10-16 19:38 | disposition home or self-care (01) ==
LOC: M ED 15:40
DX: R07.89 Other chest pain (principal); R53.1 Weakness; I10 Essential (primary) hypertension; B19.20 Unspecified viral hepatitis C without hepatic coma; Z79.899 Other long term (current) drug therapy; Z79.82 Long term (current) use of aspirin; Z79.01 Long term (current) use of anticoagulants; Z88.5 Allergy status to narcotic agent; F17.210 Nicotine dependence, cigarettes, uncomplicated
CPT/HCPCS: 71045; 80047; 80076; 82550; 82553; 83690; 84484; 85025; 93005; 93041; 94760; 96374; 99285; J2060

== ENCOUNTER → 2021-02-08 | Outpatient (CLI) | payer MEDICARE, MEDICAID ==
[~2021-02-08] MED LIST changes: +ASPI81CH33 PO; +OMEP40CA4 PO; -OMEP40CA97 PO
[2021-02-08 14:07] LABS: HEMATOCRIT 37.9 % (42.0-52.0); HEMOGLOBIN 13.3 g/dl (13.5-17.5); MEAN CORPUSCULAR HEMOGLOBIN 34.4 pg (27.0-33.0); MEAN CORPUSCULAR HGB CONC 35.1 g/dl (32.0-36.5); MEAN CORPUSCULAR VOLUME 97.9 fl (80.0-96.0); PLATELET COUNT, AUTOMATED 135 10^3/uL (150-450); RED BLOOD COUNT 3.87 10^6/uL (4.30-6.10); WHITE BLOOD COUNT 5.8 10^3/uL (4.0-10.0)
[2021-02-08 14:08] LABS: APPEARANCE, URINE HAZY (CLEAR); BILIRUBIN, URINE AUTO NEGATIVE (NEGATIVE); BLOOD, URINE BLOOD NEGATIVE (NEGATIVE); COLOR, URINE YELLOW (YELLOW); GLUCOSE, URINE (UA) AUTO NEGATIVE (NEGATIVE); KETONE, URINE AUTO NEGATIVE (NEGATIVE); LEUKOCYTE ESTERASE, URINE AUTO 1+ (NEGATIVE); NITRITE, URINE AUTO NEGATIVE (NEGATIVE); PROTEIN, URINE AUTO NEGATIVE (NEGATIVE); SPECIFIC GRAVITY URINE AUTO 1.016 (1.002-1.035); UROBILINOGEN, URINE AUTO 0.2 mg/dL (0.0-2.0)
[2021-02-08 14:13] LABS: BACTERIA, URINE AUTO 1+ (NEGATIVE); MUCUS, URINE SMALL (NEGATIVE); RBC, URINE AUTO 0 /HPF (0-3); SQUAMOUS EPITHELIAL CELL UR AU 0 /HPF (0-6); WBC, URINE AUTO 8 /HPF (0-3)
[2021-02-08 14:44] LABS: ALBUMIN 3.7 GM/DL (3.2-5.2); ALT/SGPT 21 U/L (12-78); BILIRUBIN,TOTAL 0.6 MG/DL (0.2-1.0); BLOOD UREA NITROGEN 24 MG/DL (7-18); CALCIUM LEVEL 9.2 MG/DL (8.8-10.2); CARBON DIOXIDE LEVEL 26 MEQ/L (21-32); CHLORIDE LEVEL 105 MEQ/L (98-107); CHOLESTEROL LEVEL 100 MG/DL (<200); CHOLESTEROL RISK RATIO 1.388 (<5); CREATININE FOR GFR 0.96 MG/DL (0.70-1.30); GLOMERULAR FILTRATION RATE > 60.0 (>49); GLUCOSE, FASTING 87 MG/DL (70-100); HDL CHOLESTEROL 72 MG/DL (>40); IRON (FE) 105 UG/DL (65-175); LDL CHOLESTEROL 16 MG/DL (<100); MAGNESIUM LEVEL 2.1 MG/DL (1.8-2.4); NON-HDL-C 28 MG/DL; SODIUM LEVEL 138 MEQ/L (136-145); TOTAL PROTEIN 7.2 GM/DL (6.4-8.2); TRIGLYCERIDES LEVEL 58 MG/DL (<150)
[2021-02-08 14:47] LABS: VITAMIN B12 LEVEL 341 PG/ML (247-911)
[2021-02-08 15:11] LABS: HEMOGLOBIN A1c 5.3 %
== END ==
LOC: M LAB 13:19
PROVIDERS: ATTEND Internal Medicine Cardiovascular Disease
DX: E78.5 Hyperlipidemia, unspecified (principal); D64.9 Anemia, unspecified; E11.9 Type 2 diabetes mellitus without complications; E03.9 Hypothyroidism, unspecified; R31.9 Hematuria, unspecified

== ENCOUNTER → 2021-04-11 | Outpatient (CLI) | payer MEDICARE, MEDICAID ==
[2021-04-11 12:17] LABS: HEMOGLOBIN 13.1 g/dl (13.5-17.5); MEAN CORPUSCULAR HEMOGLOBIN 34.6 pg (27.0-33.0); MEAN CORPUSCULAR HGB CONC 34.5 g/dl (32.0-36.5); MEAN CORPUSCULAR VOLUME 100.3 fl (80.0-96.0); PLATELET COUNT, AUTOMATED 115 10^3/uL (150-450); RED BLOOD COUNT 3.79 10^6/uL (4.30-6.10); WHITE BLOOD COUNT 4.8 10^3/uL (4.0-10.0)
[2021-04-11 12:54] LABS: ALBUMIN 3.8 GM/DL (3.2-5.2); ALT/SGPT 20 U/L (12-78); BILIRUBIN,TOTAL 0.6 MG/DL (0.2-1.0); BLOOD UREA NITROGEN 20 MG/DL (7-18); CALCIUM LEVEL 9.7 MG/DL (8.8-10.2); CARBON DIOXIDE LEVEL 27 MEQ/L (21-32); CHLORIDE LEVEL 108 MEQ/L (98-107); CHOLESTEROL LEVEL 138 MG/DL (<200); CHOLESTEROL RISK RATIO 1.971 (<5); CREATININE FOR GFR 0.87 MG/DL (0.70-1.30); FERRITIN 39 NG/ML (26-388); FREE T4 1.18 NG/DL (0.76-1.46); GLOMERULAR FILTRATION RATE > 60.0 (>49); GLUCOSE, FASTING 80 MG/DL (70-100); HDL CHOLESTEROL 70 MG/DL (>40); IRON (FE) 83 UG/DL (65-175); LDL CHOLESTEROL 58 MG/DL (<100); NON-HDL-C 68 MG/DL; PERCENT SATURATION 34.7 % (19.7-50.0); POTASSIUM SERUM 4.6 MEQ/L (3.5-5.1); SODIUM LEVEL 139 MEQ/L (136-145); THYROID STIMULATING HORMONE 0.999 uIU/ML (0.358-3.740); TOTAL IRON BINDING CAPACITY 239 UG/DL (250-450); TOTAL PROTEIN 7.3 GM/DL (6.4-8.2); TRIGLYCERIDES LEVEL 49 MG/DL (<150)
[2021-04-13 00:07] LABS: HEPATITIS C QUANTITATION HCV Not Detected IU/mL (.)
== END ==
LOC: M LAB 10:49
PROVIDERS: ATTEND Family Medicine
DX: I25.10 Atherosclerotic heart disease of native coronary artery without angina pectoris (principal); K74.60 Unspecified cirrhosis of liver; E61.1 Iron deficiency; B18.2 Chronic viral hepatitis C; Z12.5 Encounter for screening for malignant neoplasm of prostate; R63.4 Abnormal weight loss
CPT/HCPCS: 36415; 80053; 80061; 82728; 83550; 84439; 84443; 85027; 87522; G0103

== ENCOUNTER → 2021-04-17 | Outpatient (CLI) | payer MEDICARE, MEDICAID ==
[2021-04-17 10:07] LABS: HEMATOCRIT 37.8 % (42.0-52.0)
== END ==
LOC: M LAB 09:31
PROVIDERS: ATTEND Family Medicine
DX: D53.9 Nutritional anemia, unspecified (principal)

== ENCOUNTER 2021-08-15 19:49 | Emergency (ER) | payer MEDICARE, MEDICAID ==
[~2021-08-15] VITALS: Ht 167.6 cm; Wt 58.6 kg
[2021-08-15] MEDS ORDERED: MORPHINE 2 MG/ML 1ML VIAL (J2270) IV ONE (20:55)
[2021-08-15] MEDS ORDERED: ONDANSETRON 4MG/2ML VIAL IV ONE (20:55)
[2021-08-15 20:58] LABS: BASO % 0.7 % (0.0-1.0); EOS # 0.2 10^3/uL (0.0-0.5); EOS % 4.6 % (0.0-3.0); HEMATOCRIT 37.1 % (42.0-52.0); HEMOGLOBIN 12.8 g/dl (13.5-17.5); LYMPH % 42.8 % (24.0-44.0); MEAN CORPUSCULAR HEMOGLOBIN 33.8 pg (27.0-33.0); MEAN CORPUSCULAR HGB CONC 34.5 g/dl (32.0-36.5); MEAN CORPUSCULAR VOLUME 97.9 fl (80.0-96.0); MONO # 0.4 10^3/uL (0.0-0.8); MONO % 8.5 % (2.0-8.0); NEUTROPHILS % 43.2 % (36.0-66.0); PLATELET COUNT, AUTOMATED 120 10^3/uL (150-450); RED BLOOD COUNT 3.79 10^6/uL (4.30-6.10); WHITE BLOOD COUNT 4.6 10^3/uL (4.0-10.0)
[2021-08-15 21:12] LABS: ALBUMIN 3.6 GM/DL (3.2-5.2); BILIRUBIN,DIRECT 0.1 MG/DL (0.0-0.2); BILIRUBIN,TOTAL 0.4 MG/DL (0.2-1.0); TOTAL PROTEIN 7.1 GM/DL (6.4-8.2)
[2021-08-15] MEDS ORDERED: ISOVUE-370 76% 100ML VIAL As Ordered ONE (21:43)
[2021-08-15 23:00] VITALS: BP 125/72
== END 2021-08-16 00:05 | disposition home or self-care (01) ==
LOC: M ED 19:49 → EDBD 19:49 → M ED 08-16 00:05
DX: R10.30 Lower abdominal pain, unspecified (principal); R11.0 Nausea; I11.0 Hypertensive heart disease with heart failure; I50.9 Heart failure, unspecified; I25.2 Old myocardial infarction; I25.10 Atherosclerotic heart disease of native coronary artery without angina pectoris; B19.20 Unspecified viral hepatitis C without hepatic coma; Z95.0 Presence of cardiac pacemaker; Z72.0 Tobacco use; Z79.899 Other long term (current) drug therapy; Z79.82 Long term (current) use of aspirin; Z79.01 Long term (current) use of anticoagulants
CPT/HCPCS: 74177; 80047; 80076; 83690; 85025; 93005; 93041; 96374; 96375; 99285; J2270; J2405; Q9967

== ENCOUNTER → 2021-09-12 | Outpatient (CLI) | payer MEDICARE, MEDICAID ==
[2021-09-12 12:34] LABS: BASO % 0.6 % (0.0-1.0); EOS # 0.2 10^3/uL (0.0-0.5); EOS % 4.6 % (0.0-3.0); HEMATOCRIT 38.5 % (42.0-52.0); HEMOGLOBIN 13.4 g/dl (13.5-17.5); LYMPH # 1.7 10^3/uL (1.5-5.0); LYMPH % 33.6 % (24.0-44.0); MEAN CORPUSCULAR HEMOGLOBIN 34.6 pg (27.0-33.0); MEAN CORPUSCULAR HGB CONC 34.8 g/dl (32.0-36.5); MEAN CORPUSCULAR VOLUME 99.5 fl (80.0-96.0); MONO # 0.4 10^3/uL (0.0-0.8); NEUTROPHILS # 2.6 10^3/uL (1.5-8.5); NEUTROPHILS % 52.8 % (36.0-66.0); PLATELET COUNT, AUTOMATED 115 10^3/uL (150-450); RED BLOOD COUNT 3.87 10^6/uL (4.30-6.10)
[2021-09-12 12:46] LABS: INR 1.11; PROTHROMBIN TIME 14.7 SECONDS (12.7-14.5)
[2021-09-12 13:05] LABS: ALBUMIN 4.2 GM/DL (3.2-5.2); BILIRUBIN,DIRECT 0.3 MG/DL (0.0-0.2); BILIRUBIN,TOTAL 0.8 MG/DL (0.2-1.0); TOTAL PROTEIN 7.5 GM/DL (6.4-8.2)
== END ==
LOC: M LAB 09-09 10:59
PROVIDERS: ATTEND Internal Medicine Gastroenterology
DX: R19.5 Other fecal abnormalities (principal)

== ENCOUNTER → 2021-10-01 | Outpatient (CLI) | payer MEDICARE, MEDICAID ==
[~2021-10-01] MED LIST changes: +OMEGCAP4 PO; +VASC1CAP2 PO
[2021-10-01 10:46] LABS: HEMATOCRIT 35.8 % (42.0-52.0); HEMOGLOBIN 12.5 g/dl (13.5-17.5); MEAN CORPUSCULAR HEMOGLOBIN 34.2 pg (27.0-33.0); MEAN CORPUSCULAR HGB CONC 34.9 g/dl (32.0-36.5); MEAN CORPUSCULAR VOLUME 98.1 fl (80.0-96.0); PLATELET COUNT, AUTOMATED 113 10^3/uL (150-450); RED BLOOD COUNT 3.65 10^6/uL (4.30-6.10); WHITE BLOOD COUNT 4.8 10^3/uL (4.0-10.0)
== END ==
LOC: M LAB 09:55
PROVIDERS: ATTEND Family Medicine
DX: D51.8 Other vitamin B12 deficiency anemias (principal)

== ENCOUNTER → 2021-11-03 | Outpatient (CLI) | payer MEDICARE, MEDICAID ==
[~2021-11-03] MED LIST changes: +ATOR40TA75; +LISI10TA22
== END ==
LOC: M LABSMTC 09:34
PROVIDERS: ATTEND Anesthesiology
DX: Z01.812 Encounter for preprocedural laboratory examination (principal); Z20.822 Contact with and (suspected) exposure to COVID-19

== ENCOUNTER 2021-11-07 10:01 | Day surgery (SDC) | payer MEDICARE, MEDICAID ==
[~2021-11-07] VITALS: Ht 167.6 cm; Wt 59.4 kg
[~2021-11-07 10:01] MED LIST changes: +NS 1,000 ML IV ONE
[2021-11-07] MEDS ORDERED: FLON1SPR (10:19)
[2021-11-07 12:40] VITALS: BP 118/56
== END 2021-11-07 14:47 | disposition home or self-care (01) ==
LOC: M OPP 10:01
PROVIDERS: ATTEND Internal Medicine Gastroenterology
DX: K63.5 Polyp of colon (principal); K64.8 Other hemorrhoids; K57.30 Diverticulosis of large intestine without perforation or abscess without bleeding; R19.5 Other fecal abnormalities; K31.A19 Gastric intestinal metaplasia without dysplasia, unspecified site; K74.60 Unspecified cirrhosis of liver; Z79.02 Long term (current) use of antithrombotics/antiplatelets; Z79.82 Long term (current) use of aspirin; Z79.899 Other long term (current) drug therapy; Z88.5 Allergy status to narcotic agent; Z86.19 Personal history of other infectious and parasitic diseases; Z95.0 Presence of cardiac pacemaker; F17.210 Nicotine dependence, cigarettes, uncomplicated

== ENCOUNTER 2021-11-09 16:17 | Emergency (ER) | payer MEDICARE, MEDICAID ==
[~2021-11-09] VITALS: Ht 167.6 cm; Wt 61.8 kg
[~2021-11-09 16:17] MED LIST changes: -NS 1,000 ML IV ONE
[2021-11-09 17:29] LABS: BASO % 0.6 % (0.0-1.0); EOS # 0.2 10^3/uL (0.0-0.5); EOS % 3.4 % (0.0-3.0); HEMATOCRIT 34.3 % (42.0-52.0); LYMPH # 1.3 10^3/uL (1.5-5.0); LYMPH % 23.8 % (24.0-44.0); MEAN CORPUSCULAR HEMOGLOBIN 34.5 pg (27.0-33.0); MEAN CORPUSCULAR VOLUME 98.6 fl (80.0-96.0); MONO # 0.4 10^3/uL (0.0-0.8); MONO % 7.9 % (2.0-8.0); NEUTROPHILS # 3.4 10^3/uL (1.5-8.5); NEUTROPHILS % 63.9 % (36.0-66.0); PLATELET COUNT, AUTOMATED 114 10^3/uL (150-450); RED BLOOD COUNT 3.48 10^6/uL (4.30-6.10); WHITE BLOOD COUNT 5.3 10^3/uL (4.0-10.0)
[2021-11-09 17:40] LABS: INR 1.12; PROTHROMBIN TIME 14.8 SECONDS (12.7-14.5)
[2021-11-09 17:41] LABS: PARTIAL THROMBOPLASTIN TIME 31.8 SECONDS (25.9-37.0)
[2021-11-09 17:44] LABS: CK-MB VALUE MASS 1.4 NG/ML (<3.6); MB/CK RELATIVE INDEX 2.26 (< OR =4)
[2021-11-09 17:50] LABS: ALBUMIN 3.6 GM/DL (3.2-5.2); ALT/SGPT 21 U/L (12-78); BILIRUBIN,DIRECT 0.3 MG/DL (0.0-0.2); BILIRUBIN,TOTAL 0.8 MG/DL (0.2-1.0); BLOOD UREA NITROGEN 17 MG/DL (7-18); CALCIUM LEVEL 9.4 MG/DL (8.8-10.2); CARBON DIOXIDE LEVEL 21 MEQ/L (21-32); CHLORIDE LEVEL 109 MEQ/L (98-107); CREATININE FOR GFR 0.96 MG/DL (0.70-1.30); FREE T4 1.13 NG/DL (0.76-1.46); GLOMERULAR FILTRATION RATE > 60.0 (>49); GLUCOSE, FASTING 89 MG/DL (70-100); LIPASE 67 U/L (73-393); SODIUM LEVEL 141 MEQ/L (136-145); TOTAL PROTEIN 7.1 GM/DL (6.4-8.2)
[2021-11-09] MEDS ORDERED: ISOVUE-370 76% 100ML VIAL As Ordered ONE (18:04)
[2021-11-09 18:47] LABS: CK-MB VALUE MASS 1.6 NG/ML (<3.6); MB/CK RELATIVE INDEX 1.1 (< OR =4)
[2021-11-09 21:16] LABS: CK-MB VALUE MASS 1.2 NG/ML (<3.6); MB/CK RELATIVE INDEX 3.43 (< OR =4)
[2021-11-09 22:30] VITALS: BP 144/82
== END 2021-11-09 22:47 | disposition home or self-care (01) ==
LOC: EDBD 16:17 → M ED 16:17
DX: R07.9 Chest pain, unspecified (principal); I10 Essential (primary) hypertension; E78.5 Hyperlipidemia, unspecified; I25.10 Atherosclerotic heart disease of native coronary artery without angina pectoris; F41.9 Anxiety disorder, unspecified; D50.9 Iron deficiency anemia, unspecified; N52.9 Male erectile dysfunction, unspecified; J30.89 Other allergic rhinitis; Z95.0 Presence of cardiac pacemaker; Z95.5 Presence of coronary angioplasty implant and graft; Z79.899 Other long term (current) drug therapy; Z79.82 Long term (current) use of aspirin; F17.200 Nicotine dependence, unspecified, uncomplicated
CPT/HCPCS: 36415; 71045; 71275; 74177; 80048; 80076; 82550; 82553; 83690; 84439; 84443; 84484; 85025; 85610; 85730; 93005; 93041; 94760; 99285; Q9967

== ENCOUNTER → 2021-12-25 | Outpatient (CLI) | payer MEDICARE, MEDICAID ==
[~2021-12-25] MED LIST changes: -ATOR40TA75
== END ==
LOC: M LABSMTC 11:01
PROVIDERS: ATTEND Anesthesiology
DX: Z11.52 Encounter for screening for COVID-19 (principal)

== ENCOUNTER → 2022-01-06 | Outpatient (CLI) | payer MEDICARE, MEDICAID | LOC: M PLARAD 15:02 | PROVIDERS: ATTEND Family Medicine | DX: R91.1 Solitary pulmonary nodule (principal) | CPT/HCPCS: 78815; A9552 ==

== ENCOUNTER 2022-05-20 13:05 | Emergency (ER) | payer MEDICARE, MEDICAID ==
[~2022-05-20 13:05] MED LIST changes: +LACT10SO3 PO
[2022-05-20 14:00] LABS: EOS # 0.1 10^3/uL (0.0-0.5); EOS % 4.1 % (0.0-3.0); HEMATOCRIT 34.5 % (42.0-52.0); HEMOGLOBIN 11.8 g/dl (13.5-17.5); LYMPH # 0.7 10^3/uL (1.5-5.0); LYMPH % 23.5 % (24.0-44.0); MEAN CORPUSCULAR HEMOGLOBIN 32.2 pg (27.0-33.0); MEAN CORPUSCULAR HGB CONC 34.2 g/dl (32.0-36.5); MONO # 0.3 10^3/uL (0.0-0.8); MONO % 7.9 % (2.0-8.0); NEUTROPHILS % 63.2 % (36.0-66.0); PLATELET COUNT, AUTOMATED 107 10^3/uL (150-450); RED BLOOD COUNT 3.67 10^6/uL (4.30-6.10); WHITE BLOOD COUNT 3.2 10^3/uL (4.0-10.0)
[2022-05-20 14:22] LABS: LIPASE 18 U/L (12-53)
[2022-05-20 14:24] LABS: ALBUMIN 2.9 G/DL (3.2-5.2); ALKALINE PHOSPHATASE 62 U/L (46-116); ALT/SGPT < 9 U/L (7.0-40); AST/SGOT 13 U/L (<34); BILIRUBIN,DIRECT 0.3 MG/DL (<0.4); BILIRUBIN,TOTAL 0.7 MG/DL (0.3-1.2); BLOOD UREA NITROGEN 23 MG/DL (9-23); CALCIUM LEVEL 7.2 MG/DL (8.3-10.6); CARBON DIOXIDE LEVEL 21 MMOL/L (20-31); CHLORIDE LEVEL 112 MMOL/L (98-107); CK-MB VALUE MASS < 1.0 NG/ML (<3.6); CPK CREATINE PHOSPHOKINASE 25 U/L (46-171); CREATININE FOR GFR 0.84 MG/DL (0.70-1.30); GLOMERULAR FILTRATION RATE > 60.0 (>49); GLUCOSE, FASTING 142 MG/DL (74-106); POTASSIUM SERUM 3.3 MMOL/L (3.5-5.1); SODIUM LEVEL 141 MMOL/L (136-145); TOTAL PROTEIN 5.5 G/DL (5.7-8.2)
[2022-05-20 14:26] LABS: FREE T4 1.13 NG/DL (0.89-1.76); THYROID STIMULATING HORMONE 1.207 uIU/ML (0.55-4.78)
[2022-05-20] MEDS ORDERED: ISOVUE-370 76% 100ML VIAL As Ordered ONE (15:03)
[2022-05-20 15:27] LABS: CK-MB VALUE MASS < 1.0 NG/ML (<3.6)
[2022-05-20 15:28] LABS: CPK CREATINE PHOSPHOKINASE 28 U/L (46-171); MB/CK RELATIVE INDEX 3.57 (< OR =4)
[2022-05-20 16:21] VITALS: BP 121/76
== END 2022-05-20 16:33 | disposition home or self-care (01) ==
LOC: M ED 13:05
DX: R07.9 Chest pain, unspecified (principal); J43.9 Emphysema, unspecified; R91.8 Other nonspecific abnormal finding of lung field; R05.9 Cough, unspecified; R11.0 Nausea; I25.10 Atherosclerotic heart disease of native coronary artery without angina pectoris; I70.0 Atherosclerosis of aorta; Z95.5 Presence of coronary angioplasty implant and graft; Z95.0 Presence of cardiac pacemaker; F17.290 Nicotine dependence, other tobacco product, uncomplicated; Z79.82 Long term (current) use of aspirin; Z79.899 Other long term (current) drug therapy
CPT/HCPCS: 36415; 71045; 71275; 80048; 80076; 82550; 82553; 83690; 84439; 84443; 84484; 85025; 85379; 93005; 93041; 94760; 99284; Q9967

== ENCOUNTER → 2022-07-16 | Outpatient (CLI) | payer MEDICAID, MEDICARE | LOC: M LABSMTC 08:26 | PROVIDERS: ATTEND Anesthesiology | DX: Z01.812 Encounter for preprocedural laboratory examination (principal) ==

== ENCOUNTER → 2022-08-28 | Outpatient (CLI) | payer MEDICARE, MEDICAID | LOC: M RAD 08:59 | PROVIDERS: ATTEND Internal Medicine Gastroenterology | DX: K74.60 Unspecified cirrhosis of liver (principal); K76.0 Fatty (change of) liver, not elsewhere classified ==

== ENCOUNTER → 2023-05-07 | Outpatient (CLI) | payer MEDICARE, MEDICAID ==
[~2023-05-07] MED LIST changes: +MECL-209 PO; -MECL1TAB31 PO; +VASC1CAP2
== END ==
LOC: M RAD 10:20
PROVIDERS: ATTEND Internal Medicine Pulmonary Disease
DX: Z12.2 Encounter for screening for malignant neoplasm of respiratory organs (principal); Z87.891 Personal history of nicotine dependence; R91.1 Solitary pulmonary nodule; J43.9 Emphysema, unspecified; J47.9 Bronchiectasis, uncomplicated; N28.1 Cyst of kidney, acquired

== ENCOUNTER 2023-05-31 23:15 | Emergency (ER) | payer MEDICARE, MEDICAID ==
[2023-06-01 00:21] LABS: LIPASE 21 U/L (12-53)
[2023-06-01 00:22] LABS: CK-MB VALUE MASS < 1.0 NG/ML (<3.6)
[2023-06-01 00:23] LABS: CPK CREATINE PHOSPHOKINASE 39 U/L (46-171); MB/CK RELATIVE INDEX 2.56 (< OR =4)
[2023-06-01 00:24] LABS: ALBUMIN 3.4 G/DL (3.2-5.2); ALKALINE PHOSPHATASE 60 U/L (46-116); ALT/SGPT 13 U/L (7.0-40); AST/SGOT 10 U/L (<34); BASO % 0.5 % (0.0-1.0); BILIRUBIN,DIRECT 0.3 MG/DL (<0.4); BILIRUBIN,TOTAL 0.7 MG/DL (0.3-1.2); BLOOD UREA NITROGEN 24 MG/DL (9-23); CALCIUM LEVEL 8.3 MG/DL (8.3-10.6); CARBON DIOXIDE LEVEL 26 MMOL/L (20-31); CHLORIDE LEVEL 112 MMOL/L (98-107); CREATININE FOR GFR 0.86 MG/DL (0.70-1.30); EOS # 0.2 10^3/uL (0.0-0.5); EOS % 4.3 % (0.0-3.0); GLOMERULAR FILTRATION RATE > 60.0 (>49); GLUCOSE, FASTING 90 MG/DL (74-106); HEMATOCRIT 30.8 % (42.0-52.0); HEMOGLOBIN 10.3 g/dl (13.5-17.5); LYMPH # 1.1 10^3/uL (1.5-5.0); LYMPH % 26.8 % (24.0-44.0); MEAN CORPUSCULAR HEMOGLOBIN 31.9 pg (27.0-33.0); MEAN CORPUSCULAR HGB CONC 33.4 g/dl (32.0-36.5); MEAN CORPUSCULAR VOLUME 95.4 fl (80.0-96.0); MONO # 0.3 10^3/uL (0.0-0.8); MONO % 8.1 % (2.0-8.0); NEUTROPHILS # 2.4 10^3/uL (1.5-8.5); NEUTROPHILS % 59.3 % (36.0-66.0); PLATELET COUNT, AUTOMATED 111 10^3/uL (150-450); RED BLOOD COUNT 3.23 10^6/uL (4.30-6.10); SODIUM LEVEL 142 MMOL/L (136-145); TOTAL PROTEIN 6.1 G/DL (5.7-8.2)
[2023-06-01 00:25] LABS: THYROID STIMULATING HORMONE 2.916 uIU/ML (0.55-4.78)
[2023-06-01 01:24] LABS: CK-MB VALUE MASS < 1.0 NG/ML (<3.6)
[2023-06-01 01:25] LABS: CPK CREATINE PHOSPHOKINASE 38 U/L (46-171); MB/CK RELATIVE INDEX 2.63 (< OR =4)
[2023-06-01] MEDS ORDERED: MECLIZINE 25 MG TABLET PO ONE (02:15)
[2023-06-01 03:00] VITALS: BP 118/74; O2SAT 96
[2023-06-01] MEDS ORDERED: MECL-209 PO (03:09)
== END 2023-06-01 03:21 | disposition home or self-care (01) ==
LOC: EDBD 23:15 → M ED 23:15
DX: H81.4 Vertigo of central origin (principal); E78.5 Hyperlipidemia, unspecified; I25.2 Old myocardial infarction; Z86.79 Personal history of other diseases of the circulatory system; Z95.0 Presence of cardiac pacemaker; Z79.82 Long term (current) use of aspirin; Z79.02 Long term (current) use of antithrombotics/antiplatelets; Z79.899 Other long term (current) drug therapy

== ENCOUNTER 2024-08-10 00:09 | Emergency (ER) | payer MEDICARE, MEDICAID ==
[~2024-08-10] VITALS: Ht 167.6 cm; Wt 61.4 kg
[~2024-08-10 00:09] MED LIST changes: -LACT10SO3 PO; +LACT10SO94 PO
[2024-08-10 00:55] LABS: BASO % 0.7 % (0.0-1.0); EOS # 0.2 10^3/uL (0.0-0.5); HEMATOCRIT 29.5 % (42.0-52.0); HEMOGLOBIN 9.7 g/dl (13.5-17.5); LYMPH # 0.8 10^3/uL (1.5-5.0); LYMPH % 18.3 % (24.0-44.0); MEAN CORPUSCULAR HEMOGLOBIN 30.9 pg (27.0-33.0); MEAN CORPUSCULAR HGB CONC 32.9 g/dl (32.0-36.5); MEAN CORPUSCULAR VOLUME 93.9 fl (80.0-96.0); MONO # 0.4 10^3/uL (0.0-0.8); MONO % 9.3 % (2.0-8.0); NEUTROPHILS # 2.8 10^3/uL (1.5-8.5); NEUTROPHILS % 67.5 % (36.0-66.0); PLATELET COUNT, AUTOMATED 124 10^3/uL (150-450); RED BLOOD COUNT 3.14 10^6/uL (4.30-6.10); WHITE BLOOD COUNT 4.2 10^3/uL (4.0-10.0)
[2024-08-10 01:08] LABS: CK-MB VALUE MASS 1.1 NG/ML (<3.6)
[2024-08-10 01:10] LABS: CPK CREATINE PHOSPHOKINASE 44 U/L (46-171)
[2024-08-10 01:11] LABS: ALBUMIN 3.2 G/DL (3.2-5.2); ALKALINE PHOSPHATASE 80 U/L (40-129); ALT/SGPT 42 U/L (7.0-40); AST/SGOT 23 U/L (<34); BILIRUBIN,DIRECT 0.2 MG/DL (<0.4); BILIRUBIN,TOTAL 0.5 MG/DL (0.3-1.2); BLOOD UREA NITROGEN 30 MG/DL (9-23); CALCIUM LEVEL 8.3 MG/DL (8.3-10.6); CARBON DIOXIDE LEVEL 22 MMOL/L (20-31); CHLORIDE LEVEL 112 MMOL/L (98-107); CREATININE FOR GFR 0.85 MG/DL (0.70-1.30); GLOMERULAR FILTRATION RATE > 60.0 (>42); GLUCOSE, FASTING 82 MG/DL (74-106); POTASSIUM SERUM 3.9 MMOL/L (3.5-5.1); SODIUM LEVEL 144 MMOL/L (136-145); TOTAL PROTEIN 6.3 G/DL (5.7-8.2)
[2024-08-10 01:12] LABS: FREE T4 1.15 NG/DL (0.89-1.76); THYROID STIMULATING HORMONE 1.576 uIU/ML (0.55-4.78)
[2024-08-10 02:05] LABS: CK-MB VALUE MASS < 1.0 NG/ML (<3.6)
[2024-08-10 02:07] LABS: CPK CREATINE PHOSPHOKINASE 43 U/L (46-171); MB/CK RELATIVE INDEX 2.32 (< OR =4)
[2024-08-10] MEDS ORDERED: ISOVUE-370 76% 100ML VIAL As Ordered ONE (02:27)
[2024-08-10 03:30] VITALS: TEMP 97.8
[2024-08-10 05:17] LABS: CK-MB VALUE MASS < 1.0 NG/ML (<3.6); CPK CREATINE PHOSPHOKINASE 61 U/L (46-171); MB/CK RELATIVE INDEX 1.63 (< OR =4)
[2024-08-10 06:30] VITALS: BP 146/85; O2SAT 97
== END 2024-08-10 06:47 | disposition home or self-care (01) ==
LOC: M ED 00:09
DX: R07.89 Other chest pain (principal); I10 Essential (primary) hypertension; Z86.73 Personal history of transient ischemic attack (TIA), and cerebral infarction without residual deficits; Z95.5 Presence of coronary angioplasty implant and graft; Z95.0 Presence of cardiac pacemaker; Z85.05 Personal history of malignant neoplasm of liver; F17.290 Nicotine dependence, other tobacco product, uncomplicated; Z79.82 Long term (current) use of aspirin; Z79.899 Other long term (current) drug therapy
CPT/HCPCS: 71045; 71275; 80048; 80076; 82550; 82553; 84439; 84443; 84484; 85025; 85379; 87486; 87581; 87633; 87798; 93005; 93041; 94760; 99285; Q9967

== ENCOUNTER 2025-04-14 10:13 | Emergency (ER) | payer MEDICARE, MEDICAID ==
[~2025-04-14 10:13] MED LIST changes: -FEXO-5 PO; +[UNRECOGNIZED DRUG - CODE] PO
[2025-04-14] MEDS: ASPIRIN 81 MG CHEWABLE TABLET PO ONE (10:58)
[2025-04-14 10:59] VITALS: BP 111/68
[2025-04-14] MEDS: NITROGLYCERIN 0.4 MG SUBL TABLET SL PRN (10:59)
[2025-04-14 11:02] LABS: BASO # 0.0 10^3/uL (0.0-0.2); BASO % 0.3 % (0.0-1.0); EOS # 0.2 10^3/uL (0.0-0.5); EOS % 3.3 % (0.0-3.0); LYMPH # 0.9 10^3/uL (1.5-5.0); LYMPH % 15.4 % (24.0-44.0); MONO # 0.5 10^3/uL (0.0-0.8); MONO % 8.6 % (2.0-8.0); NEUTROPHILS # 4.2 10^3/uL (1.5-8.5); NEUTROPHILS % 72.1 % (36.0-66.0); PLATELET COUNT, AUTOMATED 140 10^3/uL (150-450)
[2025-04-14 11:19] LABS: CK-MB VALUE MASS 1.2 NG/ML (<3.6)
[2025-04-14 11:21] LABS: ALT/SGPT 22.0 U/L (7.0-40); AST/SGOT 19.0 U/L (<34); CALCIUM LEVEL 9.0 MG/DL (8.3-10.6); CARBON DIOXIDE LEVEL 26.0 MMOL/L (20-31); CHLORIDE LEVEL 108.0 MMOL/L (98-107); CPK CREATINE PHOSPHOKINASE 40.0 U/L (46-171); CREATININE FOR GFR 1.0 MG/DL (0.70-1.30); GLOMERULAR FILTRATION RATE 80.5 (>42); MB/CK RELATIVE INDEX 3.0 (< OR =4); POTASSIUM SERUM 4.6 MMOL/L (3.5-5.1); SODIUM LEVEL 142.0 MMOL/L (136-145)
[2025-04-14 11:33] LABS: INR 1.03
[2025-04-14] MEDS ORDERED: ISOVUE-370 76% 100 ML VIAL As Ordered ONE (11:46)
[2025-04-14 12:38] LABS: CPK CREATINE PHOSPHOKINASE 33 U/L (46-171)
[2025-04-14 12:39] LABS: CK-MB VALUE MASS < 1.0 NG/ML (<3.6)
[2025-04-14] MEDS ORDERED: LACT20EL PO (13:55)
[2025-04-14] MEDS ORDERED: NITR0.4S14 SL (13:55)
[2025-04-14] MEDS ORDERED: BYST1TAB2 PO (13:55)
[2025-04-14] MEDS ORDERED: VENTAER INH (13:55)
[2025-04-14] MEDS ORDERED: FLUT1BLS8 IH (13:55)
[2025-04-14] MEDS ORDERED: OMEP-173 PO (13:55)
[2025-04-14] MEDS ORDERED: ASPI81TA26 PO (13:55)
[2025-04-14] MEDS ORDERED: POTA-150 PO (13:57)
[2025-04-14] MEDS ORDERED: FURO20TA2 PO (13:57)
[2025-04-14] MEDS ORDERED: HOME MED LIST COMPLETE! XX SCH (14:00)
[2025-04-14 14:24] LABS: CK-MB VALUE MASS 1.1 NG/ML (<3.6)
[2025-04-14 14:26] LABS: CPK CREATINE PHOSPHOKINASE 32.0 U/L (46-171); MB/CK RELATIVE INDEX 3.43 (< OR =4)
[2025-04-14] MEDS ORDERED: KETOROLAC 30 MG/ML 1 ML VIAL As Ordered ONE (14:50)
[2025-04-14] MEDS: KETOROLAC 30 MG/ML 1 ML VIAL IV ONE (14:53)
[2025-04-14 15:31] VITALS: BP 127/84; TEMP 97.7; O2SAT 98
== END 2025-04-14 15:38 | disposition home or self-care (01) ==
LOC: M ED 10:13
DX: R07.9 Chest pain, unspecified (principal); R93.2 Abnormal findings on diagnostic imaging of liver and biliary tract; R91.8 Other nonspecific abnormal finding of lung field; I11.0 Hypertensive heart disease with heart failure; Z86.73 Personal history of transient ischemic attack (TIA), and cerebral infarction without residual deficits; J44.9 Chronic obstructive pulmonary disease, unspecified; Z85.05 Personal history of malignant neoplasm of liver; Z95.0 Presence of cardiac pacemaker; Z95.5 Presence of coronary angioplasty implant and graft; F17.290 Nicotine dependence, other tobacco product, uncomplicated; Z79.899 Other long term (current) drug therapy; Z79.82 Long term (current) use of aspirin
CPT/HCPCS: 71045; 71275; 80048; 80076; 82550; 82553; 83690; 84443; 84484; 85025; 85610; 85652; 93005; 93041; 94760; 96374; 99285; J1885; Q9967